=== PATIENT | female | born 1955 | race Caucasian/White ===

== ENCOUNTER → 2016-11-16 | Day surgery (SDC) | payer MEDICAID ==
[~2016-11-16] VITALS: Ht 157.5 cm; Wt 46.7 kg
[~2016-11-16] MED LIST: ACETAMINOPHEN 325 MG TAB PO PRN; ACETYLCHOLINE OPHTH SOLN 1% 2ML As Ordered ONE; ACETYLCHOLINE OPHTH SOLN 1% 2ML XX ONE; AcetaZOLAMIDE 500 MG ER CAP PO ONE; BSS with VANC/TOB/EPI for EYE CASES IR ONE; CEFUROXIME 1MG/0.1ML INTRACAMERAL INJ As Ordered ONE; CEFUROXIME 1MG/0.1ML INTRACAMERAL INJ ICAM ONE; CYCLOPENTOLATE 2% OPHTH SOLN XX ONE; HEALON DUET (HEALON 10MG/ML 0.55ML & HEALON ENDOCOAT 30MG/ML 0.85ML) As Ordered ONE; HEALON DUET (HEALON 10MG/ML 0.55ML & HEALON ENDOCOAT 30MG/ML 0.85ML) XX ONE; KETOROLAC 0.5% OPHTH SOLN OD ONE; LIDOCAINE 1% SDV 5 ML VIAL As Ordered ONE; LIDOCAINE 1% SDV 5 ML VIAL XX ONE; LIDOCAINE 4% INJ 5 ML AMP OU ONE; LISI10TA4 PO; MIDAZOLAM INJ 2 MG/2 ML VIAL (J2250) As Ordered ONE; OFLOXACIN 0.3 % (OCUFLOX) OPTH SOL 5ML XX ONE; PHENYLEPHRINE 2.5% OPHTH SOL 2ML XX ONE; POVIDONE-IODINE 5% OPHTH PREP SOL 30ML As Ordered ONE; PROPARACAINE 0.5% OPHTH SOL 15ML OD PRN; TRIMETHOBENZAMIDE 300 MG CAP PO PRN; TROPICAMIDE 1% OPHTH SOLN 2 ML XX ONE; VITA-115 PO; VITA100072 PO; VITA400C PO; VITATAB21 PO; fentaNYL 100 MCG/2 ML INJECTION (J3010) As Ordered ONE
[2016-11-16 13:20] VITALS: BP 98/59
--- NOTE | 2016-11-16 17:47 | RO ---
DATE OF PROCEDURE: 11/16/2016 PREPROCEDURE DIAGNOSIS: Age-related nuclear cataract right eye. POSTPROCEDURE DIAGNOSIS: Age-related nuclear cataract right eye. PROCEDURE: Femtosecond cataract extraction with posterior chamber intraocular lens implantation. The lens used was PCB00, 21.5 diopter. SURGEON: Cammy Callejas MD SAMPLE TESTER GRINDER: ANESTHESIA: Topical with sedation. DESCRIPTION OF PROCEDURE: The patient was brought to the operating room and put under the femtosecond laser. A lid speculum was placed between the lids, and the laser was lowered on. Docking was achieved with good suction. The laser procedure was performed with no difficulty. The laser was then removed from the eye, and the lid speculum was removed. The laser was moved over to the operating microscope and prepped and draped in the usual fashion. A lid speculum was placed between the lids. The eye was fixated. The side port incision was opened up with a spatula. 1% non-preservative lidocaine was instilled; then, viscoelastic was instilled. The main incision was then opened with the spatula. The capsulorrhexis was removed from the eye with the Utrata forceps. The lens was then hydrodissected, and a phacoemulsification unit was used to make a groove in the nucleus and one meridian. The nucleus was cracked into four quadrants, and then each quadrant was removed with the phacoemulsification unit. Any remaining cortex was removed with the irrigation and aspiration (I and A) unit. The capsular bag was refilled with viscoelastic. A posterior chamber intraocular lens was placed in the capsular bag. The remaining viscoelastic was removed. The wound was hydrated. Miochol and cefuroxime were instilled. The wound was watertight. The patient tolerated the procedure well and went to the recovery room in stable condition.
== END | disposition home or self-care (01) ==
LOC: M SDC 11:48
PROVIDERS: ATTEND Ophthalmology
DX: H25.11 Age-related nuclear cataract, right eye (principal); I10 Essential (primary) hypertension; F17.210 Nicotine dependence, cigarettes, uncomplicated; Z79.899 Other long term (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 therapy
CPT/HCPCS: 66984; J2250; J3010

== ENCOUNTER → 2016-11-23 | Day surgery (SDC) | payer MEDICAID ==
[~2016-11-23] VITALS: Ht 157.5 cm; Wt 46.7 kg
[~2016-11-23] MED LIST changes: +CYCLOPENTOLATE 2% OPHTH SOLN As Ordered ONE; +CYCLOPENTOLATE 2% OPHTH SOLN OS ONE; -CYCLOPENTOLATE 2% OPHTH SOLN XX ONE; -KETOROLAC 0.5% OPHTH SOLN OD ONE; +KETOROLAC 0.5% OPHTH SOLN OS ONE; +OFLOXACIN 0.3 % (OCUFLOX) OPTH SOL 5ML As Ordered ONE; +OFLOXACIN 0.3 % (OCUFLOX) OPTH SOL 5ML OS ONE; -OFLOXACIN 0.3 % (OCUFLOX) OPTH SOL 5ML XX ONE; +PHENYLEPHRINE 2.5% OPHTH SOL 2ML As Ordered ONE; +PHENYLEPHRINE 2.5% OPHTH SOL 2ML OS ONE; -PHENYLEPHRINE 2.5% OPHTH SOL 2ML XX ONE; -PROPARACAINE 0.5% OPHTH SOL 15ML OD PRN; +PROPARACAINE 0.5% OPHTH SOL 15ML OS PRN; +TROPICAMIDE 1% OPHTH SOLN 2 ML As Ordered ONE; +TROPICAMIDE 1% OPHTH SOLN 2 ML OS ONE; -TROPICAMIDE 1% OPHTH SOLN 2 ML XX ONE
[2016-11-23 12:45] VITALS: BP 139/84
--- NOTE | 2016-11-23 19:21 | RO ---
DATE OF PROCEDURE: 11/23/2016 PREPROCEDURE DIAGNOSIS: Age-related nuclear cataract left eye. POSTPROCEDURE DIAGNOSIS: Age-related nuclear cataract left eye. PROCEDURE: Femtosecond cataract with posterior chamber intraocular lens implantation. SURGEON: Cammy Callejas MD ASSOCIATE PROFESSOR OF PSYCHOLOGY: ANESTHESIA: Topical with sedation. LENS USED: LB00 21.5 diopter. DESCRIPTION OF PROCEDURE: The patient was brought to the operating room and put under the Femtosecond laser. A lid speculum was placed between the lids and the laser was lowered on. Docking was achieved with good suction. The laser procedure was performed with no difficulty. The laser was then removed from the eye and the lid speculum was removed. The laser was moved over to the operating microscope and prepped and draped in the usual fashion. A lid speculum was placed between the lids. The eye was fixated. The side-port incision was opened up with a spatula. 1% non-preservative Lidocaine was instilled; then viscoelastic was instilled. The main incision was then opened with the spatula. The capsulorrhexis was removed from the eye with the Utrata forceps. The lens then hydrodissected and a phacoemulsification was used to make a groove in the nucleus and one meridian. The nucleus was cracked into four quadrants and then each quadrant was removed with the phacoemulsification unit. Any remaining cortex was removed with the I and A unit. The capsular bag was refilled with viscoelastic. A posterior chamber intraocular lens was placed in the capsular bag. The remaining viscoelastic was removed. The wound was hydrated. Miochol and cefuroxime were instilled. The wound was water-tight. The patient tolerated the procedure well and went to the recovery room in stable condition.
== END | disposition home or self-care (01) ==
LOC: M SDC 10:31 → EDUNIT# 11:00
PROVIDERS: ATTEND Ophthalmology
DX: H25.12 Age-related nuclear cataract, left eye (principal); I10 Essential (primary) hypertension; F17.210 Nicotine dependence, cigarettes, uncomplicated; Z79.899 Other long term (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 therapy
CPT/HCPCS: 66984; J2250; J3010

== ENCOUNTER 2017-07-23 11:09 | Inpatient (IN) | payer MEDICAID, OTHER ==
[~2017-07-23] VITALS: Ht 157.5 cm; Wt 46.3 kg
[~2017-07-23 11:09] MED LIST changes: -ACETAMINOPHEN 325 MG TAB PO PRN; -ACETYLCHOLINE OPHTH SOLN 1% 2ML As Ordered ONE; -ACETYLCHOLINE OPHTH SOLN 1% 2ML XX ONE; -AcetaZOLAMIDE 500 MG ER CAP PO ONE; -BSS with VANC/TOB/EPI for EYE CASES IR ONE; -CEFUROXIME 1MG/0.1ML INTRACAMERAL INJ As Ordered ONE; -CEFUROXIME 1MG/0.1ML INTRACAMERAL INJ ICAM ONE; -CYCLOPENTOLATE 2% OPHTH SOLN As Ordered ONE; -CYCLOPENTOLATE 2% OPHTH SOLN OS ONE; -HEALON DUET (HEALON 10MG/ML 0.55ML & HEALON ENDOCOAT 30MG/ML 0.85ML) As Ordered ONE; -HEALON DUET (HEALON 10MG/ML 0.55ML & HEALON ENDOCOAT 30MG/ML 0.85ML) XX ONE; -KETOROLAC 0.5% OPHTH SOLN OS ONE; -LIDOCAINE 1% SDV 5 ML VIAL As Ordered ONE; -LIDOCAINE 1% SDV 5 ML VIAL XX ONE; -LIDOCAINE 4% INJ 5 ML AMP OU ONE; -MIDAZOLAM INJ 2 MG/2 ML VIAL (J2250) As Ordered ONE; -OFLOXACIN 0.3 % (OCUFLOX) OPTH SOL 5ML As Ordered ONE; -OFLOXACIN 0.3 % (OCUFLOX) OPTH SOL 5ML OS ONE; -PHENYLEPHRINE 2.5% OPHTH SOL 2ML As Ordered ONE; -PHENYLEPHRINE 2.5% OPHTH SOL 2ML OS ONE; -POVIDONE-IODINE 5% OPHTH PREP SOL 30ML As Ordered ONE; -PROPARACAINE 0.5% OPHTH SOL 15ML OS PRN; -TRIMETHOBENZAMIDE 300 MG CAP PO PRN; -TROPICAMIDE 1% OPHTH SOLN 2 ML As Ordered ONE; -TROPICAMIDE 1% OPHTH SOLN 2 ML OS ONE; -fentaNYL 100 MCG/2 ML INJECTION (J3010) As Ordered ONE
[2017-07-23] MEDS ORDERED: DILUENT IV ONE (11:45)
[2017-07-23] MEDS ORDERED: NS IV ONE (11:45)
[2017-07-23 12:22] LABS: VENOUS O2 SATURATION 62.9 % (60.0-80.0); VENOUS TOTAL CO2 34.1 MEQ/L (24.0-28.0)
[2017-07-23 12:23] LABS: ADD MANUAL DIFFER YES; MEAN CORPUSCULAR HEMOGLOBIN 40.8 pg (27.0-33.0); MEAN CORPUSCULAR HGB CONC 36.1 g/dl (32.0-36.5); MEAN CORPUSCULAR VOLUME 112.9 fl (80.0-96.0); PLATELET COUNT, AUTOMATED 293 k/mm3 (150-450); RED CELL DISTRIBUTION WIDTH 12.6 % (11.5-14.5); WHITE BLOOD COUNT 8.4 K/mm3 (4.0-10.0)
[2017-07-23 12:24] LABS: INR 0.85
[2017-07-23 12:36] LABS: ALBUMIN 1.9 GM/DL (3.2-5.2); ALBUMIN/GLOBULIN RATIO 0.56 (1.00-1.93); ALKALINE PHOSPHATASE 168 U/L (45-117); ALT/SGPT 111 U/L (12-78); AMYLASE 10 U/L (25-115); ANION GAP 11 MEQ/L (8-16); AST/SGOT 54 U/L (15-37); BILIRUBIN,DIRECT 0.8 MG/DL (0.0-0.2); BILIRUBIN,TOTAL 1.1 MG/DL (0.2-1.0); BLOOD UREA NITROGEN 20 MG/DL (7-18); CALCIUM LEVEL 8.3 MG/DL (8.5-10.1); CARBON DIOXIDE LEVEL 28 MEQ/L (21-32); CHLORIDE LEVEL 94 MEQ/L (98-107); GLOMERULAR FILTRATION RATE > 60.0 (>51); GLUCOSE, FASTING 104 MG/DL (70-105); MAGNESIUM LEVEL 1.7 MG/DL (1.8-2.4); POTASSIUM SERUM 3.9 MEQ/L (3.5-5.1); SODIUM LEVEL 133 MEQ/L (136-145); TOTAL PROTEIN 5.3 GM/DL (6.4-8.2)
[2017-07-23 13:06] LABS: BANDS 2 % (< 11)
[2017-07-23] MEDS ORDERED: ISOVUE-370 76% 100ML VIAL (Q9967) As Ordered ONE (13:17)
--- NOTE | 2017-07-23 14:44 | REP ---
CT ABDOMEN AND PELVIS WITH IV CONTRAST: TECHNIQUE: Axial contrast enhanced images from the lung bases to the pubic symphysis using 100 mL Isovue 370 intravenous contrast material with multiplanar reformations. Visualized lung bases appear clear. The liver demonstrates focal fatty infiltration along the fissure for the ligamentum teres. No liver mass is seen. Spleen, adrenals, pancreas are unremarkable. There is a tiny cyst in the upper pole of the left kidney. There is no hydronephrosis. There is moderate atherosclerotic calcification of the abdominal aorta without aneurysm. No adenopathy is seen. There is no free air. There appears to be segmental thickening of the sigmoid colon. There is surrounding loculated fluid. This segmental thickening could be neoplastic or inflammatory. The small bowel is diffusely moderately dilated. There is mild scattered free fluid in the abdomen and pelvis. There appears to be a cyst of the left ovary measuring 2.3 cm in diameter. Urinary bladder is not well distended and not well evaluated. IMPRESSION: Segmental thickening of the sigmoid colon with surrounding loculated fluid. This may be neoplastic or inflammatory in etiology. Moderate diffuse small bowel dilatation. Mild scattered free fluid without free air. No adenopathy. Small cyst left ovary. Signed by Alfredo Bassett MD 07/23/2017 07:18 P
[2017-07-23] MEDS: NS 1,000 ML IV SCH ×3 (15:30→22:39)
[2017-07-23] MEDS ORDERED: D-10TAB PO (15:47)
[2017-07-23] MEDS ORDERED: ACET50TAOT PO (15:47)
[2017-07-23] MEDS ORDERED: ASCO10003 PO (15:47)
[2017-07-23] MEDS: PIPERACILLIN/TAZOBACTAM SOD 3.375 GM in D5W MINI-BAG PLUS 50 ML IV SCH ×2 (16:00→22:39)
[2017-07-23] MEDS ORDERED: OXAZEPAM 10 MG CAP PO PRN (16:15)
[2017-07-23] MEDS ORDERED: NICOTINE POLACRILEX 2 MG GUM PO PRN (16:15)
[2017-07-23] MEDS: THIAMINE 100 MG TAB PO SCH (16:54)
[2017-07-23] MEDS: MULTIVITAMINS/MINERALS THERAP 1 TAB PO SCH (16:55)
[2017-07-23] MEDS: FOLIC ACID 1 MG TAB PO SCH (16:55)
[2017-07-23] MEDS: MAG SULF 1GM/100ML (MAG RUN) 1 GM in APPROPRIATE DILUENT 1 EA IV SCH ×2 (17:20→18:52)
--- NOTE | 2017-07-23 17:41 | HPE ---
DATE OF ADMISSION: 07/23/2017 PRIMARY CARE PHYSICIAN: Marlee Reynolds. Patient would like to change primary care physician at hospital discharge. HOSPITALIST ATTENDING: Dr. Ej Herrera. CHIEF COMPLAINT: Abdominal distention and generalized weakness. HISTORY OF PRESENT ILLNESS: This is a 61-year-old female with history of hypertension on chronic lisinopril, bilateral cataract surgery October 2016, presents to the emergency room with two day history of abdominal distention. Patient has been complaining of three to four months of generalized weakness, decrease in appetite, feeling of bilateral hands and feet feeling cold and numb. [place] like she had "iron bands around my ankles and rib cage, feeling very heavy with extreme pain in my back and hips," worse when she crosses her legs. She has been having tingling sensation in bilateral feet and hands and has been taking vitamin E, B. Before, she had been taking vitamin B, C and D as outpatient. Her ambulation has been affected the past week with inability to walk without having to sit immediately due to generalized weakness. She has chronic shortness of breath from smoking over 40 years with occasional chronic cough with white sputum. This weekend, patient noticed that her abdomen, which is usually flattened, has "popped up over the past two days." She has had significant decrease in appetite without documented weight loss, even with "stuff I like," only eating about four to five bites. She has had some constipation in the past week. She usually goes daily. Otherwise, has had no diarrhea. She has had no history of colonoscopy in the past. She admits to drinking alcohol, two wine glasses daily, but per the , speaking in private with Dr. Romero, emergency room (ER) physician, patient apparently drinks heavily every day, but would not admit to it in my interview with her on admission. Patient had not had any prior esophagogastroduodenoscopy (EGD) or colonoscopy and has also been complaining of dysphagia to solids and liquids. Feels like food and water are getting stuck, unrelated to the temperature of the liquids, but again, has not had any weight loss. No prior history of reflux, heartburn, or hiatal hernia in the past, but has been smoking since the age of 16 and quit one week ago, with two pack per day habit in the past. Hospitalist service was paged for admission for further evaluation of patient's abdominal distention, sigmoid colon thickening, and complaints of generalized weakness with dysphagia. In the emergency room (ER), she was noted to have a systolic pressure of 70, complaints of dizziness, 73/60, given intravenous normal saline bolus, with resultant increase in systolic pressure to 111 at the bedside. She otherwise denied any lightheadedness, dizziness, near syncope. Denies any palpitations, chest pain, pressure, tightness, or any change in her chronic shortness of breath. PAST MEDICAL HISTORY: 1. Hypertension. 2. Bilateral cataracts. PAST SURGICAL HISTORY: Bilateral cataract surgery. HOME MEDICATIONS: - acetaminophen 500 mg as needed - vitamin C 1 gram daily - vitamin D 1000 units daily - vitamin B12 1000 mcg daily - lisinopril 10 mg daily - vitamin E 400 units daily ALLERGIES: No known drug or food allergies. SOCIAL HISTORY: Lives with her . 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 Currently, no cigarettes in the past week. Patient admits to drinking two glasses of wine nightly; however, per the 's conversation outside the room with Dr. Romero, states she drinks heavily at home, but would not admit to this during my interview with her on admission. FAMILY HISTORY: Mother in her 70s. Father in his 70s with hypertension. One brother and sister both have hypertension. REVIEW OF SYSTEMS: Per history of present illness (HPI), 12-point system otherwise negative. PHYSICAL EXAMINATION: On emergency room (ER) presentation, patient's blood pressure was 73/60. Current blood pressure on admission is 111/67, temperature 97.4, pulse 118, 96% on room air, respiratory rate of 20. GENERAL: Patient appears older than her stated age. Cachectic-appearing, disheveled. Poor dentition. Anicteric. No jaundice. No respiratory distress. Able to speak in full sentences. Speech is fluent. Face is symmetric. Tongue is midline. Pupils are equally round and reactive to light and accommodation. Extraocular muscles intact. Normocephalic, atraumatic. NECK: Supple. Full range of motion. No cervical lymphadenopathy or thyromegaly. No jugular venous distention. LUNGS: Diminished, but clear to auscultation. No wheezing, rales or rhonchi. HEART: S1, S2. Sinus tachycardia. No murmurs, rubs or gallops. ABDOMEN: Soft, doughy. Positive bowel sounds in four quadrants. No rebound or guarding. No tenderness. No hepatosplenomegaly. No capet medusae. No colón erythema or spider angiomas. EXTREMITIES: No cyanosis or clubbing. SKIN: Warm, dry and well-perfused. [place] in color. LABORATORY DATA: White count 8.4, hemoglobin 13, hematocrit 36, platelet count 293. 82% neutrophils. Sedimentation rate is pending. Sodium 133, potassium 3.9, chloride 94, bicarbonate 28, BUN 20, creatinine 0.5, glucose 104, calcium 8.3, magnesium 1.7. Total bilirubin 1.1, direct bilirubin 0.8, AST 54, ALT 111, alkaline phosphatase 168. Total CK 13, CK-MB 1. Relative index 7.69. Troponin less than 0.02. C-reactive protein 14.2. Total protein 5.3, albumin 1.9. Albumin/globulin ratio 0.56, amylase 10. Alpha-fetoprotein, C, A, CA-125, vitamin B12, folate and TSH are all pending. IMAGING STUDIES: CT abdomen/pelvis shows focal fatty infiltration of the liver along with fissure for the ligamentum teres. No liver mass. Spleen, adrenals, pancreas are unremarkable. Tiny cyst in the upper pole of the left kidney. No hydronephrosis. Moderate atherosclerotic calcification of abdominal aorta without aneurysm. No adenopathy is seen. No free air. Segmental thickening of the sigmoid colon with surrounding loculated fluid, could be neoplastic or inflammatory. Small bowel is diffusely moderately dilated. There is mild, scattered free fluid in the abdomen and pelvis with a cyst in left ovary measuring 2.3 cm in diameter. Urinary bladder is not distended and not well evaluated. ASSESSMENT AND PLAN: This is a 61-year-old female with history of hypertension, bilateral cataract surgery, more than a 50-pack year history of smoking, quit one week ago, heavy alcohol use per the , patient admits to two glasses of wine daily, presents to the emergency room with three to four month history of weakness, fatigue and a two day history of abdominal distention. CURRENT ISSUES: The patient will be admitted for the following active issues: 1. Sigmoid thickening. Patient has not had a previous colonoscopy, but has had no family history of colon cancer. Will consult gastroenterology (GI) for colonoscopy with biopsy. Patient has been having change in her bowel movements, has been much more constipated lately. She has history of alcohol and cigarette use in the past, would benefit from ruling out colon cancer. Patient has not had any bright red blood per rectum, documented weight loss, but does also complain of some dysphagia. Patient may have a regular diet now and nothing by mouth when colonoscopy is scheduled. Check tumor markers, sarah-fetoprotein, C, CA-99 2. Left ovarian cyst. Most likely benign; however, will check a pelvic ultrasound to rule out solid mass and check CA-125. 3. Generalized weakness and fatigue. Most likely secondary to chronic hypotension. Patient, by taking lisinopril, has not developed any acute kidney injury or renal failure, hyperkalemia or metabolic acidosis. Sigmoid thickening could be infectious or inflammatory; therefore, patient has been given intravenous Zosyn for gram-negative and anaerobic coverage. For now, patient appears to have responded quite well to intravenous fluids with normal saline. Will continue hydration. She appears to be well perfused. Will monitor patient's urine output, check a TSH level as well to rule out hypothyroidism. 4. Dysphagia. Patient also complains of dysphagia to solids and liquids with significant change in decreased appetite; however, she has not had any significant weight loss due to risk factors of being over the age of 50, with history of both heavy alcohol use as well as cigarette smoking. It is reasonable to proceed with esophagogastroduodenoscopy (EGD), but will defer to Dr. Ramirez for this. If he would prefer to do an esophagram prior to this, we can empirically treat the patient as well with a proton pump inhibitor (PPI). At this time, she has no complaints of odynophagia to suggest any infectious etiology or empiric fluconazole use. 5. Active smoking. Patient recently quit one week ago. Had been smoking two packs a day since the age of 16, has cut back to about a pack a day for the past six months. No cigarettes for the past one week. Patient will have as needed nicotine gum for cravings and a nicotine patch if she becomes extremely uncomfortable. 6. Heavy alcohol use. Patient denies more than two glasses of wine daily; however, per the 's conversation with Dr. Romero, patient drinks much more heavily. Therefore, we will monitor for delirium tremens. Serax, Ativan, multivitamins, thiamin and folate for now, and as needed Ativan for comfort. [place] Withdrawal Assessment (CIWA) protocol. 7. Hypertension. Patient currently had low blood pressure; therefore, we will discontinue the lisinopril. 8. Deep venous thrombosis (DVT) prophylaxis. Subcutaneously heparin. Patient will be assigned to Dr. Ej Herrera at 7:00 p.m. on 07/23/2017.
[2017-07-23 21:35] VITALS: BP 104/66
[2017-07-23] MEDS: NICOTINE 7 MG/24 HR TRANSDERMAL TD SCH (21:46)
[2017-07-23] MEDS: HEPARIN SOD (PORCINE) 5000 UNITS/ML VIAL SQ SCH (22:39)
[2017-07-24] VITALS (7 sets, daily range): BP systolic 99–134; BP diastolic 65–82
[2017-07-24] MEDS: PIPERACILLIN/TAZOBACTAM SOD 3.375 GM in D5W MINI-BAG PLUS 50 ML IV SCH ×4 (04:22→21:44)
[2017-07-24] MEDS: HEPARIN SOD (PORCINE) 5000 UNITS/ML VIAL SQ SCH ×3 (05:16→21:43)
[2017-07-24 05:30] LABS: ADD MANUAL DIFFER YES; MEAN CORPUSCULAR HEMOGLOBIN 40.8 pg (27.0-33.0); MEAN CORPUSCULAR HGB CONC 35.9 g/dl (32.0-36.5); MEAN CORPUSCULAR VOLUME 113.5 fl (80.0-96.0); PLATELET COUNT, AUTOMATED 258 k/mm3 (150-450); RED CELL DISTRIBUTION WIDTH 12.8 % (11.5-14.5); WHITE BLOOD COUNT 5.2 K/mm3 (4.0-10.0)
[2017-07-24 05:57] LABS: ALBUMIN 1.6 GM/DL (3.2-5.2); ALBUMIN/GLOBULIN RATIO 0.55 (1.00-1.93); ALKALINE PHOSPHATASE 129 U/L (45-117); ALT/SGPT 71 U/L (12-78); ANION GAP 9 MEQ/L (8-16); AST/SGOT 32 U/L (15-37); BILIRUBIN,DIRECT 0.7 MG/DL (0.0-0.2); BILIRUBIN,TOTAL 0.9 MG/DL (0.2-1.0); BLOOD UREA NITROGEN 14 MG/DL (7-18); CALCIUM LEVEL 7.2 MG/DL (8.5-10.1); CARBON DIOXIDE LEVEL 27 MEQ/L (21-32); CHLORIDE LEVEL 99 MEQ/L (98-107); CHOLESTEROL LEVEL 87 MG/DL (<200); CREATININE FOR GFR 0.28 MG/DL (0.55-1.02); GLOMERULAR FILTRATION RATE > 60.0 (>51); GLUCOSE, FASTING 80 MG/DL (70-105); POTASSIUM SERUM 3.6 MEQ/L (3.5-5.1); SODIUM LEVEL 135 MEQ/L (136-145); TOTAL PROTEIN 4.5 GM/DL (6.4-8.2); TRIGLYCERIDES LEVEL 173 MG/DL (<150)
[2017-07-24 06:33] LABS: BANDS 3 % (< 11)
--- NOTE | 2017-07-24 06:39 | REP ---
PELVIC ULTRASOUND: Real-time sonographic evaluation of the pelvis performed utilizing transabdominal and endovaginal technique. The bladder measures 6.6 x 4.5 cm. The uterus measures 5.2 x 2.6 x 3.1 cm. Endometrial thickness is 2 mm. Right ovary is not visualized. Left ovary measures 3.6 x 3.7 x 1.9 cm and contains a complex cyst 1.6 x 2.9 x 2.0 cm. Blood flow is seen in the left ovary with duplex Doppler evaluation, with no torsion, RI equals 0.33. A couple of tiny endometrial calcifications are seen. IMPRESSION: Complex cyst left ovary 2.9 cm in diameter. Right ovary not visualized. Signed by Alfredo Bassett MD 07/24/2017 05:25 P
--- NOTE | 2017-07-24 06:50 | REP ---
LUMBOSACRAL SPINE: Three views of the lumbosacral spine performed. There is no compression fracture. There is mild diffuse spurring. There is mild disc space narrowing at L3-4. There is moderate to severe narrowing at L4-5 with subchondral sclerosis. There is mild anterior listhesis of L4 on L5 which appears to be due to posterior facet arthropathy. There is diffuse sclerosis at the posterior facet joints. Posterior elements are intact. IMPRESSION: Degenerative changes most significantly at the L4-5 level. No acute fracture. Signed by Alfredo Bassett MD 07/24/2017 05:25 P
--- NOTE | 2017-07-24 08:29 | ECGEPIP ---
Stationary ECG Study [facility] - ED Test Date: 2017-07-23 Pat Name: ADAN PRATER Department: Room: - Gender: F Rabbit Fancier: svetlana : 1955 Requested By: Sultana Burgess Order Number: [id number] Reading MD: Colton Diaz Measurements Intervals [place] Rate: 112 P: 79 FL: 155 QRS: 60 QRSD: 72 T: 81 QT: 311 QTc: 425 Interpretive Statements SINUS TACHYCARDIA NO PRIORS Electronically Signed On 07-24-2017 8:29:09 EDT by Colton Diaz
[2017-07-24] MEDS: MULTIVITAMINS/MINERALS THERAP 1 TAB PO SCH (09:49)
[2017-07-24] MEDS: FOLIC ACID 1 MG TAB PO SCH (09:49)
[2017-07-24] MEDS: THIAMINE 100 MG TAB PO SCH (09:49)
[2017-07-24] MEDS: SIMETHICONE 80 MG CHEW TAB PO SCH ×4 (09:49→21:43)
[2017-07-24] MEDS: NICOTINE 7 MG/24 HR TRANSDERMAL TD SCH (09:50)
[2017-07-24 10:35] LABS: FOLATE 1.6 NG/ML (>5.4); VITAMIN B12 LEVEL > 2000 PG/ML (247-911)
--- NOTE | 2017-07-24 11:04 | IPNPDOC ---
Subjective Date Seen The patient was seen on 07/24/17. Subjective Chief Complaint/HPI Patient seen and examined at the bedside. States that her abdominal pain is improved, and she feels better overall. Denies any episodes of nausea/vomiting or diarrhea overnight. Notes that she is passing flatus, but no bowel movement overnight. Denies any other acute complaints at this time. Objective Physical Examination General Exam: Positive: Alert, Cooperative, No Acute Distress ENT Exam: Positive: Atraumatic, Mucous membr. moist/pink Neck Exam: Negative: JVD Chest Exam: Positive: Clear to auscultation, Normal air movement Heart Exam: Positive: Rate Normal, Normal S1, Normal S2 Abdomen Exam: Positive: Soft (Distended lower abdominal quadrants, mild tenderness to deep palpation. No rebound tenderness, guarding, or rigidity) Extremity Exam: Negative: Tenderness, Swelling Psych Exam: Positive: Oriented x 3 Assessment /Plan Plan/VTE VTE Prophylaxis Ordered?: Yes Plan/Urinary Catheter Reason for insertion/continuin: Critical Pt monitoring Plan Abdominal Pain 2/2 Sigmoid Thickening, Infectious vs. Malignant in etiology CT abd/pel noted Pelvic U/S notable for left sided ovarian cyst WBC wnl, patient has remained afebrile Cultures pending Empirically covered on Zosyn for now Tumor markers pending LFTs downward trending IVF Hydration Will keep patient NPO Surgery on consult for possible Colonoscopy vs U/S Guided Needle aspiration for further delineation Fatigue, Lethargy There is concern for possible underlying malignancy given the patient's clinical presentation and CT Abd imaging. Will cont to work up PT on board for functional optimization Hx of Dysphagia Patient would benefit from an EGD given her history of EtOH and Tobacco abuse, will await surgical recommendations regarding next step in diagnostic modality Alcohol Abuse Cont Serax, Ativan Thiamine, Folate, MVM CIWA Protocol Tobacco Abuse Nicotine patch Counseled on tobacco cessation DVT Prophylaxis Heparin SC VS, I&O, 24H, Fishbone Vital Signs/I&O Vital Signs Date Time Temp Pulse Resp B/P (MAP) Pulse Ox O2 Delivery O2 Flow Rate FiO2 07/24/17 08:00 97.1 102 18 113/69 (84) 90 Room Air I&O- Last 24 Hours up to 6 AM 07/25/17 05:59 Intake Total 550 ml Output Total 0 ml Balance 550 ml Laboratory Data 24H LABS Laboratory Tests 2 07/23/17 11:53: Hepatitis B Surface Antigen NEGATIVE 07/23/17 11:58: Prothrombin Time 11.7L, Prothromb Time International Ratio 0.85, Activated Partial Thromboplast Time 29.7 07/23/17 11:59: Neutrophils 82H, Band Neutrophils 2, Lymphocytes (Manual) 7L, Monocytes (Manual ) 4, Atypical Lymphocytes 5, Platelet Estimate NORMAL, Macrocytosis 2+, Blood Gas Bicarbonate Standard 30.0, Venous Blood pH 7.432H, Venous Blood Partial Pressure CO2 50.0, Venous Blood Partial Pressure O2 35.0, Venous Blood Total Carbon Dioxide 34.1H, Venous Blood HCO3 32.6H, Venous Blood Oxygen Saturation 62.9, Venous Blood Base Excess 7.0H, Anion Gap 11, Glomerular Filtration Rate > 60.0, Lactic Acid Level 1.9, Calcium Level 8.3L, Magnesium Level 1.7L, Aspartate Amino Transf (AST/SGOT) 54H, Alanine Aminotransferase (ALT/SGPT) 111H , Alkaline Phosphatase 168H, Total Bilirubin 1.1H, Direct Bilirubin 0.8H, Total Creatine Kinase 13L, Creatine Kinase MB 1.0, Creatine Kinase MB Relative Index 7.69H, Troponin I < 0.02, C-Reactive Protein, Quantitative 14.20H, Total Protein 5.3L, Albumin 1.9L, Albumin/Globulin Ratio 0.56L, Amylase Level 10L, Vitamin B12 Level > 2000H, Folate 1.6L 07/23/17 15:20: C-Reactive Protein, Quantitative 12.00H, Erythrocyte Sedimentation Rate 49H, Whole Blood Ionized Calcium 4.4L, Thyroid Stimulating Hormone (TSH) 0.951 07/24/17 04:55: Neutrophils 83H, Band Neutrophils 3, Lymphocytes (Manual) 9L, Monocytes (Manual ) 4, Atypical Lymphocytes 1, Platelet Estimate NORMAL, Macrocytosis 3+, Anion Gap 9, Glomerular Filtration Rate > 60.0, Calcium Level 7.2L, Aspartate Amino Transf (AST/SGOT) 32, Alanine Aminotransferase (ALT/SGPT) 71, Alkaline Phosphatase 129H, Total Bilirubin 0.9, Direct Bilirubin 0.7H, Total Protein 4.5L , Albumin 1.6L, Albumin/Globulin Ratio 0.55L, Triglycerides Level 173H, Total Cholesterol 87, LDL Cholesterol 35.4, Non-HDL Cholesterol (LDL + VLDL) 70, Total HDL Cholesterol 17L, Cholesterol/HDL Ratio 5.117H, Thyroid Stimulating Hormone (TSH) 1.780 CBC/BMP Laboratory Tests 07/23/17 11:59 Red Blood Count 3.20 L, Mean Corpuscular Volume 112.9 H, Mean Corpuscular Hemoglobin 40.8 H, Mean Corpuscular Hemoglobin Concent 36.1, Red Cell Distribution Width 12.6 07/24/17 04:55 Red Blood Count 2.82 L, Mean Corpuscular Volume 113.5 H, Mean Corpuscular Hemoglobin 40.8 H, Mean Corpuscular Hemoglobin Concent 35.9, Red Cell Distribution Width 12.8 Microbiology Microbiology 07/23/17 Blood Culture, Received Pending 07/23/17 Blood Culture, Received Pending RUPA BENNETT MD Jul 24, 2017 11:04
--- NOTE | 2017-07-24 11:08 | CR.PDOC ---
[facility] Consultation Consultation DATE OF CONSULTATION: Jul 23, 2017 at 11:09 REFERRING PROVIDER: Dr. Li ATTENDING PHYSICIAN: Dr. Herrera REASON FOR CONSULTATION/CHIEF COMPLAINT: Sigmoid thickening HISTORY OF PRESENT ILLNESS: A 61-year-old female with history of hypertension on chronic lisinopril, bilateral cataract surgery presents to the emergency room with two day history of abdominal distention. With a 3-4 month history of generalized weakness, decreased appetite, feeling bilateral feet and hands going numb. Surgery was consult because of decreased appetite and weight loss, with concern for malignancy. Patient has a history of smoking about 2 packs a day since she was 16. Patient also has a history of heavy alcohol use. CT abdomen revealed Segmental thickening of the sigmoid colon with surrounding loculated fluid. This may be neoplastic or inflammatory in etiology. Moderate diffuse small bowel dilatation. Mild scattered free fluid without free air. No adenopathy. Small cyst left ovary. ALLERGIES: Please see below. HOME MEDICATIONS: Please see below. PAST MEDICAL HISTORY: 1. Hypertension 2. Bilateral cataracts. PAST SURGICAL HISTORY: 1. Bilateral cataract surgery FAMILY HISTORY: Mother in her 70s. Father in his 70s with hypertension. One brother and sister both have hypertension SOCIAL HISTORY: Lives with her . 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 Currently, no cigarettes in the past week. Patient admits to drinking two glasses of wine nightly; however, per the 's conversation outside the room with Dr. Romero, states she drinks heavily at home, but would not admit to this during my interview with her on admission REVIEW OF SYSTEMS: CONSTITUTIONAL: Alert, orientated, minutes weight loss CARDIOVASCULAR: Denies any chest pain denies any palpitation RESPIRATORY: Respiratory difficulties. GENITOURINARY: No issues. MUSCULOSKELETAL: To generalized weakness. GASTROINTESTINAL: Constipation and decreased appetite. HEMATOLOGIC/LYMPHATIC: No bleeding issues PHYSICAL EXAMINATION: VITAL SIGNS: Please see below. GENERAL APPEARANCE: HEENT: Head is atraumatic, RESPIRATORY: Lungs are clear to auscultate. CARDIOVASCULAR: S1 and S2 present, no murmurs rubs or gallops ABDOMEN: No organomegaly. Slight tenderness to palpation throughout the abdomen. EXTREMITIES: Swelling no deformities. LABORATORY DATA: Please see below. IMAGING: CT abomen revealed Segmental thickening of the sigmoid colon with surrounding loculated fluid. This may be neoplastic or inflammatory in etiology. Moderate diffuse small bowel dilatation. Mild scattered free fluid without free air. No adenopathy. Small cyst left ovary. ASSESSMENT/PLAN: 1. A 61-year-old female admitted for abdominal distention and generalized weakness. Abdominal CT revealed segmental thickening of the sigmoid colon with surrounding loculated fluid. Given abdominal distention and weight loss, malignancy is a concern. Etiology is questionable whether upper or lower GI pathology is responsible. CEA is pending. CA 119 has been ordered. She may have a obstruction, as evident by the bowel dilation. I recommend patient be placed nothing by mouth. In terms of nutrition a PICC line has been ordered for TPN. Simethicone has been ordered. I recommended consultation with GI for an endoscope. At this point I am not concerned about the sigmoid lesion. I am more concerned about the possibility of gastric cancer. Ultrasound-guided needle aspiration for the fluid in her abdomen has been ordered. Vital Signs/I&O Vital Signs Date Time Temp Pulse Resp B/P (MAP) Pulse Ox O2 Delivery O2 Flow Rate FiO2 07/24/17 08:00 97.1 102 18 113/69 (84) 90 Room Air I&O- Last 24 Hours up to 6 AM 07/25/17 06:00 Intake Total 50 ml Balance 50 ml Laboratory Data Labs 24H Laboratory Tests 2 07/23/17 11:53: Hepatitis B Surface Antigen NEGATIVE 07/23/17 11:58: Prothrombin Time 11.7L, Prothromb Time International Ratio 0.85, Activated Partial Thromboplast Time 29.7 07/23/17 11:59: Neutrophils 82H, Band Neutrophils 2, Lymphocytes (Manual) 7L, Monocytes (Manual ) 4, Atypical Lymphocytes 5, Platelet Estimate NORMAL, Macrocytosis 2+, Blood Gas Bicarbonate Standard 30.0, Venous Blood pH 7.432H, Venous Blood Partial Pressure CO2 50.0, Venous Blood Partial Pressure O2 35.0, Venous Blood Total Carbon Dioxide 34.1H, Venous Blood HCO3 32.6H, Venous Blood Oxygen Saturation 62.9, Venous Blood Base Excess 7.0H, Anion Gap 11, Glomerular Filtration Rate > 60.0, Lactic Acid Level 1.9, Calcium Level 8.3L, Magnesium Level 1.7L, Aspartate Amino Transf (AST/SGOT) 54H, Alanine Aminotransferase (ALT/SGPT) 111H , Alkaline Phosphatase 168H, Total Bilirubin 1.1H, Direct Bilirubin 0.8H, Total Creatine Kinase 13L, Creatine Kinase MB 1.0, Creatine Kinase MB Relative Index 7.69H, Troponin I < 0.02, C-Reactive Protein, Quantitative 14.20H, Total Protein 5.3L, Albumin 1.9L, Albumin/Globulin Ratio 0.56L, Amylase Level 10L, Vitamin B12 Level > 2000H, Folate 1.6L 07/23/17 15:20: C-Reactive Protein, Quantitative 12.00H, Erythrocyte Sedimentation Rate 49H, Whole Blood Ionized Calcium 4.4L, Thyroid Stimulating Hormone (TSH) 0.951 07/24/17 04:55: Neutrophils 83H, Band Neutrophils 3, Lymphocytes (Manual) 9L, Monocytes (Manual ) 4, Atypical Lymphocytes 1, Platelet Estimate NORMAL, Macrocytosis 3+, Anion Gap 9, Glomerular Filtration Rate > 60.0, Calcium Level 7.2L, Aspartate Amino Transf (AST/SGOT) 32, Alanine Aminotransferase (ALT/SGPT) 71, Alkaline Phosphatase 129H, Total Bilirubin 0.9, Direct Bilirubin 0.7H, Total Protein 4.5L , Albumin 1.6L, Albumin/Globulin Ratio 0.55L, Triglycerides Level 173H, Total Cholesterol 87, LDL Cholesterol 35.4, Non-HDL Cholesterol (LDL + VLDL) 70, Total HDL Cholesterol 17L, Cholesterol/HDL Ratio 5.117H, Thyroid Stimulating Hormone (TSH) 1.780 CBC/BMP Laboratory Tests 07/23/17 11:59 Red Blood Count 3.20 L, Mean Corpuscular Volume 112.9 H, Mean Corpuscular Hemoglobin 40.8 H, Mean Corpuscular Hemoglobin Concent 36.1, Red Cell Distribution Width 12.6 07/24/17 04:55 Red Blood Count 2.82 L, Mean Corpuscular Volume 113.5 H, Mean Corpuscular Hemoglobin 40.8 H, Mean Corpuscular Hemoglobin Concent 35.9, Red Cell Distribution Width 12.8 Microbiology Microbiology 07/23/17 Blood Culture, Received Pending 07/23/17 Blood Culture, Received Pending Allergies Coded Allergies: No Known Allergies (Unverified , 11/14/16) Home Medications Scheduled Ascorbic Acid (Ascorbic Acid) 1,000 Mg Tab, 1,000 MG PO DAILY, (Reported) Cholecalciferol (D-1000) 1,000 Unit Tab, 1,000 UNIT PO DAILY, (Reported) Cyanocobalamin (Vitamin B12) 1,000 Mcg Tab, 1,000 MCG PO DAILY, (Reported) Lisinopril (Lisinopril) 10 Mg Tab, 10 MG PO DAILY, (Reported) Vitamin E (Janel-Plus E) 400 Unit Cap, 400 UNIT PO DAILY, (Reported) Scheduled PRN Acetaminophen (Acetaminophen) 500 Mg Tab, 500 MG PO for PAIN, (Reported) GME ATTESTATION GME ATTESTATION My preceptor for this patient encounter was physically present in the building during the encounter and was fully available. As needed, all aspects of the patient interview, examination, medical decision making process, and medical care plan development were reviewed and approved by the preceptor. Preceptor is aware and concurs with the plan as stated in the body of this note and will attest to such by his/her cosignature. RICH QUIÑONES DO Jul 24, 2017 11:08
--- NOTE | 2017-07-24 13:27 | REP ---
CHEST, SINGLE VIEW: There is no evidence of acute infiltrate. No pleural effusion is seen. The heart is normal in size. The mediastinal silhouette is unremarkable. The visualized osseous structures are intact. IMPRESSION: No acute pulmonary disease. Signed by Alfredo Bassett MD 07/25/2017 05:12 P
[2017-07-24] MEDS: NS 1,000 ML IV SCH (14:00)
--- NOTE | 2017-07-24 17:41 | REP ---
RIGHT PICC LINE PLACEMENT: The procedure was performed by LASHAY Kulkarni under the direct supervision of Dr. Bassett. The procedure along with its risks, benefits, and complications were discussed with the patient prior to the examination. Informed consent was obtained both verbally and written. The patient was identified in the interventional suite and placed in a supine position. The right arm was prepped and draped in the usual sterile fashion. A procedural "time out" was performed to ensure that the correct patient, site, and procedure were being performed. Under ultrasound guidance the right basilic vein was punctured. A thin guidewire was introduced. Local infiltrative anesthesia ws achieved using 2% lidocaine. The needle was removed and a break-away sheath was placed. Under fluoroscopic observation and via the break-away sheath, a 32 cm 5.5-Honduran double-lumen PICC line was placed with its tip at the junction of the distal superior vena cava. The catheter was flushed with heparinized saline and affixed to the patients skin. The patient tolerated the procedure well and had no immediate complications. IMPRESSION: Uncomplicated placement of right upper extremity double-lumen PICC line. Fluoroscopy 0.2 minutes. Reviewed by LASHAY Augustine 07/24/2017 05:54 PEdited and Signed by Alfredo Bassett MD 07/25/2017 05:08 P
[2017-07-24] MEDS: HumaLOG INSULIN (NovoLOG) PER UNIT SC SCH ×2 (17:50→23:53)
[2017-07-24] MEDS ORDERED: MULTIVITAMIN -ADULT INJECTION 10 ML, CR/CU/SE/MN/ZN INJ 1 ML in AMINO AC/ELECTROLYTE/DE... IV SCH (18:00)
[2017-07-24] MEDS ORDERED: FAT EMULSION IV 20% 500 ML IV SCH (18:00)
[2017-07-24] MEDS: SODIUM CHLORIDE 0.9% INJ 10 ML SYR IV SCH (18:11)
[2017-07-25] MEDS ORDERED: SODIUM CHLORIDE 0.9% INJ 10 ML SYR IV PRN (02:15)
[2017-07-25] MEDS: PIPERACILLIN/TAZOBACTAM SOD 3.375 GM in D5W MINI-BAG PLUS 50 ML IV SCH ×4 (04:00→21:17)
[2017-07-25] MEDS: HEPARIN SOD (PORCINE) 5000 UNITS/ML VIAL SQ SCH ×3 (05:14→21:16)
[2017-07-25] MEDS: SODIUM CHLORIDE 0.9% INJ 10 ML SYR IV SCH ×4 (05:14→17:35)
[2017-07-25 05:15] VITALS: BP 116/72
[2017-07-25 05:44] LABS: MEAN CORPUSCULAR HEMOGLOBIN 39.2 pg (27.0-33.0); MEAN CORPUSCULAR HGB CONC 36.1 g/dl (32.0-36.5); MEAN CORPUSCULAR VOLUME 108.7 fl (80.0-96.0); PLATELET COUNT, AUTOMATED 224 10^3/uL (150-450); RED CELL DISTRIBUTION WIDTH 13.1 % (11.5-14.5); WHITE BLOOD COUNT 9.8 10^3/uL (4.0-10.0)
[2017-07-25 05:46] LABS: ADD MANUAL DIFFER YES; DIFF SLIDE NUMBER 31
[2017-07-25 05:51] VITALS: BP 142/86
[2017-07-25 06:04] LABS: ANION GAP 9 MEQ/L (8-16); BLOOD UREA NITROGEN 9 MG/DL (7-18); CALCIUM LEVEL 7.3 MG/DL (8.5-10.1); CARBON DIOXIDE LEVEL 27 MEQ/L (21-32); CHLORIDE LEVEL 100 MEQ/L (98-107); CREATININE FOR GFR 0.36 MG/DL (0.55-1.02); GLOMERULAR FILTRATION RATE > 60.0 (>51); GLUCOSE, FASTING 154 MG/DL (70-105); POTASSIUM SERUM 2.8 MEQ/L (3.5-5.1); SODIUM LEVEL 136 MEQ/L (136-145)
[2017-07-25] MEDS: HumaLOG INSULIN (NovoLOG) PER UNIT SC SCH ×3 (06:24→17:32)
[2017-07-25] MEDS ORDERED: POTASSIUM CHLORIDE 10 MEQ SR TABLET PO ONE ×2 (06:30→07:30)
[2017-07-25 06:47] LABS: BANDS 3 % (< 11)
[2017-07-25 08:05] LABS: MAGNESIUM LEVEL 1.6 MG/DL (1.8-2.4)
[2017-07-25 09:20] LABS: CARCINOEMBRYONIC ANTIGEN 2.2 NG/ML (<2.5)
[2017-07-25] MEDS: THIAMINE 100 MG TAB PO SCH (09:20)
[2017-07-25] MEDS: MULTIVITAMINS/MINERALS THERAP 1 TAB PO SCH (09:20)
[2017-07-25] MEDS: FOLIC ACID 1 MG TAB PO SCH (09:20)
[2017-07-25] MEDS: SIMETHICONE 80 MG CHEW TAB PO SCH ×4 (09:21→21:16)
[2017-07-25] MEDS: NICOTINE 7 MG/24 HR TRANSDERMAL TD SCH (09:22)
[2017-07-25] MEDS ORDERED: MAG SULF 1GM/100ML (MAG RUN) 1 GM in APPROPRIATE DILUENT 1 EA IV ONE (10:00)
[2017-07-25 10:16] VITALS: BP 116/72
--- NOTE | 2017-07-25 10:20 | IPNPDOC ---
Subjective Date Seen The patient was seen on 07/25/17. Subjective Chief Complaint/HPI The patient is a 61-year-old female admitted with a reason for visit of Sigmoid Thickening. General: Denies: Chills, Night Sweats Constitutional: Reports: Malaise, Weakness, Fatigue, Weight Loss, Denies: Chills, Fever, Night Sweats Eyes: Denies: Pain, Vision change ENT: Denies: Head Aches, Ear Pain Skin: Reports: Other (chronic numbness b/l upper and lower extremities and lips ), Denies: Rash, Lesions, Itching, Dry Pulmonary: Denies: Dyspnea, Cough Cardiovascular: Denies: Chest Pain, Palpitations, Orthopnea, Edema, Lt Headedness Gastrointestinal: Denies: Nausea, Vomiting, Abdominal Pain, Diarrhea, Constipation Genitourinary: Denies: Dysuria Musculoskeletal: Reports: Back Pain (chronic), Denies: Neck Pain Neurological: Reports: Weakness, Numbness (hands, feet and lips) Psych: Reports: Mood Normal Objective Physical Examination General Exam: Positive: Alert, Cooperative, No Acute Distress Eye Exam: Positive: Conjunctiva & lids normal, EOMI, Negative: Sclera icteric, Ptosis ENT Exam: Positive: Atraumatic, Mucous membr. moist/pink, Tongue Midline, Nares Patent Neck Exam: Negative: JVD Chest Exam: Positive: Clear to auscultation, Normal air movement, Negative: Rales, Rhonchi, Wheezing, Diminished Heart Exam: Positive: Rate Normal, Normal S1, Normal S2, Negative: Gallops, Murmurs, Rubs Telemetry: Positive: No significant arrhythmia Abdomen Exam: Positive: Normal bowel sounds, Soft (Distended lower abdominal quadrant, mild tenderness to deep palpation. No rebound tenderness, guarding, or rigidity. nabsx4), Tenderness, Negative: BS Hyperactive, BS Hypoactive, Hepatospenomegaly, Mass Extremity Exam: Positive: Normal pulses, Negative: Clubbing, Cyanosis, Edema, Tenderness, Swelling Skin Exam: Negative: Rash, Breakdown Psych Exam: Positive: Oriented x 3 Assessment /Plan Problems (1) Sigmoid thickening Status: Acute Response to Treatment: Stable Problem Text: sx. team consulted-appreciate their help pt is s/p diagnostic peritoneal fluid tap-cultures and cytology pending- malignancy is still a possibility tumor markers pending pt did complain of left hip pain, usually chronic-will continue to monitor, awaiting cell block for peritoneal fluid from diagnostic tap, possible metastatic bony lesion if pt has malignancy blood cx neg after 24 hours pt continues to be afebrile with no white count c/w broad sepc. zosyn coverage for now until cx's result (2) Abdominal pain Status: Acute Response to Treatment: Stable Problem Text: pt still complains of burning in epigastric area will continue with pain control and could begin PPI (3) Alcohol abuse Status: Acute Response to Treatment: Stable Problem Text: pt states she drinks 2 glasses of wine a day serax, thiamine and MV on for pt CIWA followed denies withdrawal symptoms if she cannot consume alcohol (4) Hypokalemia Status: Acute Response to Treatment: Stable Problem Text: 2.8 this morning, will replaced and will re-check BMP this afternoon Mg low, replaced as well (5) Numbness Status: Acute Response to Treatment: Stable Problem Text: will check b12 and folate (6) DVT prophylaxis Status: Acute Response to Treatment: Stable Problem Text: c/w heparin Plan/VTE VTE Prophylaxis Ordered?: Yes Plan/Urinary Catheter Reason for insertion/continuin: Critical Pt monitoring VS, I&O, 24H, Fishbone Vital Signs/I&O Vital Signs Date Time Temp Pulse Resp B/P (MAP) Pulse Ox O2 Delivery O2 Flow Rate FiO2 07/25/17 05:15 97.7 108 18 116/72 (87) 95 Room Air I&O- Last 24 Hours up to 6 AM 07/26/17 06:00 Intake Total 0 ml Output Total 0 ml Balance 0 ml Laboratory Data 24H LABS Laboratory Tests 2 07/24/17 17:45: Bedside Glucose (Misc Panel) 87 07/24/17 19:52: Urine Appearance HAZY, Urine Color CONY, Urine pH 5.0, Urine Specific [place] 1.048, Urine Protein 1+H, Urine Glucose (UA) 1+H, Urine Ketones 1+H, Urine Urobilinogen 2.0H, Urine Bilirubin NEGATIVE, Urine Leukocyte Esterase 1+H, Urine Blood NEGATIVE, Urine Nitrite NEGATIVE, Urine WBC (Auto) 6H, Urine RBC ( Auto) 3, Urine Hyaline Casts (Auto) 0, Urine Bacteria (Auto) 1+H, Urine Squamous Epithelial Cells 5, Urine Mucus (Auto) SMALL, Urine Sperm (Auto) 07/24/17 23:41: Bedside Glucose (Misc Panel) 261H 07/25/17 05:21: Neutrophils 77H, Band Neutrophils 3, Lymphocytes (Manual) 13L, Monocytes (Manual ) 7, Platelet Estimate NORMAL, Macrocytosis 2+, Anion Gap 9, Glomerular Filtration Rate > 60.0, Blood Urea Nitrogen 9, Creatinine 0.36L, Sodium Level 136, Potassium Level 2.8#*L, Chloride Level 100, Carbon Dioxide Level 27, Calcium Level 7.3L, Magnesium Level 1.6L CBC/BMP Laboratory Tests 07/25/17 05:21 Red Blood Count 2.65 L, Mean Corpuscular Volume 108.7 H, Mean Corpuscular Hemoglobin 39.2 H, Mean Corpuscular Hemoglobin Concent 36.1, Red Cell Distribution Width 13.1, Calcium Level 7.3 L Microbiology Microbiology 07/23/17 Blood Culture - Preliminary, Resulted No growth after 24 hours . All specim... 07/23/17 Blood Culture - Preliminary, Resulted No growth after 24 hours . All specim... 07/24/17 Urine Culture, Received Pending GME ATTESTATION GME ATTESTATION My preceptor for this patient encounter was physically present in the building during the encounter and was fully available. As needed, all aspects of the patient interview, examination, medical decision making process, and medical care plan development were reviewed and approved by the preceptor. Preceptor is aware and concurs with the plan as stated in the body of this note and will attest to such by his/her cosignature. BEATRICE العلي DO Jul 25, 2017 10:20
[2017-07-25] MEDS: KCL 10MEQ IN 100ML SWI (KRUN) 10 MEQ in APPROPRIATE DILUENT 1 EA IV SCH ×4 (10:37→13:47)
[2017-07-25] MEDS: IBUPROFEN 400 MG TAB PO PRN ×2 (11:56→21:18)
[2017-07-25 12:21] LABS: VITAMIN B12 LEVEL > 2000 PG/ML (247-911)
[2017-07-25 12:22] LABS: FOLATE > 24.0 NG/ML (>5.4)
[2017-07-25 14:00] VITALS: BP 108/64
[2017-07-25 17:55] LABS: ANION GAP 7 MEQ/L (8-16); BLOOD UREA NITROGEN 10 MG/DL (7-18); CALCIUM LEVEL 7.7 MG/DL (8.5-10.1); CARBON DIOXIDE LEVEL 26 MEQ/L (21-32); CHLORIDE LEVEL 102 MEQ/L (98-107); CREATININE FOR GFR 0.21 MG/DL (0.55-1.02); GLOMERULAR FILTRATION RATE > 60.0 (>51); GLUCOSE, FASTING 99 MG/DL (70-105); MAGNESIUM LEVEL 2.2 MG/DL (1.8-2.4); SODIUM LEVEL 135 MEQ/L (136-145)
[2017-07-25] MEDS ORDERED: FAT EMULSION IV 20% 500 ML IV SCH (18:00)
[2017-07-25] MEDS ORDERED: AMINO AC/ELECTROLYTE/DEX/CALC 2,000 ML IV SCH (18:00)
[2017-07-25 18:03] LABS: POTASSIUM SERUM 4.3 MEQ/L (3.5-5.1)
--- NOTE | 2017-07-25 20:01 | IPNPDOC ---
Date Seen The patient was seen on 07/25/17. Progress Note SUBJECTIVE: A 61-year-old female with history of hypertension on chronic lisinopril, bilateral cataract surgery presents to the emergency room with two day history of abdominal distention. With a 3-4 month history of generalized weakness, decreased appetite, feeling bilateral feet and hands going numb. Surgery was consult because of decreased appetite and weight loss, with concern for malignancy. Patient has a history of smoking about 2 packs a day since she was 16. Patient also has a history of heavy alcohol use. CT abdomen revealed Segmental thickening of the sigmoid colon with surrounding loculated fluid. This may be neoplastic or inflammatory in etiology. Moderate diffuse small bowel dilatation. Mild scattered free fluid without free air. No adenopathy. Small cyst left ovary. Surgery was consulted as a resort. OBJECTIVE PHYSICAL EXAMINATION: VITAL SIGNS: Please see below. GENERAL APPEARANCE: Awake, resting in bed HEENT: Head is atraumatic, RESPIRATORY: Lungs are clear to auscultate. CARDIOVASCULAR: S1 and S2 present, no murmurs rubs or gallops ABDOMEN: No organomegaly. Slight tenderness to palpation throughout the abdomen , pt says that it has improved from yesterday. EXTREMITIES: Swelling no deformities. LABORATORY DATA: Please see below. MICROBIOLOGY: Please see below. ASSESSMENT AND PLAN:A 61-year-old female admitted for abdominal distention and generalized weakness. Abdominal CT revealed segmental thickening of the sigmoid colon with surrounding loculated fluid. Peritoneal fluid tap yield no malignancy. Cell block is still pending. Given that malignancy is still a concern. I recommend an upper GI with small bowel follow through. Patient will remain NPO and will be using TPN for nutrition. At this point I am not concerned about the sigmoid lesion. I am more concerned about the possibility of gastric cancer. VS, I&O, 24H, Fishbone Vital Signs/I&O Vital Signs Date Time Temp Pulse Resp B/P (MAP) Pulse Ox O2 Delivery O2 Flow Rate FiO2 07/25/17 14:00 97.3 97 22 108/64 (79) 98 Room Air I&O- Last 24 Hours up to 6 AM 07/26/17 06:00 Intake Total 1240 ml Output Total 200 ml Balance 1040 ml Laboratory Data 24H LABS Laboratory Tests 2 07/24/17 19:52: Urine Appearance HAZY, Urine Color CONY, Urine pH 5.0, Urine Specific [place] 1.048, Urine Protein 1+H, Urine Glucose (UA) 1+H, Urine Ketones 1+H, Urine Urobilinogen 2.0H, Urine Bilirubin NEGATIVE, Urine Leukocyte Esterase 1+H, Urine Blood NEGATIVE, Urine Nitrite NEGATIVE, Urine WBC (Auto) 6H, Urine RBC ( Auto) 3, Urine Hyaline Casts (Auto) 0, Urine Bacteria (Auto) 1+H, Urine Squamous Epithelial Cells 5, Urine Mucus (Auto) SMALL, Urine Sperm (Auto) 07/24/17 23:41: Bedside Glucose (Misc Panel) 261H 07/25/17 05:21: Neutrophils 77H, Band Neutrophils 3, Lymphocytes (Manual) 13L, Monocytes (Manual ) 7, Platelet Estimate NORMAL, Macrocytosis 2+, Anion Gap 9, Glomerular Filtration Rate > 60.0, Blood Urea Nitrogen 9, Creatinine 0.36L, Sodium Level 136, Potassium Level 2.8#*L, Chloride Level 100, Carbon Dioxide Level 27, Calcium Level 7.3L, Magnesium Level 1.6L 07/25/17 11:04: Vitamin B12 Level > 2000H, Folate > 24.0 07/25/17 11:38: Bedside Glucose (Misc Panel) 166H 07/25/17 16:44: Bedside Glucose (Misc Panel) 130H 07/25/17 16:56: Anion Gap 7L, Glomerular Filtration Rate > 60.0, Blood Urea Nitrogen 10, Creatinine 0.21L, Sodium Level 135L, Potassium Level 4.3#, Chloride Level 102, Carbon Dioxide Level 26, Calcium Level 7.7L, Magnesium Level 2.2 CBC/BMP Laboratory Tests 07/25/17 05:21 Red Blood Count 2.65 L, Mean Corpuscular Volume 108.7 H, Mean Corpuscular Hemoglobin 39.2 H, Mean Corpuscular Hemoglobin Concent 36.1, Red Cell Distribution Width 13.1, Calcium Level 7.3 L Microbiology Microbiology 07/23/17 Blood Culture - Preliminary, Resulted No Growth after 48 hours. All Specime... 07/23/17 Blood Culture - Preliminary, Resulted No Growth after 48 hours. All Specime... 07/24/17 Urine Culture, Received Pending GME ATTESTATION GME ATTESTATION My preceptor for this patient encounter was physically present in the building during the encounter and was fully available. As needed, all aspects of the patient interview, examination, medical decision making process, and medical care plan development were reviewed and approved by the preceptor. Preceptor is aware and concurs with the plan as stated in the body of this note and will attest to such by his/her cosignature. RICH QUIÑONES DO Jul 25, 2017 19:46 Butch Li Jr Aug 10, 2017 10:32
[2017-07-25 21:30] VITALS: BP 108/64
[2017-07-25 22:00] VITALS: BP 149/79
[2017-07-26] MEDS: PIPERACILLIN/TAZOBACTAM SOD 3.375 GM in D5W MINI-BAG PLUS 50 ML IV SCH ×4 (03:40→21:15)
[2017-07-26] MEDS: HEPARIN SOD (PORCINE) 5000 UNITS/ML VIAL SQ SCH ×3 (05:08→21:15)
[2017-07-26] MEDS: SODIUM CHLORIDE 0.9% INJ 10 ML SYR IV SCH ×4 (05:09→18:29)
[2017-07-26 05:23] LABS: MEAN CORPUSCULAR HEMOGLOBIN 39.2 pg (27.0-33.0); MEAN CORPUSCULAR HGB CONC 36.1 g/dl (32.0-36.5); MEAN CORPUSCULAR VOLUME 108.6 fl (80.0-96.0); PLATELET COUNT, AUTOMATED 197 10^3/uL (150-450); RED CELL DISTRIBUTION WIDTH 13.1 % (11.5-14.5); WHITE BLOOD COUNT 12.5 10^3/uL (4.0-10.0)
[2017-07-26 05:26] LABS: ADD MANUAL DIFFER YES; DIFF SLIDE NUMBER 14
[2017-07-26] MEDS: HumaLOG INSULIN (NovoLOG) PER UNIT SC SCH ×4 (05:43→18:26)
[2017-07-26 05:45] LABS: ANION GAP 7 MEQ/L (8-16); BLOOD UREA NITROGEN 10 MG/DL (7-18); CALCIUM LEVEL 7.3 MG/DL (8.5-10.1); CARBON DIOXIDE LEVEL 27 MEQ/L (21-32); CHLORIDE LEVEL 100 MEQ/L (98-107); CREATININE FOR GFR 0.18 MG/DL (0.55-1.02); GLOMERULAR FILTRATION RATE > 60.0 (>51); GLUCOSE, FASTING 138 MG/DL (70-105); SODIUM LEVEL 134 MEQ/L (136-145)
[2017-07-26 06:00] VITALS: BP 146/91
[2017-07-26 07:28] LABS: DIFF SLIDE NUMBER 118
[2017-07-26 08:07] VITALS: BP 130/72
[2017-07-26 08:15] VITALS: BP 130/72
[2017-07-26] MEDS: NICOTINE 7 MG/24 HR TRANSDERMAL TD SCH (09:00)
[2017-07-26] MEDS: FOLIC ACID 1 MG TAB PO SCH (09:50)
[2017-07-26] MEDS: THIAMINE 100 MG TAB PO SCH (09:50)
[2017-07-26] MEDS: SIMETHICONE 80 MG CHEW TAB PO SCH ×4 (09:50→21:14)
[2017-07-26] MEDS: MULTIVITAMINS/MINERALS THERAP 1 TAB PO SCH (09:51)
--- NOTE | 2017-07-26 10:09 | IPNPDOC ---
Subjective Date Seen The patient was seen on 07/26/17. Subjective Chief Complaint/HPI The patient is a 61-year-old female admitted with a reason for visit of Sigmoid Thickening. General: Reports: Fatigue, Malaise, Denies: Chills, Night Sweats, Normal Appetite Constitutional: Reports: Weakness, Fatigue, Weight Loss, Lethargy, Denies: Chills, Fever, Malaise, Night Sweats Eyes: Denies: Pain, Vision change, Conjunctivae inflammation ENT: Denies: Head Aches, Ear Pain, Dysphagia Skin: Denies: Rash, Lesions, Jaundice, Bruising, Itching, Dry, Breakdown Pulmonary: Reports: Pleuritic Chest Pain ("band like distribution" tight feeling under breasts b/l), Denies: Dyspnea, Cough Cardiovascular: Denies: Chest Pain, Palpitations, Orthopnea, Paroxysmal Noc. Dyspnea, Edema, Lt Headedness Gastrointestinal: Reports: Abdominal Pain (diffuse, LLQ), Denies: Nausea, Vomiting, Diarrhea, Constipation, Hematochezia Genitourinary: Denies: Dysuria Neurological: Reports: Weakness, Denies: Numbness, Incoordination, Change in speech, Confusion Psych: Reports: Mood Normal Objective Physical Examination General Exam: Positive: Alert, Cooperative, No Acute Distress Eye Exam: Positive: Conjunctiva & lids normal, EOMI, Negative: Sclera icteric, Ptosis ENT Exam: Positive: Atraumatic, Mucous membr. moist/pink, Tongue Midline, Nares Patent Neck Exam: Negative: JVD Chest Exam: Positive: Clear to auscultation, Normal air movement, Negative: Rales, Rhonchi, Wheezing, Diminished Heart Exam: Positive: Rate Normal, Normal S1, Normal S2, Negative: Gallops, Murmurs, Rubs Telemetry: Positive: No significant arrhythmia Abdomen Exam: Positive: Normal bowel sounds, Soft (Distended lower abdominal quadrant, mild tenderness to deep palpation. No rebound tenderness, guarding, or rigidity. nabsx4), Tenderness, Negative: BS Hyperactive, BS Hypoactive, Hepatospenomegaly, Mass Extremity Exam: Positive: Normal pulses, Negative: Clubbing, Cyanosis, Edema, Tenderness, Swelling Skin Exam: Negative: Rash, Breakdown Psych Exam: Positive: Oriented x 3 Assessment /Plan Problems (1) Sigmoid thickening Status: Acute Response to Treatment: Stable Problem Text: sx. team consulted-appreciate their help, likely colonoscopy tomorrow and upper GI f/through today. pt is s/p diagnostic peritoneal fluid tap-cytology neg for malignancy, cell block pending tumor markers pending pt did complain of left hip pain, usually chronic, began 6 months ago-will continue to monitor, awaiting cell block for peritoneal fluid from diagnostic tap, possible metastatic bony lesion if pt has malignancy blood cx neg after 48 hours pt continues to be afebrile with no white count c/w broad sepc. zosyn coverage for now until cx's result (2) Abdominal pain Status: Acute Response to Treatment: Stable Problem Text: pt still complains of diffuse abdominal pain worse in LLQ with tight band like pressure b/l under her breasts will continue with pain control (3) Alcohol abuse Status: Acute Response to Treatment: Stable Problem Text: pt states she drinks 2 glasses of wine a day serax, thiamine and MV on for pt CIWA followed denies withdrawal symptoms if she cannot consume alcohol (4) Hypokalemia Status: Acute Response to Treatment: Stable Problem Text: 2.8 this morning, will replaced and will re-check BMP this afternoon Mg low, replaced as well (5) Numbness Status: Acute Response to Treatment: Stable Problem Text: will check b12 and folate b12 elevated, not likely cause of numbness will continue to monitor (6) DVT prophylaxis Status: Acute Response to Treatment: Stable Problem Text: c/w heparin Plan/VTE VTE Prophylaxis Ordered?: Yes Plan/Urinary Catheter Reason for insertion/continuin: Critical Pt monitoring VS, I&O, 24H, [facility] Vital Signs/I&O Vital Signs Date Time Temp Pulse Resp B/P (MAP) Pulse Ox O2 Delivery O2 Flow Rate FiO2 07/26/17 08:07 95.9 112 17 130/72 (91) 99 Room Air I&O- Last 24 Hours up to 6 AM 07/27/17 06:00 Intake Total 50 ml Balance 50 ml Laboratory Data 24H LABS Laboratory Tests 2 07/25/17 11:04: Vitamin B12 Level > 2000H, Folate > 24.0 07/25/17 11:38: Bedside Glucose (Misc Panel) 166H 07/25/17 16:44: Bedside Glucose (Misc Panel) 130H 07/25/17 16:56: Anion Gap 7L, Glomerular Filtration Rate > 60.0, Blood Urea Nitrogen 10, Creatinine 0.21L, Sodium Level 135L, Potassium Level 4.3#, Chloride Level 102, Carbon Dioxide Level 26, Calcium Level 7.7L, Magnesium Level 2.2 07/25/17 23:45: Bedside Glucose (Misc Panel) 164H 07/26/17 05:16: Immature Granulocyte # (Auto) , Neutrophils 87H, Lymphocytes (Manual) 8L, Monocytes (Manual) 5, Macrocytosis 2+, Platelet Estimate NORMAL, Anion Gap 7L, Glomerular Filtration Rate > 60.0, Blood Urea Nitrogen 10, Creatinine 0.18L, Sodium Level 134L, Potassium Level 4.0, Chloride Level 100, Carbon Dioxide Level 27, Calcium Level 7.3L, C-Reactive Protein, Quantitative 4.09H CBC/BMP Laboratory Tests 07/25/17 11:04 07/25/17 16:56 Calcium Level 7.7 L 07/26/17 05:16 Calcium Level 7.3 L, Red Blood Count 2.45 L, Mean Corpuscular Volume 108.6 H, Mean Corpuscular Hemoglobin 39.2 H, Mean Corpuscular Hemoglobin Concent 36.1, Red Cell Distribution Width 13.1 Microbiology Microbiology 07/23/17 Blood Culture - Preliminary, Resulted No Growth after 48 hours. All Specime... 07/23/17 Blood Culture - Preliminary, Resulted No Growth after 48 hours. All Specime... 07/24/17 Urine Culture, Received Pending GME ATTESTATION GME ATTESTATION My preceptor for this patient encounter was physically present in the building during the encounter and was fully available. As needed, all aspects of the patient interview, examination, medical decision making process, and medical care plan development were reviewed and approved by the preceptor. Preceptor is aware and concurs with the plan as stated in the body of this note and will attest to such by his/her cosignature. BEATRICE العلي DO Jul 26, 2017 10:09
--- NOTE | 2017-07-26 10:30 | IPNPDOC ---
Date Seen The patient was seen on 07/26/17. Progress Note SUBJECTIVE: A 61-year-old female with history of hypertension on chronic lisinopril, bilateral cataract surgery presents to the emergency room with two day history of abdominal distention. With a 3-4 month history of generalized weakness, decreased appetite, feeling bilateral feet and hands going numb. Surgery was consult because of decreased appetite and weight loss, with concern for malignancy. Patient has a history of smoking about 2 packs a day since she was 16. Patient also has a history of heavy alcohol use. CT abdomen revealed Segmental thickening of the sigmoid colon with surrounding loculated fluid. This may be neoplastic or inflammatory in etiology. Moderate diffuse small bowel dilatation. Mild scattered free fluid without free air. No adenopathy. Small cyst left ovary. Surgery was consulted as a resort. This morning patient reports that she is feeling fine, complains of slight abdominal pain. She has been unable to have bowel movement but she does admit to flatus. OBJECTIVE PHYSICAL EXAMINATION: VITAL SIGNS: Please see below. GENERAL APPEARANCE: Awake, resting in bed HEENT: Head is atraumatic, RESPIRATORY: Lungs are clear to auscultate. CARDIOVASCULAR: S1 and S2 present, no murmurs rubs or gallops ABDOMEN: No organomegaly. Slight tenderness to palpation throughout the abdomen , mild abdominal distention EXTREMITIES: Swelling no deformities. LABORATORY DATA: Please see below. MICROBIOLOGY: Please see below. ASSESSMENT AND PLAN:A 61-year-old female admitted for abdominal distention and generalized weakness. Abdominal CT revealed segmental thickening of the sigmoid colon with surrounding loculated fluid. Peritoneal fluid tap yield no malignancy. Cell block is still pending. Given that malignancy is still a concern. An upper GI with a small bowel follow through have been ordered. If there are no signs of obstruction. An upper endoscope and a colonoscopy will be ordered to look for masses and other lesions. VS, I&O, 24H, Fishbone Vital Signs/I&O Vital Signs Date Time Temp Pulse Resp B/P (MAP) Pulse Ox O2 Delivery O2 Flow Rate FiO2 07/26/17 08:07 95.9 112 17 130/72 (91) 99 Room Air I&O- Last 24 Hours up to 6 AM 07/27/17 06:00 Intake Total 50 ml Output Total 100 ml Balance -50 ml Laboratory Data 24H LABS Laboratory Tests 2 07/25/17 11:04: Vitamin B12 Level > 2000H, Folate > 24.0 07/25/17 11:38: Bedside Glucose (Misc Panel) 166H 07/25/17 16:44: Bedside Glucose (Misc Panel) 130H 07/25/17 16:56: Anion Gap 7L, Glomerular Filtration Rate > 60.0, Blood Urea Nitrogen 10, Creatinine 0.21L, Sodium Level 135L, Potassium Level 4.3#, Chloride Level 102, Carbon Dioxide Level 26, Calcium Level 7.7L, Magnesium Level 2.2 07/25/17 23:45: Bedside Glucose (Misc Panel) 164H 07/26/17 05:16: Immature Granulocyte # (Auto) , Neutrophils 87H, Lymphocytes (Manual) 8L, Monocytes (Manual) 5, Macrocytosis 2+, Platelet Estimate NORMAL, Anion Gap 7L, Glomerular Filtration Rate > 60.0, Blood Urea Nitrogen 10, Creatinine 0.18L, Sodium Level 134L, Potassium Level 4.0, Chloride Level 100, Carbon Dioxide Level 27, Calcium Level 7.3L, C-Reactive Protein, Quantitative 4.09H CBC/BMP Laboratory Tests Calcium Level 7.7 L 07/26/17 05:16 Calcium Level 7.3 L, Red Blood Count 2.45 L, Mean Corpuscular Volume 108.6 H, Mean Corpuscular Hemoglobin 39.2 H, Mean Corpuscular Hemoglobin Concent 36.1, Red Cell Distribution Width 13.1 Microbiology Microbiology 07/23/17 Blood Culture - Preliminary, Resulted No Growth after 48 hours. All Specime... 07/23/17 Blood Culture - Preliminary, Resulted No Growth after 48 hours. All Specime... 07/24/17 Urine Culture, Received Pending GME ATTESTATION GME ATTESTATION My preceptor for this patient encounter was physically present in the building during the encounter and was fully available. As needed, all aspects of the patient interview, examination, medical decision making process, and medical care plan development were reviewed and approved by the preceptor. Preceptor is aware and concurs with the plan as stated in the body of this note and will attest to such by his/her cosignature. RICH QUIÑONES DO Jul 26, 2017 10:30 Butch Li Jr Aug 10, 2017 10:34
[2017-07-26 10:48] VITALS: BP 130/72
[2017-07-26] MEDS ORDERED: E-Z-PAQUE 96% w/w SUSP 176GM BTL As Ordered ONE (13:16)
[2017-07-26] MEDS ORDERED: E-Z-GAS II EFFERVESCENT PACKET (SODIUM BICARB./CITRIC ACID/SIMETHICONE) As Ordered ONE (13:16)
[2017-07-26] MEDS ORDERED: E-Z-HD 98% w/w 340GM SUSP BTL As Ordered ONE (13:17)
[2017-07-26] MEDS: IBUPROFEN 400 MG TAB PO PRN (16:23)
[2017-07-26] MEDS ORDERED: FAT EMULSION IV 20% 500 ML IV SCH (18:00)
[2017-07-26] MEDS ORDERED: AMINO AC/ELECTROLYTE/DEX/CALC 2,000 ML IV SCH (18:00)
[2017-07-26] MEDS ORDERED: IBUPROFEN 400 MG TAB PO ONE (21:15)
[2017-07-26 22:00] VITALS: BP 134/88
[2017-07-26 22:34] VITALS: BP 128/70
[2017-07-27] MEDS: HumaLOG INSULIN (NovoLOG) PER UNIT SC SCH ×5 (00:16→23:52)
[2017-07-27] MEDS: PIPERACILLIN/TAZOBACTAM SOD 3.375 GM in D5W MINI-BAG PLUS 50 ML IV SCH (03:19)
[2017-07-27] MEDS: HEPARIN SOD (PORCINE) 5000 UNITS/ML VIAL SQ SCH ×3 (05:06→21:11)
[2017-07-27] MEDS: SODIUM CHLORIDE 0.9% INJ 10 ML SYR IV SCH ×4 (05:06→18:49)
[2017-07-27 05:55] LABS: MEAN CORPUSCULAR HEMOGLOBIN 38.2 pg (27.0-33.0); MEAN CORPUSCULAR HGB CONC 35.6 g/dl (32.0-36.5); MEAN CORPUSCULAR VOLUME 107.3 fl (80.0-96.0); PLATELET COUNT, AUTOMATED 214 10^3/uL (150-450); RED CELL DISTRIBUTION WIDTH 13.2 % (11.5-14.5)
[2017-07-27 06:00] VITALS: BP 141/92
[2017-07-27 06:01] LABS: ADD MANUAL DIFFER YES; DIFF SLIDE NUMBER 11
[2017-07-27 06:12] LABS: REASON FOR REVIEW COMPREHENSIVE REVIEW
[2017-07-27 06:21] LABS: ANION GAP 6 MEQ/L (8-16); BLOOD UREA NITROGEN 10 MG/DL (7-18); CALCIUM LEVEL 7.7 MG/DL (8.5-10.1); CARBON DIOXIDE LEVEL 28 MEQ/L (21-32); CHLORIDE LEVEL 97 MEQ/L (98-107); CREATININE FOR GFR 0.15 MG/DL (0.55-1.02); FERRITIN 579 NG/ML (8-252); GLOMERULAR FILTRATION RATE > 60.0 (>51); GLUCOSE, FASTING 101 MG/DL (70-105); PERCENT SATURATION 26.4 % (13.2-45.0); POTASSIUM SERUM 3.4 MEQ/L (3.5-5.1); SODIUM LEVEL 131 MEQ/L (136-145); TOTAL IRON BINDING CAPACITY 144 UG/DL (250-450)
[2017-07-27 06:40] LABS: BANDS 2 % (< 11)
--- NOTE | 2017-07-27 07:27 | IPNPDOC ---
Subjective Date Seen The patient was seen on 07/27/17. Subjective Chief Complaint/HPI The patient is a 61-year-old female admitted with a reason for visit of Sigmoid Thickening. General: Denies: Chills, Night Sweats Constitutional: Reports: Weakness, Fatigue, Denies: Chills, Fever, Malaise, Night Sweats Eyes: Denies: Pain, Vision change ENT: Denies: Head Aches, Ear Pain Skin: Denies: Rash, Lesions Pulmonary: Denies: Dyspnea, Pleuritic Chest Pain Cardiovascular: Denies: Chest Pain, Palpitations, Orthopnea, Edema, Lt Headedness Gastrointestinal: Reports: Abdominal Pain, Denies: Nausea, Vomiting, Diarrhea, Constipation Genitourinary: Denies: Dysuria Neurological: Denies: Weakness, Numbness, Change in speech Psych: Reports: Mood Normal Objective Physical Examination General Exam: Positive: Alert, Cooperative, No Acute Distress Eye Exam: Positive: Conjunctiva & lids normal, EOMI, Negative: Sclera icteric, Ptosis ENT Exam: Positive: Atraumatic, Mucous membr. moist/pink, Tongue Midline, Nares Patent Neck Exam: Negative: JVD Chest Exam: Positive: Clear to auscultation, Normal air movement, Negative: Rales, Rhonchi, Wheezing, Diminished Heart Exam: Positive: Rate Normal, Normal S1, Normal S2, Negative: Gallops, Murmurs, Rubs Telemetry: Positive: No significant arrhythmia Abdomen Exam: Positive: Normal bowel sounds, Soft ( mild tenderness to deep palpation. No rebound tenderness, guarding, or rigidity. nabsx4), Tenderness ( diffuse, LLQ mainly), Other (distended), Negative: BS Hyperactive, BS Hypoactive, Hepatospenomegaly, Mass Extremity Exam: Positive: Normal pulses, Negative: Clubbing, Cyanosis, Edema, Tenderness, Swelling Skin Exam: Negative: Rash, Breakdown Psych Exam: Positive: Oriented x 3 Assessment /Plan Problems (1) Sigmoid thickening Status: Acute Response to Treatment: Stable Problem Text: sx. team consulted-appreciate their help s/p upper GI f/through one day ago, pending results then possible upper endoscopy. pt is s/p diagnostic peritoneal fluid tap-cytology neg for malignancy, cell block neg. for malignancy tumor markers pending pt did complain again of left hip pain, usually chronic, began 6 months ago- will continue to monitor, awaiting cell block for peritoneal fluid from diagnostic tap, possible metastatic bony lesion if pt has malignancy blood cx neg after 72 hours pt continues to be afebrile white count now 15 c/w broad sepc. zosyn coverage for now until cx's result (2) Abdominal pain Status: Acute Response to Treatment: Stable Problem Text: pt still complains of diffuse abdominal pain worse in LLQ with tight band like pressure b/l under her breasts admits her abdomen is more distended today due to GI study one day ago, uncomfortable will continue with pain control (3) Alcohol abuse Status: Acute Response to Treatment: Stable Problem Text: pt states she drinks 2 glasses of wine a day serax, thiamine and MV on for pt CIWA followed denies withdrawal symptoms if she cannot consume alcohol (4) Hypokalemia Status: Acute Response to Treatment: Stable Problem Text: 3.4 this morning, will replace will check Mg level (5) Numbness Status: Acute Response to Treatment: Stable Problem Text: will check b12 and folate b12 elevated, not likely cause of numbness will continue to monitor, recheck B12 pending (6) Low BMI Response to Treatment: Stable Problem Text: could be 2/2 malignant etiology or chronic alcoholic abuse stable (7) DVT prophylaxis Status: Acute Response to Treatment: Stable Problem Text: c/w heparin Plan/VTE VTE Prophylaxis Ordered?: Yes Plan/Urinary Catheter Reason for insertion/continuin: Critical Pt monitoring VS, I&O, 24H, Fishbone Vital Signs/I&O Vital Signs Date Time Temp Pulse Resp B/P (MAP) Pulse Ox O2 Delivery O2 Flow Rate FiO2 07/26/17 23:15 Room Air 07/26/17 22:34 101 128/70 07/26/17 22:00 96.9 20 98 I&O- Last 24 Hours up to 6 AM 07/28/17 05:59 Intake Total 570 ml Balance 570 ml Laboratory Data 24H LABS Laboratory Tests 2 07/26/17 11:48: Bedside Glucose (Misc Panel) 150H 07/26/17 17:31: Bedside Glucose (Misc Panel) 181H 07/27/17 00:08: Bedside Glucose (Misc Panel) 152H 07/27/17 05:17: Neutrophils 83H, Band Neutrophils 2, Lymphocytes (Manual) 8L, Monocytes (Manual ) 6, Metamyelocytes 1H, Macrocytosis 2+, Differential Slide Review Report, Differential Pathologist's Review COMPREHENSIVE REVIEW, Platelet Estimate NORMAL , Peripheral Blood Smear Path Consult PERIPHERAL SMEAR, Anion Gap 6L, Glomerular Filtration Rate > 60.0, Blood Urea Nitrogen 10, Creatinine 0.15L, Sodium Level 131L, Potassium Level 3.4L, Chloride Level 97L, Carbon Dioxide Level 28, Calcium Level 7.7L, Iron Level 38L, Total Iron Binding Capacity 144L, Transferrin % Saturation 26.4, Ferritin 579H, C-Reactive Protein, Quantitative 4.32H 07/27/17 06:43: CBC/BMP Laboratory Tests 07/27/17 05:17 Red Blood Count 2.46 L, Mean Corpuscular Volume 107.3 H, Mean Corpuscular Hemoglobin 38.2 H, Mean Corpuscular Hemoglobin Concent 35.6, Red Cell Distribution Width 13.2, Calcium Level 7.7 L Microbiology Microbiology 07/23/17 Blood Culture - Preliminary, Resulted No Growth after 72 hours. All specime... 07/23/17 Blood Culture - Preliminary, Resulted No Growth after 72 hours. All specime... 07/24/17 Urine Culture - Final, Complete Escherichia Coli GME ATTESTATION GME ATTESTATION My preceptor for this patient encounter was physically present in the building during the encounter and was fully available. As needed, all aspects of the patient interview, examination, medical decision making process, and medical care plan development were reviewed and approved by the preceptor. Preceptor is aware and concurs with the plan as stated in the body of this note and will attest to such by his/her cosignature. BEATRICE العلي DO Jul 27, 2017 07:26 WARREN PADILLA DO Aug 15, 2017 23:30
[2017-07-27 08:00] VITALS: BP 145/88
[2017-07-27] MEDS ORDERED: KCL 10MEQ IN 100ML SWI (KRUN) 10 MEQ in APPROPRIATE DILUENT 1 EA IV ONE ×2 (08:00)
[2017-07-27] MEDS ORDERED: SENOKOT S TAB PO SCH (09:00)
[2017-07-27] MEDS ORDERED: SENNA 8.6 MG TAB (SENOKOT) PO SCH (09:00)
[2017-07-27] MEDS: MULTIVITAMINS/MINERALS THERAP 1 TAB PO SCH (09:10)
[2017-07-27] MEDS: THIAMINE 100 MG TAB PO SCH (09:10)
[2017-07-27] MEDS: SIMETHICONE 80 MG CHEW TAB PO SCH ×4 (09:10→21:09)
[2017-07-27] MEDS: FOLIC ACID 1 MG TAB PO SCH (09:10)
[2017-07-27] MEDS: IBUPROFEN 400 MG TAB PO PRN (09:11)
[2017-07-27] MEDS: NICOTINE 7 MG/24 HR TRANSDERMAL TD SCH (09:11)
[2017-07-27 09:15] VITALS: BP 141/92
[2017-07-27 11:27] LABS: MAGNESIUM LEVEL 1.6 MG/DL (1.8-2.4)
--- NOTE | 2017-07-27 11:41 | IPNPDOC ---
Date Seen The patient was seen on 07/27/17. Progress Note SUBJECTIVE: A 61-year-old female with history of hypertension on chronic lisinopril, bilateral cataract surgery presents to the emergency room with two day history of abdominal distention. With a 3-4 month history of generalized weakness, decreased appetite, feeling bilateral feet and hands going numb. Surgery was consult because of decreased appetite and weight loss, with concern for malignancy. Patient has a history of smoking about 2 packs a day since she was 16. Patient also has a history of heavy alcohol use. CT abdomen revealed Segmental thickening of the sigmoid colon with surrounding loculated fluid. This may be neoplastic or inflammatory in etiology. Moderate diffuse small bowel dilatation. Mild scattered free fluid without free air. No adenopathy. Small cyst left ovary. Surgery was consulted as a resort. This morning patient reports that she is feeling fine, complains of slight abdominal pain. She has been unable to have bowel movement but she does admit to flatus. This morning she also complained of hip and back pain. OBJECTIVE PHYSICAL EXAMINATION: VITAL SIGNS: Please see below. GENERAL APPEARANCE: Awake, resting in bed HEENT: Head is atraumatic, RESPIRATORY: Lungs are clear to auscultate. CARDIOVASCULAR: S1 and S2 present, no murmurs rubs or gallops ABDOMEN: No organomegaly. Slight tenderness to palpation throughout the abdomen, mild abdominal distention EXTREMITIES: Swelling no deformities. LABORATORY DATA: Please see below. MICROBIOLOGY: Please see below. ASSESSMENT AND PLAN:A 61-year-old female admitted for abdominal distention and generalized weakness. Abdominal CT revealed segmental thickening of the sigmoid colon with surrounding loculated fluid. Peritoneal fluid tap yield no malignancy. Cell block is still pending. Given that malignancy is still a concern. The upper GI and small bowel follow through showed partial obstruction in the small bowel. Patient is still NPO. So at this point the plan moving moving forward is to re-access the patient tomorrow morning and see if her lab values are improving. If they have not improved, and in fact have worsen. She will be taken to the OR of a ex-lap to find the cause of her small bowel obstruction, with malignancy included in the differential. If her labs have improved, we may consider given her fleet enemas and performing a flexible sigmoid scope to evaluate if her sigmoid thickening could be caused by a malignancy, or wait until monday to do a full colonoscopy if she is stable. VS, I&O, 24H, Fishbone Vital Signs/I&O Vital Signs Date Time Temp Pulse Resp B/P (MAP) Pulse Ox O2 Delivery O2 Flow Rate FiO2 07/27/17 06:00 97.4 104 18 141/92 (108) 97 Room Air Laboratory Data 24H LABS Laboratory Tests 2 07/26/17 11:48: Bedside Glucose (Misc Panel) 150H 07/26/17 17:31: Bedside Glucose (Misc Panel) 181H 07/27/17 00:08: Bedside Glucose (Misc Panel) 152H 07/27/17 05:17: Neutrophils 83H, Band Neutrophils 2, Lymphocytes (Manual) 8L, Monocytes (Manual ) 6, Metamyelocytes 1H, Macrocytosis 2+, Differential Slide Review Report, Differential Pathologist's Review COMPREHENSIVE REVIEW, Platelet Estimate NORMAL , Peripheral Blood Smear Path Consult PERIPHERAL SMEAR, Anion Gap 6L, Glomerular Filtration Rate > 60.0, Blood Urea Nitrogen 10, Creatinine 0.15L, Sodium Level 131L, Potassium Level 3.4L, Chloride Level 97L, Carbon Dioxide Level 28, Calcium Level 7.7L, Magnesium Level 1.6L, Iron Level 38L, Total Iron Binding Capacity 144L, Transferrin % Saturation 26.4, Ferritin 579H, C-Reactive Protein, Quantitative 4.32H 07/27/17 06:07: Bedside Glucose (Misc Panel) 139H 07/27/17 06:43: Vitamin B12 Level 1549H CBC/BMP Laboratory Tests 07/27/17 05:17 Red Blood Count 2.46 L, Mean Corpuscular Volume 107.3 H, Mean Corpuscular Hemoglobin 38.2 H, Mean Corpuscular Hemoglobin Concent 35.6, Red Cell Distribution Width 13.2, Calcium Level 7.7 L Microbiology Microbiology 07/23/17 Blood Culture - Preliminary, Resulted No Growth after 72 hours. All specime... 07/23/17 Blood Culture - Preliminary, Resulted No Growth after 72 hours. All specime... 07/24/17 Urine Culture - Final, Complete Escherichia Coli GME ATTESTATION GME ATTESTATION My preceptor for this patient encounter was physically present in the building during the encounter and was fully available. As needed, all aspects of the patient interview, examination, medical decision making process, and medical care plan development were reviewed and approved by the preceptor. Preceptor is aware and concurs with the plan as stated in the body of this note and will attest to such by his/her cosignature. RICH QUIÑONES DO Jul 27, 2017 11:41
[2017-07-27] MEDS: PIPERACILLIN/TAZOBACTAM SOD 3.375 GM in D5W 50 ML IV SCH ×3 (11:47→21:11)
[2017-07-27 14:00] VITALS: BP 134/96
[2017-07-27] MEDS ORDERED: MAG SULF 1GM/100ML (MAG RUN) 1 GM in APPROPRIATE DILUENT 1 EA IV ONE (14:00)
[2017-07-27] MEDS: DOCUSATE SODIUM 100 MG CAP PO SCH ×2 (14:24→21:20)
[2017-07-27] MEDS: PERCOCET 5MG/325MG TAB PO PRN ×2 (14:26→21:10)
--- NOTE | 2017-07-27 17:40 | REP ---
UPPER GI WITH SMALL BOWEL FOLLOW THROUGH: The procedure was performed by LASHAY Kulkarni under the direct supervision of Dr. Bassett. All imaging was reviewed with Dr. Bassett prior to dictation. The peanut farmer film showed multiple dilated small bowel loops. The patient was able to ingest liquid barium in a quantity sufficient to produce a single contrast examination. The oral and pharyngeal stages of deglutition appeared unremarkable. Esophageal transport was prompt and efficient. There was no evidence of esophagitis, stricture, or mucosal ring. A small hiatal hernia was noted. Gastroesophageal reflux was not observed on this examination. The stomach avila were normally outlined. The rugal folds were slightly thickened. There was no evidence of neoplasm or ulcerative disease. The duodenal avila were also thickened. There was no evidence of peptic ulcer disease or neoplasm. Additional liquid barium was given at the end of the examination in order to perform a small bowel follow through. During fluoroscopy gentle palpation of the small bowel loops showed them to be extremely dilated. No definite stricture was able to be appreciated on this exam. This was a somewhat suboptimal small bowel follow through. This is due in part to the barium being diluted by fluid that was already in the dilated bowel loops. The transit time on this small bowel follow-through was extremely slow. We examined the patient at approximately 1:30pm on 07/26/2017. The exam did not come to fruition until 10:28 am on 07/27/2017, on this final KUB image the barium had only reached the splenic flexure. IMPRESSION: There are thickened folds all throughout the stomach and duodenum. A small hiatal hernia is also noted. Dilated small bowel loops with an extremely slow transit time. No definite small bowel stricture was able to be appreciated during this examination. Fluoroscopy time of 3 minutes and 12 seconds. Reviewed by LASHAY Augustine 07/28/2017 08:53 AEdited and Signed by Alfredo Bassett MD 07/28/2017 05:12 P
[2017-07-27] MEDS ORDERED: FAT EMULSION IV 20% 500 ML IV SCH (18:00)
[2017-07-27] MEDS ORDERED: AMINO AC/ELECTROLYTE/DEX/CALC 2,000 ML IV SCH (18:00)
--- NOTE | 2017-07-27 19:53 | CR ---
DATE OF CONSULTATION: 07/27/2017 Asked to consult by Dr. Porter for evaluation of left lower quadrant pain and worsening leukocytosis in a patient who has sigmoid thickening. HISTORY OF PRESENT ILLNESS: Mrs. Huitron is a 61-year-old pleasant female who presented to the emergency room with a 2 day history of abdominal distension. The patient stated that she also developed decreased appetite and feeling of numbness of both hands and feet. The patient felt that she was having an iron band around her rib cages and was having extreme pain in her back and hip. She did not have any fever. She had no appetite but no nausea or vomiting. She has not had a bowel movement in the past 4 days. The patient has never had a colonoscopy. The patient had not had any medical care in many years until recently when she needed laser eye surgery and was seen by Marlee Reynolds and was diagnosed with hypertension. CT of the abdomen done on admission showed segmental thickening of the sigmoid colon with surrounding loculated fluid, this may be neoplastic or inflammatory in nature with moderate diffuse small bowel dilatation and some free fluid without air. Pelvic ultrasound done on 07/13/2017, showed a complex cyst of her left ovary 2.9 cm, the ovary measures 3.6 x 3.7 x 1.9 cm. PICC line was placed on 07/24/2017, for total parenteral nutrition (TPN) and nutrition, that was placed in the right upper extremity. The patient has been receiving TPN and has been kept nothing by mouth. She had an upper GI and small bowel x-ray done today. The results are still pending. PAST MEDICAL HISTORY: Significant for hypertension, cataract surgery, she had surgery done in [address] Callejas. PHYSICAL EXAMINATION: She is a frail female in no acute distress. Temperature is 97.4, pulse 99, respirations 18, blood pressure 134/96, oxygen saturation 96% on room air. Heart: Normal S1, S2, no murmurs. Lungs: Diminished air entry but clear. Abdomen: Distended, soft, hyperresonant, tender in the right lower quadrant and left lower quadrant but no rebound tenderness. Extremities: No clubbing, cyanosis or edema. No calf tenderness. Skin exam shows no rash. Psychiatric: Alert and oriented times three. Neurologic: Exam normal. Oropharynx is dry. Pupils equal and reactive, anicteric. SOCIAL HISTORY: She is to her current who is her third . She has a history of tobacco abuse, quit 2 weeks ago on her own, history of alcohol abuse. LABORATORY DATA: White count 15, hemoglobin 9.4, hematocrit 26.4, platelets 214, 83% neutrophils, 2% bands, 8% lymphocytes. Sodium 131, potassium 3.4, chloride 97, bicarbonate 28, BUN 10, creatinine 0.15, glucose 101, calcium 7.7, magnesium 1.6, iron 38, TIBC 144, iron saturation 26% ferritin 579, CRP was 14.2 on admission, down to 4.32 today. Urine culture was positive for E-coli on 07/24/2017, 30,000 colonies, only resistant to ampicillin/sulbactam. Blood cultures on 07/23/2017, were negative. Lumbar spine x-ray showed degenerative changes mostly at L4-L5 with mild disc narrowing at L3-L4 as well. There is facet osteoarthropathy. IMPRESSION: This is a 61-year-old female with no previous history of bowel problems who was admitted with abdominal distension. CT reveals thickening of the sigmoid colon with some fluid around it. An aspiration was done but was not sent for culture and pathology was suggestive of acute neutrophils with no malignancy and therefore that could be suggestive of diverticulitis. The patient has been on IV Zosyn with decrease in her CRP from 14 to 4, even though her white count is slightly increasing that is not of major concern. There is also evidence of small bowel obstruction and surgery has been consulted to rule out a possible malignancy causing the obstruction. MEDICATIONS: - TPN - Percocet one tablet every 4 hours as needed - Zosyn 3.375 grams IV every 6 hours - Senokot-S one tablet by mouth twice a day - Senna two tablets by mouth twice a day - ibuprofen as needed - heparin subcutaneous - Mylicon 120 mg by mouth four times a day - oxazepam 10 mg by mouth every 4 hours as needed, the patient only had one dose on 07/23/2017 07/23/2017 folate level was 1.6, 07/25/2017 was more than 24. TSH normal 1.78. Alpha-fetoprotein is 10.6. PLAN: Continue IV Zosyn to cover for intra-abdominal infection, possible diverticulitis. Further workup will depend on surgery. Continue with same antibiotic. I do not see any need for a more broad spectrum. The patient is stable.
[2017-07-27 20:25] VITALS: BP 126/80
[2017-07-27] MEDS: SENOKOT S TAB PO SCH (21:10)
[2017-07-27 23:00] VITALS: BP 136/86
[2017-07-28] MEDS: PIPERACILLIN/TAZOBACTAM SOD 3.375 GM in D5W 50 ML IV SCH ×4 (03:54→21:02)
[2017-07-28] MEDS: SODIUM CHLORIDE 0.9% INJ 10 ML SYR IV SCH ×4 (05:16→19:30)
[2017-07-28] MEDS: HEPARIN SOD (PORCINE) 5000 UNITS/ML VIAL SQ SCH ×3 (05:17→21:02)
[2017-07-28 05:30] VITALS: BP 129/79
[2017-07-28 05:31] LABS: BASO % 0.1 % (0.0-1.0); EOS % 0.1 % (0.0-3.0); IMMATURE GRANULOCYTE % 2.3 % (0-0); LYMPH # 1.1 10^3/uL (1.5-4.5); LYMPH % 6.2 % (24.0-44.0); MEAN CORPUSCULAR HEMOGLOBIN 38.6 pg (27.0-33.0); MEAN CORPUSCULAR HGB CONC 35.9 g/dl (32.0-36.5); MEAN CORPUSCULAR VOLUME 107.6 fl (80.0-96.0); MONO % 5.6 % (0.0-5.0); NEUTROPHILS # 14.9 10^3/uL (1.8-7.7); NEUTROPHILS % 85.7 % (36.0-66.0); PLATELET COUNT, AUTOMATED 237 10^3/uL (150-450); RED CELL DISTRIBUTION WIDTH 13.2 % (11.5-14.5); WHITE BLOOD COUNT 17.4 10^3/uL (4.0-10.0)
[2017-07-28 05:48] LABS: ANION GAP 5 MEQ/L (8-16); BLOOD UREA NITROGEN 10 MG/DL (7-18); CALCIUM LEVEL 8.1 MG/DL (8.5-10.1); CARBON DIOXIDE LEVEL 31 MEQ/L (21-32); CHLORIDE LEVEL 95 MEQ/L (98-107); CREATININE FOR GFR 0.16 MG/DL (0.55-1.02); GLOMERULAR FILTRATION RATE > 60.0 (>51); GLUCOSE, FASTING 107 MG/DL (70-105); POTASSIUM SERUM 3.4 MEQ/L (3.5-5.1); SODIUM LEVEL 131 MEQ/L (136-145)
[2017-07-28] MEDS: HumaLOG INSULIN (NovoLOG) PER UNIT SC SCH ×3 (06:13→18:25)
[2017-07-28 08:00] VITALS: BP 129/79
[2017-07-28] MEDS: FOLIC ACID 1 MG TAB PO SCH (10:01)
[2017-07-28] MEDS: DOCUSATE SODIUM 100 MG CAP PO SCH ×2 (10:01→21:01)
[2017-07-28] MEDS: SENOKOT S TAB PO SCH ×2 (10:01→21:02)
[2017-07-28] MEDS: THIAMINE 100 MG TAB PO SCH (10:01)
[2017-07-28] MEDS: MULTIVITAMINS/MINERALS THERAP 1 TAB PO SCH (10:02)
[2017-07-28] MEDS: NICOTINE 7 MG/24 HR TRANSDERMAL TD SCH (10:02)
[2017-07-28] MEDS: SIMETHICONE 80 MG CHEW TAB PO SCH ×4 (10:02→21:02)
[2017-07-28] MEDS: PERCOCET 5MG/325MG TAB PO PRN ×2 (10:52→18:26)
--- NOTE | 2017-07-28 11:25 | IPNPDOC ---
Date Seen The patient was seen on 07/28/17. Progress Note SUBJECTIVE: Patient is a 61-year-old female with abdominal pain. Patient is evaluated at bedside this morning. She is alert and conversant. She reports continued sharp bilateral lower quadrant pain along with abdominal distention. Denies radiating pain or fever. Still reports an "iron-like" bank across her epigastrum. Denies anxiety. Admits to hip pain and arthritic pain in her bilateral hands. She continues to describe numbness in bilateral hands and feet. She also feels as though her face is more "puffy." Admits to feeling tired with proptosis at the end of the day. Only reports these symptoms after working. She does not experience these symptoms on her days off. Admits to a family history of diabetes and her grandfather of Parkinson's disease. No other autoimmune diseases, such as Lupus, Myasthenia Gravis, or Eaton-Lambert. Drinks 3-4 glasses of wine daily and admits to tobacco dependence. Worsening leukocytosis with mild increase in CRP. Upper GI follow-through revealed thickened folds of stomach and duodenum with a small hiatal hernia an dilated small bowel loops. Decreased transit time, but no stricture. General surgery has also been consulted and their recommendations are for an NG tube to be placed and a blood transfusion to given. OBJECTIVE PHYSICAL EXAMINATION: VITAL SIGNS: Please see below. GENERAL: Frail appearing female, appears stated age, alert and conversant, no acute distress HEENT: Atraumatic, normocephalic, PERRL, EOMI, dentition is in fair condition, cheeks seem somewhat edematous, oral mucosa is somewhat dry, nasal septum is midline, nares are patent CARDIOVASCULAR: Regular rate and rhythm, normal S1 and S2, no murmur, rub, click RESPIRATORY: Course breath sounds appreciated throughout, no wheeze, rhonchi, crackles ABDOMINAL: Somewhat distended, bowel sounds diminished, dull to percussion throughout, tender in the bilateral lower abdominal/pelvic areas, several small pinpoint ecchymoses noted across abdomen secondary to Heparin injections EXTREMITIES: Peripheral pulses appreciated bilaterally, equal, symmetrical, +2, +1 pitting edema noted in bilateral lower extremities NEUROLOGICAL: CN II-XII grossly intact PSYCHOLOGICAL: Alert and conversant, pleasant LABORATORY DATA: Please see below. MICROBIOLOGY: Please see below. IMAGING: Upper GI follow-through IMPRESSION: There are thickened folds all throughout the stomach and duodenum. A small hiatal hernia is also noted. Dilated small bowel loops with an extremely slow transit time. No definite small bowel stricture was able to be appreciated during this examination. DVT prophylaxis ordered?: Heparin 5,000 units SC every 8 hours. ASSESSMENT AND PLAN: This is a 61-year-old female with abdominal pain. PROBLEMS: 1. Abdominal pain: Upper GI follow-through demonstrated thickened folds throughout the stomach and duodenum with small bowel loops and slow transit time. There was not small bowel stricture appreciated. General surgery recommends placement of an NG tube and a blood transfusion. Surgery could be considering an exploratory laparotomy at some point. Will obtain a CRP in 24 hours. Continue with Zosyn for possible intraabdominal abscess /elevated WBC . Aspiration of fluid showed acute infection neutrophils DISPOSITION: Continue with Zosyn for the time-being. Further work-up per general surgery. Patient appears stable. VS, I&O, 24H, Fishbone Vital Signs/I&O Vital Signs Date Time Temp Pulse Resp B/P (MAP) Pulse Ox O2 Delivery O2 Flow Rate FiO2 07/28/17 05:30 97.8 107 18 129/79 (96) 97 Room Air I&O- Last 24 Hours up to 6 AM 07/29/17 06:00 Intake Total 0 ml Output Total 475 ml Balance -475 ml Laboratory Data 24H LABS Laboratory Tests 2 07/27/17 11:40: Bedside Glucose (Misc Panel) 124H 07/27/17 17:56: Bedside Glucose (Misc Panel) 139H 07/27/17 23:47: Bedside Glucose (Misc Panel) 160H 07/28/17 05:23: White Blood Count 17.4H, Red Blood Count 2.51L, Hemoglobin 9.7L, Hematocrit 27.0L, Mean Corpuscular Volume 107.6H, Mean Corpuscular Hemoglobin 38.6H, Mean Corpuscular Hemoglobin Concent 35.9, Red Cell Distribution Width 13.2, Platelet Count 237, Neutrophils (%) (Auto) 85.7H, Lymphocytes (%) (Auto) 6.2L, Monocytes (%) (Auto) 5.6H, Eosinophils (%) (Auto) 0.1, Basophils (%) (Auto) 0.1, Neutrophils # (Auto) 14.9H, Lymphocytes # (Auto) 1.1L, Monocytes # (Auto) 1.0H, Eosinophils # (Auto) 0.0, Basophils # (Auto) 0.0, Immature Granulocyte # (Auto) 0.4H, Nucleated Red Blood Cells % (auto) 0.0, Anion Gap 5L, Glomerular Filtration Rate > 60.0, Blood Urea Nitrogen 10, Creatinine 0.16L, Sodium Level 131L, Potassium Level 3.4L, Chloride Level 95L, Carbon Dioxide Level 31, Calcium Level 8.1L 07/28/17 06:08: Bedside Glucose (Misc Panel) 132H CBC/BMP Laboratory Tests 07/28/17 05:23 Red Blood Count 2.51 L, Mean Corpuscular Volume 107.6 H, Mean Corpuscular Hemoglobin 38.6 H, Mean Corpuscular Hemoglobin Concent 35.9, Red Cell Distribution Width 13.2, Neutrophils (%) (Auto) 85.7 H, Lymphocytes (%) (Auto) 6.2 L, Monocytes (%) (Auto) 5.6 H, Eosinophils (%) (Auto) 0.1, Basophils (%) ( Auto) 0.1, Neutrophils # (Auto) 14.9 H, Lymphocytes # (Auto) 1.1 L, Monocytes # (Auto) 1.0 H, Eosinophils # (Auto) 0.0, Basophils # (Auto) 0.0, Calcium Level 8.1 L Microbiology Microbiology 07/23/17 Blood Culture - Preliminary, Resulted No Growth after 72 hours. All specime... 07/23/17 Blood Culture - Preliminary, Resulted No Growth after 72 hours. All specime... 07/24/17 Urine Culture - Final, Complete Escherichia Coli ARNIE GALLEGO-Wilner Jul 28, 2017 11:25 Teddy Randle MD Aug 01, 2017 16:56
[2017-07-28] MEDS ORDERED: KCL 10MEQ IN 100ML SWI (KRUN) 10 MEQ in APPROPRIATE DILUENT 1 EA IV ONE ×2 (14:00)
--- NOTE | 2017-07-28 14:10 | IPN ---
DATE: 07/28/2017 SUBJECTIVE: The patient is seen and examined in the room today. The patient is still nothing by mouth maintained with total parenteral nutrition (TPN). The patient has not had any bowel movements. No bowel movements this admission. The patient is complaining about increased abdominal distention. Still complaining about bilateral peripheral numbness. OBJECTIVE: VITAL SIGNS: Temperature 97.8, pulse 107, respiratory rate 18, blood pressure 129/79, pulse ox 97% in room air. GENERAL: No sign of acute distress. Alert and oriented times three. HEENT: Normocephalic, atraumatic. Extraocular muscles are grossly intact. CARDIOVASCULAR: Positive S1, S2, regular rate. LUNGS: Decreased air entry. Clear to auscultation bilaterally. ABDOMEN: Distended. Some discomfort on palpation. Bowel sounds present in all quadrants. Abdomen is soft. EXTREMITIES: No edema. No sign of cyanosis. LABORATORY DATA: WBC 17.4, hemoglobin 9.7, hematocrit 27, platelet count 237. Sodium 131, potassium 3.4. Chloride 95, carbon dioxide 31, BUN 10, creatinine 0.16, GFR greater than 60, fasting glucose 107, calcium 8.1, C-reactive protein 5.73. IMAGING STUDIES: Upper GI and small bowel follow through showed thickened folds throughout the stomach and duodenum. Small hiatal hernia. Dilated small bowel loops with an extremely slow transit time. No definitive small bowel stricture. ASSESSMENT/PLAN: 1. Small bowel obstruction: The patient is nothing by mouth on TPN. The patient has not had any bowel movements since admission of 07/23/2017. General surgery has been consulted. Appreciate their input. 2. Leukocytosis: Suspect intra-abdominal infection. The patient is started on Zosyn. Infectious disease specialist, Dr. Randle has been consulted. Will assist her recommendations. We appreciate Dr. Randle's recommendations. In the beginning of her admission, the patient had an ultrasound-guided intra-abdominal fluid collection, cell block and cytology was obtained and showed no malignancy. However, there was no culture available for the fluid and I contacted the lab myself and there is a concern for contamination due to nonsterile procedures. There is uncertainty if we can use the fluid for an accurate cultures. The patient did have sigmoid thickening finding from the initial CT abdomen and pelvis. 3. History of alcohol abuse: No sign of withdrawal. The patient has been admitted for 6 days. The patient is on CIWA protocol. 4. Hypokalemia: Supplemented with IV potassium. 5. Peripheral neuropathy. 6. Hypertension: Blood pressure in the satisfactory range. 7. Tobacco abuse on nicotine patch as needed. 8. Deep venous thrombosis prophylaxis on heparin. MTDD
[2017-07-28 14:18] LABS: MAGNESIUM LEVEL 1.8 MG/DL (1.8-2.4)
[2017-07-28] MEDS: IBUPROFEN 400 MG TAB PO PRN (14:22)
--- NOTE | 2017-07-28 14:55 | REP ---
ABDOMINAL SERIES: Supine and erect views of the abdominal demonstrate no free air. Moderately dilated small bowel loops are seen with air fluid levels on the upright view. There is barium still seen from an upper GI series, which was performed 07/26/2017. There is residual barium in small bowel loops both on the right and on the left. Barium is also seen in a mildly distended right and transverse colon. Distal extent of the barium is into the lower left colon. An accompanying view of the chest demonstrates mild bibasilar infiltrate/atelectasis with small effusions. A right arm PICC line is seen with the tip in the superior vena cava. A nasogastric tube is seen with sideport in the mid esophagus. Signed by Alfredo Bassett MD 07/28/2017 05:21 P
--- NOTE | 2017-07-28 16:10 | IPNPDOC ---
Date Seen The patient was seen on 07/28/17. Progress Note SUBJECTIVE: A 61-year-old female with history of hypertension on chronic lisinopril, bilateral cataract surgery presents to the emergency room with two day history of abdominal distention. With a 3-4 month history of generalized weakness, decreased appetite, feeling bilateral feet and hands going numb. Surgery was consult because of decreased appetite and weight loss, with concern for malignancy. Patient has a history of smoking about 2 packs a day since she was 16. Patient also has a history of heavy alcohol use. CT abdomen revealed Segmental thickening of the sigmoid colon with surrounding loculated fluid. This may be neoplastic or inflammatory in etiology. Moderate diffuse small bowel dilatation. Mild scattered free fluid without free air. No adenopathy. Small cyst left ovary. Surgery was consulted as a resort. This morning patient reports increased pain as well as increased distention. She has yet to have a bowel movement but she is continuing flotus. OBJECTIVE PHYSICAL EXAMINATION: VITAL SIGNS: Please see below. GENERAL APPEARANCE: Awake, appears to be mild discomfort HEENT: Head is atraumatic, RESPIRATORY: Lungs are clear to auscultate anterior and posterior CARDIOVASCULAR: S1 and S2 present, no murmurs rubs or gallops ABDOMEN: Moderately distended, tenderness to palpate in all 4 quadrants. EXTREMITIES: Swelling no deformities. LABORATORY DATA: Please see below. MICROBIOLOGY: Please see below. ASSESSMENT AND PLAN:A 61-year-old female admitted for abdominal distention and generalized weakness. Abdominal CT revealed segmental thickening of the sigmoid colon with surrounding loculated fluid. Peritoneal fluid tap yield no malignancy. Cell block was also negative.The upper GI and small bowel follow through showed partial obstruction in the small bowel, that is improving. She is still having moderate abdominal distention, an NG tube was placed. Placement was confirmed by abdominal x-ray. X-ray also showed gas in the rectum, and thus Dulcolax suppository was ordered and administered. Patient is currently still nothing by mouth, with TPN. Patient showed laboratory signs of anemia as well as significant shortness of breath at baseline. One pack of red blood cells was ordered and administered. Once patient's previous make clinical improvements, a tentative plan for an upper and lower endoscope is planned to look for her partial obstruction. Recheck CBC and discontinue her NG tube, when abdominal pain and distention improves. VS, I&O, 24H, Fishbone Vital Signs/I&O Vital Signs Date Time Temp Pulse Resp B/P (MAP) Pulse Ox O2 Delivery O2 Flow Rate FiO2 07/28/17 11:22 20 Room Air 07/28/17 08:00 107 129/79 07/28/17 05:30 97.8 97 I&O- Last 24 Hours up to 6 AM 07/29/17 05:59 Intake Total 570 ml Output Total 675 ml Balance -105 ml Laboratory Data 24H LABS Laboratory Tests 2 07/27/17 17:56: Bedside Glucose (Misc Panel) 139H 07/27/17 23:47: Bedside Glucose (Misc Panel) 160H 07/28/17 05:23: White Blood Count 17.4H, Red Blood Count 2.51L, Hemoglobin 9.7L, Hematocrit 27.0L, Mean Corpuscular Volume 107.6H, Mean Corpuscular Hemoglobin 38.6H, Mean Corpuscular Hemoglobin Concent 35.9, Red Cell Distribution Width 13.2, Platelet Count 237, Neutrophils (%) (Auto) 85.7H, Lymphocytes (%) (Auto) 6.2L, Monocytes (%) (Auto) 5.6H, Eosinophils (%) (Auto) 0.1, Basophils (%) (Auto) 0.1, Neutrophils # (Auto) 14.9H, Lymphocytes # (Auto) 1.1L, Monocytes # (Auto) 1.0H, Eosinophils # (Auto) 0.0, Basophils # (Auto) 0.0, Immature Granulocyte # (Auto) 0.4H, Nucleated Red Blood Cells % (auto) 0.0, Anion Gap 5L, Glomerular Filtration Rate > 60.0, Blood Urea Nitrogen 10, Creatinine 0.16L, Sodium Level 131L, Potassium Level 3.4L, Chloride Level 95L, Carbon Dioxide Level 31, Calcium Level 8.1L, Magnesium Level 1.8, C-Reactive Protein, Quantitative 5.73H 07/28/17 06:08: Bedside Glucose (Misc Panel) 132H 07/28/17 11:58: Bedside Glucose (Misc Panel) 153H CBC/BMP Laboratory Tests 07/28/17 05:23 Red Blood Count 2.51 L, Mean Corpuscular Volume 107.6 H, Mean Corpuscular Hemoglobin 38.6 H, Mean Corpuscular Hemoglobin Concent 35.9, Red Cell Distribution Width 13.2, Neutrophils (%) (Auto) 85.7 H, Lymphocytes (%) (Auto) 6.2 L, Monocytes (%) (Auto) 5.6 H, Eosinophils (%) (Auto) 0.1, Basophils (%) ( Auto) 0.1, Neutrophils # (Auto) 14.9 H, Lymphocytes # (Auto) 1.1 L, Monocytes # (Auto) 1.0 H, Eosinophils # (Auto) 0.0, Basophils # (Auto) 0.0, Calcium Level 8.1 L Microbiology Microbiology 07/23/17 Blood Culture - Final, Complete NO GROWTH AFTER 5 DAYS 07/23/17 Blood Culture - Final, Complete NO GROWTH AFTER 5 DAYS 07/24/17 Urine Culture - Final, Complete Escherichia Coli GME ATTESTATION GME ATTESTATION My preceptor for this patient encounter was physically present in the building during the encounter and was fully available. As needed, all aspects of the patient interview, examination, medical decision making process, and medical care plan development were reviewed and approved by the preceptor. Preceptor is aware and concurs with the plan as stated in the body of this note and will attest to such by his/her cosignature. RICH QUIÑONES DO Jul 28, 2017 16:09
[2017-07-28] MEDS: BISACODYL 10 MG SUPP PR SCH (16:57)
[2017-07-28] MEDS ORDERED: AMINO AC/ELECTROLYTE/DEX/CALC 2,000 ML IV SCH (18:00)
[2017-07-28] MEDS ORDERED: FAT EMULSION IV 20% 500 ML IV SCH (18:00)
[2017-07-28 20:30] VITALS: BP 139/88
[2017-07-28 22:00] VITALS: BP 129/79
[2017-07-29] MEDS: HumaLOG INSULIN (NovoLOG) PER UNIT SC SCH ×4 (00:12→18:34)
[2017-07-29] MEDS: PIPERACILLIN/TAZOBACTAM SOD 3.375 GM in D5W 50 ML IV SCH ×4 (04:00→21:35)
[2017-07-29] MEDS: SODIUM CHLORIDE 0.9% INJ 10 ML SYR IV SCH ×4 (05:00→18:00)
[2017-07-29] MEDS: HEPARIN SOD (PORCINE) 5000 UNITS/ML VIAL SQ SCH ×3 (05:02→21:35)
[2017-07-29 05:20] VITALS: BP 142/91
[2017-07-29 05:25] LABS: MEAN CORPUSCULAR HEMOGLOBIN 37.1 pg (27.0-33.0); MEAN CORPUSCULAR VOLUME 102.9 fl (80.0-96.0); RED CELL DISTRIBUTION WIDTH 16.8 % (11.5-14.5); WHITE BLOOD COUNT 13.6 10^3/uL (4.0-10.0)
[2017-07-29 05:51] LABS: ANION GAP 6 MEQ/L (8-16); BLOOD UREA NITROGEN 10 MG/DL (7-18); CARBON DIOXIDE LEVEL 35 MEQ/L (21-32); CHLORIDE LEVEL 94 MEQ/L (98-107); CREATININE FOR GFR 0.15 MG/DL (0.55-1.02); GLOMERULAR FILTRATION RATE > 60.0 (>51); GLUCOSE, FASTING 113 MG/DL (70-105); MAGNESIUM LEVEL 1.8 MG/DL (1.8-2.4); POTASSIUM SERUM 3.1 MEQ/L (3.5-5.1); SODIUM LEVEL 135 MEQ/L (136-145)
[2017-07-29] MEDS: NICOTINE 7 MG/24 HR TRANSDERMAL TD SCH ×2 (09:00→09:01)
[2017-07-29] MEDS: BISACODYL 10 MG SUPP PR SCH ×2 (09:00→18:36)
[2017-07-29] MEDS: DOCUSATE SODIUM 100 MG CAP PO SCH ×2 (09:01→21:34)
[2017-07-29] MEDS: SENOKOT S TAB PO SCH ×2 (09:01→21:35)
[2017-07-29] MEDS: THIAMINE 100 MG TAB PO SCH (09:02)
[2017-07-29] MEDS: FOLIC ACID 1 MG TAB PO SCH (09:02)
[2017-07-29] MEDS: MULTIVITAMINS/MINERALS THERAP 1 TAB PO SCH (09:02)
[2017-07-29] MEDS: SIMETHICONE 80 MG CHEW TAB PO SCH ×4 (09:02→21:34)
[2017-07-29] MEDS ORDERED: KCL 10MEQ IN 100ML SWI (KRUN) 10 MEQ in APPROPRIATE DILUENT 1 EA IV ONE ×4 (12:00→14:00)
[2017-07-29 14:00] VITALS: BP 148/98
[2017-07-29] MEDS ORDERED: POTASSIUM CHLORIDE 10 MEQ SR TABLET PO ONE (14:00)
[2017-07-29] MEDS: PERCOCET 5MG/325MG TAB PO PRN ×2 (14:02→18:34)
--- NOTE | 2017-07-29 14:20 | IPN ---
DATE: 07/29/2017 SUBJECTIVE: The patient is seen and examined in the room today. The patient had one big bowel movement yesterday around 5:00 p.m. The patient also had an nasogastric tube insertion yesterday. Patient's abdominal distention has shown some improvement. Still has bilateral abdominal pain just above the pubic bone, however, the patient has been improving since the bowel movement and decreased abdominal distention. The patient's chest wall discomfort has also improved. OBJECTIVE: VITAL SIGNS: Temperature 97.4, pulse 95, respiratory rate 18, blood pressure 142/91, pulse ox 94% in room air. GENERAL: Mild discomfort secondary to NG tube. Alert and oriented times three. HEENT: NG tube in place. Normocephalic, atraumatic. Extraocular muscles are grossly intact. CARDIOVASCULAR: Positive S1, S2, regular rate. LUNGS: Clear to auscultation bilaterally. ABDOMEN: Still some distention, but improved compared to yesterday. There is some discomfort to palpation in the bilateral lower abdomen, but the tenderness has been improved compared to yesterday. Bowel sounds present. Abdomen is soft. EXTREMITIES: No edema. No sign of cyanosis. LABORATORY DATA: WBC 13.6, hemoglobin 8.9, hematocrit 24.7, platelet count 189. Sodium 135, potassium 3.1. Chloride is 94, carbon dioxide 35, BUN 10, creatinine 0.15, GFR greater than 60, fasting glucose 113, calcium 8, magnesium 1.8, C-reactive protein is 7.11. ASSESSMENT/PLAN: 1. Small bowel obstruction. Patient has been nothing by mouth on TPN. NG tube in place. The patient had one large bowel movement yesterday. Abdominal distention still persists but improved in severity. Continue to monitor the patient. 2. Leukocytosis. Suspect intra-abdominal inflammatory versus infectious versus malignancy. Infectious disease has been consulted. Patient is on Zosyn. CT image was performed during this hospitalization. Patient was found to have sigmoid thickening with loculated fluid. Patient also noted to have thickening throughout the stomach and duodenum. Will refer to the surgical team to see if the patient will benefit from a scope. 3. History of alcohol abuse. No signs of withdrawal. Patient is on folic acid, thiamine, and multivitamin. 4. Hypokalemia. Patient received potassium supplement with IV potassium. 5. Peripheral neuropathy. 6. Hypertension. Continue to monitor. 7. Tobacco abuse on nicotine patch as needed. 8. Deep venous thrombosis prophylaxis on heparin.
[2017-07-29] MEDS ORDERED: FAT EMULSION IV 20% 500 ML IV SCH (18:00)
[2017-07-29] MEDS ORDERED: POTASSIUM CHLORIDE INJ 40 MEQ in AMINO AC/ELECTROLYTE/DEX/CALC 2,000 ML IV SCH (18:00)
[2017-07-29 20:10] VITALS: BP 143/87
[2017-07-29] MEDS: IBUPROFEN 400 MG TAB PO PRN (21:36)
[2017-07-30] MEDS: CHLORASEPTIC SPRAY MT PRN ×5 (00:13→18:54)
[2017-07-30] MEDS: PIPERACILLIN/TAZOBACTAM SOD 3.375 GM in D5W 50 ML IV SCH ×4 (04:00→22:54)
[2017-07-30] MEDS: SODIUM CHLORIDE 0.9% INJ 10 ML SYR IV SCH ×4 (04:55→18:28)
[2017-07-30] MEDS: HEPARIN SOD (PORCINE) 5000 UNITS/ML VIAL SQ SCH ×3 (04:56→21:11)
[2017-07-30 05:45] VITALS: BP 132/84
[2017-07-30 05:58] LABS: MEAN CORPUSCULAR HGB CONC 35.5 g/dl (32.0-36.5); MEAN CORPUSCULAR VOLUME 104.3 fl (80.0-96.0); RED CELL DISTRIBUTION WIDTH 16.6 % (11.5-14.5); WHITE BLOOD COUNT 14.1 10^3/uL (4.0-10.0)
[2017-07-30] MEDS: PERCOCET 5MG/325MG TAB PO PRN ×3 (06:01→19:32)
[2017-07-30] MEDS: HumaLOG INSULIN (NovoLOG) PER UNIT SC SCH ×3 (06:28→12:36)
[2017-07-30 06:39] LABS: ANION GAP 6 MEQ/L (8-16); BLOOD UREA NITROGEN 11 MG/DL (7-18); CALCIUM LEVEL 8.2 MG/DL (8.5-10.1); CARBON DIOXIDE LEVEL 41 MEQ/L (21-32); CHLORIDE LEVEL 94 MEQ/L (98-107); CREATININE FOR GFR 0.23 MG/DL (0.55-1.02); GLUCOSE, FASTING 111 MG/DL (70-105); MAGNESIUM LEVEL 1.9 MG/DL (1.8-2.4); POTASSIUM SERUM 2.7 MEQ/L (3.5-5.1); SODIUM LEVEL 141 MEQ/L (136-145)
[2017-07-30 06:55] LABS: GLOMERULAR FILTRATION RATE > 60.0 (>51)
[2017-07-30] MEDS ORDERED: POTASSIUM CHLORIDE 10 MEQ SR TABLET PO ONE (08:00)
[2017-07-30] MEDS: KCL 10MEQ IN 100ML SWI (KRUN) 10 MEQ in APPROPRIATE DILUENT 1 EA IV SCH ×6 (08:29→12:36)
[2017-07-30] MEDS: DOCUSATE SODIUM 100 MG CAP PO SCH ×2 (08:29→21:11)
[2017-07-30] MEDS: SIMETHICONE 80 MG CHEW TAB PO SCH ×4 (08:31→21:11)
[2017-07-30] MEDS: IBUPROFEN 400 MG TAB PO PRN ×2 (08:31→21:11)
[2017-07-30] MEDS: SENOKOT S TAB PO SCH ×2 (08:31→21:11)
[2017-07-30] MEDS: THIAMINE 100 MG TAB PO SCH (08:33)
[2017-07-30] MEDS: FOLIC ACID 1 MG TAB PO SCH (08:33)
[2017-07-30] MEDS: MULTIVITAMINS/MINERALS THERAP 1 TAB PO SCH (08:33)
[2017-07-30] MEDS: BISACODYL 10 MG SUPP PR SCH (09:00)
[2017-07-30] MEDS: NICOTINE 7 MG/24 HR TRANSDERMAL TD SCH (09:00)
[2017-07-30 14:00] VITALS: BP 108/82
--- NOTE | 2017-07-30 14:17 | IPN ---
DATE OF VISIT: 07/30/2017 SUBJECTIVE: Patient is seen and examined in the room today. The patient stated her bilateral abdominal lower pain still persists, however the pain has improved. The patient has a significant fluid drain out from the NG tube. The chest tightness has been improved since improvement of abdominal distention. The patient had another bowel movement yesterday at approximately 5:00-6:00. OBJECTIVE: VITAL SIGNS: Temperature 97.9, pulse 107, respiratory rate 18, blood pressure 132/84, pulse ox 91% in room air. GENERAL: Mild distress secondary to the NG tube. Alert and oriented times three. HEENT: NG tube in place and connected to suction. Normocephalic, atraumatic. Extraocular muscles are grossly intact. CARDIOVASCULAR: Positive S1, S2, regular rate. LUNGS: Clear to auscultation bilaterally. ABDOMEN: Still some distention. There is still some mild discomfort to palpation in the bilateral lower abdomen. Bowel sounds present. No rebound. EXTREMITIES: No edema. No signs of cyanosis. LABORATORY DATA: WBC 14.1, hemoglobin 10.4, hematocrit 29.3, platelet count 319. Sodium 141, potassium 2.7, chloride is 94, carbon dioxide 41, BUN 11, creatinine 0.23, GFR greater than 60, fasting glucose 111, calcium 8.2, magnesium 1.9. ASSESSMENT/PLAN: 1. Small bowel obstruction. Patient has NG tube. Patient is on TPN. Patient had two bowel movements in the last 48 hours. Abdominal distention has been improving. General surgery has been on the case. 2. Severe hypokalemia. Patient had a significant output through the NG tube. Per documentation, the patient had approximately 2.4 liters output from the NG tube. Patient received IV potassium supplement and there is some potassium in the TPN; however, it is still not enough to match the potassium loss through the NG tube. Today, the patient will receive multiple runs of IV potassium supplement and will try to implement oral potassium. Will follow with potassium level in 6 hours. 3. Leukocytosis. Suspect intra-abdominal inflammatory versus infectious versus malignancy. Infectious disease specialist has been consulted. Patient has been on Zosyn. There is some improvement in the WBC since decompression of the abdominal distention. 4. History of alcohol abuse. No signs of withdrawal. Patient is on folic acid, thiamine, and multivitamin. 5. Peripheral neuropathy. 6. Hypertension. The patient's blood pressure is in the satisfactory range. 7. Deep venous thrombosis prophylaxis on heparin.
[2017-07-30 15:15] LABS: ANION GAP 3 MEQ/L (8-16); BLOOD UREA NITROGEN 13 MG/DL (7-18); CALCIUM LEVEL 8.9 MG/DL (8.5-10.1); CARBON DIOXIDE LEVEL 42 MEQ/L (21-32); CHLORIDE LEVEL 96 MEQ/L (98-107); CREATININE FOR GFR 0.22 MG/DL (0.55-1.02); GLOMERULAR FILTRATION RATE > 60.0 (>51); POTASSIUM SERUM 3.2 MEQ/L (3.5-5.1); SODIUM LEVEL 141 MEQ/L (136-145)
[2017-07-30 15:21] LABS: GLUCOSE, FASTING 34 MG/DL (70-105)
[2017-07-30] MEDS ORDERED: GLUCAGON FOR INJ 1 MG VIAL (J1610) SC PRN (15:30)
[2017-07-30] MEDS ORDERED: GLUCOSE 4 GM CHEW TABLET PO PRN (15:30)
[2017-07-30] MEDS ORDERED: DEXTROSE 50% 50 ML SYRINGE IV PRN (15:30)
[2017-07-30] MEDS ORDERED: FAT EMULSION IV 20% 500 ML IV SCH (18:00)
[2017-07-30] MEDS ORDERED: POTASSIUM CHLORIDE INJ 40 MEQ in AMINO AC/ELECTROLYTE/DEX/CALC 2,000 ML IV SCH (18:00)
[2017-07-30 22:00] VITALS: BP 159/87
[2017-07-31] MEDS: CHLORASEPTIC SPRAY MT PRN (02:59)
[2017-07-31] MEDS: PIPERACILLIN/TAZOBACTAM SOD 3.375 GM in D5W 50 ML IV SCH ×4 (04:23→21:07)
[2017-07-31] MEDS: HEPARIN SOD (PORCINE) 5000 UNITS/ML VIAL SQ SCH ×3 (05:14→21:08)
[2017-07-31] MEDS: SODIUM CHLORIDE 0.9% INJ 10 ML SYR IV SCH ×4 (05:14→18:00)
[2017-07-31 05:30] LABS: MEAN CORPUSCULAR HEMOGLOBIN 37.5 pg (27.0-33.0); MEAN CORPUSCULAR HGB CONC 34.8 g/dl (32.0-36.5); RED CELL DISTRIBUTION WIDTH 16.8 % (11.5-14.5)
[2017-07-31 06:00] VITALS: BP 139/88
[2017-07-31 06:01] LABS: ANION GAP 4 MEQ/L (8-16); BLOOD UREA NITROGEN 13 MG/DL (7-18); CALCIUM LEVEL 8.7 MG/DL (8.5-10.1); CARBON DIOXIDE LEVEL 41 MEQ/L (21-32); CHLORIDE LEVEL 97 MEQ/L (98-107); CREATININE FOR GFR 0.29 MG/DL (0.55-1.02); GLOMERULAR FILTRATION RATE > 60.0 (>51); GLUCOSE, FASTING 92 MG/DL (70-105); MAGNESIUM LEVEL 2.1 MG/DL (1.8-2.4); POTASSIUM SERUM 3.3 MEQ/L (3.5-5.1); SODIUM LEVEL 142 MEQ/L (136-145)
[2017-07-31 06:18] LABS: MEAN CORPUSCULAR VOLUME 107.6 fl (80.0-96.0)
[2017-07-31] MEDS: NICOTINE 7 MG/24 HR TRANSDERMAL TD SCH (08:53)
[2017-07-31] MEDS: BISACODYL 10 MG SUPP PR SCH (08:53)
[2017-07-31] MEDS: MULTIVITAMINS/MINERALS THERAP 1 TAB PO SCH (08:54)
[2017-07-31] MEDS: THIAMINE 100 MG TAB PO SCH (08:54)
[2017-07-31] MEDS: DOCUSATE SODIUM 100 MG CAP PO SCH ×2 (08:54→20:37)
[2017-07-31] MEDS: SENOKOT S TAB PO SCH ×2 (08:54→20:38)
[2017-07-31] MEDS: FOLIC ACID 1 MG TAB PO SCH (08:54)
[2017-07-31] MEDS: SIMETHICONE 80 MG CHEW TAB PO SCH ×4 (08:54→20:37)
--- NOTE | 2017-07-31 10:14 | REP ---
Supine abdomen single AP view: Comparison 07/28/2017. There is no small bowel distension. There is intraluminal barium in the terminal ileum and throughout the colon from the cecum to the rectum. There is no colonic distension. There is degenerative disc disease in the lumbar spine. There is calcified vascular atheroma in the pelvis. Impression: No small bowel distension. No colonic distension. There is barium throughout the colon and a small volume of barium to the terminal ileum. Signed by Alfredo Eden MD 07/31/2017 10:05 A
[2017-07-31] MEDS ORDERED: POTASSIUM CHLORIDE 10 MEQ SR TABLET PO ONE (13:15)
[2017-07-31 14:00] VITALS: BP 146/87
--- NOTE | 2017-07-31 14:03 | IPNPDOC ---
Date Seen The patient was seen on 07/31/17. Progress Note SUBJECTIVE: A 61-year-old female with history of hypertension on chronic lisinopril, bilateral cataract surgery presents to the emergency room with two day history of abdominal distention. With a 3-4 month history of generalized weakness, decreased appetite, feeling bilateral feet and hands going numb. Surgery was consult because of decreased appetite and weight loss, with concern for malignancy. Patient has a history of smoking about 2 packs a day since she was 16. Patient also has a history of heavy alcohol use. CT abdomen revealed Segmental thickening of the sigmoid colon with surrounding loculated fluid. This may be neoplastic or inflammatory in etiology. Moderate diffuse small bowel dilatation. Mild scattered free fluid without free air. No adenopathy. Small cyst left ovary. Surgery was consulted as a resort. This morning patient reports that her NG tube is irritating her. She was very tearful and wanted the tube taking out so she could be comfortable. We agreed to remove the tube for her comfort and also because it was not draining any additional fluids. OBJECTIVE PHYSICAL EXAMINATION: VITAL SIGNS: Please see below. GENERAL APPEARANCE: Awake, appears to be mild discomfort RESPIRATORY: Lungs are clear to auscultate anterior and posterior CARDIOVASCULAR: S1 and S2 present, no murmurs rubs or gallops ABDOMEN: Mild distended abdomen, decrease tenderness to palpate in all 4 quadrants. EXTREMITIES: Swelling no deformities. LABORATORY DATA: Please see below. MICROBIOLOGY: Please see below. ASSESSMENT AND PLAN:A 61-year-old female admitted for abdominal distention and generalized weakness. Pt had an NG tube placed over the weekend. This morning the tube was taken out and clear liquid was started. Pt is tolerating the clear liquids and admits to watery bowel movements. We are still worried about the possibility of a GI malignancy. We had advised medicine to consult GI for a malignancy work up. I will continue to monitor patient and re-access her tomorrow. VS, I&O, 24H, Fishbone Vital Signs/I&O Vital Signs Date Time Temp Pulse Resp B/P (MAP) Pulse Ox O2 Delivery O2 Flow Rate FiO2 07/31/17 06:00 97.5 113 18 139/88 (105) 95 Room Air I&O- Last 24 Hours up to 6 AM 08/01/17 06:00 Intake Total 0 ml Output Total 600 ml Balance -600 ml Laboratory Data 24H LABS Laboratory Tests 2 07/30/17 14:45: Anion Gap 3L, Glomerular Filtration Rate > 60.0, Blood Urea Nitrogen 13, Creatinine 0.22L, Sodium Level 141, Potassium Level 3.2L, Chloride Level 96L, Carbon Dioxide Level 42H, Calcium Level 8.9, C-Reactive Protein, Quantitative 8.53H 07/30/17 16:16: Bedside Glucose (Misc Panel) 183H 07/31/17 00:22: Bedside Glucose (Misc Panel) 128H 07/31/17 05:13: Anion Gap 4L, Glomerular Filtration Rate > 60.0, Blood Urea Nitrogen 13, Creatinine 0.29L, Sodium Level 142, Potassium Level 3.3L, Chloride Level 97L, Carbon Dioxide Level 41H, Calcium Level 8.7, Magnesium Level 2.1 07/31/17 07:09: Bedside Glucose (Misc Panel) 129H 07/31/17 11:31: Bedside Glucose (Misc Panel) 98 CBC/BMP Laboratory Tests 07/30/17 14:45 Calcium Level 8.9 07/31/17 05:13 Calcium Level 8.7, Red Blood Count 2.91 L, Mean Corpuscular Volume 107.6 H, Mean Corpuscular Hemoglobin 37.5 H, Mean Corpuscular Hemoglobin Concent 34.8, Red Cell Distribution Width 16.8 H Microbiology Microbiology 07/23/17 Blood Culture - Final, Complete NO GROWTH AFTER 5 DAYS 07/23/17 Blood Culture - Final, Complete NO GROWTH AFTER 5 DAYS 07/24/17 Urine Culture - Final, Complete Escherichia Coli GME ATTESTATION GME ATTESTATION My preceptor for this patient encounter was physically present in the building during the encounter and was fully available. As needed, all aspects of the patient interview, examination, medical decision making process, and medical care plan development were reviewed and approved by the preceptor. Preceptor is aware and concurs with the plan as stated in the body of this note and will attest to such by his/her cosignature. RICH QUIÑONES DO Jul 31, 2017 14:03
[2017-07-31] MEDS: KCL 10MEQ IN 100ML SWI (KRUN) 10 MEQ in APPROPRIATE DILUENT 1 EA IV SCH ×4 (14:04→15:26)
--- NOTE | 2017-07-31 15:05 | IPN ---
DATE: 07/31/2017 SUBJECTIVE: Patient is seen and examined in the room today. The patient just had G tube removal this morning. The patient had a bowel movement today. The patient tolerated her bowel movement so far. The patient noted that her abdominal distention has been improving. Bilateral lower abdominal pain also shows significant improvement. OBJECTIVE: VITAL SIGNS: Temperature 97.5, pulse 113, respiratory rate 18, blood pressure 139/88, pulse oximetry 95% in room air. GENERAL: No sign of acute distress. Alert and oriented times three. HEENT: Normocephalic, atraumatic. Extraocular muscles are grossly intact. CARDIOVASCULAR: Tachycardic. Positive S1, S2. LUNGS: Clear to auscultation bilaterally. ABDOMEN: There is some mild distention, but shows significant improvement compared to the last two days. Still has very mild abdominal distention upon palpation, but the severity also has shown significant improvement. Bowel sounds present. No rebound. EXTREMITIES: No edema. No signs of cyanosis. LABORATORY DATA: WBC 14, hemoglobin 10.9, hematocrit 31.3, platelet count 430. Sodium 142, potassium 3.3, chloride is 97, carbon dioxide 41, BUN 13, creatinine 0.29, GFR greater than 60, fasting glucose 93, calcium is 8.7, magnesium 1.2. Abdominal x-ray showed small amount of distention. No colonic distention. ASSESSMENT/PLAN: 1. Small bowel obstruction. Patient has been on TPN. Patient had the nasogastric tube just removed today. Since admission, the patient has not had any bowel movement until 07/28/2017. Since then, the patient's bowel distention and abdominal pain continues to show improvement. The case was discussed with the surgical team. They had the suspicion for GI related malignancy and highly recommend GI consult. The case has been discussed with food production associate natural science manager, Dr. Reinoso. 2. Sigmoid thickening with loculated fluid in the thickened fold of the stomach and duodenum, initially due to concern for intraabdominal infection. The patient was started on empiric antibiotics. Infectious disease specialist has been consulted. At this moment, blood culture remains negative. The patient continues to have fluctuation of the white count and elevation of C-reactive protein, which could be due to the patient's small obstruction versus infection or inflammatory changes. 3. Severe hypokalemia. Previously, the patient has nasogastric tube in place. The patient has approximately 2.4 liter of output from the nasogastric tube. The patient has been receiving IV and oral potassium supplements. We will continue to follow electrolytes and supplement according to the results. 4. History of alcohol abuse. No signs of withdrawal. It has been more than one since the alcohol use. Continue to follow. 5. Peripheral neuropathy. 6. Hypertension. The patient's blood pressure is in the satisfactory range. 7. Deep venous thrombosis prophylaxis. The patient is on heparin.
[2017-07-31] MEDS: PERCOCET 5MG/325MG TAB PO PRN (20:38)
[2017-07-31 22:00] VITALS: BP 138/97
--- NOTE | 2017-08-01 00:06 | CR.PDOC ---
[facility] Consultation Consultation DATE OF CONSULTATION: July 31, 2017 at 17:00 Referring MD/ Hospitalist: Dr. Porter. Reason for consult: Abnormal CT scan. HPI: 61 year old woman with no medical comorbidities ( Never seen a physician until this hospitalization),. Initially came to ER for complaints of progressively worsening abdominal distention associated with decreased bowel movements and unable to even pass gas. She alos reported progressive loss of appetite and unintenal weight loss during that period. Patient underwent CT abdomen whish showed sigmoid thickening. Patient was seen by surgery no intervention planned at this time and As per discussion with Dr Mike hospitalist called GI consult today. Patient reports since her hospitalization, she was NPO and had NG tube till one day before when she started with watery stools. Patient currently denies any GI symptoms. Patient reports her abdominal distention was improving and she started with passing consult Pertinent negative symptoms: Patient denies fever, chills, abdominal pain, hematemesis, melena or hematochezia. Review of Systems: GI: as stated above CVS: No chest pain, No palpitations, No leg swelling. RS: No Shortness of breath, No Wheezing, no cough CORE RESCUER: No dizziness, No motor weakness, No sensory problems Hematology: No bruising, No gum bleeding, Musculoskeletal: Back pain- chronic, ambulating well. Skin: No rash : No hematuria, No burning sensation of the urine ENT: No ear discharge/ pain, No dysphagia. Eyes: No photophobia. Home medications: reviewed. Antithrombotic agents - None Medical h/o: As above. Surgical h/o: none. Social h/o: H/o alcohol and smoking but reports quitting hospitalization. Denies IVDA/ drugs . Family h/o of GI cancers - None Prior Endoscopies: None --- EGD and Colonoscopy in past None Prior GI evaluation: none Exam: Vitals: reviewed General: Alert and oriented x 3, not in distress HEENT: Normal oropharynx, NO cervical lymph nodes. Chest: symmetric with bilateral clear air entry, CVS: S1, S2 heard, normal, no murmurs . Abdomen: moderately distended, no surgical scars, soft, non-tender, no palpable masses, normal bowel sounds heard. Erythematous patches in skin thomas Rectal exam: refused. . Extremities: no pedal edema, pulses palpable. CORE RESCUER: no focal motor or sensory deficits. Moves all extremities Skin: no rash. Labs: reviewed. Mild elevated WBC . Cultures negative. Ascitic fluid analysis non- revealing. Impression: - New onset abdominal distention with CT scan showing small intra abdominal fluid and sigmoid colon wall thickening. CT imaged reviewed with radiologist in person. Unclear etiology but in view of the clinical picture- Likely near total colonic obstruction - Intraabdominal and pericolonic fluid collection cannot rule out localized perforation or collection but initial CT scan not suggestive of overt perforation or free air. Recommendations: - Patient educated about the Prior test results and possible differential diagnoses. - In view of clinical symptoms and persistent abdominal distention unsure if patient can tolerated bowel prep for further evaluation by endoscopic exam. - Continue IV hydration and and EMpiric antibiotics for now. - clear liquid diet as tolerated. - Give 4 litre of golytely from tomorrow and see if she can tolerate and have loose watery stools. - If abdominal distention worsens then stop Golytely. - Will review with surgery about the further plan from surgical side and plan further endoscopic work up. - GI will follow . Allergies Coded Allergies: No Known Allergies (Unverified , 11/14/16) Home Medications Scheduled Ascorbic Acid (Ascorbic Acid) 1,000 Mg Tab, 1,000 MG PO DAILY, (Reported) Cholecalciferol (D-1000) 1,000 Unit Tab, 1,000 UNIT PO DAILY, (Reported) Cyanocobalamin (Vitamin B12) 1,000 Mcg Tab, 1,000 MCG PO DAILY, (Reported) Lisinopril (Lisinopril) 10 Mg Tab, 10 MG PO DAILY, (Reported) Vitamin E (Janel-Plus E) 400 Unit Cap, 400 UNIT PO DAILY, (Reported) Scheduled PRN Acetaminophen (Acetaminophen) 500 Mg Tab, 500 MG PO for PAIN, (Reported) SHUKRI RAJPUT MD Aug 01, 2017 00:06
[2017-08-01] MEDS: PIPERACILLIN/TAZOBACTAM SOD 3.375 GM in D5W 50 ML IV SCH ×4 (03:53→21:12)
[2017-08-01] MEDS: HEPARIN SOD (PORCINE) 5000 UNITS/ML VIAL SQ SCH ×3 (05:13→21:12)
[2017-08-01] MEDS: SODIUM CHLORIDE 0.9% INJ 10 ML SYR IV SCH ×4 (05:13→17:20)
[2017-08-01 05:21] LABS: MEAN CORPUSCULAR HEMOGLOBIN 36.5 pg (27.0-33.0); RED CELL DISTRIBUTION WIDTH 16.5 % (11.5-14.5); WHITE BLOOD COUNT 14.4 10^3/uL (4.0-10.0)
[2017-08-01 05:22] LABS: MEAN CORPUSCULAR VOLUME 107.3 fl (80.0-96.0)
[2017-08-01 05:50] LABS: ANION GAP 4 MEQ/L (8-16); BLOOD UREA NITROGEN 12 MG/DL (7-18); CALCIUM LEVEL 8.7 MG/DL (8.5-10.1); CARBON DIOXIDE LEVEL 33 MEQ/L (21-32); CHLORIDE LEVEL 102 MEQ/L (98-107); CREATININE FOR GFR 0.32 MG/DL (0.55-1.02); GLOMERULAR FILTRATION RATE > 60.0 (>51); GLUCOSE, FASTING 79 MG/DL (70-105); MAGNESIUM LEVEL 1.8 MG/DL (1.8-2.4); POTASSIUM SERUM 3.5 MEQ/L (3.5-5.1); SODIUM LEVEL 139 MEQ/L (136-145)
[2017-08-01 06:00] VITALS: BP 121/67
[2017-08-01] MEDS: PERCOCET 5MG/325MG TAB PO PRN ×3 (08:12→20:28)
[2017-08-01] MEDS: SENOKOT S TAB PO SCH ×2 (08:13→21:11)
[2017-08-01] MEDS: THIAMINE 100 MG TAB PO SCH (08:13)
[2017-08-01] MEDS: DOCUSATE SODIUM 100 MG CAP PO SCH ×2 (08:13→21:11)
[2017-08-01] MEDS: SIMETHICONE 80 MG CHEW TAB PO SCH ×4 (08:13→21:11)
[2017-08-01] MEDS: FOLIC ACID 1 MG TAB PO SCH (08:14)
[2017-08-01] MEDS: MULTIVITAMINS/MINERALS THERAP 1 TAB PO SCH (08:14)
[2017-08-01] MEDS: BISACODYL 10 MG SUPP PR SCH (08:14)
[2017-08-01] MEDS: NICOTINE 7 MG/24 HR TRANSDERMAL TD SCH (08:15)
--- NOTE | 2017-08-01 10:12 | IPNPDOC ---
Date Seen The patient was seen on 08/01/17. Progress Note SUBJECTIVE: A 61-year-old female with history of hypertension on chronic lisinopril, bilateral cataract surgery presents to the emergency room with two day history of abdominal distention. With a 3-4 month history of generalized weakness, decreased appetite, feeling bilateral feet and hands going numb. Surgery was consult because of decreased appetite and weight loss, with concern for malignancy. Patient has a history of smoking about 2 packs a day since she was 16. Patient also has a history of heavy alcohol use. CT abdomen revealed Segmental thickening of the sigmoid colon with surrounding loculated fluid. This may be neoplastic or inflammatory in etiology. Moderate diffuse small bowel dilatation. Mild scattered free fluid without free air. No adenopathy. Small cyst left ovary. Surgery was consulted as a resort. This morning pt states that she is doing well. She admits to flatus and one solid bowel movement. She also states that the nurses told her that she has been passing flatus all night long in her sleep. She abdominal pain still persist, but it is more like her baseline. She is tolerating her clear liquid diet well and not having any increase pain with eating. OBJECTIVE PHYSICAL EXAMINATION: VITAL SIGNS: Please see below. GENERAL APPEARANCE: Awake, alert and sitting in a chair RESPIRATORY: Lungs are clear to auscultate anterior and posterior CARDIOVASCULAR: S1 and S2 present, no murmurs rubs or gallops ABDOMEN: Mild distended abdomen, minimal tenderness to palpate in all 4 quadrants. EXTREMITIES: Swelling no deformities. LABORATORY DATA: Please see below. MICROBIOLOGY: Please see below. ASSESSMENT AND PLAN:A 61-year-old female admitted for abdominal distention and generalized weakness.Pt is tolerating the clear liquids and admits to watery bowel movements and one solid bowel movement last night. Kassy was consulted and they recommended an endoscopic work up. There are no surgical intervention recommended for this patient at this moment. I would advise following the recommendations and management plan outline by Kassy. VS, I&O, 24H, [place] Vital Signs/I&O Vital Signs Date Time Temp Pulse Resp B/P (MAP) Pulse Ox O2 Delivery O2 Flow Rate FiO2 08/01/17 08:42 18 08/01/17 06:00 97.2 113 121/67 (85) 92 Room Air I&O- Last 24 Hours up to 6 AM 08/02/17 06:00 Intake Total 120 ml Output Total 150 ml Balance -30 ml Laboratory Data 24H LABS Laboratory Tests 2 07/31/17 11:31: Bedside Glucose (Misc Panel) 98 07/31/17 17:05: Bedside Glucose (Misc Panel) 113H 08/01/17 00:01: Bedside Glucose (Misc Panel) 111H 08/01/17 05:11: Anion Gap 4L, Glomerular Filtration Rate > 60.0, Blood Urea Nitrogen 12, Creatinine 0.32L, Sodium Level 139, Potassium Level 3.5, Chloride Level 102, Carbon Dioxide Level 33H, Calcium Level 8.7, Magnesium Level 1.8, C-Reactive Protein, Quantitative 6.56H CBC/BMP Laboratory Tests 08/01/17 05:11 Red Blood Count 2.74 L, Mean Corpuscular Volume 107.3 H, Mean Corpuscular Hemoglobin 36.5 H, Mean Corpuscular Hemoglobin Concent 34.0, Red Cell Distribution Width 16.5 H, Calcium Level 8.7 Microbiology Microbiology 07/23/17 Blood Culture - Final, Complete NO GROWTH AFTER 5 DAYS 07/23/17 Blood Culture - Final, Complete NO GROWTH AFTER 5 DAYS 07/24/17 Urine Culture - Final, Complete Escherichia Coli GME ATTESTATION GME ATTESTATION My preceptor for this patient encounter was physically present in the building during the encounter and was fully available. As needed, all aspects of the patient interview, examination, medical decision making process, and medical care plan development were reviewed and approved by the preceptor. Preceptor is aware and concurs with the plan as stated in the body of this note and will attest to such by his/her cosignature. RICH QUIÑONES DO Aug 01, 2017 10:12
--- NOTE | 2017-08-01 12:37 | IPN ---
DATE OF SERVICE: 08/01/2017 The patient seen and examined at the bedside. Chart has been reviewed. The patient is sitting comfortably, drinking her tea this morning. She denies any nausea or vomiting. Tolerating her liquid diet at the bedside. She still complains of slight discomfort bilateral lower quadrants but has been passing flatus. Afebrile. No chest pain, pressure, or tightness, shortness of breath, palpitations, lightheadedness, or dizziness. Temperature 97.2, pulse 113, respiratory rate 17, blood pressure 121/67, 92% on room air. Generally, the patient is awake, alert, oriented times three, answering questions appropriately. Anicteric sclerae. No jaundice. Pupils round and reactive. Extraocular muscles are intact. Normocephalic, atraumatic. Neck is supple. Full range of motion. No cervical lymphadenopathy, thyromegaly , or jugular venous distention. Lungs are clear to auscultation bilaterally. Air entry is equal. Heart: S1, S2, sinus tachycardia. Abdomen is soft, mild distention. Positive bowel sounds. No rebound or guarding. Extremities: No pitting edema. No cyanosis. LABORATORY DATA, IMAGING STUDIES, MICROBIOLOGY: Have been reviewed. ASSESSMENT AND PLAN: This is a 61-year-old female, history of hypertension, cataract surgery, complained of 3-4 months of generalized weakness, abdominal distention. Was found to have a sigmoid thickening, currently being treated for a small bowel obstruction. CURRENT ISSUES: Are as follows: 1. Small bowel obstruction, status post total parenteral nutrition (TPN) trial of liquids yesterday. Tolerating well. Passing flatus. No nausea or vomiting. Managed by Dr. Li. GI has been consulted, Dr. Reinoso, for colonoscopy. 2. Sigmoid thickening, status post intravenous (IV) antibiotics. GI has been consulted. Defer to Dr. Reinoso regarding colonoscopy. 3. History of alcohol abuse. No signs of withdrawal. 4. Peripheral neuropathy. 5. Chronic hypertension. Satisfactory. 6. Protein Calorie Malnutrition BMI<19 cachexia from history of ETOH abuse and possible malignancy. will await result of endoscopy and nutrition consult if continues to tolerate oral diet. MTDD
--- NOTE | 2017-08-01 13:51 | REP ---
ULTRASOUND-GUIDED ABDOMINAL PARACENTESIS: Patient was referred for diagnostic abdominal paracentesis using ultrasound guidance. Informed consent was obtained. Under sterile conditions and after satisfactory administration of a local anesthesia, using ultrasound guidance, #8-Kazakh paracentesis catheter is inserted into a small pocket of fluid in the right perihepatic region. Approximately 75 mL of cloudy yellow fluid is aspirated. Fluid is sent for appropriate lab testing. The catheter was removed, and hemostasis obtained with no immediate complication. Signed by Alfredo Bassett MD 08/01/2017 01:57 P
[2017-08-01 14:00] VITALS: BP 124/89
--- NOTE | 2017-08-01 20:12 | IPNPDOC ---
Date Seen The patient was seen on 08/01/17. at 5:30 PM. Interval history: Patient tolerating clear liquid diet but abdominal distention is still present and today noted to have belching but no vomiting. Patient denies any abdominal pain, fever, SOB. Reviewed the patient presentation and clinical status with surgeon Dr. Li. Unsure if patient will tolerate Golytely prep and patient was not given any golytely till now. Exam: vitals: noted. NO fever. Intermittent tachycardia noted. BP stable. Abdomen: soft, mildly distended with decreased bowel sounds. No tenderness, Labs: reviewed. Persistent leucocytosis. Stable Hb.HCT. Impression: - Abdominal distention with abnormal CT scan -- DDx - SIgmoid colon mass vs infiltrating cancer vs extrinsic compression. Distended small bowel loops mahnaz no evidence of complete obstruction. - Weight loss and mild intraabdominal ascites -- but cytology - no malignant cells. Need further evaluation to rule out intraabdominal malignancy. Recommendations: -- Patient educated about the possible differential diagnosis and plan of care. All questions answered. -- Will plan for Colonoscopy and possible EGD for further evaluation tomorrow. -- Clear liquid diet till 9:00 AM -- NPO after 9 AM tomorrow. -- Give fleet enema at 9 AM and again at 1 PM tomorrow. -- The procedures, indications, risks (bleeding, perforation, infection, hypotension, respiratory depression, allergy, need for endotracheal intubation, surgery, colostomy, cardiac arrest, even ), benefits, limitations (e.g., missing a lesion), and all other alternatives (including no intervention) were explained to the patient who understood and agreed for the procedures. INformed consent obtained. Plan of care discussed with patient and primary team and surgery. Patient verbalized understanding and agreed for plan of care. Progress Note SUBJECTIVE: Patient is a -year-old [RACE] [GENDER] with OBJECTIVE PHYSICAL EXAMINATION: VITAL SIGNS: Please see below. GENERAL: HEENT: CARDIOVASCULAR: . RESPIRATORY: . ABDOMINAL: EXTREMITIES: NEUROLOGICAL: PSYCHOLOGICAL: LABORATORY DATA: Please see below. MICROBIOLOGY: Please see below. IMAGING: Echocardiogram: . DVT prophylaxis ordered?: ASSESSMENT AND PLAN: This is a -year-old [RACE] [GENDER] with . PROBLEMS: 1. : . 2. : . 3. : . DISPOSITION: . VS, I&O, 24H, Fishbone Vital Signs/I&O Vital Signs Date Time Temp Pulse Resp B/P (MAP) Pulse Ox O2 Delivery O2 Flow Rate FiO2 08/01/17 14:47 18 08/01/17 14:00 98.1 95 124/89 (101) 95 Room Air I&O- Last 24 Hours up to 6 AM 08/02/17 05:59 Intake Total 820 ml Output Total 150 ml Balance 670 ml Laboratory Data 24H LABS Laboratory Tests 2 08/01/17 00:01: Bedside Glucose (Misc Panel) 111H 08/01/17 05:11: Anion Gap 4L, Glomerular Filtration Rate > 60.0, Blood Urea Nitrogen 12, Creatinine 0.32L, Sodium Level 139, Potassium Level 3.5, Chloride Level 102, Carbon Dioxide Level 33H, Calcium Level 8.7, Magnesium Level 1.8, C-Reactive Protein, Quantitative 6.56H 08/01/17 12:02: Bedside Glucose (Misc Panel) 88 08/01/17 16:52: Bedside Glucose (Misc Panel) 98 CBC/BMP Laboratory Tests 08/01/17 05:11 Red Blood Count 2.74 L, Mean Corpuscular Volume 107.3 H, Mean Corpuscular Hemoglobin 36.5 H, Mean Corpuscular Hemoglobin Concent 34.0, Red Cell Distribution Width 16.5 H, Calcium Level 8.7 Microbiology Microbiology 07/23/17 Blood Culture - Final, Complete NO GROWTH AFTER 5 DAYS 07/23/17 Blood Culture - Final, Complete NO GROWTH AFTER 5 DAYS 07/24/17 Urine Culture - Final, Complete Escherichia Coli SHUKRI RAJPUT MD Aug 01, 2017 20:12
--- NOTE | 2017-08-01 21:22 | IPN ---
DATE: 07/31/2017 Daya seems to be doing better today. She finally has been able to move her bowels. She is not as bloated. She remains afebrile. Temperature is 97.9, pulse 107, respirations 18, blood pressure 146/87, oxygen saturation 97% in room air. Heart: Normal S1, S2 with no murmurs. Lungs: Decreased breath sounds but clear. No wheezes, rales or rhonchi. Abdomen: Mildly tender in the epigastric area, diffuse bloating, bowel sounds are normal. Mild tenderness in the left lower quadrant. Extremities: No edema. +1 ankle edema. LABORATORY DATA: White count is 14, hemoglobin 10.9, hematocrit 31.3, platelets 430. Sodium 142, potassium 3.3, chloride 97, bicarbonate 41, BUN 13, creatinine 0.29, glucose 92, calcium 8.7, magnesium 2.1 and CRP 8.5 which has fluctuated between 5 and 14. Blood cultures from 07/23/2017, have been negative. Urine culture had Escherichia (E) coli. Abdominal x-ray on 07/31/2017, shows no small bowel distension. No colonic distension but there is barium throughout the colon. Upper GI and small bowel x-ray shows thickened folds also of the stomach and duodenum, a small hiatal hernia noted, and dilated small bowel loops with a very slow transient time. The patient has already had a total of four bowel movement today. IMPRESSION: Bowel obstruction possibly related to malignancy versus stricture versus episode of diverticulitis with secondary sigmoid thickening AND INTRAABDOMINAL ABSCESS PLAN Case has been discussed with Dr. Li who has referred the patient to be seen by gastroenterology. He would like GI to pursue a colonoscopy and endoscopy. Continue Zosyn for a total of 10 days, currently day #5. Consult GI for endoscopy and colonoscopy. SELINA
[2017-08-01 22:00] VITALS: BP 122/82
[2017-08-02] MEDS: PIPERACILLIN/TAZOBACTAM SOD 3.375 GM in D5W 50 ML IV SCH ×4 (03:25→22:23)
[2017-08-02] MEDS: HEPARIN SOD (PORCINE) 5000 UNITS/ML VIAL SQ SCH ×3 (05:02→22:23)
[2017-08-02] MEDS: SODIUM CHLORIDE 0.9% INJ 10 ML SYR IV SCH ×4 (05:02→17:02)
[2017-08-02 05:21] LABS: MEAN CORPUSCULAR HEMOGLOBIN 36.8 pg (27.0-33.0); MEAN CORPUSCULAR HGB CONC 34.3 g/dl (32.0-36.5); RED CELL DISTRIBUTION WIDTH 15.9 % (11.5-14.5); WHITE BLOOD COUNT 14.9 10^3/uL (4.0-10.0)
[2017-08-02 05:22] LABS: MEAN CORPUSCULAR VOLUME 107.3 fl (80.0-96.0)
[2017-08-02 05:40] LABS: ANION GAP 7 MEQ/L (8-16); BLOOD UREA NITROGEN 8 MG/DL (7-18); CALCIUM LEVEL 8.5 MG/DL (8.5-10.1); CARBON DIOXIDE LEVEL 29 MEQ/L (21-32); CHLORIDE LEVEL 103 MEQ/L (98-107); CREATININE FOR GFR 0.26 MG/DL (0.55-1.02); GLOMERULAR FILTRATION RATE > 60.0 (>51); GLUCOSE, FASTING 72 MG/DL (70-105); POTASSIUM SERUM 2.8 MEQ/L (3.5-5.1); SODIUM LEVEL 139 MEQ/L (136-145)
[2017-08-02 06:00] VITALS: BP 144/88
[2017-08-02] MEDS ORDERED: POTASSIUM CHLORIDE 10 MEQ SR TABLET PO ONE ×3 (06:30→07:30)
[2017-08-02 08:15] VITALS: BP 132/78
[2017-08-02] MEDS: DOCUSATE SODIUM 100 MG CAP PO SCH ×2 (08:34→22:23)
[2017-08-02] MEDS: SIMETHICONE 80 MG CHEW TAB PO SCH ×4 (08:34→22:23)
[2017-08-02] MEDS: MULTIVITAMINS/MINERALS THERAP 1 TAB PO SCH (08:35)
[2017-08-02] MEDS: SENOKOT S TAB PO SCH ×2 (08:35→22:22)
[2017-08-02] MEDS: THIAMINE 100 MG TAB PO SCH (08:35)
[2017-08-02] MEDS: FOLIC ACID 1 MG TAB PO SCH (08:35)
[2017-08-02] MEDS: NICOTINE 7 MG/24 HR TRANSDERMAL TD SCH (08:39)
[2017-08-02] MEDS ORDERED: FLEET ENEMA PR ONE ×2 (09:00→13:00)
[2017-08-02] MEDS: BISACODYL 10 MG SUPP PR SCH (09:45)
[2017-08-02] MEDS ORDERED: MAG SULF 1GM/100ML (MAG RUN) 1 GM in APPROPRIATE DILUENT 1 EA IV ONE (11:00)
--- NOTE | 2017-08-02 11:55 | IPN ---
DATE OF SERVICE: 08/02/2017 Patient is seen and examined at the bedside. Chart has been reviewed. This morning, patient has no complaints. No nausea, vomiting, constipation. She is passing gas, had a bowel movement butterscotch consistency. She complains of bilateral lower quadrant abdominal pain more as discomfort. Temperature 98.3, pulse 104, respiratory rate 18, blood pressure 132/78, 98% on room air. Patient is generally awake, alert, oriented times three, answering questions appropriately. Lungs are clear to auscultation. No wheezing, rales or rhonchi. Heart: S1, S2, sinus tachycardia. Abdomen: Soft, mild distention, positive bowel sounds. No rebound, guarding. Mild abdominal tenderness bilateral lower quadrants. Extremities: No cyanosis, clubbing or pitting edema. LABORATORY DATA: CBC and metabolic panel have all been reviewed significant for potassium of 2.8, magnesium of 1.7. ASSESSMENT AND PLAN: This is a 61-year-old female with history of alcohol abuse, hypertension, cataract surgery complaining of 3-4 months generalized weakness, abdominal distention, found to have sigmoid thickening initially treated for diverticular disease with intravenous antibiotics, developed increasing abdominal distention and bowel obstruction, seen by Dr. Li, general surgery, recommended endoscopy, upper and lower GI by gastrointestinal (GI) Dr. Reinoso. CURRENT ISSUES: 1. Small bowel obstruction, improved status post total parenteral nutrition (TPN), tolerating liquid diet, passing flatus and having bowel movements. No significant nausea or vomiting. Managed by Dr. Li. GI has been consulted for colonscopy. 2. Sigmoid thickening, currently on IV Zosyn to continue until after the EGD and colonscopy. At time time, appreciate Dr. Teddy Randle's input and management. Sigmoid thickening, rule out malignancy with colposcopy. 3. History of alcohol abuse with severe protein calorie malnutrition. Body mass index (BMI) is 19. Nutrition consult after EGD and colonoscopy.
[2017-08-02] MEDS: PERCOCET 5MG/325MG TAB PO PRN ×2 (12:29→22:46)
[2017-08-02] MEDS: SODIUM CHLORIDE 0.9% INJ 10 ML SYR IV PRN (12:30)
[2017-08-02 13:28] LABS: MAGNESIUM LEVEL 2.5 MG/DL (1.8-2.4); POTASSIUM SERUM 3.7 MEQ/L (3.5-5.1)
[2017-08-02 13:55] VITALS: BP 136/75
[2017-08-02] MEDS ORDERED: DEXTROSE 50% 50 ML SYRINGE IV ONE (18:45)
[2017-08-02] MEDS: NS 0.45% 1,000 ML IV SCH (18:47)
[2017-08-02] MEDS ORDERED: PHENYLephrine HCL 500 MCG/5 ML (100MCG/ML) SYRINGE (J2370) As Ordered ONE ×2 (20:34→20:50)
[2017-08-02] MEDS ORDERED: fentaNYL 100 MCG/2 ML INJECTION (J3010) As Ordered ONE (20:34)
[2017-08-02] MEDS ORDERED: ROCURONIUM BROMIDE 50 MG/5 ML VIAL/SYRINGE As Ordered ONE (20:34)
[2017-08-02] MEDS ORDERED: PROPOFOL 200 MG/20 ML VIAL As Ordered ONE (20:34)
[2017-08-02] MEDS ORDERED: SUCCINYLCHOLINE 100 MG/5 ML SYRINGE (J0330) As Ordered ONE (20:34)
[2017-08-02] MEDS ORDERED: LIDOCAINE 2% INJ 100 MG/5 ML SDV (FOR ANES.) As Ordered ONE (20:34)
[2017-08-02] MEDS ORDERED: MIDAZOLAM INJ 2 MG/2 ML VIAL (J2250) As Ordered ONE (20:34)
[2017-08-02] MEDS ORDERED: ONDANSETRON 4MG/2ML VIAL (J2405) As Ordered ONE (20:40)
[2017-08-02] MEDS ORDERED: dexameTHASONE 4 MG/ML 1ML VIAL (J1100) As Ordered ONE (20:49)
--- NOTE | 2017-08-02 21:24 | ROOR ---
Patient Name: Daya Huitron Procedure Date: 08/02/2017 8:15 PM Date of : 1955 Age: 61 Room: Main OR Gender: Female Note Status: Finalized Procedure: Colonoscopy Indications: Abnormal CT of the GI tract Providers: Jamie Reinoso MD Referring MD: Brie Casiano MD Requesting Provider: Medicines: Monitored Anesthesia Care Complications: No immediate complications. Procedure: Pre-Anesthesia Assessment: - Prior to the procedure, a History and Physical was performed, and patient medications and allergies were reviewed. The patient is competent. The risks and benefits of the procedure and the sedation options and risks were discussed with the patient. All questions were answered and informed consent was obtained. Patient identification and proposed procedure were verified by the physician, the nurse and the anesthesiologist in the procedure room. Mental Status Examination: normal. Airway Examination: normal oropharyngeal airway and neck mobility. Respiratory Examination: clear to auscultation. CV Examination: normal. Prophylactic Antibiotics: The patient does not require prophylactic antibiotics. Prior Anticoagulants: The patient has taken no previous anticoagulant or antiplatelet agents. ASA Grade Assessment: II - A patient with mild systemic disease. After reviewing the risks and benefits, the patient was deemed in satisfactory condition to undergo the procedure. The anesthesia plan was to use monitored anesthesia care (MAC). Immediately prior to administration of medications, the patient was re-assessed for adequacy to receive sedatives. The heart rate, respiratory rate, oxygen saturations, blood pressure, adequacy of pulmonary ventilation, and response to care were monitored throughout the procedure. The physical status of the patient was re-assessed after the procedure. The Colonoscope was introduced through the anus and advanced to the sigmoid colon to examine a stenosis. This was the intended extent. The colonoscopy was performed without difficulty. The patient tolerated the procedure well. Findings: Hemorrhoids were found on perianal exam. The sigmoid colon and proximal sigmoid colon were significantly tortuous and revealed significantly excessive looping. Advancing the scope required withdrawing the scope and replacing with the pediatric endoscope but the scope could not be traversed beyond the mid sigmoid colon. Mucosa was normal in the entire visualized colon. . Impression: - Hemorrhoids found on perianal exam. - The sigmoid colon and proximal sigmoid colon were significantly tortuous and revealed significantly excessive looping. Advancing the scope required withdrawing the scope and replacing with the pediatric endoscope but the scope could not be traversed beyond the mid sigmoid colon. Mucosa was normal in the entire visualized colon. - No specimens collected. Recommendation: - [facility]. - Patient has a contact number available for emergencies. The signs and symptoms of potential delayed complications were discussed with the patient. Return to normal activities tomorrow. Written discharge instructions were provided to the patient. - Clear liquid diet. - Continue present medications. - Refer to a surgeon tomorrow. - Need further evalaution by repeat CT scan abdomen / barium enema - after reviewing with Dr. Moreira in Radiology. - Based on repeat imaging - consider Laparoscopy. Jamie Reinoso MD Jamie Reinoso MD 08/02/2017 9:24:13 PM This report has been signed electronically. Number of Addenda: 0 Note Initiated On: 08/02/2017 8:15 PM Estimated Blood Loss: Estimated blood loss: none.
--- NOTE | 2017-08-02 21:28 | ROOR ---
Patient Name: Daya Huitron Procedure Date: 08/02/2017 8:12 PM Date of : 1955 Age: 61 Gender: Female Note Status: Finalized Procedure: Upper GI endoscopy Indications: Abnormal CT of the GI tract Providers: Jamie Reinoso MD Referring MD: Brie Casiano MD Requesting Provider: Medicines: Monitored Anesthesia Care Complications: No immediate complications. Procedure: Pre-Anesthesia Assessment: - Prior to the procedure, a History and Physical was performed, and patient medications and allergies were reviewed. The patient is competent. The risks and benefits of the procedure and the sedation options and risks were discussed with the patient. All questions were answered and informed consent was obtained. Patient identification and proposed procedure were verified by the physician, the nurse and the anesthesiologist in the procedure room. Mental Status Examination: alert and oriented. Airway Examination: normal oropharyngeal airway and neck mobility. Respiratory Examination: clear to auscultation. CV Examination: normal. Prophylactic Antibiotics: The patient does not require prophylactic antibiotics. Prior Anticoagulants: The patient has taken no previous anticoagulant or antiplatelet agents. ASA Grade Assessment: II - A patient with mild systemic disease. After reviewing the risks and benefits, the patient was deemed in satisfactory condition to undergo the procedure. The anesthesia plan was to use moderate sedation / analgesia (conscious sedation). Immediately prior to administration of medications, the patient was re-assessed for adequacy to receive sedatives. The heart rate, respiratory rate, oxygen saturations, blood pressure, adequacy of pulmonary ventilation, and response to care were monitored throughout the procedure. The physical status of the patient was re-assessed after the procedure. The Endoscope was introduced through the mouth, and advanced to the second part of duodenum. The upper GI endoscopy was accomplished without difficulty. The patient tolerated the procedure well. Findings: No gross lesions were noted in the entire esophagus. Diffuse severe inflammation characterized by congestion (edema), erosions, erythema and granularity was found in the entire examined stomach. Four biopsies were obtained with cold forceps for histology in the gastric antrum, as well as four biopsies in the gastric body. Verification of patient identification for the specimen was done by the physician and nurse using the patient's name, date and medical record number. Estimated blood loss was minimal. Diffuse severe inflammation characterized by congestion (edema), erosions and granularity was found in the duodenal bulb. Biopsies were taken with a cold forceps for histology. The second portion of the duodenum and third portion of the duodenum were normal. Impression: - No gross lesions in esophagus. - Gastritis. - Duodenitis. Biopsied. - Normal second portion of the duodenum and third portion of the duodenum. - Biopsies performed in the gastric antrum and in the gastric body. Recommendation: - [facility] care. - Patient has a contact number available for emergencies. The signs and symptoms of potential delayed complications were discussed with the patient. Return to normal activities tomorrow. Written discharge instructions were provided to the patient. - Clear liquid diet. - Use Prilosec (omeprazole) 40 mg PO daily for 12 weeks. - Continue present medications. - Refer to a surgeon tomorrow. Jamie Reinoso MD Jamie Reinoso MD 08/02/2017 9:27:38 PM This report has been signed electronically. Number of Addenda: 0 Note Initiated On: 08/02/2017 8:12 PM Estimated Blood Loss: Estimated blood loss was minimal.
[2017-08-02 22:00] VITALS: BP 122/72
[2017-08-02] MEDS ORDERED: ONDANSETRON 4MG/2ML VIAL (J2405) IV PRN (22:00)
[2017-08-02] MEDS ORDERED: KETOROLAC 30 MG/ML VIAL (J1885) IV PRN (22:00)
[2017-08-02] MEDS ORDERED: METOCLOPRAMIDE INJ 10MG/2ML VIAL (J2765) IV PRN (22:00)
[2017-08-02] MEDS ORDERED: NALBUPHINE HCL 10 MG/ML AMP (J2300) IV PRN (22:00)
[2017-08-02] MEDS ORDERED: PROMETHAZINE INJ 25 MG/ML VIAL (J2550) IV PRN (22:00)
[2017-08-02] MEDS ORDERED: MORPHINE 2 MG/ML 1ML SYRINGE IV PRN (22:00)
[2017-08-02] MEDS ORDERED: NORCO, ANEXSIA 5/325MG TABLET (HYDROcodone/ACETAMINOPHEN) PO PRN (22:00)
[2017-08-02] MEDS ORDERED: MEPERIDINE INJ 25 MG/ML VIAL (J2175) IV PRN (22:00)
[2017-08-02] MEDS ORDERED: fentaNYL 100 MCG/2 ML INJECTION (J3010) IV PRN (22:00)
[2017-08-02] MEDS ORDERED: diphenhydrAMINE INJ 50MG/ML VIAL (J1200) IV PRN (22:00)
[2017-08-02] MEDS ORDERED: PERCOCET 5MG/325MG TAB PO PRN (22:00)
[2017-08-02] MEDS ORDERED: HYDROmorphone HCL 1 MG/ML SYRINGE (J1170) IV PRN (22:00)
[2017-08-02] MEDS ORDERED: LR 1,000 ML IV SCH (22:00)
[2017-08-02 22:30] VITALS: BP 127/76
[2017-08-02] MEDS ORDERED: IBUPROFEN 400 MG TAB PO PRN (22:45)
[2017-08-02 23:30] VITALS: BP 131/81
[2017-08-03] VITALS (8 sets, daily range): BP systolic 117–139; BP diastolic 72–97
[2017-08-03] MEDS: NS 0.45% 1,000 ML IV SCH ×2 (03:02→20:02)
[2017-08-03] MEDS: PIPERACILLIN/TAZOBACTAM SOD 3.375 GM in D5W 50 ML IV SCH ×4 (03:56→22:00)
[2017-08-03] MEDS: SODIUM CHLORIDE 0.9% INJ 10 ML SYR IV SCH ×4 (05:11→17:16)
[2017-08-03] MEDS: HEPARIN SOD (PORCINE) 5000 UNITS/ML VIAL SQ SCH ×2 (05:12→13:59)
[2017-08-03 05:36] LABS: MEAN CORPUSCULAR HEMOGLOBIN 36.5 pg (27.0-33.0); MEAN CORPUSCULAR HGB CONC 33.9 g/dl (32.0-36.5); WHITE BLOOD COUNT 11.8 10^3/uL (4.0-10.0)
[2017-08-03 05:38] LABS: MEAN CORPUSCULAR VOLUME 107.7 fl (80.0-96.0)
[2017-08-03 06:13] LABS: ANION GAP 10 MEQ/L (8-16); BLOOD UREA NITROGEN 7 MG/DL (7-18); CALCIUM LEVEL 7.6 MG/DL (8.5-10.1); CARBON DIOXIDE LEVEL 26 MEQ/L (21-32); CHLORIDE LEVEL 104 MEQ/L (98-107); CREATININE FOR GFR 0.28 MG/DL (0.55-1.02); GLOMERULAR FILTRATION RATE > 60.0 (>51); GLUCOSE, FASTING 87 MG/DL (70-105); POTASSIUM SERUM 3.4 MEQ/L (3.5-5.1); SODIUM LEVEL 140 MEQ/L (136-145)
[2017-08-03] MEDS ORDERED: GASTROGRAFIN SOLUTION 30ML PO ONE (08:45)
[2017-08-03] MEDS: NICOTINE 7 MG/24 HR TRANSDERMAL TD SCH (09:00)
[2017-08-03] MEDS ORDERED: POTASSIUM CHLORIDE 10 MEQ SR TABLET PO ONE (09:00)
[2017-08-03] MEDS ORDERED: GASTROGRAFIN SOLUTION 30ML (Q9963) PO ONE (09:15)
[2017-08-03] MEDS: SIMETHICONE 80 MG CHEW TAB PO SCH ×5 (09:27→20:02)
[2017-08-03] MEDS: DOCUSATE SODIUM 100 MG CAP PO SCH ×2 (09:27→20:01)
[2017-08-03] MEDS: MULTIVITAMINS/MINERALS THERAP 1 TAB PO SCH (09:28)
[2017-08-03] MEDS: THIAMINE 100 MG TAB PO SCH (09:29)
[2017-08-03] MEDS: FOLIC ACID 1 MG TAB PO SCH (09:29)
[2017-08-03] MEDS: SENOKOT S TAB PO SCH ×2 (09:29→20:01)
[2017-08-03] MEDS ORDERED: ISOVUE-370 76% 100ML VIAL (Q9967) As Ordered ONE (09:53)
--- NOTE | 2017-08-03 10:17 | IPNPDOC ---
Date Seen The patient was seen on 08/03/17. Progress Note SUBJECTIVE: A 61-year-old female with history of hypertension on chronic lisinopril, bilateral cataract surgery presents to the emergency room with two day history of abdominal distention. With a 3-4 month history of generalized weakness, decreased appetite, feeling bilateral feet and hands going numb. Surgery was consult because of decreased appetite and weight loss, with concern for malignancy. Patient has a history of smoking about 2 packs a day since she was 16. Patient also has a history of heavy alcohol use. CT abdomen revealed Segmental thickening of the sigmoid colon with surrounding loculated fluid. This may be neoplastic or inflammatory in etiology. Moderate diffuse small bowel dilatation. Mild scattered free fluid without free air. No adenopathy. Small cyst left ovary. Surgery was consulted as a result. This morning pt states that she is doing well. She reports that she is doing a lot better today than she has been since her hospitalization. Patient is tolerating her clear liquid diet. She is continuing to have bowel movement, flotus. OBJECTIVE PHYSICAL EXAMINATION: VITAL SIGNS: Please see below. GENERAL APPEARANCE: Awake, alert resting in bed, very cheerful RESPIRATORY: Lungs are clear to auscultate anterior and posterior CARDIOVASCULAR: S1 and S2 present, no murmurs rubs or gallops ABDOMEN: Slightly distended abdomen, no pain to palpation in all 4 quadrants., Bowel sounds present in all 4 quadrants EXTREMITIES: Swelling no deformities. LABORATORY DATA: Please see below. MICROBIOLOGY: Please see below. ASSESSMENT AND PLAN:A 61-year-old female admitted for abdominal distention and generalized weakness. From a surgical standpoint, at this moment there is no surgical intervention available to patient. Patient was evaluated via colonoscopy and an upper EGD yesterday by GI. GI had difficulty getting past the sigmoid colon via colonoscopy even after switching the scope to a pediatric scope. GI recommended a follow-up CT to evaluate sigmoidal thickening. CT revealed an abdominal abscess. I have ordered an ultrasound guided abdominal abscess drainage for tomorrow. Infectious disease is on board to manage patient' s increased white count. Please deferred to GI recommendation and management for patient, as well as infectious diseases recommendations. Patient's white count this morning is 11.8. VS, I&O, 24H, Fishbone Vital Signs/I&O Vital Signs Date Time Temp Pulse Resp B/P (MAP) Pulse Ox O2 Delivery O2 Flow Rate FiO2 10/5/17 08:13 96.8 88 16 118/72 (87) 98 Room Air I&O- Last 24 Hours up to 6 AM 08/04/17 06:00 Intake Total 180 ml Output Total 100 ml Balance 80 ml Laboratory Data 24H LABS Laboratory Tests 2 08/02/17 12:32: Magnesium Level 2.5H 08/02/17 17:44: Bedside Glucose (Misc Panel) 62L 08/02/17 19:06: Bedside Glucose (Misc Panel) 191H 08/03/17 05:19: Anion Gap 10, Glomerular Filtration Rate > 60.0, Blood Urea Nitrogen 7, Creatinine 0.28L, Sodium Level 140, Potassium Level 3.4L, Chloride Level 104, Carbon Dioxide Level 26, Calcium Level 7.6L CBC/BMP Laboratory Tests 08/02/17 12:32 08/03/17 05:19 Red Blood Count 2.60 L, Mean Corpuscular Volume 107.7 H, Mean Corpuscular Hemoglobin 36.5 H, Mean Corpuscular Hemoglobin Concent 33.9, Red Cell Distribution Width 16.0 H, Calcium Level 7.6 L Microbiology Microbiology 07/24/17 Urine Culture - Final, Complete Escherichia Coli GME ATTESTATION GME ATTESTATION My preceptor for this patient encounter was physically present in the building during the encounter and was fully available. As needed, all aspects of the patient interview, examination, medical decision making process, and medical care plan development were reviewed and approved by the preceptor. Preceptor is aware and concurs with the plan as stated in the body of this note and will attest to such by his/her cosignature. RICH QUIÑONES DO Aug 03, 2017 10:17
--- NOTE | 2017-08-03 10:50 | IPN ---
DATE: 08/03/2017 Patient denies nausea and vomiting. Still with abdominal discomfort in bilateral lower quadrants. No rebound or guarding. Passing flatus. Had a bowel movement yesterday. Temperature 96.8, pulse 88, respiratory rate 16, blood pressure 118/72, 98% on room air. Generally, awake, alert, oriented times three, answering questions appropriately. Lungs are clear to auscultation. No wheezing, rales or rhonchi. Heart: S1, S2, sinus tachycardia. Abdomen: Soft, positive bowel sounds. No rebound, guarding. Mild tenderness in bilateral lower quadrants. Extremities: No cyanosis, clubbing or pitting edema. Laboratory data and imaging studies have been reviewed. EGD and colonoscopy reviewed. ASSESSMENT AND PLAN: This is a 61-year-old female with history of alcohol abuse, hypertension, cataract surgery complaining of 3-4 months generalized weakness, abdominal distention, found to have sigmoid thickening and treated for diverticulitis with intravenous antibiotics, developed small bowel obstruction, managed by Dr. Li, general surgery, recommended EGD and colonoscopy by gastrointestinal (GI), Dr. Reinoso. Patient had been tolerating her diet well with butterscotch consistency bowel movement. She underwent EGD yesterday, which showed duodenitis and colonoscopy with obstruction where the scope could not be passed. Recommendations are to repeat CT of the abdomen and pelvis or do a barium enema. Per Dr. Li, barium enema most likely will not be tolerated well. Therefore, we will repeat CT of the abdomen and pelvis. Per GI, defer to surgery for the sigmoid obstruction. CURRENT ISSUES: 1. Sigmoid obstruction, unable to pass colonoscopy scope. Per Dr. Reinoso, defer to surgery. Still on antibiotics with decreasing white count. clinically tolerating oral fluid intake. defer to surgery to advance. 2. Small bowel obstruction,resolved Status post TPN. Currently tolerating liquid diet, passing flatus and having bowel movements. We will discuss with Dr. Li after repeat CT of the abdomen and pelvis is performed. 3. History of alcohol abuse with severe protein calorie malnutrition. Body mass index (BMI) is 19. Nutrition consult. DISPOSITION: Per Dr. Li, stable for discharge home. Per Dr. Reinoso, the patient's sigmoid thickening needs to be addressed, as he is unable to pass the scope. [facility]
--- NOTE | 2017-08-03 11:56 | REP ---
CT of the abdomen and pelvis without IV or bowel contrast: Comparison is the CT of the pelvis dated 07/23/2017. There are small bilateral pleural effusions in the visualized lower lung ferrer as an interval change. The small bowel is markedly distended. This has worsened from the prior study. In some of the distal small bowel loops. The transverse diameter measures up to 7.0 cm. Within these loops. There is a small bowel "feces sign" compatible with stasis. There is no colonic distension. There is diluted barium throughout the small bowel loops likely from the upper gastrointestinal series on 07/26/2017. There is also a dense intraluminal barium throughout the colon from cecum to rectum. There is a curvilinear metallic density intraperitoneal in the right lower quadrant, not present previously adjacent to the cecum. The appendix is identified and unremarkable appearance. The stomach and duodenum are also dilated and demonstrate mucosal thickening. A small hiatal hernia is again identified. There is no pneumoperitoneum. There is no ascites. The hepatic parenchyma, gallbladder, pancreas, spleen, adrenals, kidneys and abdominal aorta are unchanged. The uterus, adnexa and bladder are unchanged. There are no lytic, blastic or destructive skeletal changes. There is advanced degenerative disc disease in the lumbar spine at L 04/05 with grade 1 anterolisthesis of L4. Impression: Markedly dilated small bowel, increased from the prior study, with small bowel feces sign compatible with stasis. There is a small bowel loop in the abdominal right lower quadrant measuring up to 7.0 cm in diameter. There is dilute barium throughout the small bowel, likely diluted by the intraluminal small bowel fluid. There is now a barium throughout the entire colon as an interval change. There is no colonic distension. The findings are compatible with partial obstruction of the distal small bowel. The appendix is unremarkable. There are small bilateral pleural effusions as an interval change. There is no pneumoperitoneum or ascites. Signed by Alfredo Eden MD 08/03/2017 11:48 A
--- NOTE | 2017-08-03 13:05 | IPN ---
DATE OF SERVICE: 08/03/2017 The patient seen and examined at the bedside. Chart has been reviewed. This morning, the patient is sipping her liquid diet at the bedside with no nausea or vomiting. She still complains of bilateral lower quadrant abdominal discomfort. Passing flatus and having bowel movements. The patient underwent esophagogastroduodenoscopy (EGD) and colonoscopy yesterday. EGD showed duodenitis. Unable to perform full colonoscopy due to obstruction despite attempting pediatric scope. Vital signs this morning, temperature 97, pulse 97, respiratory rate 16, blood pressure 139/97, 98% on room air. Generally, awake, alert, oriented times three, answering questions appropriately. Lungs are clear to auscultation. No wheezing, rales, or rhonchi. Heart: S1, S2, sinus rhythm. Abdomen: Is soft, slightly tender bilateral lower quadrants. No rebound or guarding. Positive bowel sounds. Extremities: No cyanosis, clubbing, or pitting edema. LABORATORY DATA AND IMAGING STUDIES: EGD and colonoscopy have been reviewed. ASSESSMENT AND PLAN: A 61-year-old female with history of alcohol abuse, hypertension, cataract surgery, complaining of 3-4 month history of generalized weakness, abdominal distention, found to have sigmoid thickening on CT abdomen and pelvis, treated for acute diverticulitis with intravenous (IV) antibiotics. The patient now underwent EGD and colonoscopy by elevator examiner, Dr. Reinoso. Findings showed duodenitis. Unable to pass a pediatric scope through the sigmoid thickening. Defer to surgery for further management. CURRENT ISSUES: 1. Small bowel obstruction, currently improved. Status post total parenteral nutrition (TPN). Tolerating a liquid diet, passing flatus, and having bowel movements. No nausea or vomiting. Managed by Dr. Butch Li, general surgeon. Defer to Dr. Li regarding advancement of diet and discharge plan. 2. Sigmoid thickening. Currently, on IV Zosyn. Unable to pass a pediatric scope. Appreciate Dr. Randle's input and management. 3. History of alcohol abuse with severe protein-calorie malnutrition. Body mass index (BMI) is 19. Nutrition consult.
[2017-08-03] MEDS: PERCOCET 5MG/325MG TAB PO PRN ×2 (14:02→19:58)
[2017-08-04] MEDS: PIPERACILLIN/TAZOBACTAM SOD 3.375 GM in D5W 50 ML IV SCH ×4 (03:30→21:30)
[2017-08-04 05:09] VITALS: BP 124/79
[2017-08-04] MEDS: SODIUM CHLORIDE 0.9% INJ 10 ML SYR IV SCH ×4 (05:15→18:01)
[2017-08-04 05:32] LABS: MEAN CORPUSCULAR HEMOGLOBIN 36.4 pg (27.0-33.0); RED CELL DISTRIBUTION WIDTH 15.2 % (11.5-14.5); WHITE BLOOD COUNT 12.4 10^3/uL (4.0-10.0)
[2017-08-04 05:33] LABS: MEAN CORPUSCULAR VOLUME 107.1 fl (80.0-96.0)
[2017-08-04 05:52] LABS: ANION GAP 8 MEQ/L (8-16); BLOOD UREA NITROGEN 2 MG/DL (7-18); CALCIUM LEVEL 7.4 MG/DL (8.5-10.1); CARBON DIOXIDE LEVEL 27 MEQ/L (21-32); CHLORIDE LEVEL 102 MEQ/L (98-107); CREATININE FOR GFR 0.26 MG/DL (0.55-1.02); GLOMERULAR FILTRATION RATE > 60.0 (>51); GLUCOSE, FASTING 76 MG/DL (70-105); POTASSIUM SERUM 2.8 MEQ/L (3.5-5.1); SODIUM LEVEL 137 MEQ/L (136-145)
[2017-08-04] MEDS ORDERED: KCL 20MEQ IN 100ML SWI (KRUN) 20 MEQ in APPROPRIATE DILUENT 1 EA IV ONE ×2 (06:15)
[2017-08-04] MEDS ORDERED: KCL 10MEQ IN 100ML SWI (KRUN) 10 MEQ in APPROPRIATE DILUENT 1 EA IV ONE ×2 (06:30)
[2017-08-04] MEDS: POTASSIUM CHLORIDE 10 MEQ SR TABLET PO SCH ×2 (07:05→08:20)
--- NOTE | 2017-08-04 09:11 | IPN ---
DATE: 08/04/2017 Patient seen and examined at the bedside. Chart has been reviewed. This morning, she still continues to complain of bilateral lower quadrant pain. No nausea or vomiting. She has been n.p.o. after midnight for drainage placement. Repeat CT abdomen and pelvis yesterday shows persistent markedly dilated small bowel with small bowel "feces sign" compatible with stasis. Small bowel loop in the abdominal right lower quadrant measuring up to 7 cm. Dilute barium throughout the small bowel, diluted from intraluminal small bowel fluid. No colonic distention, compatible with partial obstruction of distal small bowel. No persistent small bilateral effusions, pneumoperitoneum or ascites noted. Vital signs temperature 97.1, pulse 108, respiratory rate 16, blood pressure 124/79, 94% on room air. Generally, awake, alert, oriented times three. Anicteric sclerae. No jaundice. Speaks in full sentences. No respiratory accessory muscle use. Lungs clear to auscultation upper lobes. Heart S1, S2, sinus tachycardia. Abdomen is soft, slightly tender bilateral lower quadrants. No rebound or guarding. Positive bowel sounds. Extremities no cyanosis, clubbing, or pitting edema. Laboratory data and imaging studies have been reviewed. ASSESSMENT AND PLAN: This is a 61-year-old female with history of alcohol abuse , hypertension, cataract surgery, who presented to the emergency room with 3-4 month history of generalized weakness, abdominal distention. CT abdomen and pelvis on admission showed sigmoid thickening, treated for possible acute diverticulitis with IV antibiotics. The patient has undergone EGD and colonoscopy by monitor and storage bin tender, Dr. Reinoso. EGD showed duodenitis, however, colonoscopy could not be completed as obstruction would not permit adult scope to pass through as well as a pediatric scope. Repeat CT abdomen and pelvis shows persistent partial small bowel obstruction with fluid accumulation. Patient is scheduled for drainage placement today. CURRENT ISSUES: 1. Partial small bowel obstruction improved but persistent. Patient is to go for drainage placement today due to increased fluid collection in the abdomen and increasing white count despite no fevers. She is still continued on intravenous Zosyn and IV fluids while n.p.o. Defer to general surgery, Dr. Li, for further management. 2. Duodenitis. On proton pump inhibitor (PPI) IV while patient is n.p.o. May transition to oral once the patient is resumed on a fluid diet. 3. History of alcohol abuse. No signs of withdrawal. 4. Tobacco acute, on nicotine patch. MTDD
[2017-08-04] MEDS: NICOTINE 7 MG/24 HR TRANSDERMAL TD SCH (09:49)
[2017-08-04] MEDS: PANTOPRAZOLE 40MG INJ (PROTONIX) (C9113) IV SCH (09:49)
[2017-08-04] MEDS: NS 0.45% 1,000 ML IV SCH (10:25)
--- NOTE | 2017-08-04 10:57 | IPNPDOC ---
Date Seen The patient was seen on 08/04/17. Progress Note SUBJECTIVE: A 61-year-old female with history of hypertension on chronic lisinopril, bilateral cataract surgery presents to the emergency room with two day history of abdominal distention. With a 3-4 month history of generalized weakness, decreased appetite, feeling bilateral feet and hands going numb. Surgery was consult because of decreased appetite and weight loss, with concern for malignancy. Patient has a history of smoking about 2 packs a day since she was 16. Patient also has a history of heavy alcohol use. CT abdomen revealed Segmental thickening of the sigmoid colon with surrounding loculated fluid. This may be neoplastic or inflammatory in etiology. Moderate diffuse small bowel dilatation. Mild scattered free fluid without free air. No adenopathy. Small cyst left ovary. Surgery was consulted as a result. Patient had a repeat CT yesterday as recommended by Kassy. The CT showed abdominal abscess formation in the small bowel. She is scheduled for a US guided abcess drainage this morning, with plans to culture the fluids. This morning, pt reports that she is feeling "okay". She was NPO aftermidnight. She admits to watery bowel movements. OBJECTIVE PHYSICAL EXAMINATION: VITAL SIGNS: Please see below. GENERAL APPEARANCE: Awake, alert resting in bed, RESPIRATORY: Lungs are clear to auscultate anterior and posterior CARDIOVASCULAR: S1 and S2 present, no murmurs rubs or gallops ABDOMEN: Slightly distended abdomen, slight pain to palpation in all 4 quadrants EXTREMITIES: Swelling no deformities. LABORATORY DATA: Please see below. MICROBIOLOGY: Please see below. ASSESSMENT AND PLAN:A 61-year-old female admitted for abdominal distention and generalized weakness. From a surgical standpoint, at this moment there is no surgical intervention available to patient. A repeat CT abdomen on 08/03/17 revealed an abdominal abscess, which i confirmed with radiology after reviewing the films. PT is schedule for an ultrasound drainage of the abscess today. Her WBC this morning is 12.4, an increase from 11.8 yesterday. I will continue to monitor patient for clinical improvement and improving labs. Please deferred to GI recommendation and management for patient, as well as infectious diseases recommendations. Patient's white count this morning is 11.8. VS, I&O, 24H, Fishbone Vital Signs/I&O Vital Signs Date Time Temp Pulse Resp B/P (MAP) Pulse Ox O2 Delivery O2 Flow Rate FiO2 10/6/17 05:09 97.1 108 16 124/79 (94) 94 Room Air Laboratory Data 24H LABS Laboratory Tests 2 08/03/17 18:25: Bedside Glucose (Misc Panel) 100 08/04/17 05:20: Anion Gap 8, Glomerular Filtration Rate > 60.0, Blood Urea Nitrogen 2#L, Creatinine 0.26L, Sodium Level 137, Potassium Level 2.8*L, Chloride Level 102, Carbon Dioxide Level 27, Calcium Level 7.4L CBC/BMP Laboratory Tests 08/04/17 05:20 Red Blood Count 2.69 L, Mean Corpuscular Volume 107.1 H, Mean Corpuscular Hemoglobin 36.4 H, Mean Corpuscular Hemoglobin Concent 34.0, Red Cell Distribution Width 15.2 H, Calcium Level 7.4 L GME ATTESTATION GME ATTESTATION My preceptor for this patient encounter was physically present in the building during the encounter and was fully available. As needed, all aspects of the patient interview, examination, medical decision making process, and medical care plan development were reviewed and approved by the preceptor. Preceptor is aware and concurs with the plan as stated in the body of this note and will attest to such by his/her cosignature. RICH QUIÑONES DO Aug 04, 2017 08:23
[2017-08-04] MEDS ORDERED: LIDOCAINE 1% MDV 20ML VIAL As Ordered ONE (12:21)
[2017-08-04 14:00] VITALS: BP 130/82
[2017-08-04 14:54] LABS: MAGNESIUM LEVEL 1.4 MG/DL (1.8-2.4)
[2017-08-04] MEDS: SENOKOT S TAB PO SCH ×2 (14:55→20:50)
[2017-08-04] MEDS: FOLIC ACID 1 MG TAB PO SCH (14:55)
[2017-08-04] MEDS: THIAMINE 100 MG TAB PO SCH (14:55)
[2017-08-04] MEDS: DOCUSATE SODIUM 100 MG CAP PO SCH (14:55)
[2017-08-04] MEDS: SIMETHICONE 80 MG CHEW TAB PO SCH ×4 (14:55→20:50)
[2017-08-04] MEDS: MULTIVITAMINS/MINERALS THERAP 1 TAB PO SCH (14:55)
[2017-08-04] MEDS: HEPARIN SOD (PORCINE) 5000 UNITS/ML VIAL SQ SCH ×2 (15:43→21:29)
--- NOTE | 2017-08-04 16:12 | IPN ---
DATE: 08/04/2017 Daya is doing better. She still complains of abdominal pain but no nausea or vomiting. She now has diarrhea. She is on Zosyn, currently day #9. CT of the abdomen and pelvis was done on August 03, which showed markedly dilated small bowel and report reviewed with Dr. Li. There is a very large abscess in the pelvic area. The patient is going to ultrasound-guided aspiration today. This was done at 1 o'clock this afternoon. Results of Gram stain and culture are still pending. LABORATORY DATA: White count is 12.4, hemoglobin 9.8, hematocrit 20.8, platelets 518. Sodium 137, potassium 2.8, chloride 102, bicarbonate 27, BUN 2, creatinine 0.26, glucose 76, calcium 7.4, magnesium 1.4. Blood cultures were negative. Urine culture had Escherichia (E) coli. Anaerobic and aerobic cultures are pending for today. IMPRESSION: 1. Pelvic abscess, probably from bowel perforation. The patient has been on intravenous (IV) Zosyn for 9 days. Cultures have been sent aerobic and anaerobically, and antibiotics will be adjusted accordingly. Monitor complete blood count (CBC) and C-reactive protein (CRP) every 2-3 days. 2. The patient has severe diarrhea. At this point she has been on Colace, Senokot-S, and has now hypokalemia. I would suggest cutting back on her laxatives. PLAN will descalate antibiotics once cultures available MTDD
[2017-08-04 18:54] LABS: MAGNESIUM LEVEL 1.3 MG/DL (1.8-2.4); POTASSIUM SERUM 3.8 MEQ/L (3.5-5.1)
[2017-08-04] MEDS: MAG SULF 1GM/100ML (MAG RUN) 1 GM in APPROPRIATE DILUENT 1 EA IV SCH ×2 (19:32→20:51)
[2017-08-04] MEDS: PERCOCET 5MG/325MG TAB PO PRN (19:47)
[2017-08-04] MEDS ORDERED: MAG SULF 1GM/100ML (MAG RUN) 1 GM in APPROPRIATE DILUENT 1 EA IV SCH (21:00)
[2017-08-04 22:00] VITALS: BP 117/70
--- NOTE | 2017-08-05 01:00 | IPNPDOC ---
Date Seen The patient was seen on 08/04/17. at 5:00 PM Progress Note Interval History: Patient underwent EGD and colonoscopy/sigmoidoscopy on 08/02/2017 -- tolerated procedure well. ( detailed reports below). Based on the procedure findings, patient was recommended for repeat abdominal imaging -- CT abdomen - which revealed large pelvic abscess (report did not mention abscess but reviewed the images personally with radiologist and impression - large abscess - will tracking of the collection from either sigmoid colon area of in terminal ileal area. and also noted curvilinear metallic object in right side of abdomen ( not clear if intra or extraluminal)) . Patient underwent USG guided abdominal drain placement with drainage of the absce - fluid sent for culture. Patient currently still having mild to moderate distention and complaining of mild abdminal pain and having watery/ mucoid bowel movements. ON specific questioning patient denied swallowing any metal/sharp objects. Exam: vitals: reviewed. General: AAO x 3, moderate distress from abdominal pain. Abdomen: moderately distended with right lower quadrant drain with pus drainage. Sluggish bowel sounds. EGD: - No gross lesions in esophagus.- Gastritis. ( biopsied) and Duodenitis. Biopsied. Pathology --- acute gastritis and duodenitis. No H. pylori and no dysplasia or malignancy. Colonoscopy: Aborted procedure in sigmoid colon as complete stenosis noted in sigmoid. - The sigmoid colon and proximal sigmoid colon were significantly tortuous and revealed excessive looping. Advancing the scope required withdrawing the scope and replacing with the pediatric endoscope but the scope could not be traversed beyond the mid sigmoid colon. Mucosa was normal in the entire visualized colon. Hemorrhoids found on perianal exam. Labs: WBC 12 K Stable - Hb.HCT. Impression: - New radiodense curvilinear object in the right side of abdomen - not see on prior CT scan -- ?? unclear origin. - Pelvic abscess -- with the comparision from prior CT scan imaging -- likely from previously noted diverticular perforation vs r/o small intestinal perforation vs pevic organ abscess. - Repeat CT scan showing more dilated small bowel loops. No free air / overt perforation. Recommendations: - Patient educated about the test results and possible differential diagnoses. - Continue IV hydration. - NPO / clear liquid diet. - Empiric antibiotics ( adjust as per ID recommendations). - In view of the unclear source of the pelvic abscess - consider Pelvic ultrasound to r/o tubo-ovarian abscess. - Needs repeat abdominal Xray ( AP and Lateral view) in 1 -2 days to localize the curvilinear metallic piece. - Will review with surgery about the further plan from surgical side. ( might benefit from laparoscopic evaluation). - GI will follow. Plan of care discussed with patient and floor team. Patient verbalized understanding and agreed with plan of care.. SHUKRI RAJPUT MD Aug 05, 2017 01:00
[2017-08-05] MEDS: PIPERACILLIN/TAZOBACTAM SOD 3.375 GM in D5W 50 ML IV SCH ×4 (03:35→21:18)
[2017-08-05] MEDS: SODIUM CHLORIDE 0.9% INJ 10 ML SYR IV SCH ×4 (05:01→17:49)
[2017-08-05] MEDS: HEPARIN SOD (PORCINE) 5000 UNITS/ML VIAL SQ SCH ×3 (05:02→21:18)
[2017-08-05] MEDS: NS 0.45% 1,000 ML IV SCH ×3 (05:03→21:19)
[2017-08-05 06:00] VITALS: BP 135/83
[2017-08-05] MEDS ORDERED: POTASSIUM CHLORIDE 10 MEQ SR TABLET PO ONE (06:30)
[2017-08-05] MEDS ORDERED: MAG SULF 1GM/100ML (MAG RUN) 1 GM in APPROPRIATE DILUENT 1 EA IV ONE (06:30)
[2017-08-05] MEDS: MULTIVITAMINS/MINERALS THERAP 1 TAB PO SCH (08:14)
[2017-08-05] MEDS: SIMETHICONE 80 MG CHEW TAB PO SCH ×4 (08:14→21:18)
[2017-08-05] MEDS: THIAMINE 100 MG TAB PO SCH (08:14)
[2017-08-05] MEDS: FOLIC ACID 1 MG TAB PO SCH (08:14)
[2017-08-05] MEDS: PANTOPRAZOLE 40MG INJ (PROTONIX) (C9113) IV SCH (08:15)
[2017-08-05] MEDS: NICOTINE 7 MG/24 HR TRANSDERMAL TD SCH (08:15)
--- NOTE | 2017-08-05 12:28 | IPN ---
DATE: 08/05/2017 Patient seen and examined at the bedside. Chart has been reviewed. The patient had a drain placed yesterday. Afebrile overnight. No nausea or vomiting. Tolerating her liquid diet. No other issues per nursing. PHYSICAL EXAMINATION: VITAL SIGNS: Temperature 98.6, pulse 109, respiratory rate 18, blood pressure 135/83, 94% on room air. GENERAL: Awake, alert, oriented times three. Answering questions appropriately. LUNGS: Clear to auscultation. No wheezing, rales or rhonchi. HEART: S1, S2, sinus rhythm. ABDOMEN: Soft, slightly tender in bilateral lower quadrants. Drain in place. EXTREMITIES: No cyanosis, clubbing. Laboratory data, microbiology, and imaging studies have been reviewed. ASSESSMENT AND PLAN: This is a 61-year-old female with history of alcohol abuse , hypertension, cataract surgery, who presented to the emergency room with 3-4 month history of generalized weakness, abdominal distention. CT abdomen and pelvis on admission showed sigmoid thickening, treated for possible acute diverticulitis with IV antibiotics. The patient has undergone EGD and colonoscopy by vector control specialist, Dr. Reinoso. EGD showed duodenitis and gastritis. The patient has been kept on Protonix. Colonoscopy could not be completed as obstruction would not permit adult scope or pediatric scope to pass through. Repeat CT abdomen and pelvis shows persistent partial small bowel obstruction with fluid accumulation. Patient underwent drainage placement yesterday and has had increasing white count but no fevers. Still continued on IV Zosyn. CURRENT ACUTE ISSUES: 1. Pelvic abscess, most likely from bowel perforation. The patient has been on intravenous Zosyn for 10 days. Cultures have been sent. Appreciate Dr. Teddy Randle's input and management. We will continue to monitor CBC and CRP every 2 to 3 days. 2. Partial small bowel obstruction with abdominal abscess. Defer to general surgery. Currently with a drain and IV antibiotics. 3. Diarrhea. Discontinue the patient's bowel regimen. 4. History of alcohol abuse. No signs of withdrawal. Multivitamin, thiamine and folate. 5. Duodenitis and gastritis. On proton pump inhibitor. Avoid nonsteroidal antiinflammatory drugs. 6. Tobacco acute, on nicotine patch. 7. Deep vein thrombosis (DVT) prophylaxis. Heparin subcutaneously. MTDD
[2017-08-05 12:55] LABS: ANION GAP 10 MEQ/L (8-16); BLOOD UREA NITROGEN 2 MG/DL (7-18); CALCIUM LEVEL 7.3 MG/DL (8.5-10.1); CARBON DIOXIDE LEVEL 23 MEQ/L (21-32); CHLORIDE LEVEL 102 MEQ/L (98-107); CREATININE FOR GFR 0.21 MG/DL (0.55-1.02); GLOMERULAR FILTRATION RATE > 60.0 (>51); GLUCOSE, FASTING 76 MG/DL (70-105); POTASSIUM SERUM 3.7 MEQ/L (3.5-5.1); SODIUM LEVEL 135 MEQ/L (136-145)
[2017-08-05 12:56] LABS: BASO % 0.3 % (0.0-1.0); EOS % 0.1 % (0.0-3.0); IMMATURE GRANULOCYTE % 0.8 % (0-0); LYMPH # 1.4 10^3/uL (1.5-4.5); LYMPH % 14.7 % (24.0-44.0); MEAN CORPUSCULAR HEMOGLOBIN 36.4 pg (27.0-33.0); MEAN CORPUSCULAR HGB CONC 34.1 g/dl (32.0-36.5); MONO # 0.9 10^3/uL (0.0-0.8); MONO % 9.3 % (0.0-5.0); NEUTROPHILS # 7.3 10^3/uL (1.8-7.7); NEUTROPHILS % 74.8 % (36.0-66.0); PLATELET COUNT, AUTOMATED 515 10^3/uL (150-450); RED CELL DISTRIBUTION WIDTH 15.3 % (11.5-14.5); WHITE BLOOD COUNT 9.8 10^3/uL (4.0-10.0)
[2017-08-05 12:59] LABS: ADD MORPHOLOGY? YES; MEAN CORPUSCULAR VOLUME 106.7 fl (80.0-96.0)
[2017-08-05 13:36] LABS: ANISOCYTOSIS 1+
[2017-08-05 14:00] VITALS: BP 138/78
[2017-08-05] MEDS: PERCOCET 5MG/325MG TAB PO PRN (21:19)
[2017-08-05 22:00] VITALS: BP 137/88
[2017-08-06] MEDS: PIPERACILLIN/TAZOBACTAM SOD 3.375 GM in D5W 50 ML IV SCH ×4 (04:47→21:18)
[2017-08-06] MEDS: SODIUM CHLORIDE 0.9% INJ 10 ML SYR IV SCH ×4 (05:36→16:59)
[2017-08-06 05:55] LABS: BASO % 0.2 % (0.0-1.0); EOS % 0.1 % (0.0-3.0); IMMATURE GRANULOCYTE % 0.9 % (0-0); LYMPH # 1.5 10^3/uL (1.5-4.5); LYMPH % 16.8 % (24.0-44.0); MEAN CORPUSCULAR HEMOGLOBIN 36.4 pg (27.0-33.0); MONO % 10.8 % (0.0-5.0); NEUTROPHILS # 6.4 10^3/uL (1.8-7.7); NEUTROPHILS % 71.2 % (36.0-66.0); PLATELET COUNT, AUTOMATED 538 10^3/uL (150-450); RED CELL DISTRIBUTION WIDTH 15.1 % (11.5-14.5)
[2017-08-06] MEDS: HEPARIN SOD (PORCINE) 5000 UNITS/ML VIAL SQ SCH ×3 (05:55→20:47)
[2017-08-06 06:00] VITALS: BP 152/98
[2017-08-06 06:00] LABS: ADD MORPHOLOGY? YES; MEAN CORPUSCULAR VOLUME 107.1 fl (80.0-96.0)
[2017-08-06 06:10] LABS: ANION GAP 7 MEQ/L (8-16); BLOOD UREA NITROGEN 1 MG/DL (7-18); CALCIUM LEVEL 7.9 MG/DL (8.5-10.1); CARBON DIOXIDE LEVEL 25 MEQ/L (21-32); CHLORIDE LEVEL 104 MEQ/L (98-107); CREATININE FOR GFR 0.28 MG/DL (0.55-1.02); GLOMERULAR FILTRATION RATE > 60.0 (>51); GLUCOSE, FASTING 81 MG/DL (70-105); POTASSIUM SERUM 3.4 MEQ/L (3.5-5.1); SODIUM LEVEL 136 MEQ/L (136-145)
[2017-08-06 07:04] LABS: ANISOCYTOSIS 2+
[2017-08-06 07:21] LABS: MAGNESIUM LEVEL 1.7 MG/DL (1.8-2.4)
[2017-08-06] MEDS ORDERED: POTASSIUM CHLORIDE 10 MEQ SR TABLET PO ONE ×2 (07:30→22:15)
[2017-08-06] MEDS: MULTIVITAMINS/MINERALS THERAP 1 TAB PO SCH (08:07)
[2017-08-06] MEDS: THIAMINE 100 MG TAB PO SCH (08:07)
[2017-08-06] MEDS: PANTOPRAZOLE 40MG INJ (PROTONIX) (C9113) IV SCH (08:08)
[2017-08-06] MEDS: SIMETHICONE 80 MG CHEW TAB PO SCH ×4 (08:08→20:47)
[2017-08-06] MEDS: FOLIC ACID 1 MG TAB PO SCH (08:09)
[2017-08-06] MEDS: NICOTINE 7 MG/24 HR TRANSDERMAL TD SCH (08:09)
[2017-08-06] MEDS ORDERED: FUROSEMIDE 40 MG/4 ML VIAL (J1940) IV ONE ×2 (08:15→14:00)
[2017-08-06] MEDS: PERCOCET 5MG/325MG TAB PO PRN ×2 (09:23→20:38)
[2017-08-06] MEDS: MAG SULF 1GM/100ML (MAG RUN) 1 GM in APPROPRIATE DILUENT 1 EA IV SCH ×2 (09:24→10:23)
--- NOTE | 2017-08-06 11:42 | IPN ---
DATE: 08/06/2017 Patient seen and examined at the bedside. Chart has been reviewed. This morning, she complains of increasing lower extremity edema. No shortness of breath, nausea, vomiting. Tolerating her diet. She continues to have purulent discharge via the drainage catheter. Output overnight has been 150. She is afebrile. No other new complaints. PHYSICAL EXAMINATION: VITAL SIGNS: Temperature 97.6, pulse 107, respiratory rate 18, blood pressure 152/98, 94% on room air. GENERAL: Awake, alert, oriented times three. Answering questions appropriately. LUNGS: Clear to auscultation. No wheezing, rales or rhonchi. HEART: S1, S2, sinus rhythm. ABDOMEN: Soft. Drainage catheter is noted. Diminished bowel sounds. No rebound or guarding. EXTREMITIES: 2+ pitting edema. ASSESSMENT AND PLAN: This is a 61-year-old female with a history of alcohol abuse, hypertension, cataract surgery, who presented to the emergency room with 3-4 month history of generalized weakness, abdominal distention. CT abdomen and pelvis showed sigmoid thickening, treated for acute diverticulitis with IV antibiotics. GI had been consulted, Dr. Reinoso. The patient underwent EGD, which showed duodenitis and gastritis. The patient has been on Protonix. Colonoscopy could not be completed as obstruction would not permit adult scope or pediatric scope to pass through. Repeat CT abdomen and pelvis shows persistent partial small bowel obstruction with fluid collection, concerning for abscess formation. CURRENT ACUTE ISSUES: 1. Pelvic abscess, most likely secondary from bowel perforation. IV Zosyn. Cultures have been sent. Appreciate Dr. Teddy Randle's input and current management. Monitor CBC and CRP every 2 to 3 days. No fevers. White count is decreasing, currently normal for the past 2 days. 2. Electrolyte abnormalities with low potassium and low magnesium. Supplement potassium and magnesium. 3. Increasing lower extremity edema from fluid overload. Discontinue IV fluids and Lasix. 4. Gastritis, duodenitis. Continue on Protonix. Change to oral. 5. Active tobacco use. Nicotine patch. 6. Alcohol use. Multivitamin, thiamine, and folate.
--- NOTE | 2017-08-06 11:53 | IPNPDOC ---
Subjective General Date/Time Seen The patient was seen on 08/06/17 at 11:49. Subject Chief Complaint/History Patient continues to do better after draining of her intra-abdominal/pelvic abscess. She reports improved appetite and she is tolerating full liquids. No febrile episodes. She is having bowel movements. Current Medications Current Medications Current Medications Acetaminophen/ Hydrocodone Bitart ([place], Anexsia 5/325) 1 tab ASDIRECTED PRN PO MILD/MODERATE PAIN (PS 1-7); Start 08/02/17 at 22:00; Stop 08/02/17 at 23:00 ; Status Cancel Amino Ac/Electrol/ Dextrose/Calcium 2,000 ml @ 75 mls/hr ONCE@1800 IV Last administered on 07/25/17 17:34; Start 07/25/17 at 18:00; Stop 07/26/17 at 17:59 ; Status DC Amino Ac/Electrol/ Dextrose/Calcium 2,000 ml @ 75 mls/hr ONCE@1800 IV Last administered on 07/26/17 18:44; Start 07/26/17 at 18:00; Stop 07/27/17 at 17:59 ; Status DC Amino Ac/Electrol/ Dextrose/Calcium 2,000 ml @ 75 mls/hr ONCE@1800 IV Last administered on 07/27/17 18:48; Start 07/27/17 at 18:00; Stop 07/28/17 at 17:59 ; Status DC Amino Ac/Electrol/ Dextrose/Calcium 2,000 ml @ 75 mls/hr ONCE@1800 IV Last administered on 07/28/17 18:25; Start 07/28/17 at 18:00; Stop 07/29/17 at 17:59 ; Status DC Bisacodyl (Dulcolax Suppository) 10 mg DAILY [place] Last administered on 08/02/17 09:45; Start 07/28/17 at 09:00; Stop 08/02/17 at 21:45; Status DC Dextrose (Dextrose 50%) 25 ml ASDIRECTED PRN IV SEE LABEL COMMENTS Last administered on 07/30/17 15:46; Start 07/30/17 at 15:30; Stop 09/01/17 at 15:29 Diphenhydramine HCl (Benadryl) 12.5 mg Q4HP PRN IV PRURITIS ASSOC WITH NARCOTICS; Start 08/02/17 at 22:00; Stop 08/02/17 at 23:00; Status Cancel Docusate Sodium (Colace) 200 mg BID PO Last administered on 08/04/17 14:55; Start 07/27/17 at 09:00; Stop 08/04/17 at 15:49; Status DC Fat Emulsion Intravenous 500 ml @ 20 mls/hr ONCE@1800 IV Last administered on 07/24/17 18:10; Start 07/24/17 at 18:00; Stop 07/25/17 at 17:59; Status DC Fat Emulsion Intravenous 500 ml @ 20 mls/hr ONCE@1800 IV Last administered on 07/25/17 17:34; Start 07/25/17 at 18:00; Stop 07/26/17 at 17:59; Status DC Fat Emulsion Intravenous 500 ml @ 20 mls/hr ONCE@1800 IV Last administered on 07/26/17 18:45; Start 07/26/17 at 18:00; Stop 07/27/17 at 17:59; Status DC Fat Emulsion Intravenous 500 ml @ 20 mls/hr ONCE@1800 IV Last administered on 07/27/17 18:48; Start 07/27/17 at 18:00; Stop 07/28/17 at 17:59; Status DC Fat Emulsion Intravenous 500 ml @ 20 mls/hr ONCE@1800 IV Last administered on 07/28/17 18:22; Start 07/28/17 at 18:00; Stop 07/29/17 at 17:59; Status DC Fat Emulsion Intravenous 500 ml @ 20 mls/hr ONCE@1800 IV Last administered on 07/29/17 18:37; Start 07/29/17 at 18:00; Stop 07/30/17 at 17:59; Status DC Fat Emulsion Intravenous 500 ml @ 20 mls/hr ONCE@1800 IV Last administered on 07/30/17 18:26; Start 07/30/17 at 18:00; Stop 07/31/17 at 17:59; Status DC Fentanyl Citrate (Sublimaze) 25 mcg Q5MP PRN IV MODERATE PAIN (PS 4-7); Start 08/02/17 at 22:00; Stop 08/02/17 at 23:00; Status DC Folic Acid (Folic Acid) 1 mg DAILY PO Last administered on 08/06/17 08:09; Start 07/23/17 at 09:00; Stop 09/01/17 at 08:59 Glucagon (Glucagon) 1 mg ASDIRECTED PRN SC SEE LABEL COMMENTS; Start 07/30/17 at 15:30; Stop 09/01/17 at 15:29 Glucose (Glucose) 16 GM ASDIRECTED PRN PO SEE LABEL COMMENTS; Start 07/30/17 at 15:30; Stop 09/01/17 at 15:29 Heparin Sodium (Heparin (Flush)) 200 units ASDIRECTED PRN IV SEE LABEL COMMENTS Last administered on 08/02/17 12:29; Start 07/24/17 at 18:00; Stop at 17:59 Heparin Sodium (Heparin (Flush)) 200 units ASDIRECTED PRN IV SEE LABEL COMMENTS ; Start 07/25/17 at 02:15; Stop 08/24/17 at 02:14 Heparin Sodium (Heparin (Flush)) 200 units PICC IV Last administered on 05:36; Start 07/24/17 at 18:00; Stop 08/23/17 at 17:59 Heparin Sodium (Heparin (Flush)) 200 units PICC IV Last administered on 05:02; Start 07/25/17 at 06:00; Stop 08/24/17 at 05:59 Heparin Sodium (Porcine) (Heparin) 5,000 units Q8H SQ Last administered on 08/06 05:55; Start 07/23/17 at 22:00; Stop 08/09/17 at 21:59; Status Future hold Home Med (Med Rec Complete!) ASDIRECTED XX ; Start 07/23/17 at 16:00; Stop at 16:00; Status DC Hydromorphone HCl (Dilaudid) 0.2 mg Q5MP PRN IV MODERATE/SEVERE PAIN (PS 7-10) ; Start 08/02/17 at 22:00; Stop 08/02/17 at 23:00; Status Cancel Ibuprofen (Advil) 400 mg Q8HP PRN PO PAIN Last administered on 07/30/17 21:11 ; Start 07/25/17 at 02:00; Stop 08/02/17 at 21:45; Status DC Ibuprofen (Advil) 400 mg Q8HP PRN PO PAIN; Start 08/02/17 at 22:45; Stop at 06:24; Status DC Insulin Human Lispro (HumaLOG INSULIN) See Protocol Table Q6H SC Last administered on 07/25/17 12:42; Start 07/24/17 at 18:00; Stop 07/25/17 at 12:01 ; Status DC Insulin Human Lispro (HumaLOG INSULIN) See Protocol Table Q6H SC Last administered on 07/26/17 12:09; Start 07/25/17 at 18:00; Stop 07/26/17 at 12:01 ; Status DC Insulin Human Lispro (HumaLOG INSULIN) See Protocol Table Q6H SC Last administered on 07/27/17 11:48; Start 07/26/17 at 18:00; Stop 07/27/17 at 12:01 ; Status DC Insulin Human Lispro (HumaLOG INSULIN) See Protocol Table Q6H SC Last administered on 07/28/17 12:45; Start 07/27/17 at 18:00; Stop 07/28/17 at 12:01 ; Status DC Insulin Human Lispro (HumaLOG INSULIN) See Protocol Table Q6H SC Last administered on 07/29/17 13:07; Start 07/28/17 at 18:00; Stop 07/29/17 at 12:01 ; Status DC Insulin Human Lispro (HumaLOG INSULIN) See Protocol Table Q6H SC Last administered on 07/30/17 12:36; Start 07/29/17 at 18:00; Stop 07/30/17 at 12:01 ; Status DC Ketorolac Tromethamine (ToRADol) 30 mg ONCE PRN IV PAIN; Start 08/02/17 at 22: 00; Stop 08/02/17 at 23:00; Status Cancel Lactated Ringer's 1,000 ml @ 100 mls/hr Q10H IV ; Start 08/02/17 at 22:00; Stop 08/02/17 at 23:00; Status DC Magnesium Sulfate/ Dextrose 1 gm/IV Miscellaneous Supplies 100 ml @ 100 mls/hr ASDIRECTED IV ; Start 08/04/17 at 21:00; Stop 09/03/17 at 20:59; Status UNV Magnesium Sulfate/ Dextrose 1 gm/IV Miscellaneous Supplies 100 ml @ 100 mls/hr Q1H IV Last administered on 07/23/17 18:52; Start 07/23/17 at 16:00; Stop at 17:59; Status DC Magnesium Sulfate/ Dextrose 1 gm/IV Miscellaneous Supplies 100 ml @ 100 mls/hr Q1H IV Last administered on 08/04/17 20:51; Start 08/04/17 at 20:00; Stop 08/04/17 at 21:59; Status DC Magnesium Sulfate/ Dextrose 1 gm/IV Miscellaneous Supplies 100 ml @ 100 mls/hr Q1H IV Last administered on 08/06/17 10:23; Start 08/06/17 at 09:00; Stop 08/06/17 at 10:59; Status DC Meperidine HCl (Demerol) 12.5 mg Q5MP PRN IV SHIVERING; Start 08/02/17 at 22:00 ; Stop 08/02/17 at 23:00; Status Cancel Metoclopramide HCl (REGLAN INJection) 10 mg Q6HP PRN IV NAUSEA OR VOMITING; Start 08/02/17 at 22:00; Stop 08/02/17 at 23:00; Status Cancel Morphine Sulfate (Morphine Sulfate Inj) 2 mg Q5MP PRN IV MODERATE/SEVERE PAIN ( PS 7-10); Start 08/02/17 at 22:00; Stop 08/02/17 at 23:00; Status Cancel Multivitamins (Theragram-M) 1 tab DAILY PO Last administered on 08/06/17 08:07 ; Start 07/23/17 at 09:00; Stop 09/01/17 at 08:59 Multivitamins 10 ml/Chromium/ Copper/Manganese/ Seleni/Zn 1 ml/ Amino Ac/ Electrol/ Dextrose/Calcium 2,011 ml @ 75 mls/hr ONCE@1800 IV Last administered on 07/24/17 18:10; Start 07/24/17 at 18:00; Stop 07/25/17 at 17:59 ; Status DC Nalbuphine HCl (Nubain) 2.5 mg ASDIRECTED PRN IV PRURITIS; Start 08/02/17 at 22 :00; Stop 08/02/17 at 23:00; Status Cancel Nicotine (Nicoderm Cq 7 Mg) 1 patch DAILY TD Last administered on 07/28/17 10: 02; Start 07/23/17 at 09:00; Stop 09/01/17 at 08:59 Nicotine (Nicorette) 2 mg Q1HP PRN PO nicotine withdrawal; Start 07/23/17 at 16 :15; Stop 09/01/17 at 16:14 Ondansetron HCl (ZOFRAN INJection) 4 mg Q4HP PRN IV NAUSEA OR VOMITING; Start 08/02/17 at 22:00; Stop 08/02/17 at 23:00; Status DC Oxazepam (Serax) 10 mg Q4HP PRN PO ALCOHOL WITHDRAWAL Last administered on 07/23 16:55; Start 07/23/17 at 16:15; Stop 08/09/17 at 16:14 Oxycodone/ Acetaminophen (Percocet 5mg/ 325mg Tablet) 1 tab ASDIRECTED PRN PO MILD/MODERATE PAIN (PS 1-7); Start 08/02/17 at 22:00; Stop 08/02/17 at 23:00; Status Cancel Oxycodone/ Acetaminophen (Percocet 5mg/ 325mg Tablet) 1 tab Q6HP PRN PO MILD/ MODERATE PAIN (PS 1-7) Last administered on 08/02/17 12:29; Start 07/27/17 at 14:15; Stop 08/02/17 at 21:45; Status DC Oxycodone/ Acetaminophen (Percocet 5mg/ 325mg Tablet) 1 tab Q6HP PRN PO MILD/ MODERATE PAIN (PS 1-7) Last administered on 08/06/17 09:23; Start 08/02/17 at 22:45; Stop 08/09/17 at 22:44 Pantoprazole Sodium (Protonix) 40 mg DAILY IV Last administered on 08/06/17 08 :08; Start 08/04/17 at 09:00; Stop 09/03/17 at 08:59 Phenol (Chloraseptic (Cepacol)) 1 spray Q2HP PRN MT SORE THROAT Last administered on 07/31/17 02:59; Start 07/30/17 at 00:00; Stop 09/01/17 at 00:00 Piperacillin Sod/ Tazobactam Sod 3.375 gm/Dextrose 50 ml @ 50 mls/hr Q6H IV Last administered on 07/27/17 03:19; Start 07/23/17 at 16:00; Stop 07/27/17 at 11:39; Status DC Piperacillin Sod/ Tazobactam Sod 3.375 gm/Dextrose 50 ml @ 50 mls/hr Q6H IV Last administered on 08/06/17 11:32; Start 07/27/17 at 10:00; Stop 08/09/17 at 09:59 Potassium Chloride 10 meq/ IV Miscellaneous Supplies 100 ml @ 100 mls/hr Q1H IV Last administered on 07/25/17 13:47; Start 07/25/17 at 10:00; Stop at 11:59; Status DC Potassium Chloride 10 meq/ IV Miscellaneous Supplies 100 ml @ 100 mls/hr Q1H IV Last administered on 07/30/17 12:36; Start 07/30/17 at 08:00; Stop at 10:59; Status DC Potassium Chloride 10 meq/ IV Miscellaneous Supplies 100 ml @ 100 mls/hr Q1H IV Last administered on 07/31/17 15:26; Start 07/31/17 at 14:00; Stop at 15:59; Status DC Potassium Chloride 40 meq/ Amino Ac/Electrol/ Dextrose/Calcium 2,020 ml @ 75 mls/hr ONCE@1800 IV Last administered on 07/29/17 18:37; Start 07/29/17 at 18: 00; Stop 07/30/17 at 17:59; Status DC Potassium Chloride 40 meq/ Amino Ac/Electrol/ Dextrose/Calcium 2,020 ml @ 75 mls/hr ONCE@1800 IV Last administered on 07/30/17 18:27; Start 07/30/17 at 18: 00; Stop 07/31/17 at 17:59; Status DC Potassium Chloride (Micro-K Extencaps) 40 meq Q1H PO Last administered on 08:20; Start 08/04/17 at 07:00; Stop 08/04/17 at 08:01; Status DC Promethazine HCl (PHENERGAN INJection) 12.5 mg Q5MP PRN IV NAUSEA OR VOMITING; Start 08/02/17 at 22:00; Stop 08/02/17 at 23:00; Status Cancel Senna (Senokot) 2 tab BID PO Last administered on 07/27/17 14:24; Start at 09:00; Stop 07/27/17 at 17:08; Status DC Senna/Docusate Sodium (Senokot S) 1 tab BID PO Last administered on 07/27/17 14:25; Start 07/27/17 at 09:00; Stop 07/27/17 at 17:08; Status DC Senna/Docusate Sodium (Senokot S) 2 tab BID PO Last administered on 08/04/17 14:55; Start 07/27/17 at 21:00; Stop 08/05/17 at 00:22; Status DC Simethicone (Mylicon) 120 mg QID PO Last administered on 08/06/17 08:08; Start 07/24/17 at 09:00; Stop 09/01/17 at 08:59 Sodium Chloride 1,000 ml @ 75 mls/hr [id number] IV Last administered on 21:19; Start 08/02/17 at 18:45; Stop 08/06/17 at 08:08; Status DC Sodium Chloride 1,000 ml @ 100 mls/hr Q10H IV Last administered on 07/24/17 14:00; Start 07/23/17 at 15:30; Stop 07/24/17 at 11:29; Status DC Sodium Chloride 1,000 ml @ 1,000 mls/hr BOLUS IV Last administered on 21:14; Start 07/23/17 at 15:30; Stop 07/24/17 at 16:29; Status DC Sodium Chloride (Saline Lock Flush) 10 ML PICC IV Last administered on 05:36; Start 07/24/17 at 18:00; Stop 08/23/17 at 17:59 Sodium Chloride (Saline Lock Flush) 10 ml ASDIRECTED PRN IV SEE LABEL COMMENTS ; Start 07/25/17 at 02:15; Stop 08/24/17 at 02:14 Sodium Chloride (Saline Lock Flush) 10 ml PICC IV Last administered on 05:02; Start 07/25/17 at 06:00; Stop 08/24/17 at 05:59 Sodium Chloride (Saline Lock Flush) 10ML ASDIRECTED PRN IV SEE LABEL COMMENTS Last administered on 08/02/17 12:30; Start 07/24/17 at 18:00; Stop 08/23/17 at 17:59 Thiamine HCl (Thiamine HCl) 100 mg DAILY PO Last administered on 08/06/17 08: 07; Start 07/23/17 at 09:00; Stop 09/01/17 at 08:59 Allergies Coded Allergies: No Known Allergies (Unverified , 11/14/16) Objective Physical Examination Examination GENERAL APPEARANCE: Comfortable in no acute distress. SKIN: Warm and moist. HEENT: Normocephalic, atraumatic. Thruston palpebral conjunctiva, anicteric sclerae. Lips and mucosa appear moist. NECK: Supple, no thyromegaly. No obvious jugular venous distention. LUNGS: Clear to auscultation bilaterally. No wheezing appreciated. HEART: No chest wall abnormalities. Regular rate and rhythm with no murmurs appreciated. ABDOMEN: Abdomen is round, soft, and minimally distended. Right lower quadrant percutaneous drain shows thick greenish purulent fluid. Minimally tender on palpation over the area area nontender and other parts of the abdomen. EXTREMITIES: 2+ leg edema. Vital Signs Vital Signs Date Time Temp Pulse Resp B/P (MAP) Pulse Ox O2 Delivery O2 Flow Rate FiO2 08/06/17 09:53 16 08/06/17 06:00 97.6 107 152/98 (116) 94 Room Air I&Os I&O- Last 24 Hours up to 6 AM 08/07/17 05:59 Intake Total 120 ml Output Total 1900 ml Balance -1780 ml Laboratory Data Labs 24H Laboratory Tests 2 08/05/17 12:08: Immature Granulocyte % (Auto) 0.8H, White Blood Count 9.8, Red Blood Count 2.53L , Hemoglobin 9.2L, Hematocrit 27.0L, Mean Corpuscular Volume 106.7H, Mean Corpuscular Hemoglobin 36.4H, Mean Corpuscular Hemoglobin Concent 34.1, Red Cell Distribution Width 15.3H, Platelet Count 515H, Neutrophils (%) (Auto) 74.8H , Lymphocytes (%) (Auto) 14.7L, Monocytes (%) (Auto) 9.3H, Eosinophils (%) (Auto ) 0.1, Basophils (%) (Auto) 0.3, Neutrophils # (Auto) 7.3, Lymphocytes # (Auto) 1.4L, Monocytes # (Auto) 0.9H, Eosinophils # (Auto) 0.0, Basophils # (Auto) 0.0 , Immature Granulocyte # (Auto) 0.1H, Nucleated Red Blood Cells % (auto) 0.0, Platelet Estimate INCREASED, Anisocytosis 1+, Macrocytosis 1+, Anion Gap 10, Glomerular Filtration Rate > 60.0, Blood Urea Nitrogen 2L, Creatinine 0.21L, Sodium Level 135L, Potassium Level 3.7, Chloride Level 102, Carbon Dioxide Level 23, Calcium Level 7.3L 08/05/17 17:52: Magnesium Level 1.7L 08/06/17 05:42: Immature Granulocyte % (Auto) 0.9H, White Blood Count 9.0, Red Blood Count 2.80L , Hemoglobin 10.2L, Hematocrit 30.0L, Mean Corpuscular Volume 107.1H, Mean Corpuscular Hemoglobin 36.4H, Mean Corpuscular Hemoglobin Concent 34.0, Red Cell Distribution Width 15.1H, Platelet Count 538H, Neutrophils (%) (Auto) 71.2H , Lymphocytes (%) (Auto) 16.8L, Monocytes (%) (Auto) 10.8H, Eosinophils (%) ( Auto) 0.1, Basophils (%) (Auto) 0.2, Neutrophils # (Auto) 6.4, Lymphocytes # ( Auto) 1.5, Monocytes # (Auto) 1.0H, Eosinophils # (Auto) 0.0, Basophils # (Auto ) 0.0, Immature Granulocyte # (Auto) 0.1H, Nucleated Red Blood Cells % (auto) 0.0, Platelet Estimate INCREASED, Anisocytosis 2+, Macrocytosis 2+, Anion Gap 7L , Glomerular Filtration Rate > 60.0, Blood Urea Nitrogen 1L, Creatinine 0.28L, Sodium Level 136, Potassium Level 3.4L, Chloride Level 104, Carbon Dioxide Level 25, Calcium Level 7.9L, Magnesium Level 1.7L CBC/BMP Laboratory Tests 08/05/17 12:08 Red Blood Count 2.53 L, Mean Corpuscular Volume 106.7 H, Mean Corpuscular Hemoglobin 36.4 H, Mean Corpuscular Hemoglobin Concent 34.1, Red Cell Distribution Width 15.3 H, Neutrophils (%) (Auto) 74.8 H, Lymphocytes (%) (Auto ) 14.7 L, Monocytes (%) (Auto) 9.3 H, Eosinophils (%) (Auto) 0.1, Basophils (%) (Auto) 0.3, Neutrophils # (Auto) 7.3, Lymphocytes # (Auto) 1.4 L, Monocytes # ( Auto) 0.9 H, Eosinophils # (Auto) 0.0, Basophils # (Auto) 0.0, Calcium Level 7.3 L 08/06/17 05:42 Red Blood Count 2.80 L, Mean Corpuscular Volume 107.1 H, Mean Corpuscular Hemoglobin 36.4 H, Mean Corpuscular Hemoglobin Concent 34.0, Red Cell Distribution Width 15.1 H, Neutrophils (%) (Auto) 71.2 H, Lymphocytes (%) (Auto ) 16.8 L, Monocytes (%) (Auto) 10.8 H, Eosinophils (%) (Auto) 0.1, Basophils (% ) (Auto) 0.2, Neutrophils # (Auto) 6.4, Lymphocytes # (Auto) 1.5, Monocytes # ( Auto) 1.0 H, Eosinophils # (Auto) 0.0, Basophils # (Auto) 0.0, Calcium Level 7.9 L Microbiology Microbiology 08/04/17 Anaerobic Culture, Received Pending 08/04/17 Gram Stain - Final, Complete 08/04/17 Abscess Culture - Final, Complete Escherichia Coli Impression Pelvic abscess status post percutaneous drainage I will advance her to soft diet to allow for more nutritious oral intake. She is getting diuresed. Continue with antibiotics. Review microbiology shows growth of Escherichia coli sensitive to Zosyn. Plan / VTE VTE Prophylaxis Ordered?: Yes Plan / Urinary Catheter Reason for insertion/continuin: Critical Pt monitoring NICK GONZALEZ MD Aug 06, 2017 11:53
[2017-08-06 14:00] VITALS: BP 144/93
[2017-08-06] MEDS: SODIUM CHLORIDE 0.9% INJ 10 ML SYR IV PRN (20:34)
[2017-08-07] MEDS ORDERED: POTASSIUM CHLORIDE 10 MEQ SR TABLET PO ONE (02:15)
[2017-08-07] MEDS: PIPERACILLIN/TAZOBACTAM SOD 3.375 GM in D5W 50 ML IV SCH ×4 (03:03→21:19)
[2017-08-07] MEDS: PERCOCET 5MG/325MG TAB PO PRN ×3 (03:03→19:32)
[2017-08-07] MEDS: HEPARIN SOD (PORCINE) 5000 UNITS/ML VIAL SQ SCH ×3 (05:08→20:19)
[2017-08-07] MEDS: SODIUM CHLORIDE 0.9% INJ 10 ML SYR IV SCH ×4 (05:36→17:19)
[2017-08-07 05:50] LABS: BASO % 0.4 % (0.0-1.0); EOS % 0.1 % (0.0-3.0); LYMPH # 1.5 10^3/uL (1.5-4.5); LYMPH % 18.6 % (24.0-44.0); MEAN CORPUSCULAR HEMOGLOBIN 36.3 pg (27.0-33.0); MEAN CORPUSCULAR HGB CONC 34.7 g/dl (32.0-36.5); MEAN CORPUSCULAR VOLUME 104.7 fl (80.0-96.0); MONO # 0.9 10^3/uL (0.0-0.8); MONO % 10.8 % (0.0-5.0); NEUTROPHILS # 5.7 10^3/uL (1.8-7.7); NEUTROPHILS % 69.1 % (36.0-66.0); PLATELET COUNT, AUTOMATED 486 10^3/uL (150-450); RED CELL DISTRIBUTION WIDTH 14.7 % (11.5-14.5); WHITE BLOOD COUNT 8.2 10^3/uL (4.0-10.0)
[2017-08-07 06:00] VITALS: BP 158/90
[2017-08-07 06:14] LABS: ANION GAP 8 MEQ/L (8-16); BLOOD UREA NITROGEN 2 MG/DL (7-18); CALCIUM LEVEL 7.9 MG/DL (8.5-10.1); CARBON DIOXIDE LEVEL 27 MEQ/L (21-32); CHLORIDE LEVEL 103 MEQ/L (98-107); CREATININE FOR GFR 0.24 MG/DL (0.55-1.02); GLOMERULAR FILTRATION RATE > 60.0 (>51); GLUCOSE, FASTING 78 MG/DL (70-105); POTASSIUM SERUM 4.2 MEQ/L (3.5-5.1); SODIUM LEVEL 138 MEQ/L (136-145)
[2017-08-07 07:39] LABS: ERYTHROCYTE SEDIMENTATION RATE 54 mm/hr (0-30)
--- NOTE | 2017-08-07 08:35 | REP ---
ABSCESS DRAINAGE: The procedure was performed by LASHAY Bello under the direct supervision of Dr. Sanches. The procedure along with its risks, benefits, and complications were discussed with the patient prior to the examination. Informed consent was obtained both verbally and written. The patient was identified in the ultrasound suite and placed in the supine position. The right lower quadrant was interrogated with ultrasound. An appropriate location was chosen for needle entry and this area was marked, prepped, and draped in the usual sterile fashion. A procedural time-out was performed to ensure that the correct patient, site and procedure were being performed. Local infiltrative anesthesia was achieved with 1% lidocaine. A 10 [place] Skater Catheter was advanced into the suspected abscess under ultrasound guidance. The catheter was advanced and the needle was removed. Approximately 20 mL of green-brown fluid were removed. These were sent to the lab for further evaluation. Results pending. The pigtail portion of the catheter was deployed. The catheter was affixed to the patient's skin. A soft dressing was applied. A drainage bag was affixed to the catheter. The patient tolerated the procedure well and has no immediate complications. Reviewed by LASHAY Augustine 08/07/2017 08:38 AEdited and Signed by Chance Sanches MD 08/07/2017 12:15 P
[2017-08-07] MEDS: NICOTINE 7 MG/24 HR TRANSDERMAL TD SCH (09:00)
[2017-08-07] MEDS ORDERED: PANTOPRAZOLE 40MG TAB (PROTONIX) PO ONE (09:00)
--- NOTE | 2017-08-07 09:36 | IPNPDOC ---
Date Seen The patient was seen on 08/07/17. Progress Note SUBJECTIVE: A 61-year-old female with history of hypertension on chronic lisinopril, bilateral cataract surgery presents to the emergency room with two day history of abdominal distention. With a 3-4 month history of generalized weakness, decreased appetite, feeling bilateral feet and hands going numb. Surgery was consult because of decreased appetite and weight loss, with concern for malignancy. Patient has a history of smoking about 2 packs a day since she was 16. Patient also has a history of heavy alcohol use. CT abdomen revealed Segmental thickening of the sigmoid colon with surrounding loculated fluid. This may be neoplastic or inflammatory in etiology. Moderate diffuse small bowel dilatation. Mild scattered free fluid without free air. No adenopathy. Small cyst left ovary. Surgery was consulted as a result. Patient an abdominal abscess drainage on monday. She tolerated the procedure just fine. This morning she reposts that she is feeling " a lot better". She was started on a soft diet over the weekend and she is tolerating that very well. She that she has been eating more than she has in a while. She admits to watery bowel movement and flatus. OBJECTIVE PHYSICAL EXAMINATION: VITAL SIGNS: Please see below. GENERAL APPEARANCE: Awake, alert resting in bed, RESPIRATORY: Lungs are clear to auscultate anterior and posterior CARDIOVASCULAR: S1 and S2 present, no murmurs rubs or gallops ABDOMEN: Yellow drainage for her abdominal tube. No distended abdomen EXTREMITIES: Swelling no deformities. LABORATORY DATA: Please see below. MICROBIOLOGY: Please see below. ASSESSMENT AND PLAN:A 61-year-old female admitted for abdominal distention and generalized weakness. From a surgical standpoint, at this moment there is no surgical intervention available to patient. She had an ultrasound drainage of an abdominal abscess on monday. Culture was positive for E.coli sensitive to Zosyn. Her WBC this morning is 8.2, a decrease from 9.2 yesterday. She is currently on a soft diet and is tolerating that without any issues, she continues to have watery bowel movements. VS, I&O, 24H, Fishbone Vital Signs/I&O Vital Signs Date Time Temp Pulse Resp B/P (MAP) Pulse Ox O2 Delivery O2 Flow Rate FiO2 08/07/17 06:00 98.6 109 18 158/90 (112) 96 08/06/17 20:38 Room Air I&O- Last 24 Hours up to 6 AM 08/08/17 05:59 Intake Total 300 ml Output Total 250 ml Balance 50 ml Laboratory Data 24H LABS Laboratory Tests 2 08/07/17 05:36: Immature Granulocyte % (Auto) 1.0H, White Blood Count 8.2, Red Blood Count 2.78L , Hemoglobin 10.1L, Hematocrit 29.1L, Mean Corpuscular Volume 104.7H, Mean Corpuscular Hemoglobin 36.3H, Mean Corpuscular Hemoglobin Concent 34.7, Red Cell Distribution Width 14.7H, Platelet Count 486H, Neutrophils (%) (Auto) 69.1H , Lymphocytes (%) (Auto) 18.6L, Monocytes (%) (Auto) 10.8H, Eosinophils (%) ( Auto) 0.1, Basophils (%) (Auto) 0.4, Neutrophils # (Auto) 5.7, Lymphocytes # ( Auto) 1.5, Monocytes # (Auto) 0.9H, Eosinophils # (Auto) 0.0, Basophils # (Auto ) 0.0, Immature Granulocyte # (Auto) 0.1H, Nucleated Red Blood Cells % (auto) 0.0, Erythrocyte Sedimentation Rate 54H, Anion Gap 8, Glomerular Filtration Rate > 60.0, Blood Urea Nitrogen 2#L, Creatinine 0.24L, Sodium Level 138, Potassium Level 4.2#, Chloride Level 103, Carbon Dioxide Level 27, Calcium Level 7.9L, C-Reactive Protein, Quantitative 5.75H CBC/BMP Laboratory Tests 08/06/17 20:32 08/07/17 05:36 Red Blood Count 2.78 L, Mean Corpuscular Volume 104.7 H, Mean Corpuscular Hemoglobin 36.3 H, Mean Corpuscular Hemoglobin Concent 34.7, Red Cell Distribution Width 14.7 H, Neutrophils (%) (Auto) 69.1 H, Lymphocytes (%) (Auto ) 18.6 L, Monocytes (%) (Auto) 10.8 H, Eosinophils (%) (Auto) 0.1, Basophils (% ) (Auto) 0.4, Neutrophils # (Auto) 5.7, Lymphocytes # (Auto) 1.5, Monocytes # ( Auto) 0.9 H, Eosinophils # (Auto) 0.0, Basophils # (Auto) 0.0, Calcium Level 7.9 L Microbiology Microbiology 10/6/17 Anaerobic Culture, Received Pending 08/04/17 Gram Stain - Final, Complete 08/04/17 Abscess Culture - Final, Complete Escherichia Coli GME ATTESTATION GME ATTESTATION My preceptor for this patient encounter was physically present in the building during the encounter and was fully available. As needed, all aspects of the patient interview, examination, medical decision making process, and medical care plan development were reviewed and approved by the preceptor. Preceptor is aware and concurs with the plan as stated in the body of this note and will attest to such by his/her cosignature. RICH QUIÑONES DO Aug 07, 2017 09:36
[2017-08-07] MEDS: SIMETHICONE 80 MG CHEW TAB PO SCH ×4 (09:38→20:18)
[2017-08-07] MEDS: MULTIVITAMINS/MINERALS THERAP 1 TAB PO SCH (09:39)
[2017-08-07] MEDS: THIAMINE 100 MG TAB PO SCH (09:39)
[2017-08-07] MEDS: FOLIC ACID 1 MG TAB PO SCH (09:39)
[2017-08-07] MEDS: FUROSEMIDE 40 MG/4 ML VIAL (J1940) IV SCH ×2 (09:40→20:18)
--- NOTE | 2017-08-07 13:52 | IPN ---
DATE: 08/07/2017 Patient seen and examined at the bedside. Chart has been reviewed. She has been afebrile with purulent drainage via the catheter with 100 mL out yesterday and 50 mL out today. She has diuresed well with 3.8 liters yesterday with one dose of Lasix for her lower extremity edema from fluid overload. No complaints of chest pain, pressure or tightness, or shortness of breath. Discomfort in bilateral lower quadrants improved. Temperature 98.6, pulse 109, sinus tachycardia, respiratory rate 18, blood pressure 158/90, 96% on room air. GENERAL: Awake, alert, oriented times three. Answering questions appropriately. LUNGS: Clear to auscultation. No wheezing, rales or rhonchi. HEART: S1, S2, sinus rhythm. ABDOMEN: Soft. Drainage catheter is noted on the right side with purulent drainaged. Diminished bowel sounds. No rebound or guarding. EXTREMITIES: Improving edema. LABORATORY DATA: Has been reviewed. MICROBIOLOGY: Reviewed. E. Coli in abscess sensitive to Levaquin, resistant to Augmentin. ASSESSMENT AND PLAN: This is a 61-year-old female with a history of alcohol abuse, hypertension and cataract surgery, who presented to the emergency room with 3-4 month history of generalized weakness, abdominal distention and pain. CT of abdomen and pelvis showed sigmoid thickening, treated for acute diverticulitis and developed partial small bowel obstruction, underwent EGD and colonoscopy showing duodenitis and gastritis, unable to pass an adult and pediatric colonoscope due to obstruction. Repeat CT of abdomen and pelvis showed fluid collection. Patient underwent drainage placement and has been tolerating her diet well. Advanced to soft diet yesterday. Due to IV fluids given for hydration due to bowel obstructoin, the patient developed fluid overload. IMPRESSION: 1. Pelvic abscess, currently on IV Zosyn. E. Coli on culture sensitive to Levaquin. Defer to Dr. Randle to transition to oral medications. Monitoring CRP, sed rate and white count every two to three days. White count has been normal. She is draining well, 100 last night and 50 through the drainage catheter today. Per surgery, patient has been advanced to a soft diet. Defer to general surgery regarding timing of discharge. 2. Fluid overload due to intravenous fluids given for partial small bowel obstruction. Currently fluid overloaded. Received Lasix yesterday with adequate diuresis and symptomatic relief of lower extremity edema. 3. Electrolyte abnormalities due to diuresis. Potassium and magnesium have been replaced. 4. History of alcohol abuse. On multivitamin, thiamine and folate. 5. Gastritis and duodenitis. Avoid NSAIDS. Continue Protonix which can be changed to orally as she is tolerating her diet well. MTDD
[2017-08-07 14:00] VITALS: BP 105/67
[2017-08-07 20:38] LABS: MAGNESIUM LEVEL 1.6 MG/DL (1.8-2.4); POTASSIUM SERUM 3.6 MEQ/L (3.5-5.1)
[2017-08-07 22:00] VITALS: BP 99/75
[2017-08-08] MEDS: PIPERACILLIN/TAZOBACTAM SOD 3.375 GM in D5W 50 ML IV SCH ×3 (04:00→17:08)
[2017-08-08] MEDS: SODIUM CHLORIDE 0.9% INJ 10 ML SYR IV SCH ×4 (05:23→18:36)
[2017-08-08] MEDS: HEPARIN SOD (PORCINE) 5000 UNITS/ML VIAL SQ SCH ×3 (05:24→20:02)
[2017-08-08 05:47] LABS: BASO % 0.5 % (0.0-1.0); EOS % 0.2 % (0.0-3.0); IMMATURE GRANULOCYTE % 1.5 % (0-0); LYMPH % 23.1 % (24.0-44.0); MEAN CORPUSCULAR HEMOGLOBIN 35.6 pg (27.0-33.0); MEAN CORPUSCULAR HGB CONC 33.9 g/dl (32.0-36.5); MONO % 11.5 % (0.0-5.0); NEUTROPHILS # 5.4 10^3/uL (1.8-7.7); NEUTROPHILS % 63.2 % (36.0-66.0); PLATELET COUNT, AUTOMATED 482 10^3/uL (150-450); RED CELL DISTRIBUTION WIDTH 15.1 % (11.5-14.5); WHITE BLOOD COUNT 8.5 10^3/uL (4.0-10.0)
[2017-08-08 05:53] LABS: ADD MORPHOLOGY? YES; MEAN CORPUSCULAR VOLUME 105.1 fl (80.0-96.0)
[2017-08-08 06:00] VITALS: BP 145/89
[2017-08-08 06:12] LABS: ANION GAP 9 MEQ/L (8-16); BLOOD UREA NITROGEN 2 MG/DL (7-18); CALCIUM LEVEL 8.3 MG/DL (8.5-10.1); CARBON DIOXIDE LEVEL 29 MEQ/L (21-32); CHLORIDE LEVEL 101 MEQ/L (98-107); CREATININE FOR GFR 0.29 MG/DL (0.55-1.02); GLOMERULAR FILTRATION RATE > 60.0 (>51); GLUCOSE, FASTING 86 MG/DL (70-105); MAGNESIUM LEVEL 1.5 MG/DL (1.8-2.4); POTASSIUM SERUM 3.2 MEQ/L (3.5-5.1); SODIUM LEVEL 139 MEQ/L (136-145)
[2017-08-08 06:29] LABS: ANISOCYTOSIS 1+
[2017-08-08] MEDS: NICOTINE 7 MG/24 HR TRANSDERMAL TD SCH (09:00)
[2017-08-08] MEDS: SIMETHICONE 80 MG CHEW TAB PO SCH ×4 (09:27→20:02)
[2017-08-08] MEDS: FOLIC ACID 1 MG TAB PO SCH (09:28)
[2017-08-08] MEDS: MULTIVITAMINS/MINERALS THERAP 1 TAB PO SCH (09:28)
[2017-08-08] MEDS: THIAMINE 100 MG TAB PO SCH (09:28)
[2017-08-08] MEDS: PERCOCET 5MG/325MG TAB PO PRN ×2 (09:29→20:02)
[2017-08-08] MEDS ORDERED: POTASSIUM CHLORIDE 10 MEQ SR TABLET PO ONE (09:30)
[2017-08-08] MEDS: KCL 10MEQ IN 100ML SWI (KRUN) 10 MEQ in APPROPRIATE DILUENT 1 EA IV SCH ×4 (10:43→12:00)
--- NOTE | 2017-08-08 10:50 | IPNPDOC ---
Date Seen The patient was seen on 08/08/17. Progress Note SUBJECTIVE: A 61-year-old female with history of hypertension on chronic lisinopril, bilateral cataract surgery presents to the emergency room with two day history of abdominal distention. With a 3-4 month history of generalized weakness, decreased appetite, feeling bilateral feet and hands going numb. Surgery was consult because of decreased appetite and weight loss, with concern for malignancy. Patient has a history of smoking about 2 packs a day since she was 16. Patient also has a history of heavy alcohol use. CT abdomen revealed Segmental thickening of the sigmoid colon with surrounding loculated fluid. This may be neoplastic or inflammatory in etiology. Moderate diffuse small bowel dilatation. Mild scattered free fluid without free air. No adenopathy. Small cyst left ovary. Surgery was consulted as a result. Patient an abdominal abscess drainage on Monday. This morning patient admits to continue watery stools. Patient is continued to be on soft diet, with no issues with food. Overnight patient states she went to the bathroom a lot because she was given her Lasix later night. OBJECTIVE PHYSICAL EXAMINATION: VITAL SIGNS: Please see below. GENERAL APPEARANCE: Awake, alert resting in bed, RESPIRATORY: Lungs are clear to auscultate anterior and posterior CARDIOVASCULAR: S1 and S2 present, no murmurs rubs or gallops ABDOMEN: Minimal Yellow drainage for her abdominal tube. No distended abdomen EXTREMITIES: Swelling no deformities. LABORATORY DATA: Please see below. MICROBIOLOGY: Please see below. ASSESSMENT AND PLAN:A 61-year-old female admitted for abdominal distention and generalized weakness. From a surgical standpoint, at this moment there is no surgical intervention available to patient. She had an ultrasound drainage of an abdominal abscess on Monday. Culture was positive for E.coli sensitive to Zosyn. Her WBC this morning is 8.5 change from 8.2 yesterday.Patient can be discharged as per medicine team, with instructions to follow-up with Dr. Li in a week for drainage removal. VS, I&O, 24H, Fishbone Vital Signs/I&O Vital Signs Date Time Temp Pulse Resp B/P (MAP) Pulse Ox O2 Delivery O2 Flow Rate FiO2 08/08/17 09:29 16 08/08/17 06:00 96.7 103 145/89 (107) 98 Room Air I&O- Last 24 Hours up to 6 AM 08/09/17 06:00 Intake Total 50 ml Output Total 0 ml Balance 50 ml Laboratory Data 24H LABS Laboratory Tests 2 08/07/17 19:53: Magnesium Level 1.6L 08/08/17 05:34: Magnesium Level 1.5L, Immature Granulocyte % (Auto) 1.5H, White Blood Count 8.5 , Red Blood Count 2.75L, Hemoglobin 9.8L, Hematocrit 28.9L, Mean Corpuscular Volume 105.1H, Mean Corpuscular Hemoglobin 35.6H, Mean Corpuscular Hemoglobin Concent 33.9, Red Cell Distribution Width 15.1H, Platelet Count 482H, Neutrophils (%) (Auto) 63.2, Lymphocytes (%) (Auto) 23.1L, Monocytes (%) (Auto) 11.5H, Eosinophils (%) (Auto) 0.2, Basophils (%) (Auto) 0.5, Neutrophils # (Auto ) 5.4, Lymphocytes # (Auto) 2.0, Monocytes # (Auto) 1.0H, Eosinophils # (Auto) 0.0, Basophils # (Auto) 0.0, Immature Granulocyte # (Auto) 0.1H, Nucleated Red Blood Cells % (auto) 0.0, Platelet Estimate NORMAL, Anisocytosis 1+, Anion Gap 9 , Glomerular Filtration Rate > 60.0, Blood Urea Nitrogen 2L, Creatinine 0.29L, Sodium Level 139, Potassium Level 3.2L, Chloride Level 101, Carbon Dioxide Level 29, Calcium Level 8.3L CBC/BMP Laboratory Tests 08/07/17 19:53 08/08/17 05:34 Red Blood Count 2.75 L, Mean Corpuscular Volume 105.1 H, Mean Corpuscular Hemoglobin 35.6 H, Mean Corpuscular Hemoglobin Concent 33.9, Red Cell Distribution Width 15.1 H, Neutrophils (%) (Auto) 63.2, Lymphocytes (%) (Auto) 23.1 L, Monocytes (%) (Auto) 11.5 H, Eosinophils (%) (Auto) 0.2, Basophils (%) ( Auto) 0.5, Neutrophils # (Auto) 5.4, Lymphocytes # (Auto) 2.0, Monocytes # (Auto ) 1.0 H, Eosinophils # (Auto) 0.0, Basophils # (Auto) 0.0, Calcium Level 8.3 L Microbiology Microbiology 08/04/17 Anaerobic Culture, Received Pending 08/04/17 Gram Stain - Final, Complete 08/04/17 Abscess Culture - Final, Complete Escherichia Coli GME ATTESTATION GME ATTESTATION My preceptor for this patient encounter was physically present in the building during the encounter and was fully available. As needed, all aspects of the patient interview, examination, medical decision making process, and medical care plan development were reviewed and approved by the preceptor. Preceptor is aware and concurs with the plan as stated in the body of this note and will attest to such by his/her cosignature. RICH QUIÑONES DO Aug 08, 2017 10:50
--- NOTE | 2017-08-08 13:55 | IPN ---
DATE: 08/08/2017 SUBJECTIVE: The patient is seen and examined in the room today. The patient stated that her abdominal pain has been improving. Denies any fever or chills. Tolerated a soft diet well. OBJECTIVE: VITAL SIGNS: Temperature 96.7, pulse 103, respirations 17, blood pressure 145/89, pulse oximetry is 98% on room air. GENERAL: No sign of acute distress. Alert, oriented times three. HEENT: Normocephalic, atraumatic. Extraocular muscles intact. CARDIOVASCULAR: Positive S1, S2. Regular rate. LUNGS: Clear to auscultation bilaterally. ABDOMEN: Drainage catheter noted on the right side. There is still some purulent discharge noted in the drainage bag. EXTREMITIES: Mild extremity edema. LABORATORY DATA: WBC 8.5, hemoglobin 9.8, hematocrit 28.9, platelet count is 482. Sodium is 139, potassium 3.2, chloride 101, carbon dioxide 29, BUN 2, creatinine 0.29, GFR greater than 60, fasting glucose 86, calcium is 8.3, magnesium 1.5. ASSESSMENT AND PLAN: 1. Pelvic abscess status post ultrasound guided drainage. Currently, the patient is on Zosyn. Cultures came back positive for E coli. Infectious disease specialist has been consulted. Appreciate Dr. Randle's recommendations. 2. Fluid overload due to IV fluid given for partial small bowel obstruction. Currently, the patient is breathing comfortably in room air. There is still some residual lower extremity swelling but it is improving. Continue to monitor input and output. In the last 2 to 3 days, the patient has at least negative 4.7 liters net balance. 3. History of alcohol abuse. No sign of withdrawal. 4. Peripheral neuropathy. 5. Hypertension. Blood pressure is in the satisfactory range. 6. Hypokalemia. We will supplement potassium accordingly. 7. Hypomagnesemia. The patient will receive oral magnesium supplement. 8. Deep vein thrombosis (DVT) prophylaxis. The patient is on heparin.
[2017-08-08 14:00] VITALS: BP 113/76
[2017-08-08] MEDS: MAG SULF 1GM/100ML (MAG RUN) 1 GM in APPROPRIATE DILUENT 1 EA IV SCH ×2 (14:55→17:09)
[2017-08-08] MEDS: MAGNESIUM OXIDE 400 MG TAB (MAG-OX) PO SCH ×2 (17:08→20:01)
[2017-08-08] MEDS ORDERED: cefTRIAXone SOD 2 GM in D5W 50 ML IV SCH (18:00)
[2017-08-08] MEDS: LevoFLOXacin 500 MG TABLET PO SCH (18:29)
--- NOTE | 2017-08-08 21:46 | IPNPDOC ---
Date Seen The patient was seen on 08/08/17. Progress Note Interval History: Patient underwent EGD and colonoscopy/sigmoidoscopy on 08/02/2017 -- tolerated procedure well. ( detailed reports below). Based on the procedure findings, patient was recommended for repeat abdominal imaging -- CT abdomen - which revealed large pelvic abscess (report did not mention abscess but reviewed the images personally with radiologist and impression - large abscess - will tracking of the collection from either sigmoid colon area or terminal ileal area. and also noted curvilinear metallic density vs barium condensation in right side of abdomen ( not clear if intra or extraluminal)). Patient underwent USG guided abdominal drain placement with drainage of the abscess - fluid sent for culture - reported positive for E. coli. Patient currently still having mild to moderate drainage of purulent material for the drain. Abdominal distention significantly improved and patient not complaining of abdominal pain but has watery stools -- could be result of liquid diet and laxatives. ON specific questioning patient denied swallowing any metal/sharp objects. Exam: vitals: reviewed. General: AAO x 3, minimal distress from abdominal drain and also minimal pain. Abdomen: mildly distended with right lower quadrant drain with pus drainage. Sluggish bowel sounds. non tender and no palpable mass. EGD: - No gross lesions in esophagus.- Gastritis. ( biopsied) and Duodenitis. Biopsied. Pathology --- acute gastritis and duodenitis. No H. pylori and no dysplasia or malignancy. Colonoscopy: Aborted procedure in sigmoid colon as complete stenosis noted in sigmoid. - The sigmoid colon and proximal sigmoid colon were significantly tortuous and revealed excessive looping. Advancing the scope required withdrawing the scope and replacing with the pediatric endoscope but the scope could not be traversed beyond the mid sigmoid colon. Mucosa was normal in the entire visualized colon. Hemorrhoids found on perianal exam. Labs: reviewed. Macrocytic anemia. Impression: - New radiodense curvilinear object in the right side of abdomen - not see on prior CT scan -- ?? unclear origin. ( DDx Condensed barium vs Foreign body.) - Pelvic abscess --s/p drainage -- with the comparison from prior CT scan imaging -- likely from previously noted diverticular perforation vs r/o small intestinal perforation vs pelvic organ abscess. No free air / overt perforation. - Macrocytic anemia - ( multifactorial - nutritional vs alcohol use related) Recommendations: - Patient educated about the test results and possible differential diagnoses. - Diet as tolerated.. - Adjust antibiotics as per ID recommendations. - In view of the unclear source of the pelvic abscess - consider Pelvic ultrasound to r/o tubo-ovarian abscess. - Please repeat abdominal Xray ( AP and Lateral view) to localize the curvilinear radiodense object seen on the CT scan. - Please follow up with surgery recommendations about the further plan from surgical side. ( might benefit from laparoscopic evaluation depending on clinical status). - Please recall GI if any change in status or any concerns. NO active GI intervention at this time. GI signing off. Plan of care discussed with patient and floor team. Patient verbalized understanding and agreed with plan of care.. SHUKRI RAJPUT MD Aug 08, 2017 21:46
[2017-08-08 22:00] VITALS: BP 139/83
[2017-08-08] MEDS: metroNIDAZOLE (FLAGYL) 500 MG TAB PO SCH (23:14)
[2017-08-09] MEDS: metroNIDAZOLE (FLAGYL) 500 MG TAB PO SCH ×3 (05:30→21:15)
[2017-08-09] MEDS: HEPARIN SOD (PORCINE) 5000 UNITS/ML VIAL SQ SCH ×3 (05:30→21:16)
[2017-08-09] MEDS: LevoFLOXacin 500 MG TABLET PO SCH (05:30)
[2017-08-09] MEDS: SODIUM CHLORIDE 0.9% INJ 10 ML SYR IV SCH ×4 (05:31→17:34)
[2017-08-09 05:50] LABS: BASO % 0.3 % (0.0-1.0); EOS % 0.3 % (0.0-3.0); IMMATURE GRANULOCYTE % 1.1 % (0-0); LYMPH # 2.4 10^3/uL (1.5-4.5); LYMPH % 25.3 % (24.0-44.0); MEAN CORPUSCULAR HEMOGLOBIN 36.2 pg (27.0-33.0); MEAN CORPUSCULAR HGB CONC 34.2 g/dl (32.0-36.5); MONO % 10.5 % (0.0-5.0); NEUTROPHILS # 5.8 10^3/uL (1.8-7.7); NEUTROPHILS % 62.5 % (36.0-66.0); PLATELET COUNT, AUTOMATED 457 10^3/uL (150-450); RED CELL DISTRIBUTION WIDTH 15.3 % (11.5-14.5); WHITE BLOOD COUNT 9.3 10^3/uL (4.0-10.0)
[2017-08-09 05:58] LABS: ADD MORPHOLOGY? YES
[2017-08-09 06:00] VITALS: BP 148/96
[2017-08-09 06:09] LABS: ANION GAP 6 MEQ/L (8-16); BLOOD UREA NITROGEN 3 MG/DL (7-18); CALCIUM LEVEL 8.4 MG/DL (8.5-10.1); CARBON DIOXIDE LEVEL 29 MEQ/L (21-32); CHLORIDE LEVEL 105 MEQ/L (98-107); CREATININE FOR GFR 0.31 MG/DL (0.55-1.02); GLOMERULAR FILTRATION RATE > 60.0 (>51); GLUCOSE, FASTING 82 MG/DL (70-105); POTASSIUM SERUM 3.5 MEQ/L (3.5-5.1); SODIUM LEVEL 140 MEQ/L (136-145)
--- NOTE | 2017-08-09 06:22 | IPN ---
DATE: 08/08/2017 Daya seems to be doing much better. She denies any nausea, vomiting or diarrhea. Her abdominal pain is improving. She still has a drain from the right flank with purulent discharge. Drainage was 440 mL yesterday and 100 mL the day before. Culture from the drain was positive for E-coli. Urine culture was positive for E-coli. Anaerobic cultures are still pending. Temperature is 98.5. Heart: Normal S1-S2. No murmurs, rubs or gallops. Lungs are clear. Diminished abdomen is soft, mildly tender in the right upper quadrant where the drain is. Back: No CVA tenderness. Extremities: +1 pitting edema. IMPRESSION: Intra-abdominal abscess status post drainage procedure. The patient still has significant amount of purulent drainage in the bag. She is currently on IV Zosyn for the past 10 days. The patient is doing much better. She will be switched to Levaquin for abdominal abscess We will also add Flagyl to cover for anaerobes. The patient will need another 10 days of oral antibiotics on discharge. LABORATORY DATA: White count is 8.52, hemoglobin 9.6, hematocrit 28.9, platelets 482, 62% neutrophils, 23% lymphocytes, 11% monocytes. ESR 50. Sodium 139, potassium 3.2 , chloride 101, bicarb 29, BUN 2, creatinine 0.3, glucose 86, calcium 8.3, magnesium 1.5, CRP 5.75 down from 14.2. PLAN: Switch to by mouth Levaquin and Flagyl. Discontinue IV Zosyn. The patient had concern about going home tomorrow as her has been sick with a gastrointestinal bug and diarrhea and will not be able to help her with her care and would like to stay for another day in the hospital. SELINA
[2017-08-09 06:33] LABS: ANISOCYTOSIS 1+
[2017-08-09] MEDS: NICOTINE 7 MG/24 HR TRANSDERMAL TD SCH (09:00)
[2017-08-09 09:30] VITALS: BP 147/79
--- NOTE | 2017-08-09 09:46 | IPNPDOC ---
Date Seen The patient was seen on 08/09/17. Progress Note SUBJECTIVE: A 61-year-old female with history of hypertension on chronic lisinopril, bilateral cataract surgery presents to the emergency room with two day history of abdominal distention. With a 3-4 month history of generalized weakness, decreased appetite, feeling bilateral feet and hands going numb. Surgery was consult because of decreased appetite and weight loss, with concern for malignancy. Patient has a history of smoking about 2 packs a day since she was 16. Patient also has a history of heavy alcohol use. CT abdomen revealed Segmental thickening of the sigmoid colon with surrounding loculated fluid. This may be neoplastic or inflammatory in etiology. Moderate diffuse small bowel dilatation. Mild scattered free fluid without free air. No adenopathy. Small cyst left ovary. Surgery was consulted as a result. Patient an abdominal abscess drainage on Monday08/04/17. Patient's tissue is continuing to have dark yellowish substance drainage most likely from small bowel. Patient denies abdominal pain. Patient was continuing to have bowel movements OBJECTIVE PHYSICAL EXAMINATION: VITAL SIGNS: Please see below. GENERAL APPEARANCE: Awake, alert resting in bed, RESPIRATORY: Lungs are clear to auscultate anterior and posterior CARDIOVASCULAR: S1 and S2 present, no murmurs rubs or gallops ABDOMEN: Dark yellowish drainage most likely from small bowel. Tender to palpate over the incision site EXTREMITIES: Swelling no deformities. LABORATORY DATA: Please see below. MICROBIOLOGY: Please see below. ASSESSMENT AND PLAN:A 61-year-old female admitted for abdominal distention and generalized weakness. From a surgical standpoint, at this moment there is no surgical intervention available to patient. She had an ultrasound drainage of an abdominal abscess on Monday. Culture was positive for E.coli sensitive to Zosyn. Patient has been switched from IV Zosyn to Levaquin and Flagyl by mouth. Patient's white count is morning is 9.3, still within the normal range. At this point from a surgical standpoint patient can be discharged. However patient is having some social issues and will perhaps becoming home tomorrow VS, I&O, 24H, Fishbone Vital Signs/I&O Vital Signs Date Time Temp Pulse Resp B/P (MAP) Pulse Ox O2 Delivery O2 Flow Rate FiO2 08/09/17 09:30 98.0 104 18 147/79 (101) 100 Room Air I&O- Last 24 Hours up to 6 AM 08/10/17 06:00 Intake Total 360 ml Output Total 440 ml Balance -80 ml Laboratory Data 24H LABS Laboratory Tests 2 08/08/17 20:14: Magnesium Level 2.3 08/09/17 05:38: Immature Granulocyte % (Auto) 1.1H, White Blood Count 9.3, Red Blood Count 2.68L , Hemoglobin 9.7L, Hematocrit 28.4L, Mean Corpuscular Volume 106.0H, Mean Corpuscular Hemoglobin 36.2H, Mean Corpuscular Hemoglobin Concent 34.2, Red Cell Distribution Width 15.3H, Platelet Count 457H, Neutrophils (%) (Auto) 62.5 , Lymphocytes (%) (Auto) 25.3, Monocytes (%) (Auto) 10.5H, Eosinophils (%) (Auto ) 0.3, Basophils (%) (Auto) 0.3, Neutrophils # (Auto) 5.8, Lymphocytes # (Auto) 2.4, Monocytes # (Auto) 1.0H, Eosinophils # (Auto) 0.0, Basophils # (Auto) 0.0, Immature Granulocyte # (Auto) 0.1H, Nucleated Red Blood Cells % (auto) 0.0, Platelet Estimate INCREASED, Anisocytosis 1+, Macrocytosis 2+, Anion Gap 6L, Glomerular Filtration Rate > 60.0, Blood Urea Nitrogen 3L, Creatinine 0.31L, Sodium Level 140, Potassium Level 3.5, Chloride Level 105, Carbon Dioxide Level 29, Calcium Level 8.4L CBC/BMP Laboratory Tests 08/09/17 05:38 Red Blood Count 2.68 L, Mean Corpuscular Volume 106.0 H, Mean Corpuscular Hemoglobin 36.2 H, Mean Corpuscular Hemoglobin Concent 34.2, Red Cell Distribution Width 15.3 H, Neutrophils (%) (Auto) 62.5, Lymphocytes (%) (Auto) 25.3, Monocytes (%) (Auto) 10.5 H, Eosinophils (%) (Auto) 0.3, Basophils (%) ( Auto) 0.3, Neutrophils # (Auto) 5.8, Lymphocytes # (Auto) 2.4, Monocytes # (Auto ) 1.0 H, Eosinophils # (Auto) 0.0, Basophils # (Auto) 0.0, Calcium Level 8.4 L Microbiology Microbiology 08/04/17 Anaerobic Culture, Received Pending 08/04/17 Gram Stain - Final, Complete 08/04/17 Abscess Culture - Final, Complete Escherichia Coli GME ATTESTATION GME ATTESTATION My preceptor for this patient encounter was physically present in the building during the encounter and was fully available. As needed, all aspects of the patient interview, examination, medical decision making process, and medical care plan development were reviewed and approved by the preceptor. Preceptor is aware and concurs with the plan as stated in the body of this note and will attest to such by his/her cosignature. RICH QUIÑONES DO Aug 09, 2017 09:46
[2017-08-09] MEDS: MULTIVITAMINS/MINERALS THERAP 1 TAB PO SCH (10:05)
[2017-08-09] MEDS: THIAMINE 100 MG TAB PO SCH (10:05)
[2017-08-09] MEDS: FOLIC ACID 1 MG TAB PO SCH (10:06)
[2017-08-09] MEDS: SIMETHICONE 80 MG CHEW TAB PO SCH ×4 (10:06→21:15)
[2017-08-09] MEDS: MAGNESIUM OXIDE 400 MG TAB (MAG-OX) PO SCH ×3 (10:06→21:15)
[2017-08-09] MEDS: PERCOCET 5MG/325MG TAB PO PRN ×3 (10:06→22:23)
[2017-08-09] MEDS: SODIUM CHLORIDE 0.9% INJ 10 ML SYR IV PRN (12:14)
[2017-08-09 14:15] VITALS: BP 107/70
--- NOTE | 2017-08-09 14:26 | IPN ---
DATE OF VISIT: 08/09/2017 SUBJECTIVE: The patient seen and examined in the room today. The patient stated her lower abdominal pain still persists, but the severity has decreased significantly. The patient had training for how to take care of the abscess drainage bag and the patient stated she feels comfortable after the training. Denies any fever or chills. Denied any shortness of breath or chest pain. OBJECTIVE: VITAL SIGNS: Temperature 97.3. Pulse 98. Respirations 18. Blood pressure 148/96. Pulse oximetry 95% in room air. GENERAL: No signs of acute distress. Alert and oriented times three. HEENT: Normocephalic, atraumatic. Extraocular motion intact. CARDIOVASCULAR: Positive S1, S2. Regular rate. LUNGS: Clear to auscultation bilaterally. ABDOMEN: Drainage tube noted on the right side. Insertion site covered with a dressing. Dressing is clean and dry. There is some purulent discharge and fecal matter noted on the drainage bag. EXTREMITIES: Mild lower extremity edema. LABORATORY DATA: WBC 9.3, hemoglobin 9.7, hematocrit 28.4, platelet count 457. Sodium 140, potassium 3.5, chloride 105, carbon dioxide 29, BUN 3, creatinine 0.31, GFR greater than 60, fasting glucose 82, calcium 8.4. ASSESSMENT AND PLAN: 1. Pelvic abscess status post ultrasound guided drainage. The patient continued to have purulent discharge and fecal matter collecting in the drainage bag. Culture came back positive for E. Coli. Dr. Randle has been assisting on the case and recommended by mouth Rosetta and by mouth Demetrio. The patient had training for the drainage bag care and replacement. On the CT of abdomen and pelvis, there was finding for metallic density seen near the right lower quadrant. Per GI recommendation, will follow with abdominal x-ray two view. We appreciate general surgery's assistance on the case. 2. History of fluid overload. IV fluid was given at the time when the patient had a partial small bowel obstruction. Currently there is still some residual of lower extremity swelling; however, overall patient does not have a significant sign of fluid overload. Continue monitoring input and output and daily weight. The patient had almost five liter net negative balance in the last 48 hours. 3. History of alcohol abuse. No sign of withdrawal. 4. Hypertension. Stable. 5. Hypokalemia. Resolved after supplementation. 6. Anemia. Hemoglobin stable at this moment. The patient is asymptomatic. Continue to monitor. 7. Deep vein thrombosis (DVT) prophylaxis. The patient is on heparin.
--- NOTE | 2017-08-09 15:53 | REP ---
KUB: Two views. History: X-ray to locate abdominal metallic density seen on CT. Comparison CT study August 03, 2017. Findings: No metallic density abnormality is seen. A pigtail drainage catheter is seen in the right lower quadrant on frontal and lateral views. There is mild gaseous distension of the colon. This bowel gas pattern is improved. There are a few loops of mildly dilated small bowel as well. Vascular calcification is noted. Impression: No metallic density seen. Ileus pattern in the bowel gas. Right lower quadrant abscess drainage catheter seen. Signed by Chance Sanches MD 08/09/2017 05:02 P
[2017-08-09 22:00] VITALS: BP 116/72
[2017-08-10] MEDS: LevoFLOXacin 500 MG TABLET PO SCH (05:11)
[2017-08-10] MEDS: metroNIDAZOLE (FLAGYL) 500 MG TAB PO SCH ×3 (05:11→21:02)
[2017-08-10] MEDS: HEPARIN SOD (PORCINE) 5000 UNITS/ML VIAL SQ SCH ×3 (05:11→21:03)
[2017-08-10] MEDS: SODIUM CHLORIDE 0.9% INJ 10 ML SYR IV SCH ×4 (05:12→18:48)
[2017-08-10 05:25] LABS: BASO # 0.1 10^3/uL (0.0-0.2); BASO % 0.5 % (0.0-1.0); EOS % 0.3 % (0.0-3.0); IMMATURE GRANULOCYTE % 0.9 % (0-0); LYMPH # 2.3 10^3/uL (1.5-4.5); LYMPH % 24.5 % (24.0-44.0); MEAN CORPUSCULAR HEMOGLOBIN 36.4 pg (27.0-33.0); MEAN CORPUSCULAR HGB CONC 34.4 g/dl (32.0-36.5); MONO % 10.5 % (0.0-5.0); NEUTROPHILS # 5.9 10^3/uL (1.8-7.7); NEUTROPHILS % 63.3 % (36.0-66.0); PLATELET COUNT, AUTOMATED 404 10^3/uL (150-450); RED CELL DISTRIBUTION WIDTH 15.2 % (11.5-14.5); WHITE BLOOD COUNT 9.3 10^3/uL (4.0-10.0)
[2017-08-10 05:32] LABS: ADD MORPHOLOGY? YES; MEAN CORPUSCULAR VOLUME 105.7 fl (80.0-96.0)
[2017-08-10] MEDS: PERCOCET 5MG/325MG TAB PO PRN ×3 (05:34→19:49)
[2017-08-10 05:54] LABS: ANION GAP 8 MEQ/L (8-16); BLOOD UREA NITROGEN 2 MG/DL (7-18); CALCIUM LEVEL 8.3 MG/DL (8.5-10.1); CARBON DIOXIDE LEVEL 28 MEQ/L (21-32); CHLORIDE LEVEL 106 MEQ/L (98-107); CREATININE FOR GFR 0.28 MG/DL (0.55-1.02); GLOMERULAR FILTRATION RATE > 60.0 (>51); GLUCOSE, FASTING 85 MG/DL (70-105); POTASSIUM SERUM 3.2 MEQ/L (3.5-5.1); SODIUM LEVEL 142 MEQ/L (136-145)
[2017-08-10 06:00] VITALS: BP 134/86
[2017-08-10] MEDS ORDERED: KCL 10MEQ IN 100ML SWI (KRUN) 10 MEQ in APPROPRIATE DILUENT 1 EA IV ONE ×2 (07:30)
[2017-08-10] MEDS ORDERED: POTASSIUM CHLORIDE 10 MEQ SR TABLET PO ONE (07:30)
[2017-08-10] MEDS: NICOTINE 7 MG/24 HR TRANSDERMAL TD SCH (08:36)
[2017-08-10] MEDS: MAGNESIUM OXIDE 400 MG TAB (MAG-OX) PO SCH ×3 (08:36→21:02)
[2017-08-10] MEDS: THIAMINE 100 MG TAB PO SCH (08:37)
[2017-08-10] MEDS: FOLIC ACID 1 MG TAB PO SCH (08:37)
[2017-08-10] MEDS: MULTIVITAMINS/MINERALS THERAP 1 TAB PO SCH (08:39)
[2017-08-10] MEDS: SIMETHICONE 80 MG CHEW TAB PO SCH ×4 (08:39→21:02)
--- NOTE | 2017-08-10 10:10 | IPNPDOC ---
Date Seen The patient was seen on 08/10/17. Progress Note SUBJECTIVE: A 61-year-old female with history of hypertension on chronic lisinopril, bilateral cataract surgery presents to the emergency room with two day history of abdominal distention. With a 3-4 month history of generalized weakness, decreased appetite, feeling bilateral feet and hands going numb. Surgery was consult because of decreased appetite and weight loss, with concern for malignancy. Patient has a history of smoking about 2 packs a day since she was 16. Patient also has a history of heavy alcohol use. CT abdomen revealed Segmental thickening of the sigmoid colon with surrounding loculated fluid. This may be neoplastic or inflammatory in etiology. Moderate diffuse small bowel dilatation. Mild scattered free fluid without free air. No adenopathy. Small cyst left ovary. Surgery was consulted as a result. Patient an abdominal abscess drainage on Monday08/04/17. Abdominal tube is still continuing to drain yellowish colored drainage. Patient only admits to pain around the site of her incision. Patient was continued have bowel movement , stated that the "closer to solid form". Patient is ambulatory, patient is tolerating diet without any limitations OBJECTIVE PHYSICAL EXAMINATION: VITAL SIGNS: Please see below. GENERAL APPEARANCE: Awake, alert resting in bed, RESPIRATORY: Lungs are clear to auscultate anterior and posterior CARDIOVASCULAR: S1 and S2 present, no murmurs rubs or gallops ABDOMEN: Dark yellowish drainage most likely from small bowel. Tender to palpate over the incision site. Abdomen is nondistended EXTREMITIES: Swelling no deformities. LABORATORY DATA: Please see below. MICROBIOLOGY: Please see below. ASSESSMENT AND PLAN:A 61-year-old female admitted for abdominal distention and generalized weakness. From a surgical standpoint, at this moment there is no surgical intervention available to patient. She had an ultrasound drainage of an abdominal abscess on [id number]/17.. Culture was positive for E.coli sensitive to Zosyn. Patient has been switched from IV Zosyn to Levaquin and Flagyl by mouth. She was tolerating that with no issues. Patient's white count is morning is 9.3, unchanged from yesterday. At this point from a surgical standpoint patient can be discharged. However patient is having some social issues. Her is sick with the flu and his vomiting And diarrhea, at this point he is in no condition to take care of her when she gets home. Patient can be discharged at the discretion of her medicine team once her social issues has been improved VS, I&O, 24H, [place] Vital Signs/I&O Vital Signs Date Time Temp Pulse Resp B/P (MAP) Pulse Ox O2 Delivery O2 Flow Rate FiO2 08/10/17 06:04 20 Room Air 08/10/17 06:00 98.1 110 134/86 (102) 98 Laboratory Data 24H LABS Laboratory Tests 2 08/10/17 05:16: Immature Granulocyte % (Auto) 0.9H, White Blood Count 9.3, Red Blood Count 2.64L , Hemoglobin 9.6L, Hematocrit 27.9L, Mean Corpuscular Volume 105.7H, Mean Corpuscular Hemoglobin 36.4H, Mean Corpuscular Hemoglobin Concent 34.4, Red Cell Distribution Width 15.2H, Platelet Count 404, Neutrophils (%) (Auto) 63.3, Lymphocytes (%) (Auto) 24.5, Monocytes (%) (Auto) 10.5H, Eosinophils (%) (Auto) 0.3, Basophils (%) (Auto) 0.5, Neutrophils # (Auto) 5.9, Lymphocytes # (Auto) 2.3, Monocytes # (Auto) 1.0H, Eosinophils # (Auto) 0.0, Basophils # (Auto) 0.1, Immature Granulocyte # (Auto) 0.1H, Nucleated Red Blood Cells % (auto) 0.0, Platelet Estimate NORMAL, Macrocytosis 2+, Anion Gap 8, Glomerular Filtration Rate > 60.0, Blood Urea Nitrogen 2L, Creatinine 0.28L, Sodium Level 142, Potassium Level 3.2L, Chloride Level 106, Carbon Dioxide Level 28, Calcium Level 8.3L CBC/BMP Laboratory Tests 08/10/17 05:16 Red Blood Count 2.64 L, Mean Corpuscular Volume 105.7 H, Mean Corpuscular Hemoglobin 36.4 H, Mean Corpuscular Hemoglobin Concent 34.4, Red Cell Distribution Width 15.2 H, Neutrophils (%) (Auto) 63.3, Lymphocytes (%) (Auto) 24.5, Monocytes (%) (Auto) 10.5 H, Eosinophils (%) (Auto) 0.3, Basophils (%) ( Auto) 0.5, Neutrophils # (Auto) 5.9, Lymphocytes # (Auto) 2.3, Monocytes # (Auto ) 1.0 H, Eosinophils # (Auto) 0.0, Basophils # (Auto) 0.1, Calcium Level 8.3 L Microbiology Microbiology 08/04/17 Anaerobic Culture - Final, Complete Prevotella Intermedia Anaerobic George 08/04/17 Gram Stain - Final, Complete 08/04/17 Abscess Culture - Final, Complete Escherichia Coli GME ATTESTATION GME ATTESTATION My preceptor for this patient encounter was physically present in the building during the encounter and was fully available. As needed, all aspects of the patient interview, examination, medical decision making process, and medical care plan development were reviewed and approved by the preceptor. Preceptor is aware and concurs with the plan as stated in the body of this note and will attest to such by his/her cosignature. RICH QUIÑONES DO Aug 10, 2017 10:10
[2017-08-10] MEDS: KCL 10MEQ IN 100ML SWI (KRUN) 10 MEQ in APPROPRIATE DILUENT 1 EA IV SCH ×4 (10:47→12:06)
[2017-08-10 14:00] VITALS: BP 105/65
--- NOTE | 2017-08-10 15:44 | IPN ---
DATE: 08/10/2017 SUBJECTIVE: Patient is seen and examined in the room today. Patient continues to have significant purulent fecal matter seen on the drainage tube. Per patient, denies any fevers or chills, denies any worsening of the abdominal pain. OBJECTIVE: VITAL SIGNS: Temperature 98.1, pulse 110, respirations 18, blood pressure 134/86, pulse oximetry 98% in room air. GENERAL: No sign of acute distress, alert and oriented times three. HEENT: Normocephalic, atraumatic. Extraocular motors grossly intact. CARDIOVASCULAR: Positive S1, S2, tachycardic. LUNGS: Clear to auscultation bilaterally. ABDOMEN: Drainage tube located on the right side covered with dressing. Dressing is clean and dry. There is some purulent discharge and fecal matter noted on the drainage bag. EXTREMITIES: Mild lower extremity edema. LABORATORY DATA: WBC 9.3, hemoglobin 9.6, hematocrit 27.9, platelet count 404. Sodium 142, potassium 3.2, chloride 106, carbon dioxide 28, BUN 2, creatinine 0.28, GFR greater than 60, fasting glucose 85, calcium 8.3. ASSESSMENT AND PLAN: 1. Pelvic abscess status post ultrasound guided drainage. Patient continues to have notable output collected in the drainage bag. The abscess culture came back positive for Escherichia (E) coli. Dr. Randle has been assisting on the case, recommends oral Levaquin and oral Flagyl. Patient had training for the drainage bag care and the replacement. Previously, CT of the abdomen and pelvis showed there was a finding for metallic density seen near the right lower abdomen. We repeated abdominal x-ray, two views, which did not detect the metallic density. Per surgery, patient can be discharged home with the drainage bag and patient will followup with Dr. Li in the outpatient setting at a scheduled time. Currently, patient lives with her who is currently recovering from an acute viral infection and patient could not get sufficient support at home and that would be an unsafe discharge at this time. 2. History of alcohol abuse. No sign of withdrawal. 3. Hypertension. Stable. 4. Hypokalemia. Patient has been receiving potassium supplement intermittently. 5. Anemia. Asymptomatic. Continue to monitor. 6. Deep venous thrombosis (DVT) prophylaxis. Patient is on heparin.
[2017-08-10 22:00] VITALS: BP 138/87
[2017-08-11] MEDS: PERCOCET 5MG/325MG TAB PO PRN ×2 (03:30→09:42)
[2017-08-11] MEDS: metroNIDAZOLE (FLAGYL) 500 MG TAB PO SCH ×2 (05:18→13:36)
[2017-08-11] MEDS: LevoFLOXacin 500 MG TABLET PO SCH (05:18)
[2017-08-11] MEDS: SODIUM CHLORIDE 0.9% INJ 10 ML SYR IV SCH ×2 (05:19→05:20)
[2017-08-11] MEDS: HEPARIN SOD (PORCINE) 5000 UNITS/ML VIAL SQ SCH ×2 (05:19→14:00)
[2017-08-11 05:46] LABS: BASO % 0.3 % (0.0-1.0); EOS % 0.5 % (0.0-3.0); IMMATURE GRANULOCYTE % 0.8 % (0-0); LYMPH # 2.2 10^3/uL (1.5-4.5); LYMPH % 25.7 % (24.0-44.0); MEAN CORPUSCULAR HEMOGLOBIN 35.9 pg (27.0-33.0); MEAN CORPUSCULAR HGB CONC 33.6 g/dl (32.0-36.5); MONO # 0.9 10^3/uL (0.0-0.8); MONO % 10.2 % (0.0-5.0); NEUTROPHILS # 5.4 10^3/uL (1.8-7.7); NEUTROPHILS % 62.5 % (36.0-66.0); PLATELET COUNT, AUTOMATED 448 10^3/uL (150-450); RED CELL DISTRIBUTION WIDTH 15.4 % (11.5-14.5); WHITE BLOOD COUNT 8.7 10^3/uL (4.0-10.0)
[2017-08-11 05:50] LABS: ADD MORPHOLOGY? YES; MEAN CORPUSCULAR VOLUME 106.9 fl (80.0-96.0)
[2017-08-11 06:00] VITALS: BP 148/92
[2017-08-11 06:05] LABS: ANION GAP 7 MEQ/L (8-16); BLOOD UREA NITROGEN 2 MG/DL (7-18); CARBON DIOXIDE LEVEL 26 MEQ/L (21-32); CHLORIDE LEVEL 109 MEQ/L (98-107); CREATININE FOR GFR 0.32 MG/DL (0.55-1.02); GLOMERULAR FILTRATION RATE > 60.0 (>51); GLUCOSE, FASTING 84 MG/DL (70-105); MAGNESIUM LEVEL 1.9 MG/DL (1.8-2.4); POTASSIUM SERUM 3.6 MEQ/L (3.5-5.1); SODIUM LEVEL 142 MEQ/L (136-145)
[2017-08-11] MEDS: FOLIC ACID 1 MG TAB PO SCH (08:18)
[2017-08-11] MEDS: MULTIVITAMINS/MINERALS THERAP 1 TAB PO SCH (08:18)
[2017-08-11] MEDS: SIMETHICONE 80 MG CHEW TAB PO SCH ×2 (08:19→13:27)
[2017-08-11] MEDS: MAGNESIUM OXIDE 400 MG TAB (MAG-OX) PO SCH (08:19)
[2017-08-11] MEDS: NICOTINE 7 MG/24 HR TRANSDERMAL TD SCH (08:24)
[2017-08-11] MEDS: THIAMINE 100 MG TAB PO SCH (08:29)
--- NOTE | 2017-08-11 09:52 | IPNPDOC ---
Date Seen The patient was seen on 08/11/17. Progress Note SUBJECTIVE: A 61-year-old female with history of hypertension on chronic lisinopril, bilateral cataract surgery presents to the emergency room with two day history of abdominal distention. With a 3-4 month history of generalized weakness, decreased appetite, feeling bilateral feet and hands going numb. Surgery was consult because of decreased appetite and weight loss, with concern for malignancy. Patient has a history of smoking about 2 packs a day since she was 16. Patient also has a history of heavy alcohol use. CT abdomen revealed Segmental thickening of the sigmoid colon with surrounding loculated fluid. This may be neoplastic or inflammatory in etiology. Moderate diffuse small bowel dilatation. Mild scattered free fluid without free air. No adenopathy. Small cyst left ovary. Surgery was consulted as a result. Patient an abdominal abscess drainage on Monday08/04/17. This morning patient feels fine. She does continue to have bowel movement, she is also voiding without any complications. Patient is tolerating her diet. She is having decreased drainage from her drainage tube. OBJECTIVE PHYSICAL EXAMINATION: VITAL SIGNS: Please see below. GENERAL APPEARANCE: Awake, alert resting in bed, RESPIRATORY: Lungs are clear to auscultate anterior and posterior CARDIOVASCULAR: S1 and S2 present, ABDOMEN: Dark yellowish drainage from her drainage tube, noted to be decreasing in quantity. Tender to palpate over the incision site. Abdomen is nondistended LABORATORY DATA: Please see below. MICROBIOLOGY: Please see below. ASSESSMENT AND PLAN:A 61-year-old female admitted for abdominal distention and generalized weakness. Patient can be discharged today with instruction to follow -up with Dr. Li for a follow-up CT next week. Patient was shown how to flush her drainage tube. Patient will be sent home with 10 10 cc syringes for drainage tube flushing. VS, I&O, 24H, Fishbone Vital Signs/I&O Vital Signs Date Time Temp Pulse Resp B/P (MAP) Pulse Ox O2 Delivery O2 Flow Rate FiO2 08/11/17 09:42 18 Room Air 08/11/17 06:00 97.8 107 148/92 (110) 97 Laboratory Data 24H LABS Laboratory Tests 2 08/11/17 05:27: Immature Granulocyte % (Auto) 0.8H, White Blood Count 8.7, Red Blood Count 2.62L , Hemoglobin 9.4L, Hematocrit 28.0L, Mean Corpuscular Volume 106.9H, Mean Corpuscular Hemoglobin 35.9H, Mean Corpuscular Hemoglobin Concent 33.6, Red Cell Distribution Width 15.4H, Platelet Count 448, Neutrophils (%) (Auto) 62.5, Lymphocytes (%) (Auto) 25.7, Monocytes (%) (Auto) 10.2H, Eosinophils (%) (Auto) 0.5, Basophils (%) (Auto) 0.3, Neutrophils # (Auto) 5.4, Lymphocytes # (Auto) 2.2, Monocytes # (Auto) 0.9H, Eosinophils # (Auto) 0.0, Basophils # (Auto) 0.0, Immature Granulocyte # (Auto) 0.1H, Nucleated Red Blood Cells % (auto) 0.0, Platelet Estimate INCREASED, Macrocytosis 2+, Anion Gap 7L, Glomerular Filtration Rate > 60.0, Blood Urea Nitrogen 2L, Creatinine 0.32L, Sodium Level 142, Potassium Level 3.6, Chloride Level 109H, Carbon Dioxide Level 26, Calcium Level 8.0L, Magnesium Level 1.9, C-Reactive Protein, Quantitative 1.14H CBC/BMP Laboratory Tests 08/11/17 05:27 Red Blood Count 2.62 L, Mean Corpuscular Volume 106.9 H, Mean Corpuscular Hemoglobin 35.9 H, Mean Corpuscular Hemoglobin Concent 33.6, Red Cell Distribution Width 15.4 H, Neutrophils (%) (Auto) 62.5, Lymphocytes (%) (Auto) 25.7, Monocytes (%) (Auto) 10.2 H, Eosinophils (%) (Auto) 0.5, Basophils (%) ( Auto) 0.3, Neutrophils # (Auto) 5.4, Lymphocytes # (Auto) 2.2, Monocytes # (Auto ) 0.9 H, Eosinophils # (Auto) 0.0, Basophils # (Auto) 0.0, Calcium Level 8.0 L Microbiology Microbiology 08/04/17 Anaerobic Culture - Final, Complete Prevotella Intermedia Anaerobic George 08/04/17 Gram Stain - Final, Complete 08/04/17 Abscess Culture - Final, Complete Escherichia Coli GME ATTESTATION GME ATTESTATION My preceptor for this patient encounter was physically present in the building during the encounter and was fully available. As needed, all aspects of the patient interview, examination, medical decision making process, and medical care plan development were reviewed and approved by the preceptor. Preceptor is aware and concurs with the plan as stated in the body of this note and will attest to such by his/her cosignature. RICH QUIÑONES DO Aug 11, 2017 09:52
[2017-08-11] MEDS ORDERED: LEVA1TAB2 PO (11:30)
[2017-08-11] MEDS ORDERED: FLAG500T PO (11:30)
[2017-08-11] MEDS ORDERED: FOLI1TAB4 PO (11:37)
[2017-08-11] MEDS ORDERED: MAG400TA PO (11:37)
[2017-08-11] MEDS ORDERED: SIME80TA PO (11:37)
[2017-08-11] MEDS ORDERED: THIA100TA PO (11:37)
[2017-08-11] MEDS ORDERED: VITMTA PO (11:38)
--- NOTE | 2017-08-11 15:23 | IPN ---
DATE: 08/11/2017 Daya seems to be doing very well. She is anxious to home. She has been afebrile. No nausea, vomiting, or diarrhea. Tolerating by mouth antibiotics. Temperature is 97.8, pulse 107, respirations 20, blood pressure 148/92, O2 sat 97% on room air. Heart: Normal S1, S2. No murmurs. Lungs are clear. Abdomen: Soft. There is a drain in the right lower quadrant with minimal purulent drainage in the bag. Yesterday, there was about 180 mL of purulent drainage documented. LABS: White count is 8.7, hemoglobin 9.4, hematocrit 28, platelets 448, +2 macrocytosis. Sodium 142, potassium 3.6, chloride 109, bicarbonate 26, BUN 2, creatinine 0.32, glucose 84, calcium 8, CRP 1.14, down from 14.2. Culture from abscess collection Escherichia (E) coli, Prevotella and anaerobic rods. IMPRESSION: Intra-abdominal pelvic abscess, probably from bowel perforation. Patient has been drained, doing much better with normal white count and decreased C-reactive protein (CRP). Patient tolerating by mouth Levaquin and metronidazole. PLAN Anticipated discharge home today on Levaquin and Flagyl for 10 more days. She is to followup with Dr. Li. She will have a followup CT abdomen done as an outpatient and, depending on the results, the drain will be removed. Patient will also need to followup with gastroenterology to have a colonoscopy that could not be performed due to the stricture. She does not need infectious disease followup. SELINA
--- NOTE | 2017-08-15 20:12 | DSES ---
DATE OF ADMISSION: 07/23/2017 DATE OF DISCHARGE: 08/11/2017 PRIMARY CARE PROVIDER: AUSTIN Peterson CONSULTANTS: General surgery. Infectious disease specialist. Gastrointestinal (GI) specialist, Dr. Reinoso. PROCEDURES: Ultrasound guided pelvic abscess. COMPLICATIONS: None. DISCHARGE DIAGNOSES: 1. Pelvic abscess status post ultrasound guided drainage. 2. History of alcohol abuse. 3. Hypertension. 4. Hypokalemia. 5. Anemia. HOSPITALIZATION COURSE: Patient is a 61-year-old female who presented to [facility] on 07/23/2017 for worsening abdominal distention and generalized weakness. Imaging studies were performed. Labs and cultures were obtained. CT scan was ordered and it was found the patient had sigmoid thickening. The workup for colonic cancer was initiated. During imaging study, patient was found to have peritoneal fluid. Imaging guided peritoneal fluid drainage was ordered. Later, cytology came back negative for malignancy. Patient was started on empiric antibiotics to cover possible infectious processes. Later, patient developed signs of small bowel obstruction. Patient was placed nothing by mouth and placed on TPN by general surgery. Later, due to suspicion for a gastrointestinal (GI) related malignancy the GI specialist was consulted. An upper endoscopy and colonoscopy were performed on 08/02/2017. There was some difficulty advancing the scope during the colonoscopy. Later, patient was found to have a pelvic abscess positive for micro bowel perforation. The patient's antibiotic was also adjusted with assistance of infectious disease specialist. Patient continued to have significant abscess of purulent material and fecal matter collected by the drainage tube. The patient's diet was advanced as tolerated. Later, patient continued to show clinical improvements, and antibiotics are being adjusted actively per the patient's clinical presentations. Later in the hospitalization, patient received training for the abscess drainage bag care. On 08/11/2017, the patient was discharged from the hospital with recommendation to followup with general surgery for discontinuation of pelvis abscess drainage bag removal and patient was recommended to continue 10 more days course of Levaquin and Flagyl. VITAL SIGNS ON DISCHARGE: Temperature 97.8, pulse 107, respirations 20, blood pressure 148/92, pulse oximetry 97% in room air. LABORATORY DATA ON DISCHARGE: WBC 8.7, hemoglobin 9.4, hematocrit 28, platelet count is 448. Sodium is 142, potassium 3.6, chloride 109, carbon dioxide 26, BUN 2, creatinine 0.32, GFR greater than 60, fasting glucose 84, calcium 8, magnesium 1.9, C-reactive protein 1.14. Microbiology: Blood cultures on 07/23/2017 is negative after 5 days times two sets. Urine cultures on 07/24/2017 showed E. Coli. Abscess culture collected on 08/04/2017 showed anaerobic rods and Prevotella Intermedia. Abdominal abscess culture from 08/04/2017 showed possible E. Coli. IMAGING STUDIES: Chest x-ray on 07/23/2017 showed no acute pulmonary disease. CT abdomen and pelvis with IV contrast on 07/23/2017 showed segmental thickening of the sigmoid colon with surrounding loculated fluid. It may be neoplastic or inflammatory in etiology. Moderate diffuse small bowel dilatation. Mild scattered free fluid without free air. No adenopathy. Small cyst of the left ovary. Pelvic ultrasound on 07/23/2017 showed complex cyst of the left ovary, 2.9 cm in diameter. Lumbosacral x-ray showed degenerative changes, most significant at the L4-5 level. No acute fracture. Upper GI series on 07/26/2017 showed thickened folds all throughout the stomach and duodenum. Small hiatal hernia. Dilated small bowel loop with extremely slow transit time. No definitive small bowel stricture was able to be appreciated during this examination. Abdomen and chest x-ray on 07/28/2017 showed bilateral bibasilar infiltrate/atelectasis with small effusion. NG tube in place. CT of the abdomen and pelvis with IV and oral contrast on 08/03/2017 showed markedly dilated small bowel increased from the previous study with small bowel fecal site compatible with stasis. There is a small bowel loop in the abdominal right lower quadrant measuring up to 7 cm in diameter. There is dilute barium throughout the small bowel, likely dilated by the intraluminal small bowel fluid. No colonic distention. Findings are compatible with partial obstruction of the distal small bowel. No pneumoperitoneum or ascites. Abdominal x-ray on 08/09/2017 showed no metallic densities seen. Ileus pattern in the bowel gas. Right lower quadrant abscess drainage catheter seen. DISCHARGE MEDICATIONS: - folic acid 1 mg by mouth daily - Levaquin 500 mg by mouth daily for 10 days - magnesium oxide 800 mg by mouth three times a day - Flagyl 500 mg by mouth every 8 hours for 10 days - multivitamin one tablet by mouth daily - simethicone 120 mg by mouth four times a day - thiamine 100 mg by mouth daily - Tylenol 500 mg by mouth daily as needed - vitamin C 1000 mg by mouth daily - vitamin D 1000 units by mouth daily - vitamin B12 1000 mcg by mouth daily - lisinopril 10 mg by mouth daily - vitamin E 400 units by mouth daily DISCHARGE INSTRUCTIONS: Discontinue lines. Discharge home. Activity as tolerated. Diet as tolerated. Patient is recommended to followup with her primary care provider in 1-2 weeks. Patient is recommended to followup with general surgery at the scheduled time for abscess drainage tube and bag removal and reevaluation. Patient recommended to finish her levofloxacin and Flagyl for 10 more days. DISCHARGE CONDITION: Stable. DISCHARGE TIME: Greater than 30 minutes.
== END 2017-08-11 14:34 | disposition home or self-care (01) | DRG 247 ==
LOC: M ED 11:09 → M ED INP 15:13 → M PCU 21:25 → M MSPAV 07-24 11:11
PROVIDERS: ADMIT General Practice; ATTEND Internal Medicine
PROC: 02HV33Z Insertion of Infusion Device into Superior Vena Cava, Percutaneous Approach (ICD-10-PCS; 2017-07-24)
PROC: 0W9G3ZZ Drainage of Peritoneal Cavity, Percutaneous Approach (ICD-10-PCS; 2017-07-24)
PROC: 0DB98ZX Excision of Duodenum, Via Natural or Artificial Opening Endoscopic, Diagnostic (ICD-10-PCS; 2017-08-02)
PROC: 0DJD8ZZ Inspection of Lower Intestinal Tract, Via Natural or Artificial Opening Endoscopic (ICD-10-PCS; principal; 2017-08-02 16:00)
PROC: 0W9G3ZZ Drainage of Peritoneal Cavity, Percutaneous Approach (ICD-10-PCS; 2017-08-04)
DX: K56.609 Unspecified intestinal obstruction, unspecified as to partial versus complete obstruction (principal); K63.1 Perforation of intestine (nontraumatic); K65.1 Peritoneal abscess; E43 Unspecified severe protein-calorie malnutrition; R18.8 Other ascites; R13.10 Dysphagia, unspecified; E83.42 Hypomagnesemia; R14.0 Abdominal distension (gaseous); E87.6 Hypokalemia; I10 Essential (primary) hypertension; F10.10 Alcohol abuse, uncomplicated; F17.200 Nicotine dependence, unspecified, uncomplicated; Z79.899 Other long term (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 therapy; N83.292 Other ovarian cyst, left side; K59.00 Constipation, unspecified; G60.9 Hereditary and idiopathic neuropathy, unspecified; D72.829 Elevated white blood cell count, unspecified; Z68.1 Body mass index [BMI] 19.9 or less, adult; K29.80 Duodenitis without bleeding; K29.70 Gastritis, unspecified, without bleeding; R19.7 Diarrhea, unspecified; K64.8 Other hemorrhoids

== ENCOUNTER → 2017-08-17 | Outpatient (CLI) | payer OTHER ==
[~2017-08-17] MED LIST changes: +ACET50TAOT PO; +ASCO10003 PO; +D-10TAB PO; +FLAG500T PO; +FOLI1TAB4 PO; +GASTROGRAFIN SOLUTION 30ML (Q9963) As Ordered ONE; +ISOVUE-370 76% 100ML VIAL (Q9967) As Ordered ONE; +LEVA1TAB2 PO; +MAG400TA PO; +SIME80TA PO; +THIA100TA PO; +VITMTA PO
--- NOTE | 2017-08-18 04:15 | REP ---
Clinical: Follow up abscess. Comparison: 08/03/2017, 07/23/2017. Technique: Axial contrast enhanced images from the lung bases to the pubic symphysis using oral and 100 ml Isovue 370 intravenous contrast material with coronal and sagittal re-formations. Findings: Pigtail catheter extends into the right lower quadrant and the previously noted small amount of free fluid in the pelvis on 07/23/2017 as well as the partial small bowel obstruction of 08/03/2017 with focally dilated fluid filled loop of small bowel in the right lower quadrant have resolved. The current examination demonstrates findings to suggest continued enterocolitis with fluid-filled and mildly prominent loops of small and large bowel as well as mild nonspecific pelvic inflammatory stranding. Somewhat irregular mural thickening to the previously dilated small bowel loop in the right lower quadrant (images 97 - 108) as well as continued mural thickening and subtle irregularity at the site of prior sigmoid resection (images 101 - 112) are also identified. No significant ascites or obvious abscess. No free air. Scattered subcentimeter intra peritoneal and retroperitoneal lymph nodes are nonspecific. Normal terminal ileum and appendix are identified in the right lower quadrant. Liver, spleen, pancreas, gallbladder, bilateral adrenal glands and kidneys are normal. Pelvis demonstrates partially collapsed normal bladder and age-appropriate uterus/adnexa. Lung bases demonstrate trace right basilar atelectasis. Abdominal aorta and vasculature demonstrates atherosclerotic changes without aneurysm or dissection. Musculoskeletal structures demonstrate degenerative changes without focal osseous abnormality. Impression: 1. Pigtail catheter in the right lower quadrant without ascites, drainable collection or abscess identified. No evidence for continued obstruction. 2. Current examination suggests enterocolitis and demonstrates focal irregular loop of small bowel in the right lower quadrant which is improved in appearance compared to prior examination. Stable appearance to the postoperative changes related to prior partial sigmoid resection again noted. 3. Mild nonspecific likely inflammatory stranding in the pelvis is slightly improved compared to prior examinations. Signed by Nam Peters MD 08/18/2017 04:06 A
== END ==
LOC: M RAD 14:05
PROVIDERS: ATTEND Surgery
DX: K65.1 Peritoneal abscess (principal)
CPT/HCPCS: 74177; Q9963; Q9967

== ENCOUNTER → 2017-09-11 | Outpatient (CLI) | payer OTHER ==
[~2017-09-11] MED LIST changes: -GASTROGRAFIN SOLUTION 30ML (Q9963) As Ordered ONE; +ISOVUE-300 61% 50ML VIAL (Q9967) As Ordered ONE; -ISOVUE-370 76% 100ML VIAL (Q9967) As Ordered ONE
--- NOTE | 2017-09-11 17:08 | REP ---
FISTULOUS SINUS TRACT STUDY: The procedure was performed under the direct supervision of Dr. Bassett. The images were reviewed with Dr. Bassett. The patient had a #10-Greek skater drainage catheter placed in the right lower quadrant on 08/04/2017. The patient is referred today for drainage catheter check. 10 mL of a 50/50 solution of sterile saline and Isovue-300 was injected. Images demonstrated filling of the small bowel. The catheter is likely placed within the small bowel. These findings were related to Dr. Li at the time of the study. 0.2 minutes of fluoroscopy time was utilized for this procedure. Reviewed by LASHAY Jones 09/11/2017 06:10 PSigned by Alfredo Bassett MD 09/12/2017 01:19 P
== END ==
LOC: M RADPRO 08:39
PROVIDERS: ATTEND Surgery
DX: L02.211 Cutaneous abscess of abdominal wall (principal); Z87.891 Personal history of nicotine dependence; F10.21 Alcohol dependence, in remission; Z79.899 Other long term (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 therapy
CPT/HCPCS: 49465; 76080; Q9967

== ENCOUNTER → 2017-10-26 | Outpatient (CLI) | payer OTHER ==
[~2017-10-26] MED LIST changes: -ACET50TAOT PO; -ASCO10003 PO; -D-10TAB PO; -FLAG500T PO; -FOLI1TAB4 PO; +GLUCAGON FOR INJ 1 MG VIAL (J1610) As Ordered; -ISOVUE-300 61% 50ML VIAL (Q9967) As Ordered ONE; +ISOVUE-370 76% 100ML VIAL (Q9967) As Ordered; -LEVA1TAB2 PO; -LISI10TA4 PO; -MAG400TA PO; -SIME80TA PO; -THIA100TA PO; -VITA-115 PO; -VITA100072 PO; -VITA400C PO; -VITATAB21 PO; -VITMTA PO; +VoLumen 0.1% SUSPENSION 450ML BOTTLE As Ordered
== END ==
LOC: M RAD 12:56
DX: I70.8 Atherosclerosis of other arteries (principal)
CPT/HCPCS: Q9967

== ENCOUNTER 2017-12-05 07:57 | Day surgery (SDC) | payer OTHER ==
[2017-12-05] MEDS: NS 1,000 ML IV (08:30)
[2017-12-05] MEDS ORDERED: PROPOFOL 200 MG/20 ML VIAL As Ordered ×4 (09:14→10:16)
[2017-12-05] MEDS ORDERED: LIDOCAINE 2% INJ 100 MG/5 ML SDV (FOR ANES.) As Ordered (09:14)
== END 2017-12-05 11:15 | disposition home or self-care (01) ==
LOC: M OPP 07:57
DX: R93.3 Abnormal findings on diagnostic imaging of other parts of digestive tract (principal); D12.7 Benign neoplasm of rectosigmoid junction; K62.1 Rectal polyp; K56.690 Other partial intestinal obstruction; K64.8 Other hemorrhoids; I10 Essential (primary) hypertension; M19.90 Unspecified osteoarthritis, unspecified site; Z78.0 Asymptomatic menopausal state; Z87.891 Personal history of nicotine dependence; Z79.899 Other long term (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 therapy
CPT/HCPCS: 45385

== ENCOUNTER → 2018-01-08 | Outpatient (CLI) | payer OTHER | LOC: M RAD 12:48 | DX: R10.2 Pelvic and perineal pain (principal) | CPT/HCPCS: 76856 ==

== ENCOUNTER 2018-02-09 06:20 | Inpatient (IN) | payer OTHER ==
[2018-02-09] MEDS ORDERED: NS 1,000 ML IV ×2 (06:30→10:47)
[2018-02-09] MEDS ORDERED: PROPOFOL 200 MG/20 ML VIAL As Ordered (07:14)
[2018-02-09] MEDS ORDERED: ROCURONIUM BROMIDE 50 MG/5 ML VIAL As Ordered ×2 (07:14→09:52)
[2018-02-09] MEDS ORDERED: fentaNYL 100 MCG/2 ML INJECTION (J3010) As Ordered ×4 (07:15→11:19)
[2018-02-09] MEDS ORDERED: MIDAZOLAM INJ 2 MG/2 ML VIAL (J2250) As Ordered (07:15)
[2018-02-09] MEDS: GLUCAGON FOR INJ 1 MG VIAL (J1610) As Ordered (07:16)
[2018-02-09] MEDS: ERTAPENEM SODIUM 1 GM in NS 50 ML IV (07:30)
[2018-02-09] MEDS ORDERED: LR 1,000 ML IV (08:00)
[2018-02-09] MEDS: BUPIVACAINE HCL 0.25% 10 ML VIAL As Ordered (08:36)
[2018-02-09] MEDS: BUPIVACAINE/EPIN 0.5% 30 ML VIAL As Ordered (08:37)
[2018-02-09] MEDS: BUPIVACAINE LIPOSOME/PF 1.3% 20 ML VIAL (13.3MG/ML)(EXPAREL) As Ordered (08:37)
[2018-02-09] MEDS ORDERED: LABETALOL HCL 100 MG/20 ML VIAL As Ordered ×2 (08:49)
[2018-02-09] MEDS ORDERED: dexameTHASONE 4 MG/ML 1ML VIAL (J1100) As Ordered (10:23)
[2018-02-09] MEDS ORDERED: ONDANSETRON 4MG/2ML VIAL (J2405) As Ordered (10:23)
[2018-02-09] MEDS ORDERED: GLYCOPYRROLATE INJ 0.2 MG/ML 2 ML VIAL As Ordered (10:30)
[2018-02-09] MEDS: NS 1,000 ML IV ×2 (10:47→14:09)
[2018-02-09] MEDS ORDERED: IPRATROPIUM 0.5MG/ALBUTEROL 2.5MG INH SOL UD 3ML (DUONEB)(J7620) NEB (11:00)
[2018-02-09] MEDS ORDERED: ONDANSETRON 4MG/2ML VIAL (J2405) IV ×3 (11:00→12:37)
[2018-02-09] MEDS ORDERED: PROMETHAZINE INJ 25 MG/ML VIAL (J2550) IV (11:00)
[2018-02-09] MEDS ORDERED: METOCLOPRAMIDE INJ 10MG/2ML VIAL (J2765) IV ×2 (11:00→12:37)
[2018-02-09] MEDS: fentaNYL 100 MCG/2 ML INJECTION (J3010) IV ×4 (11:21→11:36)
[2018-02-09] MEDS: MORPHINE 1MG/ML IN 0.9% NACL 100ML IV BAG IV (11:35)
[2018-02-09] MEDS: MORPHINE 10 MG/ML 1ML VIAL (J2270) IV (12:23)
[2018-02-09] MEDS ORDERED: NALOXONE INJ 0.4 MG/1 ML VIAL (J2310) IV (12:37)
[2018-02-09] MEDS ORDERED: EPIDURAL/PCA KEYS XX (12:37)
[2018-02-09] MEDS ORDERED: FENTANYL 2MCG/ML BUPIVACAINE 0.0625% NACL 250ML IV BAG As Ordered (12:37)
[2018-02-09] MEDS ORDERED: WALLBOXKEY XX (12:37)
[2018-02-09] MEDS: SIMETHICONE 80 MG CHEW TAB PO ×3 (14:09→21:00)
[2018-02-09] MEDS: LIDOCAINE 1% SDV 5 ML VIAL SQ (14:42)
[2018-02-09] MEDS: LR 1,000 ML IV (14:42)
[2018-02-09] MEDS: ALVIMOPAN 12 MG CAPSULE (ENTEREG) PO ×2 (14:42→23:54)
[2018-02-09] MEDS: IPRATROPIUM 0.5MG/ALBUTEROL 2.5MG INH SOL UD 3ML (DUONEB)(J7620) NEB ×2 (15:01→20:00)
[2018-02-09] MEDS: PANTOPRAZOLE 40MG INJ (PROTONIX) (C9113) IV (15:04)
[2018-02-09] MEDS: LISINOPRIL 10 MG TAB PO (15:05)
[2018-02-09] MEDS: FENTANYL/BUPIVACAINE/NACL BAG 250 ML EPIDURAL (16:57)
[2018-02-09] MEDS: diphenhydrAMINE INJ 50MG/ML VIAL (J1200) IV (18:02)
[2018-02-09] MEDS: NALBUPHINE HCL 10 MG/ML AMP (J2300) IV (21:11)
[2018-02-09] MEDS: KETOROLAC 30 MG/ML VIAL (J1885) IV (22:53)
[2018-02-09] MEDS: BUPIVACAINE/NACL BAG 250 ML EPIDURAL (23:02)
[2018-02-09] MEDS: AMITRIPTYLINE 25 MG TAB PO (23:54)
[2018-02-10] MEDS: IPRATROPIUM 0.5MG/ALBUTEROL 2.5MG INH SOL UD 3ML (DUONEB)(J7620) NEB ×3 (02:00→20:00)
[2018-02-10] MEDS: NS 1,000 ML IV ×2 (04:19→15:50)
[2018-02-10 06:29] LABS: HEMATOCRIT 32.4 % (36.0-47.0); HEMOGLOBIN 10.4 g/dl (12.0-15.5); MEAN CORPUSCULAR HEMOGLOBIN 31.5 pg (27.0-33.0); MEAN CORPUSCULAR HGB CONC 32.1 g/dl (32.0-36.5); MEAN CORPUSCULAR VOLUME 98.2 fl (80.0-96.0); PLATELET COUNT, AUTOMATED 286 10^3/uL (150-450); RED CELL DISTRIBUTION WIDTH 13.2 % (11.5-14.5)
[2018-02-10 06:51] LABS: ANION GAP 5 MEQ/L (8-16); BLOOD UREA NITROGEN 5 MG/DL (7-18); CALCIUM LEVEL 7.7 MG/DL (8.8-10.2); CARBON DIOXIDE LEVEL 27 MEQ/L (21-32); CHLORIDE LEVEL 114 MEQ/L (98-107); CREATININE FOR GFR 0.53 MG/DL (0.55-1.30); GLOMERULAR FILTRATION RATE > 60.0 (>45); GLUCOSE, FASTING 94 MG/DL (70-100); POTASSIUM SERUM 3.9 MEQ/L (3.5-5.1); SODIUM LEVEL 146 MEQ/L (136-145)
[2018-02-10] MEDS: PANTOPRAZOLE 40MG INJ (PROTONIX) (C9113) IV (08:29)
[2018-02-10] MEDS: ERTAPENEM SODIUM 1 GM in NS MINI-BAG PLUS 50 ML IV (08:29)
[2018-02-10] MEDS: ALVIMOPAN 12 MG CAPSULE (ENTEREG) PO ×2 (08:29→21:40)
[2018-02-10] MEDS: LISINOPRIL 10 MG TAB PO (08:30)
[2018-02-10] MEDS: SIMETHICONE 80 MG CHEW TAB PO ×4 (08:30→21:00)
[2018-02-10] MEDS: KCL 20MEQ IN D5/0.45NS 1000ML 1,000 ML IV (12:58)
[2018-02-10] MEDS: HEPARIN SOD (PORCINE) 5000 UNITS/ML VIAL SQ ×2 (14:42→21:39)
[2018-02-10] MEDS: KETOROLAC 30 MG/ML VIAL (J1885) IV ×2 (15:20→21:38)
[2018-02-10] MEDS: amLODIPine 10 MG TAB PO (18:27)
[2018-02-10] MEDS: AMITRIPTYLINE 25 MG TAB PO (21:39)
[2018-02-10] MEDS: BUPIVACAINE/NACL BAG 250 ML EPIDURAL (22:45)
[2018-02-11] MEDS: KCL 20MEQ IN D5/0.45NS 1000ML 1,000 ML IV (00:42)
[2018-02-11] MEDS: IPRATROPIUM 0.5MG/ALBUTEROL 2.5MG INH SOL UD 3ML (DUONEB)(J7620) NEB ×2 (02:00→20:00)
[2018-02-11] MEDS: HEPARIN SOD (PORCINE) 5000 UNITS/ML VIAL SQ ×3 (05:10→21:52)
[2018-02-11 06:16] LABS: MEAN CORPUSCULAR HGB CONC 32.4 g/dl (32.0-36.5); MEAN CORPUSCULAR VOLUME 95.8 fl (80.0-96.0); PLATELET COUNT, AUTOMATED 295 10^3/uL (150-450); RED BLOOD COUNT 3.55 10^6/uL (4.00-5.40); RED CELL DISTRIBUTION WIDTH 12.6 % (11.5-14.5)
[2018-02-11] MEDS: KETOROLAC 30 MG/ML VIAL (J1885) IV ×2 (06:18→14:48)
[2018-02-11 06:33] LABS: ANION GAP 6 MEQ/L (8-16); BLOOD UREA NITROGEN 1 MG/DL (7-18); CARBON DIOXIDE LEVEL 28 MEQ/L (21-32); CHLORIDE LEVEL 108 MEQ/L (98-107); CREATININE FOR GFR 0.36 MG/DL (0.55-1.30); GLOMERULAR FILTRATION RATE > 60.0 (>45); GLUCOSE, FASTING 93 MG/DL (70-100); POTASSIUM SERUM 3.4 MEQ/L (3.5-5.1); SODIUM LEVEL 142 MEQ/L (136-145)
[2018-02-11] MEDS: ALVIMOPAN 12 MG CAPSULE (ENTEREG) PO ×2 (10:02→21:52)
[2018-02-11] MEDS: LISINOPRIL 10 MG TAB PO (10:03)
[2018-02-11] MEDS: SIMETHICONE 80 MG CHEW TAB PO ×4 (10:04→21:51)
[2018-02-11] MEDS: PANTOPRAZOLE 40MG INJ (PROTONIX) (C9113) IV (10:54)
[2018-02-11] MEDS ORDERED: MORPHINE 4 MG/ML 1ML VIAL/SYRINGE (J2270) IV (11:00)
[2018-02-11] MEDS ORDERED: NORCO, ANEXSIA 5/325MG TABLET (HYDROcodone/ACETAMINOPHEN) PO (11:00)
[2018-02-11] MEDS: NORCO, ANEXSIA 5/325MG TABLET (HYDROcodone/ACETAMINOPHEN) PO ×3 (11:22→21:53)
[2018-02-11] MEDS: POTASSIUM CHLORIDE 10 MEQ SR TABLET PO (13:03)
[2018-02-11] MEDS: AMITRIPTYLINE 25 MG TAB PO (21:52)
[2018-02-12] MEDS: IPRATROPIUM 0.5MG/ALBUTEROL 2.5MG INH SOL UD 3ML (DUONEB)(J7620) NEB ×3 (02:00→13:19)
[2018-02-12] MEDS: NORCO, ANEXSIA 5/325MG TABLET (HYDROcodone/ACETAMINOPHEN) PO ×2 (03:25→11:44)
[2018-02-12] MEDS: HEPARIN SOD (PORCINE) 5000 UNITS/ML VIAL SQ (05:18)
[2018-02-12 06:13] LABS: HEMATOCRIT 38.6 % (36.0-47.0); HEMOGLOBIN 12.9 g/dl (12.0-15.5); MEAN CORPUSCULAR HEMOGLOBIN 32.2 pg (27.0-33.0); MEAN CORPUSCULAR HGB CONC 33.4 g/dl (32.0-36.5); MEAN CORPUSCULAR VOLUME 96.3 fl (80.0-96.0); PLATELET COUNT, AUTOMATED 331 10^3/uL (150-450); RED BLOOD COUNT 4.01 10^6/uL (4.00-5.40); RED CELL DISTRIBUTION WIDTH 12.5 % (11.5-14.5); WHITE BLOOD COUNT 5.1 10^3/uL (4.0-10.0)
[2018-02-12 06:34] LABS: ANION GAP 6 MEQ/L (8-16); BLOOD UREA NITROGEN 3 MG/DL (7-18); CALCIUM LEVEL 8.7 MG/DL (8.8-10.2); CARBON DIOXIDE LEVEL 29 MEQ/L (21-32); CHLORIDE LEVEL 107 MEQ/L (98-107); CREATININE FOR GFR 0.49 MG/DL (0.55-1.30); GLOMERULAR FILTRATION RATE > 60.0 (>45); GLUCOSE, FASTING 85 MG/DL (70-100); POTASSIUM SERUM 3.9 MEQ/L (3.5-5.1); SODIUM LEVEL 142 MEQ/L (136-145)
[2018-02-12] MEDS: PANTOPRAZOLE 40MG INJ (PROTONIX) (C9113) IV (09:00)
[2018-02-12] MEDS: ALVIMOPAN 12 MG CAPSULE (ENTEREG) PO (10:19)
[2018-02-12] MEDS: SIMETHICONE 80 MG CHEW TAB PO (10:20)
[2018-02-12] MEDS: LISINOPRIL 10 MG TAB PO (10:20)
== END 2018-02-12 13:15 | disposition home or self-care (01) | DRG 221 ==
LOC: M OR 06:20 → M MS5PR 13:53
PROC: 0D1M0ZN Bypass Descending Colon to Sigmoid Colon, Open Approach (ICD-10-PCS; principal; 2018-02-09 07:30)
PROC: 0DBN4ZZ Excision of Sigmoid Colon, Percutaneous Endoscopic Approach (ICD-10-PCS; 2018-02-09 07:30)
PROC: 0DN84ZZ Release Small Intestine, Percutaneous Endoscopic Approach (ICD-10-PCS; 2018-02-09 07:30)
DX: K56.600 Partial intestinal obstruction, unspecified as to cause (principal); I10 Essential (primary) hypertension; Z87.891 Personal history of nicotine dependence; Z79.899 Other long term (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 therapy; K57.32 Diverticulitis of large intestine without perforation or abscess without bleeding

== ENCOUNTER → 2018-06-27 | Outpatient (REF) | LOC: M SMT 09:39 | DX: Z02.71 Encounter for disability determination (principal) ==

== ENCOUNTER → 2019-11-04 | Outpatient (CLI) | payer OTHER ==
[~2019-11-04] MED LIST changes: +ACET500T15 PO; +AMIT25TA PO; +ASCO10003 PO; +B-1100TA2; +D-10TAB PO; +FLAG500T PO; +FOLI1TAB11 PO; -GLUCAGON FOR INJ 1 MG VIAL (J1610) As Ordered; +HYDR-3715 PO; -ISOVUE-370 76% 100ML VIAL (Q9967) As Ordered; +LEVA1TAB2 PO; +LISI10TA4 PO; +MAG400TA PO; +MM S100C PO; +MULT1TAB10 PO; +NEUR100C PO; +POTA1TAB21 PO; +PROBCAP4 PO; +SIME80TA PO; +THIA100TA PO; +VITA-115 PO; +VITA100018 PO; +VITA400C PO; +VITATAB21 PO; +VITMTA PO; -VoLumen 0.1% SUSPENSION 450ML BOTTLE As Ordered
--- NOTE | 2019-11-04 22:03 | REP ---
Clinical: Abnormal lung field findings. Technique: Axial noncontrast images from the thoracic inlet to the upper abdomen with coronal and sagittal re-formations. Comparison: None. Findings: Few small areas of non solid opacity are identified primarily in the right upper lobe and right hemithorax along with a diffuse subtle reticulonodular and somewhat "tree in bud" pattern throughout the bilateral lung ferrer and most notably involving the left lower lung zone. These findings may reflect a mild/early acute bronchitis or pneumonitis and should be correlated with physical examination and auscultation. No significant focal consolidation, nodule or mass. No pleural effusion. No pneumothorax. Mediastinal lymph nodes up to 13 mm are nonspecific and possibly reactive. Tracheobronchial tree is patent. Atherosclerotic changes to the thoracic aorta and coronary arteries noted without aortic aneurysm or cardiomegaly. No pericardial effusion. Surrounding musculoskeletal structures demonstrate presumed age-related degenerative changes. Impression: Subtle changes to the bilateral lung ferrer as described above are nonspecific. Differential diagnosis would include a mild/early bronchitis or pneumonitis. Correlation with physical examination/auscultation and short-term follow-up examination may be warranted. Electronically Signed by Nam Peters MD 11/04/2019 09:54 P
== END ==
LOC: M RAD 08:59
PROVIDERS: ATTEND Internal Medicine Pulmonary Disease
DX: R91.8 Other nonspecific abnormal finding of lung field (principal)

== ENCOUNTER 2019-11-18 07:53 | Day surgery (SDC) | payer OTHER ==
[~2019-11-18] VITALS: Ht 157.5 cm; Wt 44.0 kg
[~2019-11-18 07:53] MED LIST changes: +GABA-843 PO; +LR 1,000 ML IV ONE; +NO ITAB PO; +PROBCAP14 PO; +STIO1AER IN
[2019-11-18] MEDS ORDERED: CETACAINE SPRAY 5GM As Ordered ONE (09:15)
[2019-11-18] MEDS ORDERED: THROMBIN SOLN 5,000 UNITS VIAL As Ordered ONE (09:15)
[2019-11-18] MEDS ORDERED: LIDOCAINE 1% SDV INJ 30 ML VIAL As Ordered ONE (09:15)
[2019-11-18] MEDS ORDERED: EPINEPHrine 1MG/10ML SYRINGE 1.5IN As Ordered ONE (09:15)
[2019-11-18] MEDS ORDERED: LIDOCAINE VISCOUS 2% SOLN 15ML UDC As Ordered ONE (09:16)
[2019-11-18] MEDS ORDERED: MIDAZOLAM INJ 2 MG/2 ML VIAL (J2250) As Ordered ONE (10:04)
[2019-11-18] MEDS ORDERED: fentaNYL 100 MCG/2 ML INJECTION (J3010) As Ordered ONE (10:04)
[2019-11-18] MEDS ORDERED: ROCURONIUM BROMIDE 50 MG/5 ML VIAL As Ordered ONE (10:04)
[2019-11-18] MEDS ORDERED: diphenhydrAMINE INJ 50MG/ML VIAL (J1200) As Ordered ONE (10:04)
[2019-11-18] MEDS ORDERED: LIDOCAINE 2% INJ 100 MG/5 ML SDV (FOR ANES.) As Ordered ONE (10:04)
[2019-11-18] MEDS ORDERED: ONDANSETRON 4MG/2ML VIAL (J2405) As Ordered ONE (10:04)
[2019-11-18] MEDS ORDERED: SUGAMMADEX SODIUM 500 MG/5 ML VIAL (BRIDION) As Ordered ONE (10:04)
[2019-11-18] MEDS ORDERED: propofoL 200 MG/20 ML VIAL As Ordered ONE (10:04)
[2019-11-18] MEDS ORDERED: dexameTHASONE 4 MG/ML 1ML VIAL (J1100) As Ordered ONE (10:04)
[2019-11-18] MEDS ORDERED: fentaNYL 100 MCG/2 ML INJECTION (J3010) IV PRN (11:00)
[2019-11-18] MEDS ORDERED: METOCLOPRAMIDE INJ 10MG/2ML VIAL (J2765) IV PRN (11:00)
[2019-11-18] MEDS ORDERED: PERCOCET 5MG/325MG TAB PO PRN (11:00)
[2019-11-18] MEDS ORDERED: ONDANSETRON 4MG/2ML VIAL (J2405) IV PRN (11:00)
[2019-11-18] MEDS ORDERED: ALBUTEROL SULFATE 2.5 MG/0.5 ML INH NEB SOLN INH ONE (11:00)
[2019-11-18] MEDS ORDERED: diphenhydrAMINE INJ 50MG/ML VIAL (J1200) IV PRN (11:00)
[2019-11-18] MEDS ORDERED: LR 1,000 ML IV SCH (11:00)
--- NOTE | 2019-11-18 11:12 | ROOR ---
Patient Name: Daya Huitron Procedure Date: 11/18/2019 9:15 AM Date of : 1955 Admit Type: Outpatient Age: 64 Room: Main OR Note Status: Finalized Attending MD: Rut Garibay MD Procedure: Bronchoscopy Indications: Abnormal CT scan of chest Providers: Rut Garibay MD (Doctor) Referring MD: 1. No Referring Physician 1. No Referring Physician, Admin. (Referring MD) Requesting Physician: Medicines: General Anesthesia, Cetacaine topical Complications: No immediate complications. Estimated blood loss: Minimal Procedure: Pre-Anesthesia Assessment: - Prior to the procedure, a History and Physical was performed, and patient medications and allergies were reviewed. The patient's tolerance of previous anesthesia was also reviewed. The risks and benefits of the procedure and the sedation options and risks were discussed with the patient. All questions were answered, and informed consent was obtained. Prior Anticoagulants: The patient has taken no previous anticoagulant or antiplatelet agents. ASA Grade Assessment: II - A patient with mild systemic disease. After reviewing the risks and benefits, the patient was deemed in satisfactory condition to undergo the procedure. The Bronchoscope was introduced through the mouth, via the endotracheal tube (the patient was intubated for the procedure) and advanced to the tracheobronchial tree of both lungs. The procedure was accomplished without difficulty. The patient tolerated the procedure well. Findings: The endotracheal tube is in good position. The visualized portion of the trachea is of normal caliber. The angella is sharp. The tracheobronchial tree was examined to at least the first subsegmental level. There are no endobronchial lesions. There were some thick mucoid secretions noted in bilateral bronchial tree and bronchial mucosa with areas of pitting ntoed. Electromagnetic navigation bronchoscopy utilizing the Loku system with iLogic upgrade was performed. The CT scan was used for planning purposes. A virtual bronchoscopic image was generated using the planning software and the angella, left main bronchus angella, left lower lobe basilar segment, right upper lobe, right middle lobe and right lower lobe basilar segment registration points were marked on the virtual image. The target in the apical segment of the right upper lobe was marked. A lesion was found in the right upper lobe and a pathway was created. After a complete airway exam, the locatable guide/extended working channel was inserted and an automatic registration was performed by advancing the scope through the angella, left main bronchus angella, left lower lobe basilar segment, right upper lobe, right middle lobe and right lower lobe basilar segment. The navigation phase was then begun to locate the target lesion. Positioning off-center (in relation to the lesion) was confirmed using the Olympus radial probe US catheter. The locatable guide was removed from the extended working channel. Fluoroscopy guided transbronchial brushings of a nodule were obtained in the apical segment of the right upper lobe with a needle brush and sent for routine cytology. Transbronchial brushing technique was selected because the sampling site was not visible endoscopically. Transbronchial needle aspirations of a nodule were performed in the apical segment of the right upper lobe using a GenCut needle and sent for routine cytology. The procedure was guided by fluoroscopy. Transbronchial needle aspiration technique was selected because the sampling site was not visible endoscopically. Transbronchial biopsies of a nodule were performed in the apical segment of the right upper lobe using forceps and sent for histopathology examination. The procedure was guided by fluoroscopy. Transbronchial biopsy technique was selected because the sampling site was not visible endoscopically. Bronchoalveolar lavage was performed in the RUL apical segment (B1) of the lung and sent for cell count, bacterial culture, and fungal & AFB analysis and cytology. The return was blood-tinged. Mucous plugs were present in the return fluid. Bronchoalveolar lavage was performed in the RML medial segment (B5) of the lung and sent for cell count, bacterial culture, and fungal & AFB analysis and cytology. The return was clear. Bronchoalveolar lavage was performed in the SARA superior lingular segment (B4) of the lung and sent for cell count, bacterial culture, and fungal & AFB analysis and cytology. The return was clear. Mucous plugs were present in the return fluid. Bronchoalveolar lavage was performed in the LLL anterior medial segments (B7 & B8) of the lung and sent for cell count, bacterial culture, and fungal & AFB analysis and cytology. The return was cloudy. Mucous plugs were present in the return fluid. Impression: - Abnormal CT scan of chest - The airway examination was normal. Some mucoid secretions noted and mucosal pitting. - Electromagnetic navigation bronchoscopy was performed. - Transbronchial brushings were obtained in RUL - A transbronchial needle aspiration was performed in RUL - Transbronchial lung biopsies were performed in RUL - Bronchoalveolar lavage was performed in RUL - Bronchoalveolar lavage was performed in RML - Bronchoalveolar lavage was performed in Lingula - Bronchoalveolar lavage was performed in LLL Recommendation: - Follow up with bronchoscopist as previously scheduled. Attending Participation: I personally performed the entire procedure. Rut Garibay MD 11/18/2019 11:11:57 AM Number of Addenda: 0 Note Initiated On: 11/18/2019 9:15 AM
--- NOTE | 2019-11-18 11:21 | REP ---
STAT portable chest, post bronchoscopy, 10:58 a.m., single AP view with the patient semi upright: Comparison is the chest CT without IV contrast day 11/04/2019. There is no pneumothorax or pleural fluid collection. There are no focal or diffuse infiltrates. The lung ferrer otherwise clear. Cardiac size is normal. The jonathan, mediastinum, skeletal structures are. Impression: Negative portable chest. Electronically Signed by Alfredo Eden MD 11/18/2019 11:12 A
[2019-11-18 11:23] VITALS: BP 132/74
[2019-11-18 11:31] LABS: APPEARANCE CLEAR (CLEAR); COLOR COLORLESS (COLORLESS); SOURCE RIGHT MIDDLE LOBE
[2019-11-18 11:50] LABS: SOURCE LEFT LOWER LOBE
[2019-11-18 12:35] LABS: APPEARANCE CLEAR (CLEAR); COLOR COLORLESS (COLORLESS)
[2019-11-18 14:33] LABS: MONOCYTES/MACROPHAGES, BAL 28 %
--- NOTE | 2019-11-19 06:48 | ECGEPIP ---
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
== END 2019-11-18 11:47 | disposition home or self-care (01) ==
LOC: M SDC 07:53
PROVIDERS: ATTEND Internal Medicine Pulmonary Disease
DX: R91.8 Other nonspecific abnormal finding of lung field (principal); R91.1 Solitary pulmonary nodule; I10 Essential (primary) hypertension; J44.9 Chronic obstructive pulmonary disease, unspecified; F17.218 Nicotine dependence, cigarettes, with other nicotine-induced disorders; Z88.8 Allergy status to other drugs, medicaments and biological substances; Z79.899 Other long term (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 therapy
CPT/HCPCS: 31623; 31624; 31627; 31628; 31629; 71045; 76000; 87070; 87077; 87102; 87116; 87185; 87186; 87205; 87206; 88104; 88108; 88173; 88305; 88312; 88313; 89050; 89051; 93005; J1100; J1200; J2250; J2405; J3010

== ENCOUNTER → 2020-05-04 | Outpatient (CLI) | payer OTHER ==
[~2020-05-04] MED LIST changes: -LR 1,000 ML IV ONE
--- NOTE | 2020-05-04 11:13 | REP ---
REASON FOR EXAM: Followup. COMPARISON: Multiple, the latest prior 11/04/2019. The lack of intravenous contrast decreases the sensitivity of the exam. There is no significant change in the appearance of the mediastinum or pulmonary jonathan. There is no significant change in the appearance of the upper abdomen or imaged osseous structures. Evaluation of the lung ferrer shows stable scattered asymmetric ground-glass opacities and cylindrical bronchiectasis with small parenchymal bulla with upper lobe predominance all stable. No new abnormal nodules, masses, or opacities have developed. IMPRESSION: Stable chronic lung field changes as described above. Followup is recommended. The exact etiology uncertain. Electronically Signed by J Luis Gupta DO 05/04/2020 01:23 P
== END ==
LOC: M RAD 09:12
PROVIDERS: ATTEND Internal Medicine Pulmonary Disease
DX: R91.8 Other nonspecific abnormal finding of lung field (principal); J47.9 Bronchiectasis, uncomplicated

== ENCOUNTER → 2020-05-11 | Outpatient (CLI) | payer OTHER ==
[~2020-05-11] MED LIST changes: +ACE65ERTAB PO; +BUPR1TAB53 PO; +CALC200T15 PO; +CEFD300CAP PO; +FERR325T18 PO; +GABA600T4 PO; +IBUP200C25 PO; +KLOR10TA76 PO; +MIRA3350 PO; +NICO14DI24 TD; +SENN-52 PO; +VENTAER INH
--- NOTE | 2020-05-12 06:54 | PFTRPT ---
Visit Date: 05/11/2020 Referring Doctor: Rut Garibay MD Height: 62.50 Inches Weight: 90.00 Lbs BSA: 1.37 Diagnosis: J44.9 Spirometry: Pre and post bronchodilator study of excellent technical quality. Forced vital capacity normal. FEV1 out of proportion. Obstructive index is, therefore, reduced. Flow Volume Loop: Expiratory limb of the flow volume loop consistent with flow rate limitation. No significant bronchodilator response is identified. Lung Volumes: Total lung capacity elevated. Residual volume suggest air trapping. Diffusing Capacity: Diffusing capacity significantly reduced but does correct for alveolar volume. Hemoglobin: Hemoglobin reduced at 9.7. Airway Mechanics: Airway resistance and conductance are normal. IMPRESSION: Mild obstructive ventilatory impairment with underlying air trapping. Diffusing capacity impairment and significant anemia. Please correlate clinically. MTDD
== END ==
LOC: M CARPUL 09:37
PROVIDERS: ATTEND Internal Medicine Pulmonary Disease
DX: J44.9 Chronic obstructive pulmonary disease, unspecified (principal)

== ENCOUNTER → 2020-06-02 | Outpatient (CLI) | payer OTHER ==
--- NOTE | 2020-07-23 09:43 | REP ---
WHOLE BODY PET/CT SCAN: 06/02/2020 Delay in reporting results from hospital computer system malfunction from malware/ ransomware. COMPARISON: There are no comparison PET scans. Comparison studies are CT of the chest dated 11/04/[address] of the chest dated 05/04/2020. TECHNIQUE: Whole body scanning is performed from the skull base to the upper thighs. FINDINGS: NECK AND SUPRACLAVICULAR AREAS: There are no hypermetabolic foci. CHEST: There is a single hypermetabolic focus in the right upper lobe with a maximal standard uptake value of 5.1. This corresponds to a nodular-like density identified on the CT scan accompanying the PET scan. There was also a nodule- like density in this location on the comparison CT scans. This nodule today measures approximately 10 mm in diameter on the CT, accompanying the PET scan. There are no other hypermetabolic foci in the chest. ABDOMEN/PELVIS AND UPPER THIGHS: There are no hypermetabolic foci. Specifically, there are no hypermetabolic foci in the adrenals. IMPRESSION: There is a single hypermetabolic focus corresponding to a nodule in the upper lobe of the right lung as described. There are no other hypermetabolic foci. The study is performed with 8.29 mCi of F18 FDG. MTDD
== END ==
LOC: M PLARAD 09:00
PROVIDERS: ATTEND Internal Medicine Pulmonary Disease
DX: R91.1 Solitary pulmonary nodule (principal); J44.9 Chronic obstructive pulmonary disease, unspecified
CPT/HCPCS: 78815; A9552

== ENCOUNTER 2020-06-04 17:29 | Inpatient (IN) | payer OTHER ==
[~2020-06-04 17:29] MED LIST changes: -ACE65ERTAB PO; -BUPR1TAB53 PO; -CALC200T15 PO; -CEFD300CAP PO; -FERR325T18 PO; -GABA600T4 PO; -IBUP200C25 PO; -KLOR10TA76 PO; -MIRA3350 PO; -NICO14DI24 TD; -SENN-52 PO; -VENTAER INH
[2020-06-04] MEDS ORDERED: D5W 500ML As Ordered ONE (19:31)
[2020-06-05] MEDS ORDERED: THIAMINE 100 MG TAB As Ordered ONE (08:05)
[2020-06-05] MEDS ORDERED: FOLIC ACID 1 MG TAB As Ordered ONE (08:06)
[2020-06-05] MEDS ORDERED: GABAPENTIN 300 MG CAP As Ordered ONE ×3 (08:06→21:26)
[2020-06-05] MEDS ORDERED: buPROPion **XL** TABLET 150MG (WELLBUTRIN XL) As Ordered ONE (08:07)
[2020-06-05] MEDS ORDERED: buPROPion **SR TABLET** (ZYBAN) 150MG ONE ×2 (09:00→13:00)
[2020-06-05] MEDS ORDERED: NICOTINE 7 MG/24 HR TRANSDERMAL ONE ×2 (09:00→13:00)
[2020-06-05] MEDS ORDERED: MULTIVITAMINS/MINERALS THERAP 1 TAB As Ordered ONE (11:06)
[2020-06-05] MEDS ORDERED: POTASSIUM CHLORIDE 10 MEQ SR TABLET As Ordered ONE (11:06)
[2020-06-05] MEDS ORDERED: POTASSIUM CHLORIDE 10 MEQ SR TABLET ONE (11:06)
[2020-06-05] MEDS ORDERED: DICLOFENAC EPOLAMINE 1.3 % PATCH ONE (13:00)
[2020-06-05] MEDS ORDERED: FERROUS SULFATE 325MG TAB As Ordered ONE (15:18)
[2020-06-05] MEDS ORDERED: ACETAMINOPHEN TAB 650MG DOSE (2X325MG) As Ordered ONE (15:19)
[2020-06-05] MEDS ORDERED: HEPARIN SOD (PORCINE) 5000UNITS/ML 1ML VIAL/SYRINGE As Ordered ONE ×2 (15:19→21:25)
[2020-06-05] MEDS ORDERED: ACETAMINOPHEN 650MG ER TAB (TYLENOL ARTHRITIS) As Ordered ONE (23:27)
[2020-06-06] MEDS ORDERED: HEPARIN SOD (PORCINE) 5000UNITS/ML 1ML VIAL/SYRINGE As Ordered ONE (06:17)
[2020-06-06] MEDS ORDERED: FOLIC ACID 1 MG TAB As Ordered ONE (09:07)
[2020-06-06] MEDS ORDERED: FERROUS SULFATE 325MG TAB As Ordered ONE (09:07)
[2020-06-06] MEDS ORDERED: GABAPENTIN 300 MG CAP As Ordered ONE ×3 (09:07→20:18)
[2020-06-06] MEDS ORDERED: THIAMINE 100 MG TAB As Ordered ONE (09:07)
[2020-06-06] MEDS ORDERED: ACETAMINOPHEN 650MG ER TAB (TYLENOL ARTHRITIS) As Ordered ONE (15:49)
[2020-06-06] MEDS ORDERED: POTASSIUM CHLORIDE 10% LIQ 20 MEQ/15 ML UDC As Ordered ONE (17:03)
[2020-06-06] MEDS ORDERED: FUROSEMIDE 20MG/2ML VIAL (J1940) As Ordered ONE (17:03)
[2020-06-06] MEDS ORDERED: VANCOMYCIN 1000MG/20ML VIAL As Ordered ONE (18:42)
[2020-06-06] MEDS ORDERED: CEFEPIME 2GM VIAL (MAXIPIME) (J0692 PER 500MG) As Ordered ONE (20:18)
[2020-06-06] MEDS ORDERED: guaiFENesin ER 600 MG TAB As Ordered ONE (20:18)
[2020-06-07] MEDS ORDERED: CEFEPIME 2GM VIAL (MAXIPIME) (J0692 PER 500MG) As Ordered ONE ×3 (04:15→19:57)
[2020-06-07] MEDS ORDERED: VANCOMYCIN 750MG/25ML VIAL As Ordered ONE ×2 (06:03→18:17)
[2020-06-07] MEDS ORDERED: guaiFENesin ER 600 MG TAB As Ordered ONE ×2 (08:24→20:34)
[2020-06-07] MEDS ORDERED: THIAMINE 100 MG TAB As Ordered ONE (08:24)
[2020-06-07] MEDS ORDERED: GABAPENTIN 300 MG CAP As Ordered ONE ×3 (08:24→20:35)
[2020-06-07] MEDS ORDERED: MULTIVITAMINS/MINERALS THERAP 1 TAB As Ordered ONE (08:24)
[2020-06-07] MEDS ORDERED: FERROUS SULFATE 325MG TAB As Ordered ONE (08:24)
[2020-06-07] MEDS ORDERED: FOLIC ACID 1 MG TAB As Ordered ONE (08:24)
[2020-06-07] MEDS ORDERED: buPROPion **SR TABLET** (ZYBAN) 150MG ONE (11:00)
[2020-06-07] MEDS ORDERED: NICOTINE 7 MG/24 HR TRANSDERMAL ONE (11:00)
[2020-06-07] MEDS ORDERED: POTASSIUM CHLORIDE 10 MEQ SR TABLET As Ordered ONE (12:28)
[2020-06-07] MEDS ORDERED: CALCIUM CARBONATE 500 MG CHEW U/D As Ordered ONE (18:17)
[2020-06-08] MEDS ORDERED: CEFEPIME 2GM VIAL (MAXIPIME) (J0692 PER 500MG) ONE ×2 (03:58→13:21)
[2020-06-08] MEDS ORDERED: FOLIC ACID 1 MG TAB ONE (08:16)
[2020-06-08] MEDS ORDERED: THIAMINE 100 MG TAB ONE (08:16)
[2020-06-08] MEDS ORDERED: GABAPENTIN 300 MG CAP ONE (08:16)
[2020-06-08] MEDS ORDERED: guaiFENesin ER 600 MG TAB ONE (08:16)
[2020-06-08] MEDS ORDERED: MULTIVITAMINS/MINERALS THERAP 1 TAB ONE (08:16)
[2020-06-08] MEDS ORDERED: FERROUS SULFATE 325MG TAB ONE (08:16)
[2020-06-08] MEDS ORDERED: VANCOMYCIN 750MG/25ML VIAL ONE (09:50)
[2020-06-08] MEDS ORDERED: VANCOMYCIN 750MG/25ML VIAL As Ordered ONE (18:11)
[2020-06-08] MEDS ORDERED: CALCIUM CARBONATE 500 MG CHEW U/D As Ordered ONE (18:12)
[2020-06-08] MEDS ORDERED: GABAPENTIN 300 MG CAP As Ordered ONE (20:34)
[2020-06-08] MEDS ORDERED: CEFEPIME 2GM VIAL (MAXIPIME) (J0692 PER 500MG) As Ordered ONE (20:35)
[2020-06-08] MEDS ORDERED: guaiFENesin ER 600 MG TAB As Ordered ONE (20:35)
[2020-06-09] MEDS ORDERED: CEFEPIME 2GM VIAL (MAXIPIME) (J0692 PER 500MG) As Ordered ONE ×3 (03:49→20:16)
[2020-06-09] MEDS ORDERED: VANCOMYCIN 750MG/25ML VIAL As Ordered ONE ×2 (06:01→17:12)
[2020-06-09] MEDS ORDERED: MULTIVITAMINS/MINERALS THERAP 1 TAB As Ordered ONE (08:07)
[2020-06-09] MEDS ORDERED: FERROUS SULFATE 325MG TAB As Ordered ONE (08:07)
[2020-06-09] MEDS ORDERED: THIAMINE 100 MG TAB As Ordered ONE (08:08)
[2020-06-09] MEDS ORDERED: FOLIC ACID 1 MG TAB As Ordered ONE (08:08)
[2020-06-09] MEDS ORDERED: GABAPENTIN 300 MG CAP As Ordered ONE ×4 (08:08→20:16)
[2020-06-09] MEDS ORDERED: guaiFENesin ER 600 MG TAB As Ordered ONE ×2 (08:08→20:16)
[2020-06-09] MEDS ORDERED: CALCIUM CARBONATE 500 MG CHEW U/D As Ordered ONE (16:24)
[2020-06-09] MEDS ORDERED: POTASSIUM CHLORIDE 10 MEQ SR TABLET As Ordered ONE (18:38)
[2020-06-10] MEDS ORDERED: CEFEPIME 2GM VIAL (MAXIPIME) (J0692 PER 500MG) As Ordered ONE ×2 (04:42→11:29)
[2020-06-10] MEDS ORDERED: MULTIVITAMINS/MINERALS THERAP 1 TAB As Ordered ONE (08:24)
[2020-06-10] MEDS ORDERED: THIAMINE 100 MG TAB As Ordered ONE (08:25)
[2020-06-10] MEDS ORDERED: FERROUS SULFATE 325MG TAB As Ordered ONE (08:25)
[2020-06-10] MEDS ORDERED: FOLIC ACID 1 MG TAB As Ordered ONE (08:25)
[2020-06-10] MEDS ORDERED: GABAPENTIN 300 MG CAP As Ordered ONE ×3 (08:25→20:07)
[2020-06-10] MEDS ORDERED: guaiFENesin ER 600 MG TAB As Ordered ONE ×2 (08:25→20:06)
[2020-06-10] MEDS ORDERED: NICOTINE 7 MG/24 HR TRANSDERMAL ONE (13:00)
[2020-06-10] MEDS ORDERED: CHLORASEPTIC SPRAY ONE (13:00)
[2020-06-10] MEDS ORDERED: buPROPion **SR TABLET** (ZYBAN) 150MG ONE (13:00)
[2020-06-10] MEDS ORDERED: POTASSIUM CHLORIDE 10 MEQ SR TABLET As Ordered ONE (13:27)
[2020-06-10] MEDS ORDERED: CALCIUM CARBONATE 500 MG CHEW U/D As Ordered ONE (16:05)
[2020-06-10] MEDS ORDERED: CEFDINIR 300 MG CAP (OMNICEF) As Ordered ONE (20:06)
[2020-06-11] MEDS ORDERED: FERROUS SULFATE 325MG TAB As Ordered ONE (09:30)
[2020-06-11] MEDS ORDERED: THIAMINE 100 MG TAB As Ordered ONE (09:30)
[2020-06-11] MEDS ORDERED: guaiFENesin ER 600 MG TAB As Ordered ONE ×2 (09:30→21:23)
[2020-06-11] MEDS ORDERED: CEFDINIR 300 MG CAP (OMNICEF) As Ordered ONE ×2 (09:30→21:23)
[2020-06-11] MEDS ORDERED: POTASSIUM CHLORIDE 10 MEQ SR TABLET As Ordered ONE (09:30)
[2020-06-11] MEDS ORDERED: MULTIVITAMINS/MINERALS THERAP 1 TAB As Ordered ONE (09:30)
[2020-06-11] MEDS ORDERED: GABAPENTIN 300 MG CAP As Ordered ONE ×3 (09:31→21:23)
[2020-06-11] MEDS ORDERED: FOLIC ACID 1 MG TAB As Ordered ONE (09:31)
[2020-06-11] MEDS ORDERED: CALCIUM CARBONATE 500 MG CHEW U/D As Ordered ONE (16:41)
[2020-06-12] MEDS ORDERED: MULTIVITAMINS/MINERALS THERAP 1 TAB As Ordered ONE (08:34)
[2020-06-12] MEDS ORDERED: THIAMINE 100 MG TAB As Ordered ONE (08:35)
[2020-06-12] MEDS ORDERED: CEFDINIR 300 MG CAP (OMNICEF) As Ordered ONE ×2 (08:35→22:49)
[2020-06-12] MEDS ORDERED: FERROUS SULFATE 325MG TAB As Ordered ONE (08:35)
[2020-06-12] MEDS ORDERED: POTASSIUM CHLORIDE 10 MEQ SR TABLET As Ordered ONE (08:35)
[2020-06-12] MEDS ORDERED: guaiFENesin ER 600 MG TAB As Ordered ONE ×2 (08:35→22:49)
[2020-06-12] MEDS ORDERED: FOLIC ACID 1 MG TAB As Ordered ONE (08:35)
[2020-06-12] MEDS ORDERED: GABAPENTIN 300 MG CAP As Ordered ONE ×2 (08:36→22:50)
[2020-06-13] MEDS ORDERED: MULTIVITAMINS/MINERALS THERAP 1 TAB As Ordered ONE (09:21)
[2020-06-13] MEDS ORDERED: FERROUS SULFATE 325MG TAB As Ordered ONE (09:22)
[2020-06-13] MEDS ORDERED: THIAMINE 100 MG TAB As Ordered ONE (09:22)
[2020-06-13] MEDS ORDERED: CEFDINIR 300 MG CAP (OMNICEF) As Ordered ONE ×2 (09:22→21:04)
[2020-06-13] MEDS ORDERED: FOLIC ACID 1 MG TAB As Ordered ONE (09:22)
[2020-06-13] MEDS ORDERED: guaiFENesin ER 600 MG TAB As Ordered ONE ×2 (09:22→21:05)
[2020-06-13] MEDS ORDERED: POTASSIUM CHLORIDE 10 MEQ SR TABLET As Ordered ONE (09:22)
[2020-06-13] MEDS ORDERED: GABAPENTIN 300 MG CAP As Ordered ONE ×3 (09:23→21:05)
[2020-06-13] MEDS ORDERED: CALCIUM CARBONATE 500 MG CHEW U/D As Ordered ONE (16:59)
[2020-06-14] MEDS ORDERED: MULTIVITAMINS/MINERALS THERAP 1 TAB As Ordered ONE (09:12)
[2020-06-14] MEDS ORDERED: CEFDINIR 300 MG CAP (OMNICEF) As Ordered ONE ×2 (09:12→20:41)
[2020-06-14] MEDS ORDERED: FERROUS SULFATE 325MG TAB As Ordered ONE (09:12)
[2020-06-14] MEDS ORDERED: POTASSIUM CHLORIDE 10 MEQ SR TABLET As Ordered ONE (09:13)
[2020-06-14] MEDS ORDERED: THIAMINE 100 MG TAB As Ordered ONE (09:13)
[2020-06-14] MEDS ORDERED: GABAPENTIN 300 MG CAP As Ordered ONE ×3 (09:13→20:41)
[2020-06-14] MEDS ORDERED: FOLIC ACID 1 MG TAB As Ordered ONE (09:13)
[2020-06-14] MEDS ORDERED: guaiFENesin ER 600 MG TAB As Ordered ONE ×2 (09:13→20:41)
[2020-06-14] MEDS ORDERED: CALCIUM CARBONATE 500 MG CHEW U/D As Ordered ONE (16:31)
[2020-06-15] MEDS ORDERED: MULTIVITAMINS/MINERALS THERAP 1 TAB As Ordered ONE (08:20)
[2020-06-15] MEDS ORDERED: CEFDINIR 300 MG CAP (OMNICEF) As Ordered ONE ×2 (08:21→20:07)
[2020-06-15] MEDS ORDERED: FERROUS SULFATE 325MG TAB As Ordered ONE (08:22)
[2020-06-15] MEDS ORDERED: POTASSIUM CHLORIDE 10 MEQ SR TABLET As Ordered ONE (08:22)
[2020-06-15] MEDS ORDERED: guaiFENesin ER 600 MG TAB As Ordered ONE ×2 (08:22→20:07)
[2020-06-15] MEDS ORDERED: THIAMINE 100 MG TAB As Ordered ONE (08:23)
[2020-06-15] MEDS ORDERED: FOLIC ACID 1 MG TAB As Ordered ONE (08:23)
[2020-06-15] MEDS ORDERED: GABAPENTIN 300 MG CAP As Ordered ONE ×3 (08:24→20:08)
[2020-06-15] MEDS ORDERED: buPROPion **SR TABLET** (ZYBAN) 150MG ONE (13:00)
[2020-06-15] MEDS ORDERED: NICOTINE 7 MG/24 HR TRANSDERMAL ONE (13:00)
[2020-06-15] MEDS ORDERED: CALCIUM CARBONATE 500 MG CHEW U/D As Ordered ONE (16:21)
[2020-06-16] MEDS ORDERED: CEFDINIR 300 MG CAP (OMNICEF) As Ordered ONE (09:00)
[2020-06-16] MEDS ORDERED: MULTIVITAMINS/MINERALS THERAP 1 TAB As Ordered ONE (09:00)
[2020-06-16] MEDS ORDERED: FERROUS SULFATE 325MG TAB As Ordered ONE (09:01)
[2020-06-16] MEDS ORDERED: guaiFENesin ER 600 MG TAB As Ordered ONE (09:01)
[2020-06-16] MEDS ORDERED: POTASSIUM CHLORIDE 10 MEQ SR TABLET As Ordered ONE (09:01)
[2020-06-16] MEDS ORDERED: THIAMINE 100 MG TAB As Ordered ONE (09:01)
[2020-06-16] MEDS ORDERED: GABAPENTIN 300 MG CAP As Ordered ONE ×2 (09:02→15:29)
[2020-06-16] MEDS ORDERED: FOLIC ACID 1 MG TAB As Ordered ONE (09:02)
[2020-06-16] MEDS ORDERED: ALBUTEROL 90 MCG/ACT 8GM HFA INHALER INH PRN (10:00)
[2020-06-16] MEDS ORDERED: ACETAMINOPHEN 650MG ER TAB (TYLENOL ARTHRITIS) PO PRN (10:00)
[2020-06-16] MEDS ORDERED: NICO14DI24 TD (10:01)
[2020-06-16] MEDS ORDERED: IBUP200C25 PO (10:01)
[2020-06-16] MEDS ORDERED: BUPR1TAB53 PO (10:01)
[2020-06-16] MEDS ORDERED: GABA600T4 PO (10:01)
[2020-06-16] MEDS ORDERED: POTA1TAB21 PO (10:01)
[2020-06-16] MEDS ORDERED: SENOKOT S TAB PO PRN (15:15)
[2020-06-16] MEDS ORDERED: MIRALAX *UNIT DOSE* 17GM PACKET As Ordered ONE (15:29)
[2020-06-16] MEDS ORDERED: CALCIUM CARBONATE 500 MG CHEW U/D As Ordered ONE (17:24)
[2020-06-16] MEDS: IPRATROPIUM 0.5MG/ALBUTEROL 2.5MG INH SOL UD 3ML (DUONEB) INH SCH (19:49)
[2020-06-16] MEDS ORDERED: GABAPENTIN 300 MG CAP ONE (21:00)
[2020-06-16] MEDS ORDERED: CEFDINIR 300 MG CAP (OMNICEF) ONE (21:00)
[2020-06-16] MEDS ORDERED: buPROPion **SR TABLET** (ZYBAN) 150MG ONE (21:00)
[2020-06-16] MEDS ORDERED: guaiFENesin ER 600 MG TAB ONE (21:00)
[2020-06-16] MEDS: buPROPion **SR TABLET** (ZYBAN) 150MG PO SCH (21:04)
[2020-06-16] MEDS: CEFDINIR 300 MG CAP (OMNICEF) PO SCH (21:04)
[2020-06-16] MEDS: GABAPENTIN 300 MG CAP PO SCH (21:05)
[2020-06-16] MEDS: guaiFENesin ER 600 MG TAB PO SCH (21:05)
[2020-06-16] MEDS: CHLORASEPTIC SPRAY MT PRN (22:25)
[2020-06-17] MEDS: IPRATROPIUM 0.5MG/ALBUTEROL 2.5MG INH SOL UD 3ML (DUONEB) INH SCH ×3 (02:00→13:59)
[2020-06-17 06:00] VITALS: BP 124/80
[2020-06-17] MEDS ORDERED: NICOTINE 7 MG/24 HR TRANSDERMAL TD SCH (09:00)
[2020-06-17] MEDS ORDERED: MULTIVITAMINS/MINERALS THERAP 1 TAB PO SCH (09:00)
[2020-06-17] MEDS ORDERED: FERROUS SULFATE 325MG TAB PO SCH (09:00)
[2020-06-17] MEDS ORDERED: FOLIC ACID 1 MG TAB PO SCH (09:00)
[2020-06-17] MEDS ORDERED: POTASSIUM CHLORIDE 10 MEQ SR TABLET PO SCH (09:00)
[2020-06-17] MEDS ORDERED: THIAMINE 100 MG TAB PO SCH (09:00)
[2020-06-17] MEDS: CEFDINIR 300 MG CAP (OMNICEF) PO SCH (09:02)
[2020-06-17] MEDS: GABAPENTIN 300 MG CAP PO SCH ×2 (09:02→15:27)
[2020-06-17] MEDS: buPROPion **SR TABLET** (ZYBAN) 150MG PO SCH (09:09)
[2020-06-17] MEDS: guaiFENesin ER 600 MG TAB PO SCH (09:09)
[2020-06-17] MEDS: CHLORASEPTIC SPRAY MT PRN (09:24)
[2020-06-17] MEDS ORDERED: ACE65ERTAB PO (14:47)
[2020-06-17] MEDS ORDERED: FERR325T18 PO (14:47)
[2020-06-17] MEDS ORDERED: CALC200T15 PO (14:47)
[2020-06-17] MEDS ORDERED: FOLI1TAB11 PO (14:47)
[2020-06-17] MEDS ORDERED: THIA100TA PO (14:47)
[2020-06-17] MEDS ORDERED: CEFD300CAP PO ×2 (14:47→15:19)
[2020-06-17] MEDS ORDERED: SENN-52 PO (14:47)
[2020-06-17] MEDS ORDERED: VENTAER INH (14:47)
[2020-06-17] MEDS ORDERED: MIRA3350 PO (14:52)
[2020-06-17] MEDS ORDERED: KLOR10TA76 PO (14:53)
[2020-06-17] MEDS ORDERED: MOM 30ML SUSPENSION UDC PO ONE (15:00)
[2020-06-17] MEDS ORDERED: CALCIUM CARBONATE 500 MG CHEW U/D PO SCH (17:00)
--- NOTE | 2020-06-17 20:59 | DS.PDOC ---
Discharge Summary General Date of Admission Jun 04, 2020 at 23:55 Date of Discharge 06/17/2020 Attending Physician: JACKSON MAGUIRE MD Discharge Summary ADMITTING DIAGNOSES: 1. mechanical falls 2. chronic anemia 3. hypoglycemia DISCHARGE DIAGNOSES: 1. HCAP 2. mechanical falls 3. Chronic anemia 4. hypoglycemia COMPLICATIONS/CHIEF COMPLAINT: Body Pain, Hypoglycemia. HISTORY OF PRESENT ILLNESS: Patient was admitted with mechanical fall, weakness, hypoglycemia and chronic anemia. HOSPITAL COURSE: Admitted with frequent falls, chronic anemia. Developed HCAP. Treated with cefdinir for 7 days. DC home with additional 4 days. Evaluated by PT/OT decision to return to home with services. DISCHARGE MEDICATIONS: Please see below. ALLERGIES: Please see below. PHYSICAL EXAMINATION ON DISCHARGE: VITAL SIGNS: Please see below. GENERAL: NAD, sitting upright edge of bed HEENT: PERRLA< CARDIOVASCULAR: RRR, normal S1, S2. RESPIRATORY: lungs CTAB. ABDOMINAL: soft, non tender EXTREMITIES: no focal deformity. ROM limited by low back pain NEUROLOGICAL: no focal deficts PSYCHOLOGICAL: cooperative LABORATORY DATA: Please see below. ACTIVITY: Home PT/OT recommendations; rolling walker use. DIET: as tolerated DISCHARGE PLAN: home with , home services, including PT/OT. DISPOSITION: Home, Self-Care. With services DISCHARGE INSTRUCTIONS: 1. Please follow up with primary care doctor in 7 days. 2. Need to complete 4 additional days of cefdinir 300 mg BID for HCAP ITEMS TO FOLLOWUP ON ON OUTPATIENT: 1. Home services being provided. DISCHARGE CONDITION: [Stable]. TIME SPENT ON DISCHARGE: Greater than [30] minutes. Vital Signs/I&Os Vital Signs Date Time Temp Pulse Resp B/P (MAP) Pulse Ox O2 Delivery O2 Flow Rate FiO2 06/17/20 06:00 97.9 101 16 124/80 (95) 97 Room Air I&O- Last 24 Hours up to 6 AM 06/17/20 06:00 Intake Total 990 ml Output Total 900 ml Balance 90 ml Discharge Medications Scheduled Bupropion HCl (Bupropion HCl Sr) 150 Mg Tab.sr.12h, 150 MG PO BID, (Reported) Calcium Carbonate (Calcium Carbonate) 200 Mg Tab.chew, 500 MG PO DAILY@1700 Cefdinir (Cefdinir) 300 Mg Capsule, 300 MG PO BID Ferrous Sulfate (Ferrous Sulfate) 325 Mg Tablet, 325 MG PO DAILY Folic Acid (Folic Acid) 1 Mg Tablet, 1 MG PO DAILY Gabapentin (Gabapentin) 600 Mg Tablet, 600 MG PO TID, (Reported) Ibuprofen (Ibuprofen) 200 Mg Capsule, 200 MG PO PRN, (Reported) Multivitamin with Minerals (Multiple Vitamin) 1 Each Tablet, 1 TAB PO DAILY, (Reported) Nicotine (Nicotine Patch) 14 Mg Patch.td24, 14 MG TD DAILY, (Reported) Potassium Chloride (Klor-Con M10) 10 Meq Tab.er.prt, 20 MEQ PO DAILY Thiamine Hcl (Vitamin B-1) 100 Mg Tablet, 100 MG PO DAILY Scheduled PRN Acetaminophen (Acetaminophen ER) 650 Mg Tablet.er, 1,300 MG PO Q8H PRN for PAIN Albuterol Sulfate (Ventolin Hfa) 18 Gm Hfa.aer.ad, 1 PUFF INH Q6HP PRN for DYSPNEA Polyethylene Glycol 3350 (Miralax) 119 Gm Powder, 17 GM PO DAILY PRN for CONSTIPATION dilute in 8 ounces of water or juice Sennosides/Docusate Sodium (Senna Plus Tablet) 1 Each Tablet, 1 TAB PO BID PRN for CONSTIPATION Allergies Coded Allergies: fentanyl (Verified Allergy, Intermediate, INTENSE ITCHING, 11/18/19) JACKSON MAGUIRE MD Jun 17, 2020 20:59
--- NOTE | 2020-06-17 20:59 | IPNPDOC ---
Date Seen The patient was seen on 06/17/20. Progress Note SUBJECTIVE: doing well, no acute events overnight. Small BM this morning. Completed 7 days of cefdinir for HCAP. No fevers, no chills, no n/v/d. Anxious to go home. at bedside. Rolling walker rx provided. OBJECTIVE PHYSICAL EXAMINATION: VITAL SIGNS: Please see below. GENERAL: NAD, sitting upright edge of bed HEENT: PERRLA< CARDIOVASCULAR: RRR, normal S1, S2. RESPIRATORY: lungs CTAB. ABDOMINAL: soft, non tender EXTREMITIES: no focal deformity. ROM limited by low back pain NEUROLOGICAL: no focal deficts PSYCHOLOGICAL: cooperative LABORATORY DATA, IMAGING STUDIES, MICROBIOLOGY: Please see below. DVT prophylaxis ordered?: Y ASSESSMENT AND PLAN: PROBLEMS: 1. HCAP: treated with cefdinir 300 mg BID. Completed 7 days of therapy. DC home with additonal 4 days. 2. Neuropathy: gabapentin 600 mg TID 3. Hx of etoh use: folate, thiamine, MVT, folic acid 4. Constipation: senna-S BID prn. Milk of Mg once. 5. Hypokalemia: KCL 20 meq daily on DC. 6. Iron deficiency anemia: PO ferrous sulfate on DC. DISPOSITION: home with services, will provide 24 hours Total DC time > 30 minutes. VS, I&O, 24H, Fishbone Vital Signs/I&O Vital Signs Date Time Temp Pulse Resp B/P (MAP) Pulse Ox O2 Delivery O2 Flow Rate FiO2 06/17/20 06:00 97.9 101 16 124/80 (95) 97 Room Air I&O- Last 24 Hours up to 6 AM 06/17/20 06:00 Intake Total 990 ml Output Total 900 ml Balance 90 ml JACKSON MAGUIRE MD Jun 17, 2020 20:59
[2020-06-21 21:00] LABS: HEMATOCRIT 25.1 % (36.0-47.0); HEMOGLOBIN 8.5 g/dl (12.0-15.5); WHITE BLOOD COUNT 8.5 10^3/uL (4.0-10.0)
[2020-06-21 21:01] LABS: BASO % 0.1 % (0.0-1.0); EOS % 0.1 % (0.0-3.0); LYMPH # 1.1 10^3/uL (1.5-5.0); LYMPH % 12.5 % (24.0-44.0); MEAN CORPUSCULAR HGB CONC 33.9 g/dl (32.0-36.5); MEAN CORPUSCULAR VOLUME 109.1 fl (80.0-96.0); MONO # 0.9 10^3/uL (0.0-0.8); MONO % 10.9 % (0.0-5.0); NEUTROPHILS # 6.5 10^3/uL (1.5-8.5); NEUTROPHILS % 75.9 % (36.0-66.0); PLATELET COUNT, AUTOMATED 244 10^3/uL (150-450)
--- NOTE | 2020-07-23 09:45 | REP ---
CHEST X-RAY: 2-VIEWS HISTORY: Hypoxia and cough. COMPARISON: Prior study of 11/18/19. FINDINGS: Two views of the chest are performed. There are scattered underlying interstitial fibrotic changes. There is no definite acute infiltrate. The heart is normal in size. There is calcification of the thoracic aorta. The mediastinal silhouette is unremarkable. There are mild degenerative changes of the spine. IMPRESSION: Chronic changes with no definite superimposed acute infiltrate. MTDD
--- NOTE | 2020-07-23 10:52 | ECGEPIP ---
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
[2020-07-23 16:22] LABS: BASO % 0.1 % (0.0-1.0); EOS % 0.1 % (0.0-3.0); HEMATOCRIT 31.5 % (36.0-47.0); HEMOGLOBIN 10.6 g/dl (12.0-15.5); LYMPH % 11.8 % (24.0-44.0); MEAN CORPUSCULAR HEMOGLOBIN 36.9 pg (27.0-33.0); MEAN CORPUSCULAR HGB CONC 33.7 g/dl (32.0-36.5); MEAN CORPUSCULAR VOLUME 109.8 fl (80.0-96.0); MONO # 0.9 10^3/uL (0.0-0.8); MONO % 11.2 % (0.0-5.0); NEUTROPHILS # 6.4 10^3/uL (1.5-8.5); NEUTROPHILS % 76.6 % (36.0-66.0); PLATELET COUNT, AUTOMATED 269 10^3/uL (150-450); RED BLOOD COUNT 2.87 10^6/uL (4.00-5.40); WHITE BLOOD COUNT 8.4 10^3/uL (4.0-10.0)
[2020-07-23 16:25] LABS: ALBUMIN 2.1 GM/DL (3.2-5.2); ALT/SGPT 25 U/L (12-78); BILIRUBIN,TOTAL 1.2 MG/DL (0.2-1.0); BLOOD UREA NITROGEN 6 MG/DL (7-18); C REACTIVE PROTEIN QUANTITATIV 4.52 MG/DL (0.00-0.30); CALCIUM LEVEL 9.6 MG/DL (8.8-10.2); CARBON DIOXIDE LEVEL 31 MEQ/L (21-32); CHLORIDE LEVEL 101 MEQ/L (98-107); CREATININE FOR GFR 0.53 MG/DL (0.55-1.30); GLOMERULAR FILTRATION RATE > 60.0 (>45); GLUCOSE, FASTING 69 MG/DL (70-100); POTASSIUM SERUM 3.9 MEQ/L (3.5-5.1); SODIUM LEVEL 135 MEQ/L (136-145); TOTAL PROTEIN 5.9 GM/DL (6.4-8.2)
[2020-07-23 16:26] LABS: ERYTHROCYTE SEDIMENTATION RATE 26 mm/hr (0-30)
[2020-07-24 15:06] LABS: HEMATOCRIT 27.4 % (36.0-47.0); MEAN CORPUSCULAR HEMOGLOBIN 36.7 pg (27.0-33.0); MEAN CORPUSCULAR HGB CONC 32.8 g/dl (32.0-36.5); MEAN CORPUSCULAR VOLUME 111.8 fl (80.0-96.0); PLATELET COUNT, AUTOMATED 282 10^3/uL (150-450); RED BLOOD COUNT 2.45 10^6/uL (4.00-5.40); WHITE BLOOD COUNT 7.9 10^3/uL (4.0-10.0)
[2020-07-24 18:29] LABS: HEMOGLOBIN 8.4 g/dl (12.0-15.5); MEAN CORPUSCULAR HEMOGLOBIN 37.2 pg (27.0-33.0); MEAN CORPUSCULAR HGB CONC 33.6 g/dl (32.0-36.5); MEAN CORPUSCULAR VOLUME 110.6 fl (80.0-96.0); PLATELET COUNT, AUTOMATED 283 10^3/uL (150-450); RED BLOOD COUNT 2.26 10^6/uL (4.00-5.40); WHITE BLOOD COUNT 8.5 10^3/uL (4.0-10.0)
[2020-07-29 11:18] LABS: HEMATOCRIT 25.3 % (36.0-47.0); HEMOGLOBIN 8.7 g/dl (12.0-15.5); MEAN CORPUSCULAR HGB CONC 34.4 g/dl (32.0-36.5); MEAN CORPUSCULAR VOLUME 107.7 fl (80.0-96.0); PLATELET COUNT, AUTOMATED 315 10^3/uL (150-450); RED BLOOD COUNT 2.35 10^6/uL (4.00-5.40); WHITE BLOOD COUNT 10.1 10^3/uL (4.0-10.0)
[2020-07-30 09:54] LABS: HEMATOCRIT 25.2 % (36.0-47.0); HEMOGLOBIN 8.7 g/dl (12.0-15.5); MEAN CORPUSCULAR HEMOGLOBIN 36.6 pg (27.0-33.0); MEAN CORPUSCULAR HGB CONC 34.5 g/dl (32.0-36.5); MEAN CORPUSCULAR VOLUME 105.9 fl (80.0-96.0); PLATELET COUNT, AUTOMATED 369 10^3/uL (150-450); RED BLOOD COUNT 2.38 10^6/uL (4.00-5.40); WHITE BLOOD COUNT 8.1 10^3/uL (4.0-10.0)
[2020-08-02 01:01] LABS: HEMATOCRIT 24.2 % (36.0-47.0); HEMOGLOBIN 8.5 g/dl (12.0-15.5); MEAN CORPUSCULAR HEMOGLOBIN 36.8 pg (27.0-33.0); MEAN CORPUSCULAR HGB CONC 35.1 g/dl (32.0-36.5); MEAN CORPUSCULAR VOLUME 104.8 fl (80.0-96.0); PLATELET COUNT, AUTOMATED 368 10^3/uL (150-450); RED BLOOD COUNT 2.31 10^6/uL (4.00-5.40); WHITE BLOOD COUNT 8.3 10^3/uL (4.0-10.0)
[2020-08-24 10:18] LABS: BLOOD UREA NITROGEN 5 MG/DL (7-18); CARBON DIOXIDE LEVEL 28 MEQ/L (21-32); CHLORIDE LEVEL 105 MEQ/L (98-107); CREATININE FOR GFR 0.41 MG/DL (0.55-1.30); FERRITIN 722 NG/ML (8-252); GLOMERULAR FILTRATION RATE > 60.0 (>45); GLUCOSE, FASTING 86 MG/DL (70-100); HEPATITIS B SURFACE ANTIBODY NEGATIVE (POSITIVE); HEPATITIS B SURFACE ANTIGEN NEGATIVE (NEGATIVE); HEPATITIS C VIRUS ABY INDEX 0.2 INDEX (<0.8); IRON (FE) 29 UG/DL (50-170); PERCENT SATURATION 46.8 % (13.2-45.0); POTASSIUM SERUM 3.3 MEQ/L (3.5-5.1); SODIUM LEVEL 138 MEQ/L (136-145); TOTAL IRON BINDING CAPACITY 62 UG/DL (250-450); VITAMIN B12 LEVEL 1042 PG/ML (247-911)
[2020-08-24 14:21] LABS: LEGIONELLA ANTIGEN URINE SEE SEPARATE REPORT; URINE STREP PNEUMONIAE ANTIGEN SEE SEPARATE REPORT
[2020-08-24 17:36] LABS: CPK CREATINE PHOSPHOKINASE 103 U/L (26-192)
[2020-08-31 22:27] LABS: BLOOD UREA NITROGEN 5 MG/DL (7-18); CALCIUM LEVEL 7.1 MG/DL (8.8-10.2); CARBON DIOXIDE LEVEL 24 MEQ/L (21-32); CHLORIDE LEVEL 109 MEQ/L (98-107); CREATININE FOR GFR 0.35 MG/DL (0.55-1.30); GLOMERULAR FILTRATION RATE > 60.0 (>45); GLUCOSE, FASTING 70 MG/DL (70-100); MAGNESIUM LEVEL 1.1 MG/DL (1.8-2.4); NT-PRO BNP 4415 PG/ML (<125); POTASSIUM SERUM 3.3 MEQ/L (3.5-5.1); SODIUM LEVEL 140 MEQ/L (136-145)
[2020-08-31 22:40] LABS: IONIZED CALCIUM 3.9 MG/DL (4.5-5.3)
[2020-08-31 23:12] LABS: BLOOD UREA NITROGEN 5 MG/DL (7-18); CALCIUM LEVEL 6.7 MG/DL (8.8-10.2); CARBON DIOXIDE LEVEL 25 MEQ/L (21-32); CHLORIDE LEVEL 107 MEQ/L (98-107); CREATININE FOR GFR 0.36 MG/DL (0.55-1.30); GLOMERULAR FILTRATION RATE > 60.0 (>45); GLUCOSE, FASTING 80 MG/DL (70-100); POTASSIUM SERUM 3.5 MEQ/L (3.5-5.1); SODIUM LEVEL 137 MEQ/L (136-145)
[2020-08-31 23:12] LABS: ALBUMIN 1.8 GM/DL (3.2-5.2); BILIRUBIN,DIRECT 0.7 MG/DL (0.0-0.2); BILIRUBIN,TOTAL 0.9 MG/DL (0.2-1.0); TOTAL PROTEIN 5.4 GM/DL (6.4-8.2)
[2020-09-01 04:12] LABS: BLOOD UREA NITROGEN 6 MG/DL (7-18); CALCIUM LEVEL 7.2 MG/DL (8.8-10.2); CARBON DIOXIDE LEVEL 26 MEQ/L (21-32); CHLORIDE LEVEL 103 MEQ/L (98-107); CREATININE FOR GFR 0.34 MG/DL (0.55-1.30); GLOMERULAR FILTRATION RATE > 60.0 (>45); GLUCOSE, FASTING 75 MG/DL (70-100); POTASSIUM SERUM 3.7 MEQ/L (3.5-5.1); SODIUM LEVEL 133 MEQ/L (136-145); VANCOMYCIN LEVEL TROUGH 16.1 UG/ML (10.0-20.0)
[2020-09-02 03:58] LABS: IONIZED CALCIUM 4.1 MG/DL (4.5-5.3)
[2020-09-02 04:02] LABS: BLOOD UREA NITROGEN 6 MG/DL (7-18); CALCIUM LEVEL 7.5 MG/DL (8.8-10.2); CARBON DIOXIDE LEVEL 25 MEQ/L (21-32); CHLORIDE LEVEL 103 MEQ/L (98-107); CREATININE FOR GFR 0.39 MG/DL (0.55-1.30); GLOMERULAR FILTRATION RATE > 60.0 (>45); GLUCOSE, FASTING 83 MG/DL (70-100); POTASSIUM SERUM 3.3 MEQ/L (3.5-5.1); SODIUM LEVEL 136 MEQ/L (136-145)
[2020-09-02 15:25] LABS: BLOOD UREA NITROGEN 8 MG/DL (7-18); CREATININE FOR GFR 0.36 MG/DL (0.55-1.30); GLOMERULAR FILTRATION RATE > 60.0 (>45); GLUCOSE, FASTING 86 MG/DL (70-100); POTASSIUM SERUM 3.3 MEQ/L (3.5-5.1); SODIUM LEVEL 134 MEQ/L (136-145)
[2020-09-02 15:26] LABS: CALCIUM LEVEL 7.7 MG/DL (8.8-10.2); CARBON DIOXIDE LEVEL 24 mmol/L (20-29); CHLORIDE LEVEL 102 MEQ/L (98-107)
== END 2020-06-17 16:10 | disposition home or self-care (01) | DRG 139 ==
LOC: M ED 17:29 → M MSPAV 23:55
PROVIDERS: ADMIT Internal Medicine; ATTEND Family Medicine
DX: J18.9 Pneumonia, unspecified organism (principal); G62.9 Polyneuropathy, unspecified; J44.9 Chronic obstructive pulmonary disease, unspecified; F10.10 Alcohol abuse, uncomplicated; E87.6 Hypokalemia; D50.9 Iron deficiency anemia, unspecified; K59.00 Constipation, unspecified

== ENCOUNTER → 2020-10-06 | Outpatient (CLI) | payer OTHER ==
[~2020-10-06] MED LIST changes: +ACE65ERTAB PO; +AUGM875T28 PO; +BUPR1TAB53 PO; +CALC200T15 PO; +CEFD300CAP PO; +FERR325T18 PO; +GABA600T4 PO; +IBUP200C25 PO; +ISOVUE-370 76% 100ML VIAL As Ordered ONE; +KLOR10TA76 PO; +MIRA3350 PO; +NICO14DI24 TD; +SENN-52 PO; +STIO1AER; +VENTAER INH
--- NOTE | 2020-10-06 10:56 | REP ---
INDICATION: SOLITARY PULMONARY NODULE. COMPARISON: Chest CT dated 11/[address] dated 05/04/2020.. TECHNIQUE: Chest CT without IV contrast. FINDINGS: On the current study there is a 2.2 cm right upper lobe nodule peripherally in the right upper lobe apex. The nodule today has spiculated margins and has increased in size. It measured 9 mm on 11/04/2019 and 12 mm on 05/04/2020. Numerous bulla are again noted throughout the lung ferrer bilaterally. There are occasional small subtle ground-glass densities throughout the lung ferrer bilaterally as previously, nonspecific, but possibly chronic pneumonitis. Bronchiectasis is again identified. There are no acute infiltrates or pleural effusions. There is no mediastinal, hilar or axilla lymph node enlargement. The thoracic aorta is unremarkable except for calcified atheroma. The cardiac size is normal. There is no pericardial effusion. The visualized upper abdominal contents are unremarkable. The there is no adrenal nodule. IMPRESSION: There is an enlarging nodule in the right upper lobe that now has spiculated margins, as described in the body of the report. There are other chronic findings as described. No adenopathy is identified. <Electronically signed by Alfredo Eden > 10/06/20 [id number]
== END ==
LOC: M RAD 08:26
PROVIDERS: ATTEND Thoracic Surgery (Cardiothoracic Vascular Surgery)
DX: R91.1 Solitary pulmonary nodule (principal); J47.9 Bronchiectasis, uncomplicated
CPT/HCPCS: 71260; Q9967

== ENCOUNTER → 2020-10-08 | Outpatient (CLI) | payer OTHER ==
[~2020-10-08] MED LIST changes: -ISOVUE-370 76% 100ML VIAL As Ordered ONE
== END ==
LOC: M LABSMTC 11:03
PROVIDERS: ATTEND Anesthesiology
DX: Z01.812 Encounter for preprocedural laboratory examination (principal); Z20.828 Contact with and (suspected) exposure to other viral communicable diseases

== ENCOUNTER 2020-10-12 13:48 | Emergency (ER) | payer OTHER ==
[~2020-10-12] VITALS: Ht 157.5 cm; Wt 45.8 kg
[~2020-10-12 13:48] MED LIST changes: -AUGM875T28 PO; -STIO1AER
[2020-10-12] MEDS ORDERED: STIO1AER (15:13)
[2020-10-12] MEDS ORDERED: AUGM875T28 PO (15:43)
[2020-10-12 15:52] VITALS: BP 190/104
== END 2020-10-12 15:54 | disposition home or self-care (01) ==
LOC: M ED 13:48
DX: S61.551A Open bite of right wrist, initial encounter (principal); Y92.9 Unspecified place or not applicable; Y93.9 Activity, unspecified; Y99.9 Unspecified external cause status; L03.113 Cellulitis of right upper limb; I10 Essential (primary) hypertension; Z88.6 Allergy status to analgesic agent; J44.9 Chronic obstructive pulmonary disease, unspecified; Z79.51 Long term (current) use of inhaled steroids; Z79.899 Other long term (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 therapy; Z87.891 Personal history of nicotine dependence; Z79.1 Long term (current) use of non-steroidal anti-inflammatories (NSAID)

== ENCOUNTER → 2020-10-31 | Outpatient (CLI) | payer OTHER ==
[~2020-10-31] MED LIST changes: +AUGM875T28 PO; +STIO1AER
== END ==
LOC: M LABSMTC 11:21
PROVIDERS: ATTEND Anesthesiology
DX: Z01.812 Encounter for preprocedural laboratory examination (principal); Z20.828 Contact with and (suspected) exposure to other viral communicable diseases

== ENCOUNTER → 2020-11-03 | Outpatient (CLI) | payer OTHER ==
[2020-11-03 12:15] LABS: APPEARANCE, URINE HAZY (CLEAR); BACTERIA, URINE AUTO NEGATIVE (NEGATIVE); BILIRUBIN, URINE AUTO NEGATIVE (NEGATIVE); BLOOD, URINE BLOOD NEGATIVE (NEGATIVE); COLOR, URINE YELLOW (YELLOW); GLUCOSE, URINE (UA) AUTO NEGATIVE (NEGATIVE); KETONE, URINE AUTO NEGATIVE (NEGATIVE); LEUKOCYTE ESTERASE, URINE AUTO NEGATIVE (NEGATIVE); MUCUS, URINE SMALL (NEGATIVE); NITRITE, URINE AUTO NEGATIVE (NEGATIVE); PROTEIN, URINE AUTO NEGATIVE (NEGATIVE); RBC, URINE AUTO 1 /HPF (0-3); SPECIFIC GRAVITY URINE AUTO 1.012 (1.002-1.035); SQUAMOUS EPITHELIAL CELL UR AU 0 /HPF (0-6); UROBILINOGEN, URINE AUTO 0.2 mg/dL (0.0-2.0); WBC, URINE AUTO 1 /HPF (0-3)
--- NOTE | 2020-11-04 23:38 | ECGEPIP ---
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
== END ==
LOC: M ADMPAT 11:30
PROVIDERS: ATTEND Thoracic Surgery (Cardiothoracic Vascular Surgery)
DX: Z01.818 Encounter for other preprocedural examination (principal)

== ENCOUNTER → 2020-12-06 | Outpatient (CLI) | payer OTHER ==
[~2020-12-06] MED LIST changes: -AMIT25TA PO; +AMIT25TA17 PO; +GABA-282 PO; -GABA-843 PO; +LISI10TA22 PO; -LISI10TA4 PO; -MAG400TA PO; +MAGN400T35 PO; +SIME80CH5 PO; -SIME80TA PO
== END ==
LOC: M LABSMTC 09:56
PROVIDERS: ATTEND Anesthesiology
DX: Z01.812 Encounter for preprocedural laboratory examination (principal); Z20.822 Contact with and (suspected) exposure to COVID-19

== ENCOUNTER → 2020-12-10 | Outpatient (CLI) | payer OTHER ==
[2020-12-10 13:25] LABS: ABG BASE EXCESS 1.1 (-2.0-2.0); ABG HCO3 24.9 MEQ/L (22.0-26.0); ABG O2 SATURATION 94.7 % (95.0-99.0); ABG PARTIAL PRESSURE O2 71.2 mmHg (75.0-100.0); ABG STANDARD HCO3 25.4 MEQ/L (22.0-26.0); ABG pH (ARTERIAL) 7.446 UNITS (7.350-7.450)
[2020-12-10 13:27] LABS: HEMATOCRIT 38.1 % (36.0-47.0); HEMOGLOBIN 12.7 g/dl (12.0-15.5); MEAN CORPUSCULAR HEMOGLOBIN 32.8 pg (27.0-33.0); MEAN CORPUSCULAR HGB CONC 33.3 g/dl (32.0-36.5); MEAN CORPUSCULAR VOLUME 98.4 fl (80.0-96.0); PLATELET COUNT, AUTOMATED 270 10^3/uL (150-450); RED BLOOD COUNT 3.87 10^6/uL (4.00-5.40); WHITE BLOOD COUNT 5.9 10^3/uL (4.0-10.0)
[2020-12-10 13:35] LABS: APPEARANCE, URINE HAZY (CLEAR); BACTERIA, URINE AUTO NEGATIVE (NEGATIVE); BILIRUBIN, URINE AUTO NEGATIVE (NEGATIVE); BLOOD, URINE BLOOD NEGATIVE (NEGATIVE); COLOR, URINE AMBER (YELLOW); GLUCOSE, URINE (UA) AUTO NEGATIVE (NEGATIVE); KETONE, URINE AUTO 1+ mg/dL (NEGATIVE); LEUKOCYTE ESTERASE, URINE AUTO NEGATIVE (NEGATIVE); MUCUS, URINE SMALL (NEGATIVE); NITRITE, URINE AUTO NEGATIVE (NEGATIVE); PROTEIN, URINE AUTO NEGATIVE (NEGATIVE); RBC, URINE AUTO 1 /HPF (0-3); SQUAMOUS EPITHELIAL CELL UR AU 0 /HPF (0-6); UROBILINOGEN, URINE AUTO 0.2 mg/dL (0.0-2.0); WBC, URINE AUTO 0 /HPF (0-3)
[2020-12-10 13:39] LABS: INR 0.91; PROTHROMBIN TIME 12.4 SECONDS (12.5-14.3)
[2020-12-10 13:40] LABS: PARTIAL THROMBOPLASTIN TIME 28.1 SECONDS (24.2-38.5)
[2020-12-10 13:51] LABS: BLOOD UREA NITROGEN 14 MG/DL (7-18); CALCIUM LEVEL 10.2 MG/DL (8.8-10.2); CARBON DIOXIDE LEVEL 29 MEQ/L (21-32); CHLORIDE LEVEL 98 MEQ/L (98-107); CREATININE FOR GFR 0.76 MG/DL (0.55-1.30); GLOMERULAR FILTRATION RATE > 60.0 (>45); GLUCOSE, FASTING 99 MG/DL (70-100); POTASSIUM SERUM 3.3 MEQ/L (3.5-5.1); SODIUM LEVEL 137 MEQ/L (136-145)
--- NOTE | 2020-12-10 14:56 | REP ---
INDICATION: PREOP. COMPARISON: Comparison study 06 June 2020. TECHNIQUE: Two views.. FINDINGS: The lungs are well inflated and free of infiltrate. The pleural angles are sharp. The heart size is normal. Pulmonary vasculature is not increased. No significant bony abnormality is seen. There is mild vascular calcification in the aorta and great vessels. IMPRESSION: Negative chest x-ray. <Electronically signed by Albin Sanches > 12/10/20 [id number]
--- NOTE | 2020-12-11 08:40 | ECGEPIP ---
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
== END ==
LOC: M ADMPAT 12:45
PROVIDERS: ATTEND Thoracic Surgery (Cardiothoracic Vascular Surgery)
DX: Z01.818 Encounter for other preprocedural examination (principal); R91.8 Other nonspecific abnormal finding of lung field

== ENCOUNTER → 2021-01-12 | Outpatient (CLI) | payer OTHER ==
[~2021-01-12] MED LIST changes: +METO1TAB32 PO; -STIO1AER; +STIO1AER INH
[2021-01-12 13:38] LABS: HEMATOCRIT 39.3 % (36.0-47.0); HEMOGLOBIN 13.4 g/dl (12.0-15.5); MEAN CORPUSCULAR HGB CONC 34.1 g/dl (32.0-36.5); MEAN CORPUSCULAR VOLUME 105.6 fl (80.0-96.0); PLATELET COUNT, AUTOMATED 264 10^3/uL (150-450); RED BLOOD COUNT 3.72 10^6/uL (4.00-5.40)
[2021-01-12 13:49] LABS: INR 0.83; PROTHROMBIN TIME 11.6 SECONDS (12.5-14.3)
[2021-01-12 13:50] LABS: PARTIAL THROMBOPLASTIN TIME 28.3 SECONDS (24.2-38.5)
[2021-01-12 13:54] LABS: BLOOD UREA NITROGEN 5 MG/DL (7-18); CALCIUM LEVEL 10.3 MG/DL (8.8-10.2); CARBON DIOXIDE LEVEL 31 MEQ/L (21-32); CHLORIDE LEVEL 100 MEQ/L (98-107); CREATININE FOR GFR 0.81 MG/DL (0.55-1.30); GLOMERULAR FILTRATION RATE > 60.0 (>45); GLUCOSE, FASTING 108 MG/DL (70-100); POTASSIUM SERUM 3.6 MEQ/L (3.5-5.1); SODIUM LEVEL 134 MEQ/L (136-145)
[2021-01-12 13:55] LABS: ABG BASE EXCESS 3.1 (-2.0-2.0); ABG HCO3 26.7 MEQ/L (22.0-26.0); ABG O2 SATURATION 93.8 % (95.0-99.0); ABG PARTIAL PRESSURE CO2 37.4 mmHg (35.0-45.0); ABG PARTIAL PRESSURE O2 65.8 mmHg (75.0-100.0); ABG STANDARD HCO3 27.1 MEQ/L (22.0-26.0); ABG TOTAL CO2 27.8 MEQ/L (23.0-31.0); ABG pH (ARTERIAL) 7.471 UNITS (7.350-7.450)
--- NOTE | 2021-01-12 14:26 | REP ---
INDICATION: PREOP ROOM 23 COMPARISON: 12/10/2020 TECHNIQUE: PA and lateral. FINDINGS: The mediastinum and cardiac silhouette are normal. The lung ferrer are clear and without acute consolidation, effusion, or pneumothorax. The skeletal structures are intact and normal. IMPRESSION: No acute cardiopulmonary process. <Electronically signed by Nam Peters > 01/12/21 [id number]
[2021-01-12 14:40] LABS: AMORPHOUS SEDIMENT SMALL (NEGATIVE); APPEARANCE, URINE CLOUDY (CLEAR); BACTERIA, URINE AUTO NEGATIVE (NEGATIVE); BILIRUBIN, URINE AUTO NEGATIVE (NEGATIVE); BLOOD, URINE BLOOD NEGATIVE (NEGATIVE); COLOR, URINE YELLOW (YELLOW); GLUCOSE, URINE (UA) AUTO NEGATIVE (NEGATIVE); KETONE, URINE AUTO NEGATIVE (NEGATIVE); LEUKOCYTE ESTERASE, URINE AUTO NEGATIVE (NEGATIVE); NITRITE, URINE AUTO NEGATIVE (NEGATIVE); PROTEIN, URINE AUTO NEGATIVE (NEGATIVE); RBC, URINE AUTO 2 /HPF (0-3); SQUAMOUS EPITHELIAL CELL UR AU 0 /HPF (0-6); UROBILINOGEN, URINE AUTO 0.2 mg/dL (0.0-2.0); WBC, URINE AUTO 2 /HPF (0-3)
--- NOTE | 2021-01-12 17:06 | ECGEPIP ---
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 Decreased heart rate compared with 12/10/2020. Electronically Signed on 01-12-2021 17:05:50 EDT by Lamont Fong
== END ==
LOC: M ADMPAT 12:55
PROVIDERS: ATTEND Thoracic Surgery (Cardiothoracic Vascular Surgery)
DX: Z01.818 Encounter for other preprocedural examination (principal); R91.8 Other nonspecific abnormal finding of lung field; R91.1 Solitary pulmonary nodule

== ENCOUNTER → 2021-01-26 | Outpatient (REF) | payer OTHER ==
[~2021-01-26] MED LIST changes: +ACET650T15 PO; +BUPR150T5 PO; +CALC500C16 PO; +FERR1TAB8 PO; +POLY1POW38 PO; +POTA10TA17 PO; +THIA100T7 PO
[2021-01-26 17:03] LABS: FREE T4 0.75 NG/DL (0.76-1.46); THYROID STIMULATING HORMONE 1.88 uIU/ML (0.358-3.740)
== END ==
LOC: M SFHCCLAY 10:12
PROVIDERS: ATTEND Family Medicine
DX: R00.0 Tachycardia, unspecified (principal)

== ENCOUNTER → 2021-02-05 | Outpatient (CLI) | payer OTHER ==
--- NOTE | 2021-02-05 08:36 | REP ---
INDICATION: SOLITARY PULMONARY NODULE COMPARISON: None TECHNIQUE: Axial noncontrast images from the thoracic inlet to the upper abdomen with coronal and sagittal reformations. This CT examination was performed using the following dose reduction techniques: Automated exposure control, adjustment of mA and/or kv according to the patient's size, and use of iterative reconstruction technique. FINDINGS: The previously identified somewhat triangular/nodular lesion in the right apex with spiculated margin appears to have near completely resolved with only minimal area of residual scarring suggested on current exam. Mild chronic emphysematous changes and subtle scattered chronic changes including small areas of ground-glass opacity primarily noted in the periphery of the right upper lobe and along the medial aspect of the right lower lobe as well as few scattered small bullae and bronchiectasis remain unchanged. No new acute consolidation, significant nodule, or mass lesion. No pleural effusion. No pneumothorax. No axillary, hilar, or mediastinal adenopathy. Atherosclerotic changes to the thoracic aorta and coronary arteries again noted. No cardiomegaly or pericardial effusion. Limited upper abdomen demonstrates normal bilateral adrenal glands. Surrounding osseous structures demonstrate chronic changes without acute process. IMPRESSION: 1. Previously identified spiculated lesion in the right apex has essentially completely resolved with only minimal residual scarring noted on current examination. 2. Chronic emphysematous changes and chronic scattered interstitial changes/scarring similar to prior examination. 3. No acute mediastinal or pleuroparenchymal process. <Electronically signed by Nam Peters > 02/05/21 [id number]
== END ==
LOC: M RAD 07:51
PROVIDERS: ATTEND Thoracic Surgery (Cardiothoracic Vascular Surgery)
DX: R91.1 Solitary pulmonary nodule (principal)

== ENCOUNTER 2021-10-08 09:08 | Inpatient (IN) | payer OTHER ==
[~2021-10-08] VITALS: Ht 157.5 cm; Wt 42.6 kg
[~2021-10-08 09:08] MED LIST changes: -CYAN100050 PO
--- OUTSIDE RECORDS SUMMARY | 2021-10-08 09:15 | CCD ---
Author Author [facility] Organization [facility] Address Unknown Phone Unavailable Care Team Providers Care Quality Assurance Supervisor Chassis Name Role Phone Rut Garibay MD Unavailable Unavailable Rut Garibay MD Unavailable Unavailable Rut Garibay MD Unavailable Unavailable Rut Garibay MD Unavailable Unavailable Rut Garibay MD Unavailable Unavailable Rut Garibay MD Unavailable Unavailable Rut Garibay MD Unavailable Unavailable Rut Garibay MD Unavailable Unavailable Rut Garibay MD Unavailable Unavailable Rut Garibay MD Unavailable Unavailable Rut Garibay MD Unavailable Unavailable Rut Garibay MD Unavailable Unavailable Rut Garibay MD Unavailable Unavailable Rut Garibay MD Unavailable Unavailable Rut Garibay MD Unavailable Unavailable Rut Garibay MD Unavailable Unavailable Rut Garibay MD Unavailable Unavailable Rut Garibay MD Unavailable Unavailable Rut Garibay MD Unavailable Unavailable Rut Garibay MD Unavailable Unavailable Rut Garibay MD Unavailable Unavailable Rut Garibay MD Unavailable Unavailable Rut Garibay MD Unavailable Unavailable Rut Garibay MD Unavailable Unavailable Rut Garibay MD Unavailable Unavailable Rut Garibay MD Unavailable Unavailable Rut Garibay MD Unavailable Unavailable Rut Garibay MD Unavailable Unavailable Rut Garibay MD Unavailable Unavailable Rut Garibay MD Unavailable Unavailable ANN SHAH Unavailable Unavailable PABLO, ANN ALMA PA Unavailable Unavailable PABLO, ANN ALMA PA Unavailable Unavailable PABLO, ANN ALMA PA Unavailable Unavailable PABLO, ANN ALMA PA Unavailable Unavailable PABLO, ANN ALMA PA Unavailable Unavailable PABLO, ANN ALMA PA Unavailable Unavailable PABLO, ANN ALMA PA Unavailable Unavailable PABLO, ANN ALMA PA Unavailable Unavailable PABLO, ANN ALMA PA Unavailable Unavailable PABLO, ANN ALMA PA Unavailable Unavailable PABLO, ANN ALMA PA Unavailable Unavailable PABLO, ANN ALMA PA Unavailable Unavailable PABLO, ANN ALMA PA Unavailable Unavailable PABLO, ANN ALMA PA Unavailable Unavailable PABLO, ANN ALMA PA Unavailable Unavailable PABLO, ANN ALMA PA Unavailable Unavailable PABLO, ANN ALMA PA Unavailable Unavailable PABLO, ANN ALMA PA Unavailable Unavailable PABLO, ANN ALMA PA Unavailable Unavailable PABLO, ANN ALMA PA Unavailable Unavailable PABLO, ANN ALMA PA Unavailable Unavailable ARELLANO SR, TY PEARSON MD Unavailable Unavailable ARELLANO SR, TY PEARSON MD Unavailable Unavailable ARELLANO SR, TY PEARSON MD Unavailable Unavailable ARELLANO SR, TY PEARSON MD Unavailable Unavailable ARELLANO SR, TY PEARSON MD Unavailable Unavailable ARELLANO SR, TY PEARSON MD Unavailable Unavailable ARELLANO SR, TY PEARSON MD Unavailable Unavailable ARELLANO SR, TY PEARSON MD Unavailable Unavailable ARELLANO SR, TY PEARSON MD Unavailable Unavailable ARELLANO SR, TY PEARSON MD Unavailable Unavailable ARELLANO SR, TY PEARSON MD Unavailable Unavailable ARELLANO SR, TY PEARSON MD Unavailable Unavailable ARELLANO SR, TY PEARSON MD Unavailable Unavailable ARELLANO SR, TY PEARSON MD Unavailable Unavailable ARELLANO SR, TY PEARSON MD Unavailable Unavailable ARELLANO SR, TY PEARSON MD Unavailable Unavailable ARELLANO SR, TY PEARSON MD Unavailable Unavailable ARELLANO SR, TY PEARSON MD Unavailable Unavailable ARELLANO SR, TY PEARSON MD Unavailable Unavailable ARELLANO SR, TY PEARSON MD Unavailable Unavailable ARELLANO SR, TY PEARSON MD Unavailable Unavailable ARELLANO SR, TY PEARSON MD Unavailable Unavailable ARELLANO SR, TY PEARSON MD Unavailable Unavailable ARELLANO SR, TY PEARSON MD Unavailable Unavailable ARELLANO SR, TY PEARSNO MD Unavailable Unavailable ARELLANO SR, TY PEARSON MD Unavailable Unavailable ARELLANO SR, TY PEARSON MD Unavailable Unavailable ARELLANO SR, TY PEARSON MD Unavailable Unavailable ARELLANO SR, TY PEARSON MD Unavailable Unavailable ARELLANO SR, TY PEARSON MD Unavailable Unavailable ARELLANO SR, TY PEARSON MD Unavailable Unavailable ARELLANO SR, TY PEARSON MD Unavailable Unavailable ARELLANO SR, TY PEARSON MD Unavailable Unavailable ARELLANO SR, TY PEARSON MD Unavailable Unavailable ARELLANO SR, TY PEARSON MD Unavailable Unavailable ARELLANO SR, TY PEARSON MD Unavailable Unavailable ARELLANO SR, TY PEARSON MD Unavailable Unavailable ARELLANO SR, TY PEARSON MD Unavailable Unavailable ARELLANO SR, TY PEARSON MD Unavailable Unavailable ARELLANO SR, TY PEARSON MD Unavailable Unavailable ARELLANO SR, TY PEARSON MD Unavailable Unavailable ARELLANO SR, TY PEARSON MD Unavailable Unavailable ARELLANO SR, TY PEARSON MD Unavailable Unavailable ARELLANO SR, TY PEARSON MD Unavailable Unavailable ARELLANO SR, TY PEARSON MD Unavailable Unavailable ARELLANO SR, TY PEARSON MD Unavailable Unavailable ARELLANO SR, TY PEARSON MD Unavailable Unavailable ARELLANO SR, TY PEARSON MD Unavailable Unavailable ARELLANO SR, TY PEARSON MD Unavailable Unavailable ARELLANO SR, TY PEARSON MD Unavailable Unavailable ARELLANO SR, TY PEARSON MD Unavailable Unavailable ARELLANO SR, TY PEARSON MD Unavailable Unavailable ARELLANO SR, TY PEARSON MD Unavailable Unavailable ARELLANO SR, TY PEARSON MD Unavailable Unavailable ARELLANO SR, TY PEARSON MD Unavailable Unavailable ARELLANO SR, TY PEARSON MD Unavailable Unavailable Hermann, Dewey Vega MD Unavailable Unavailable Hermann, Dewey Vega MD Unavailable Unavailable Hermann, Dewey Vega MD Unavailable Unavailable Hermann, Dewey Vega MD Unavailable Unavailable Hermann, Dewey Vega MD Unavailable Unavailable Hermann, Dewey Vega MD Unavailable Unavailable Hermann, Dewey Vega MD Unavailable Unavailable Hermann, Dewey Vega MD Unavailable Unavailable Hermann, Dewey Vega MD Unavailable Unavailable Hermann, Dewey Vega MD Unavailable Unavailable Hermann, Dewey Vega MD Unavailable Unavailable Hermann, Dewey Vega MD Unavailable Unavailable Hermann, Dewey Vega MD Unavailable Unavailable Hermann, Dewey Vega MD Unavailable Unavailable Hermann, Dewey Vega MD Unavailable Unavailable Hermann, Dewey Vega MD Unavailable Unavailable Hermann, Dewey Vega MD Unavailable Unavailable Hermann, Dewey Vega MD Unavailable Unavailable Hermann, Dewey Vega MD Unavailable Unavailable Hermann, Dewey Vega MD Unavailable Unavailable Hermann, Dewey Vega MD Unavailable Unavailable Hermann, Dewey Vega MD Unavailable Unavailable Hermann, Dewey Vega MD Unavailable Unavailable Hermann, Dewey Vega MD Unavailable Unavailable Hermann, Dewey Vega MD Unavailable Unavailable Hermann, Dewey Vega MD Unavailable Unavailable Hermann, Dewey Vega MD Unavailable Unavailable Hermann, Dewey Vega MD Unavailable Unavailable Hermann, Dewey Vega MD Unavailable Unavailable Hermann, Dewey Vega MD Unavailable Unavailable Hermann, Dewey Vega MD Unavailable Unavailable Hermann, Dewey Vega MD Unavailable Unavailable Hermann, Dewey Vega MD Unavailable Unavailable Hermann, Dewey Vega MD Unavailable Unavailable Hermann, Dewey Vega MD Unavailable Unavailable Hermann, Dewey Vega MD Unavailable Unavailable AvelinoKade bledsoe PA-C Unavailable Unavailable Avelino, M Mandi PA-C Unavailable Unavailable Avelino, M Mandi PA-C Unavailable Unavailable Avelino, M Mandi PA-C Unavailable Unavailable Avelino, M Mandi PA-C Unavailable Unavailable Avelino, M Mandi PA-C Unavailable Unavailable Avelino, M Mandi PA-C Unavailable Unavailable Avelino, M Mandi PA-C Unavailable Unavailable Avelino, M Mandi PA-C Unavailable Unavailable Avelino, M Mandi PA-C Unavailable Unavailable Avelino, M Mandi PA-C Unavailable Unavailable Avelino, M Mandi PA-C Unavailable Unavailable Avelino, M Mandi PA-C Unavailable Unavailable Avelino, M Mandi PA-C Unavailable Unavailable Avelino, M Mandi PA-C Unavailable Unavailable Avelino, M Mandi PA-C Unavailable Unavailable Avelino, M Mandi PA-C Unavailable Unavailable Avelino, M Mandi PA-C Unavailable Unavailable Avelino, M Mandi PA-C Unavailable Unavailable Avelino, M Mandi PA-C Unavailable Unavailable Avelino, M Mandi PA-C Unavailable Unavailable Avelino, M Mandi PA-C Unavailable Unavailable Avelino, M Mandi PA-C Unavailable Unavailable Avelino, M Mandi PA-C Unavailable Unavailable Avelino, M Mandi PA-C Unavailable Unavailable Avelino, M Mandi PA-C Unavailable Unavailable Avelino, M Mandi PA-C Unavailable Unavailable Avelino, M Mandi PA-C Unavailable Unavailable Avelino, M Mandi PA-C Unavailable Unavailable Avelino, M Mandi PA-C Unavailable Unavailable Avelino, M Mandi PA-C Unavailable Unavailable Avelino, M Mandi PA-C Unavailable Unavailable Avelino, M Mandi PA-C Unavailable Unavailable Avelino, M Mandi PA-C Unavailable Unavailable Avelino, M Mandi PA-C Unavailable Unavailable Avelino, M Mandi PA-C Unavailable Unavailable Avelino, M Mandi PA-C Unavailable Unavailable Avelino, M Mandi PA-C Unavailable Unavailable Cyrus Hills CRYSTAL EVALUATOR Unavailable Unavailable [place], Cyrus Burns CRYSTAL EVALUATOR Unavailable Unavailable Reinier, Cyrus Burns CRYSTAL EVALUATOR Unavailable Unavailable [place], Cyrus Burns CRYSTAL EVALUATOR Unavailable Unavailable Reinier, Cyrus Burns CRYSTAL EVALUATOR Unavailable Unavailable Reinier, Cyrus Burns CRYSTAL EVALUATOR Unavailable Unavailable Reinier, N Grant CRYSTAL EVALUATOR Unavailable Unavailable Reinier, N Grant CRYSTAL EVALUATOR Unavailable Unavailable Reinier, N Grant CRYSTAL EVALUATOR Unavailable Unavailable Reinier, N Grant CRYSTAL EVALUATOR Unavailable Unavailable Reinier, N Grant CRYSTAL EVALUATOR Unavailable Unavailable [place], N Grant CRYSTAL EVALUATOR Unavailable Unavailable Reinier, N Grant CRYSTAL EVALUATOR Unavailable Unavailable [place], N Grant CRYSTAL EVALUATOR Unavailable Unavailable [place], N Grant CRYSTAL EVALUATOR Unavailable Unavailable Reinier, N Grant CRYSTAL EVALUATOR Unavailable Unavailable Reinier, N Grant CRYSTAL EVALUATOR Unavailable Unavailable Reinier, N Grant CRYSTAL EVALUATOR Unavailable Unavailable Reinier, N Grant CRYSTAL EVALUATOR Unavailable Unavailable [place], N Grant CRYSTAL EVALUATOR Unavailable Unavailable [place], N Grant CRYSTAL EVALUATOR Unavailable Unavailable Reinier, N Grant CRYSTAL EVALUATOR Unavailable Unavailable [place], N Grant CRYSTAL EVALUATOR Unavailable Unavailable [place], N Grant CRYSTAL EVALUATOR Unavailable Unavailable [place], N Grant CRYSTAL EVALUATOR Unavailable Unavailable [place], N Grant CRYSTAL EVALUATOR Unavailable Unavailable [place], N Grant CRYSTAL EVALUATOR Unavailable Unavailable [place], N Grant CRYSTAL EVALUATOR Unavailable Unavailable [place], N Grant CRYSTAL EVALUATOR Unavailable Unavailable Reinier, N Grant CRYSTAL EVALUATOR Unavailable Unavailable Reinier, N Grant CRYSTAL EVALUATOR Unavailable Unavailable Reinier, N Grant CRYSTAL EVALUATOR Unavailable Unavailable [place], N Grant CRYSTAL EVALUATOR Unavailable Unavailable PABLO, ANN ALMA PA Unavailable Unavailable PABLO, ANN ALMA PA Unavailable Unavailable PABLO, ANN ALMA PA Unavailable Unavailable PABLO, ANN ALMA PA Unavailable Unavailable PABLO, ANN ALMA PA Unavailable Unavailable PABLO, ANN ALMA PA Unavailable Unavailable PABLO, ANN ALMA PA Unavailable Unavailable PABLO, ANN ALMA PA Unavailable Unavailable PABLO, ANN ALMA PA Unavailable Unavailable PABLO, ANN ALMA PA Unavailable Unavailable PABLO, ANN ALMA PA Unavailable Unavailable PABLO, ANN ALMA PA Unavailable Unavailable PABLO, ANN ALMA PA Unavailable Unavailable PABLO, ANN ALMA PA Unavailable Unavailable PABLO, ANN ALMA PA Unavailable Unavailable PABLO, ANN ALMA PA Unavailable Unavailable PABLO, ANN ALMA PA Unavailable Unavailable PABLO, ANN ALMA PA Unavailable Unavailable PABLO, ANN ALMA PA Unavailable Unavailable PABLO, ANN ALMA PA Unavailable Unavailable PABLO, ANN ALMA PA Unavailable Unavailable PABLO, ANN ALMA PA Unavailable Unavailable Re-disclosure Warning The records that you are about to access may contain information from federally-assisted alcohol or drug abuse programs. If such information is present, then the following federally mandated warning applies: This information has been disclosed to you from records protected by federal confidentiality rules (42 CFR part 2). The federal rules prohibit you from making any further disclosure of this information unless further disclosure is expressly permitted by the written consent of the person to whom it pertains or as otherwise permitted by 42 CFR part 2. A general authorization for the release of medical or other information is NOT sufficient for this purpose. The Federal rules restrict any use of the information to criminally investigate or prosecute any alcohol or drug abuse patient.The records that you are about to access may contain highly sensitive health information, the redisclosure of which is protected by Article 27-F of the [facility] Public Health law. If you continue you may have access to information: Regarding HIV / AIDS; Provided by facilities licensed or operated by the [facility] Office of Mental Health; or Provided by the [facility] Office for People With Developmental Disabilities. If such information is present, then the following [facility] mandated warning applies: This information has been disclosed to you from confidential records which are protected by state law. State law prohibits you from making any further disclosure of this information without the specific written consent of the person to whom it pertains, or as otherwise permitted by law. Any unauthorized further disclosure in violation of state law may result in a fine or residential sentence or both. A general authorization for the release of medical or other information is NOT sufficient authorization for further disc losure. Allergies and Adverse Reactions Type Description Substance Reaction Status Data Source(s ) Propensity to adverse reactions FENTANYL Fentanyl Rash Low Acti ve [facility] Low Family History Family Member Name Family Member Gender Family Member Status Date o f Status Description Data Source(s) Unknown Unknown Problem MEDENT ([facility]) Unknown Unknown Problem MEDENT ([facility]) Unknown Female Problem MEDENT ([facility]) Encounters Encounter Providers Location Date Indications Data Source(s ) Outpatient Attender: ALMA REDMAN [id number] 10:09:00 AM [facility] Emergency Attender: ALMA JUANeferrer: Kade You PA-C EMERGENCY ROOM-ER 09/07/2021 02:27:00 PM EST - 09/07/2021 05:42:00 PM [facility] Patient discharged. Unknown [address] [facility] [address] 06/08/2021 12:00:00 AM EDT eCW1 ([facility]) Unknown [address] [facility] [address] 05/14/2021 12:00:00 AM EDT eCW1 ([facility]) Outpatient [address] [facility] [facility] [address] 04/28/2021 12:00:00 AM EDT eCW1 ([facility]) Outpatient Attender: Mandi Gonzales: MICHEL ELAINE SR 04/26/2021 10:00:00 AM EDT [facility] Outpatient [facility] 04/23/2021 12:00:00 AM EDT eCW1 ([facility]) Outpatient [facility] 04/23/2021 12:00:00 AM EDT eCW1 ([facility]) Outpatient Attender: Rut Rogers/Franki/Eron/Titi ndl 04/22/2021 10:30:00 AM EDT MEDENT ([facility]) [place] [address] [facility] [address] 04/22/2021 12:00:00 AM EDT eCW1 ([facility]) Outpatient Attender: Gary Rogers/Franki/Eron/Re indl 02/11/2021 09:45:00 AM EDT MEDENT ([facility]) Outpatient [address] [facility] [address] 01/26/2021 12:00:00 AM EDT eCW1 ([facility]) Outpatient Attender: Gary Rogers/Franki/Eron/Re indl 01/14/2021 09:15:00 AM EDT MEDENT ([facility]) Outpatient Attender: Gary Rogers/Franki/Eron/Re indl 12/24/2020 08:15:00 AM EST MEDENT ([facility]) Outpatient Attender: Gary Rogers/Franki/Eron/Re indl 11/19/2020 08:45:00 AM EST MEDENT ([facility]) Outpatient Referrer: [place] NP [email or web address] 021 12:00:00 AM EST - 11/10/2020 11:48:51 AM EST [facility] Outpatient Attender: Grant KING.[email or web address] 021 01:40:23 PM EST - 11/04/2020 10:47:25 AM EST [facility] Outpatient Referrer: Grant KING.[email or web address] 11/03/2020 12 :00:00 AM [facility] Outpatient Attender: Gary Rogers/Franki/Eron/Re indl 10/08/2020 08:45:00 AM EST MEDENT ([facility] ) Outpatient Attender: Gary Mccrary MD 10/02/2020 08:05:00 AM [facility] Admission cancelled. Disregard status an d admitted date. Outpatient Attender: Rut Garibay MDReferrer: ELMER ARELLANO SR EMERGENCY ROOM-LABOTHPROV 10/02/2020 08:02:00 AM EST - 10/02/2020 08:02:00 AM [facility] Outpatient Attender: Gary Rogers/Franki/Eron/Re indl 08/13/2020 10:45:00 AM EDT MEDENT ([facility]) Outpatient Attender: MICHEL ARELLANO SRReferrer: ELMER ARELLANO SR EMERGENCY ROOM-LAB 07/14/2020 11:05:00 AM EDT - 07/14/2020 11:05:00 AM [facility] Outpatient Attender: MICHEL ARELLANO SRReferrer: ELMER ARELLANO SR EMERGENCY ROOM-LAB 06/29/2020 03:04:00 PM EDT - 06/29/2020 03:04:00 PM [facility] Outpatient Attender: MICHEL ARELLANO SR 06/19/2020 03:30:00 PM [facility] Outpatient Attender: MICHEL RAELLANO SRReferrer: MICHEL Dudley SR 04/24/2020 08:30:00 AM [facility] Outpatient Attender: MICHEL ARELLANO SR 04/17/2020 09:55:00 AM [facility] Outpatient Attender: Rut Garibay MDReferrer: MICHEL Dudley SR 04/22/2019 10:00:00 AM [facility] Outpatient Attender: MICHEL ARELLANO SRReferrer: MICHEL Dudley SR 02/04/2019 09:00:00 AM EDT - 02/04/2019 09:00:00 AM [facility] Outpatient Attender: MICHEL ARELLANO SRReferrer: MICHEL Dudley SR 01/10/2019 12:53:00 PM EDT - 01/10/2019 12:53:00 PM [facility] Immunizations Vaccine Date Status Description Data Source(s) COVID-19 dose #2 given elsewhere Unspecified 03/03/2021 09:2 8:00 AM EDT completed eCW1 ([facility]) COVID-19 dose #2 given elsewhere Unspecified 03/03/2021 09:2 8:00 AM EDT completed eCW1 ([facility]) COVID-19 dose #2 given elsewhere Unspecified 03/03/2021 09:2 8:00 AM EDT completed eCW1 ([facility]) COVID-19 VACCINE Moderna 03/03/2021 12:00:00 AM EDT completed [employer] Vaccine Series Complete: YESThis Data wa s Submitted to [facility] Via [employer]. COVID-19 dose #1 given elsewhere Unspecified 02/03/2021 09:2 7:00 AM EDT completed eCW1 ([facility]) COVID-19 dose #1 given elsewhere Unspecified 02/03/2021 09:2 7:00 AM EDT completed eCW1 ([facility]) COVID-19 dose #1 given elsewhere Unspecified 02/03/2021 09:2 7:00 AM EDT completed eCW1 ([facility]) COVID-19 VACCINE Moderna 02/03/2021 12:00:00 AM EDT completed [employer] Vaccine Series Complete: NOThis Data was Submitted to [facility] Via [employer]. Medications Medication Brand Name Start Date Product Form Dose Route Admi nistrative Instructions Pharmacy Instructions Status Indications Reaction Description Data Source(s) 60 ACTUAT olodaterol 0.0025 MG/ACTUAT / tiotropium 0.0025 MG/ACTUAT Metered Dose Inhaler [Stiolto] 2.5-2.5 mcg/actuation TIOTROPIUM BR/OLODATEROL HCL 07/06/2021 12:00:00 AM EDT mist 4 INHALE 2 PUFFS BY MOUTH O NCE DAILY INHALE 2 PUFFS BY MOUTH ONCE DAILY SOLD: 07/11/2021 [facility] 600 mg 06/09/2021 12:00:00 AM EDT tablet 270 TAKE ONE TABLET BY MOUTH THREE TIMES A DAY TAKE ONE TABLET BY MOUTH THREE TIMES A DAY SOLD: 06/10/2021 [facility] 14 mg/24 hr 04/28/2021 12:00:00 AM EDT patch 24 hour 14 APPLY 1 PATCH TRANSDERMALLY TO SKIN ONCE DAILY APPLY 1 PATCH TRANSDERMALLY TO SKIN ONCE DAILY SOLD: 05/03/2021 [facility] 25 mg 04/22/2021 12:00:00 AM EDT tablet extended release 24 hr 10 TAKE ONE TABLET BY MOUTH ONCE DAILY TAKE ONE TABLET BY MOUTH ONCE DAILY SOLD: 07/11/2021 [facility] 25 mg 04/22/2021 12:00:00 AM EDT tablet extended release 24 hr 90 TAKE ONE TABLET BY MOUTH ONCE DAILY TAKE ONE TABLET BY MOUTH ONCE DAILY SOLD: 07/28/2021 [facility] 25 mg 04/22/2021 12:00:00 AM EDT tablet extended release 24 hr 90 TAKE ONE TABLET BY MOUTH ONCE DAILY TAKE ONE TABLET BY MOUTH ONCE DAILY SOLD: 04/22/2021 [facility] 600 mg 02/01/2021 12:00:00 AM EDT tablet 90 TAKE 1 TABLET BY MOUTH THREE TIMES A DAY TAKE 1 TABLET BY MOUTH THREE TIMES A DAY SOLD: 03/15/2021 [facility] 600 mg 02/01/2021 12:00:00 AM EDT tablet 90 TAKE 1 TABLET BY MOUTH THREE TIMES A DAY TAKE 1 TABLET BY MOUTH THREE TIMES A DAY SOLD: 02/01/2021 [facility] 600 mg 02/01/2021 12:00:00 AM EDT tablet 90 TAKE 1 TABLET BY MOUTH THREE TIMES A DAY TAKE 1 TABLET BY MOUTH THREE TIMES A DAY SOLD: 04/27/2021 [facility] 25 mg 11/03/2020 12:00:00 AM EST tablet extended release 24 hr 30 TAKE 1 TABLET BY MOUTH ONCE DAILY TAKE 1 TABLET BY MOUTH ONCE DAILY SOLD: 03/20/2021 [facility] 25 mg 11/03/2020 12:00:00 AM EST tablet extended release 24 hr 30 TAKE 1 TABLET BY MOUTH ONCE DAILY TAKE 1 TABLET BY MOUTH ONCE DAILY SOLD: 12/29/2020 [facility] 25 mg 11/03/2020 12:00:00 AM EST tablet extended release 24 hr 30 TAKE 1 TABLET BY MOUTH ONCE DAILY TAKE 1 TABLET BY MOUTH ONCE DAILY SOLD: 02/22/2021 [facility] 24 HR metoprolol succinate 25 MG Extende d Release Oral Tablet metoprolol succinate (TOPROL-XL) 25 MG 24 hr tablet metoprolol succinate (TOPROL-XL) 25 MG 24 hr tablet 11/03/2020 12:00:00 AM EST 25 mg Oral activ e Take 1 tablet (25 mg total) by mouth daily [facility] 25 mg 11/03/2020 12:00:00 AM EST tablet extended release 24 hr 30 TAKE 1 TABLET BY MOUTH ONCE DAILY TAKE 1 TABLET BY MOUTH ONCE DAILY SOLD: 01/25/2021 [facility] 25 mg 11/03/2020 12:00:00 AM EST tablet extended release 24 hr 30 TAKE 1 TABLET BY MOUTH ONCE DAILY TAKE 1 TABLET BY MOUTH ONCE DAILY SOLD: 12/03/2020 [facility] 25 mg 11/03/2020 12:00:00 AM EST tablet extended release 24 hr 30 TAKE 1 TABLET BY MOUTH ONCE DAILY TAKE 1 TABLET BY MOUTH ONCE DAILY SOLD: 11/03/2020 [facility] KLOR-CON M10 10 MEQ tablet 26260-992-22 10/29/2020 12:00:00 AM EST 10 meq Oral active Take 10 mEq by mouth 2 (two) times a day [facility] Folic Acid 1 MG Oral Tablet folic acid (FOLVITE) 1 MG tablet folic acid (FOLVITE) 1 MG tablet 10/28/2020 12:00:00 AM EST 1000 ug Oral active Take 1,000 mcg by mouth daily [facility] STIOLTO RESPIMAT 2.5-2.5 MCG/ACT AERS 9802-0813-20 10/24/2020 12:00 :00 AM EST active INHALE 2 PUFFS BY MOUTH ONCE DAILY [facility] 875-125 mg 10/12/2020 12:00:00 AM EST tablet 20 TAKE ONE TABLET BY MOUTH TWICE A DAY TAKE ONE TABLET BY MOUTH TWICE A DAY SOLD: 10/12/2020 [facility] 600 mg 08/06/2020 12:00:00 AM EDT tablet 270 TAKE ONE TABLET BY MOUTH THREE TIMES A DAY TAKE ONE TABLET BY MOUTH THREE TIMES A DAY SOLD: 11/06/2020 [facility] 14 mg/24 hr 08/06/2020 12:00:00 AM EDT patch 24 hour 28 APPLY 1 PATCH TOPICALLY EVERY DAY. MOVE PATCH TO A DIFFERENT AREA OF THE SKIN FOR EACH APPLICATION APPLY 1 PATCH TOPICALLY EVERY DAY. MOVE PATCH TO A DIFFERENT AREA OF THE SKIN FOR EACH APPLICATION SOLD: 01/14/2021 [facility] 1 mg 07/22/2020 12:00:00 AM EDT tablet 90 TAKE ONE TABLET BY MOUTH EVERY DAY TAKE ONE TABLET BY MOUTH EVERY DAY SOLD: 10/30/2020 [facility] 1 mg 07/22/2020 12:00:00 AM EDT tablet 30 TAKE ONE TABLET BY MOUTH EVERY DAY TAKE ONE TABLET BY MOUTH EVERY DAY SOLD: 02/03/2021 [facility] 1 mg 07/22/2020 12:00:00 AM EDT tablet 30 TAKE ONE TABLET BY MOUTH EVERY DAY TAKE ONE TABLET BY MOUTH EVERY DAY SOLD: 03/07/2021 [facility] 10 mEq 07/22/2020 12:00:00 AM EDT tablet,ER particles/cry stals 180 TAKE ONE TABLET BY MOUTH TWICE A DAY WITH FOOD TAKE ONE TABLET BY MOUTH TWICE A DAY WIT H FOOD SOLD: 10/30/2020 [facility] 1 mg 07/22/2020 12:00:00 AM EDT tablet 30 TAKE ONE TABLET BY MOUTH EVERY DAY TAKE ONE TABLET BY MOUTH EVERY DAY SOLD: 06/10/2021 [facility] 1 mg 07/22/2020 12:00:00 AM EDT tablet 30 TAKE ONE TABLET BY MOUTH EVERY DAY TAKE ONE TABLET BY MOUTH EVERY DAY SOLD: 05/09/2021 [facility] 1 mg 07/22/2020 12:00:00 AM EDT tablet 30 TAKE ONE TABLET BY MOUTH EVERY DAY TAKE ONE TABLET BY MOUTH EVERY DAY SOLD: 07/11/2021 [facility] 10 mEq 07/22/2020 12:00:00 AM EDT tablet,ER particles/cry stals 60 TAKE ONE TABLET BY MOUTH TWICE A DAY WITH FOOD TAKE ONE TABLET BY MOUTH TWICE A DAY WIT H FOOD SOLD: 05/26/2021 [facility] 10 mEq 07/22/2020 12:00:00 AM EDT tablet,ER particles/cry stals 60 TAKE ONE TABLET BY MOUTH TWICE A DAY WITH FOOD TAKE ONE TABLET BY MOUTH TWICE A DAY WIT H FOOD SOLD: 06/28/2021 [facility] 10 mEq 07/22/2020 12:00:00 AM EDT tablet,ER particles/cry stals 60 TAKE ONE TABLET BY MOUTH TWICE A DAY WITH FOOD TAKE ONE TABLET BY MOUTH TWICE A DAY WIT H FOOD SOLD: 04/24/2021 [facility] 10 mEq 07/22/2020 12:00:00 AM EDT tablet,ER particles/cry stals 60 TAKE ONE TABLET BY MOUTH TWICE A DAY WITH FOOD TAKE ONE TABLET BY MOUTH TWICE A DAY WIT H FOOD SOLD: 03/26/2021 [facility] 10 mEq 07/22/2020 12:00:00 AM EDT tablet,ER particles/cry stals 60 TAKE ONE TABLET BY MOUTH TWICE A DAY WITH FOOD TAKE ONE TABLET BY MOUTH TWICE A DAY WIT H FOOD SOLD: 01/14/2021 [facility] 1 mg 07/22/2020 12:00:00 AM EDT tablet 30 TAKE ONE TABLET BY MOUTH EVERY DAY TAKE ONE TABLET BY MOUTH EVERY DAY SOLD: 04/09/2021 [facility] 2.5-2.5 mcg/actuation 06/10/2020 12:00:00 AM EDT mist 4 INHALE 2 PUFFS BY MOUTH ONCE DAILY INHALE 2 PUFFS BY MOUTH ONCE DAILY SOLD: 09/16/2020 [facility] 60 ACTUAT olodaterol 0.0025 MG/ACTUAT / tiotropium 0.0025 MG/ACTUAT Metered Dose Inhaler [Stiolto] 2.5-2.5 mcg/actuation TIOTROPIUM BR/OLODATEROL HCL 06/10/2020 12:00:00 AM EDT mist 4 INHALE 2 PUFFS BY MOUTH ONCE DAILY INHALE 2 PUFFS BY MOUTH ONCE DAILY SOLD: 04/24/2021 [facility] 2.5-2.5 mcg/actuation 06/10/2020 12:00:00 AM EDT mist 4 INHALE 2 PUFFS BY MOUTH ONCE DAILY INHALE 2 PUFFS BY MOUTH ONCE DAILY SOLD: 10/28/2020 [facility] 2.5-2.5 mcg/actuation 06/10/2020 12:00:00 AM EDT mist 4 INHALE 2 PUFFS BY MOUTH ONCE DAILY INHALE 2 PUFFS BY MOUTH ONCE DAILY SOLD: 12/12/2020 [facility] 60 ACTUAT olodaterol 0.0025 MG/ACTUAT / tiotropium 0.0025 MG/ACTUAT Metered Dose Inhaler [Stiolto] 2.5-2.5 mcg/actuation TIOTROPIUM BR/OLODATEROL HCL 06/10/2020 12:00:00 AM EDT mist 4 INHALE 2 PUFFS BY MOUTH ONCE DAILY INHALE 2 PUFFS BY MOUTH ONCE DAILY SOLD: 03/15/2021 [facility] 2.5-2.5 mcg/actuation 06/10/2020 12:00:00 AM EDT mist 4 INHALE 2 PUFFS BY MOUTH ONCE DAILY INHALE 2 PUFFS BY MOUTH ONCE DAILY SOLD: 01/16/2021 [facility] 150 mg 04/17/2020 12:00:00 AM EDT tablet sustained-releas e 12 hr 60 TAKE ONE TABLET BY MOUTH EVERY MORNING FOR 3 DAYS THEN INCREASE TO TWO TIMES A DAY TAKE ONE TABLET BY MOUTH EVERY MORNING FOR 3 DAYS THEN INCREASE TO TWO TIMES A DAY SOLD: 08/25/2020 [facility] 80 mg 02/06/2020 12:00:00 AM EDT tablet,chewable 120 CHEW ONE TABLET BY MOUTH FOUR TIMES A DAY AFTER MEALS AND AT BEDTIME NEEDED CHEW ONE TABLET BY MOUTH FOUR TIMES A DAY AFTER MEALS AND AT BEDTIME NEEDED SOLD: 01/28/2021 [facility] Insurance Providers Payer name Policy type / Coverage type Policy ID Covered constitution party ID Covered constitution party's relationship to stephenson Policy Stephenson Plan Information [facility] (in) Commercial [id number] Self MEDICAID [id number] SP [id number] [facility] COMMUNITY PLAN [facility] [id number] SP [id number] [facility] COMMUNITY PLAN [facility] [id number] SP [id number] [facility] MEDICAID [id number] S [id number] [facility] Health Maintenance Organization (HMO) [id number] Self [id number] [facility] COMMUNITY PLAN MCDO [id number] SP [id number] [facility] MEDICAID [id number] S [id number] [facility] MEDICAID [id number] S [id number] [facility] [id number] [facility] [id number] [facility] [id number] xxxxxxxxx [id number] [facility] MEDICAID [id number] S [id number] ANS-Medicaid [id number] ANSI-Medicaid [id number] ANSI-Medicaid [id number] ANSI-Medicaid [id number] [facility] O [id number] S [id number] [facility] Health Maintenance Organization (HMO) [id number] Self [id number] [facility] Health Maintenance Organization (HMO) [id number] Self [id number] [facility] Health Maintenance Organization (HMO) [id number] Self [id number] MEDICAID M [id number] S [id number] [facility] O [id number] S [id number] ANSI-Medicaid [id number] [facility] [id number] SP [id number] [facility] MEDICAID [id number] S [id number] [facility] O [id number] S [id number] ANSI-Medicaid [id number] ANSI-Medicaid [id number] ANSI-Medicaid [id number] ANSI-Medicaid [id number] ANSI-Medicaid [id number] [facility] [id number] SP [id number] ANSI-Medicaid [id number] ANSI-Medicaid [id number] Problems, Conditions, and Diagnoses Code Display Name Description Problem Type Effective Dates Data Source(s) 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 THER CUSTODIAL (CURRENT) DRUG THERAPY Diagnosis 09/07/2021 02:27:00 PM [facility] l Z20.822 CONTACT WITH AND (SUSPECTED) EXPOSURE TO COVID-19 CONTACT WITH AND (SUSPECTED) EXPOSURE TO COVID-19 Diagnosis 09/07/2021 02:27:00 PM [facility] J90 Pleural effusion, not elsewhere classifi ed PLEURAL EFFUSION, NOT ELSEWHERE CLASSIFIED Diagnosis 09/07/2021 02:27:00 PM [facility] J44.9 Chronic obstructive pulmonary disease, u nspecified CHRONIC OBSTRUCTIVE PULMONARY DISEASE, UNSPECIFIED Diagnosis 09/07/2021 02:27:00 PM [facility] I10 Essential (primary) hypertension ESSENTIAL (PRIMARY) H YPERTENSION Diagnosis 09/07/2021 02:27:00 PM [facility] M25.552 Pain in left hip PAIN IN LEFT HIP Diagnosis 09/07/2021 02 :27:00 PM [facility] M25.551 Pain in right hip PAIN IN RIGHT HIP Diagnosis 09/07 02:27:00 PM [facility] E83.42 Hypomagnesemia HYPOMAGNESEMIA Diagnosis 09/07/2021 02:27: 00 PM [facility] R53.1 Weakness WEAKNESS Diagnosis 09/07/2021 02:27:00 PM [facility] Z12.31 Encounter for screening mammogram for ma lignant neoplasm of breast ENCNTR SCREEN MAMMOGRAM FOR MALIGNANT NEOPLASM OF BREAST Diagnosis 10:00:00 AM [facility] 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 I25.10 Atherosclerotic heart diseas e of [place] coronary artery without angina pectoris Atherosclerotic heart disease of [place] Diagnosis 11/10/2020 07:34:14 AM [facility] R94.31 Abnormal electrocardiogram [ECG] [EKG] A bnormal electrocardiogram (ECG) (EKG) Diagnosis 11/10/2020 07:34:14 AM [facility] R00.0 Tachycardia, unspecified Tachycardia, unspecified Diag nosis 11/10/2020 07:34:14 AM [facility] Z01.810 Encounter for preprocedural cardiovascul ar examination Encounter for preprocedural cardiovascul Diagnosis 11/10/2020 07:34:14 AM [facility] Z01.812 Encounter for preprocedural laboratory e xamination ENCOUNTER FOR PREPROCEDURAL LABORATORY EXAMINATION Diagnosis 10/19/2020 12:00:00 AM [facility] R41.3 [id number] Memory impairment Problem 05/14/2021 12:00:0 0 AM EDT eCW1 ([facility]) J44.9 [id number] COPD (chronic obstru ctive pulmonary disease) case management patient Problem 01/26/2021 12:00:00 AM EDT eCW1 ([facility]) R91.1 [id number] Pulmonary nodule Problem 01/26/2021 12:00:00 AM EDT eCW1 ([facility]) G62.9 [id number] Peripheral polyneuropathy Problem 01/26/2021 12:00:00 AM EDT eCW1 ([facility]) R94.31 Abnormal ECG Abnormal ECG [id number] 11/03/2020 12:00:00 A M [facility] R00.0 Sinus tachycardia Sinus tachycardia [id number] 11/03/2020 12:00:00 AM [facility] Z01.810 Preop cardiovascular exam Preop cardiovascular exam [id number] 11/03/2020 12:00:00 AM [facility] I25.10 Coronary artery calcification Coronary artery calcific ation [id number] 11/03/2020 12:00:00 AM [facility] Surgeries/Procedures Procedure Description Date Indications Data Source(s) OFFICE OUTPATIENT VISIT 25 MINUTES 04/22/2021 12:00:00 AM EDJad CORDERO ([facility], ) OFFICE OUTPATIENT VISIT 25 MINUTES 02/11/2021 12:00:00 AM EDT MEDVI ([facility], ) OFFICE OUTPATIENT VISIT 25 MINUTES 01/14/2021 12:00:00 AM EDT [facility] ([facility], ) OFFICE OUTPATIENT VISIT 25 MINUTES 12/24/2020 12:00:00 AM EST [facility] ([facility], ) OFFICE OUTPATIENT VISIT 25 MINUTES 11/19/2020 12:00:00 AM EST [facility] ([facility], ) ECG ROUTINE ECG W/LEAST 12 LDS W/I&R <td>POCT AMB EKG</td><td>Routine</td><td>11/03/2020 2:04 PM EST</td><td> Preop cardiovascular exam</td><td> </td> 11/03/2020 07:04:00 PM EST Preop cardiovascular exam [facility] Preop cardiovascular exam Bronchospasm Evaluation 10/08/2020 12:00:00 AM EST [facility] ([facility], ) Maximum Breathing Capacity, Maximal Voluntary Ventilation 10/08/2020 12:00:00 AM EST [facility] ([facility], ) Plethysmography Determination Lung Volumes & Per Airway Resi st 10/08/2020 12:00:00 AM EST [facility] ([facility], ) DIFFUSING CAPACITY 10/08/2020 12:00:00 AM EST [facility] ([facility], ) Results ID Date Data Source [id number] 09/14/2021 08:19:00 AM EST [facility] Name Value Range Interpretation Code Description Data Ansley rce(s) Supporting Document(s) [facility] ID Date Data Source [id number] 09/07/2021 07:17:00 PM EST [facility] Patient: ADAN PRATER Observation Report - [facility].VisitID: [id number] [place] [address] [phone], [facility] Date/Time: 09/07/2021 14:01 Weight:39.7 kg (M). Height/Length:62 inches. 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 Additional Surgeries:Carpal Tunnel Surgery.Cataract Surgery.Colon surgery.Lasik.Scar tissue removal from abdomen.Tonsillectomy. Medications:Nicotine Transdermal (Patch 24 Hour 14 mg/24hr), daily.Colace Oral (Capsule 100 mg) 1 capsule, daily, last dose today.Calcium Carbonate Oral (Tablet Chewable 1250 (500 Ca) mg) 1 tablet, daily, last dose today.Multi For Her Oral 1 tab, daily, last dose today.Iron Oral (Tablet 325 (65 Fe) mg) 1 tablet, daily, last dose today.Vitamin B1 100mg, daily at bedtime, last dose today.Stiolto Respimat Inhalation (Aerosol Solution 2.5-2.5 mcg/act) 2 puffs, daily, last dose today.Gabapentin Oral (Tablet 600 mg) 1 tablet, 3x a day, last dose today.Metoprolol Succinate ER Oral (Tablet Extended Release 24 Hour 25 mg) 1 tablet, daily.Klor-Con 10 Oral (Tablet Extended Release 10 meq) 1 tablet, 2x a day, last dose today.Folic Acid Oral 1 mg, daily, last dose today. Allergies:Fentanyl.(itching, jittery, rash). FAMILY HISTORYNo significant family medical history. (Electronically signed by Alma Balderas, P.AVick 09/07/2021 19:12) Name Value Range Interpretation Code Description Data Ansley rce(s) Supporting Document(s) ID Date Data Source [id number] 09/07/2021 03:58:00 PM [facility] DATE OF EXAMINATION: 09/07/2021 14:[address] BRAIN W/O CONTRAST HISTORY: Dizziness TECHNIQUE: This CT exam was performed using the following dose reduction techniques:automatic exposure control, adjustment of mA and/or kV according to thepatient's size, and use of iterative reconstruction technique. Standard contiguous axial spiral imaging was obtained from the skull basethrough the vertex without contrast administration and with coronalreformatting. FINDINGS: BRAIN: Mild atrophy and chronic deep white matter ischemic changes are noted.There are no parenchymal hematomas or extra-axial collections. There is no masseffect or midline shift. IMPRESSION: Mild atrophy and chronic deep white matter ischemic changes. Electronically signed in PS360 by: Savannah Kraft M.D. 09/07/2021 15:52 EST Name Value Range Interpretation Code Description Data Ansley rce(s) Supporting Document(s) ID Date Data Source [id number] 09/07/2021 03:57:00 PM EST [facility] DATE OF EXAMINATION: 09/07/2021 14:09 EST CHEST 1 VIEW HISTORY: Dizziness TECHNIQUE: Single frontal radiograph of chest COMPARISON: CT scan of 04/22/2019 FINDINGS: Minimal left-sided pleural effusion is noted. Lungs are clear. Heart is normalin size. IMPRESSION: Minimal left-sided effusion. Electronically signed in PS360 by: Savannah Kraft M.D. 09/07/2021 15:52 EST Name Value Range Interpretation Code Description Data Ansley rce(s) Supporting Document(s) ID Date Data Source [id number] 09/14/2021 08:15:00 AM EST [facility] Name Value Range Interpretation Code Description Data Ansley rce(s) Supporting Document(s) [facility] ID Date Data Source [id number] 09/07/2021 03:25:00 PM EST [facility] TSYSORDER [id number] Name Value Range Interpretation Code Description Data Ansley rce(s) Supporting Document(s) LACTIC ACID 1.8 mmol/L 0.4-2.0 [facility] ID Date Data Source [id number] 09/07/2021 03:15:00 PM EST [facility] TSYSORDER [id number] Name Value Range Interpretation Code Description Data Ansley rce(s) Supporting Document(s) TSH 6.551 uIU/mL 0.358-3.740 H [facility] ID Date Data Source [id number] 09/07/2021 02:52:00 PM EST [facility] TSYSORDER [id number] Name Value Range Interpretation Code Description Data Ansley rce(s) Supporting Document(s) WHITE BLOOD COUNT 6.5 K/mm3 4.0-10.0 [facility] RED BLOOD COUNT 2.93 M/mm3 4.00-5.50 [facility] HEMOGLOBIN 10.9 gm/dL 12.0-16.0 [facility] HEMATOCRIT 32.8 % 36.0-48.8 L [facility] MEAN CELL VOLUME 111.9 fl 80-96 *H [facility] MEAN CORPUSCULAR HEMOGLOBIN 37.2 pg 27.0-31.0 H [facility] MEAN CORPUSCULAR HGB CONC 33.2 g/dl 32.0-36.0 [facility] RED CELL DISTRIBUTION WIDTH 12.0 % 10.0-14.5 [facility] PLATELET COUNT 279 K/mm3 172-450 [facility] MEAN PLATELET VOLUME 10.4 fl 9.0-13.0 [facility] pital GRAN % 61.8 % 50-80.0 [facility] IG% 0.2 % 0.0-0.2 [facility] LYMPH % 31.5 % 25.0-50.0 [facility] MONO % 6.0 % 2.0-10.0 [facility] EOS % 0.2 % 0-5.0 [facility] BASO % 0.3 % 0.0-2.0 [facility] GRAN # 4.0 K/mm3 2.0-8.00 [facility] IG# 0.0 K/mm3 0.0-0.2 [facility] LYMPH # 2.0 K/mm3 1.0-5.0 [facility] MONO # 0.4 K/mm3 0.10-1.20 [facility] EOS # 0.0 K/mm3 0.0-0.5 [facility] BASO # 0.0 K/mm3 0.0-0.2 [facility] ID Date Data Source [id number] 09/07/2021 02:05:00 PM EST [facility] Name Value Range Interpretation Code Description Data Ansley rce(s) Supporting Document(s) COVID-19 NEGATIVE [facility] This lab was ordered by [facility] and reported by [facility]. ID Date Data Source [id number] 09/07/2021 03:41:00 PM EST [facility] l TSYSORDER [id number] Name Value Range Interpretation Code Description Data Ansley rce(s) Supporting Document(s) MAGNESIUM 1.2 mg/dL 1.8-2.4 L [facility] ID Date Data Source [id number] 09/07/2021 03:41:00 PM EST [facility] TSYSORDER [id number] Name Value Range Interpretation Code Description Data Anlsey rce(s) Supporting Document(s) TROPONIN-HIGH SENSITIVITY 17.7 ng/L 0-60.4 [facility] ID Date Data Source [id number] 09/07/2021 03:41:00 PM EST [facility] TSYSORDER [id number] Name Value Range Interpretation Code Description Data Ansley rce(s) Supporting Document(s) LIPASE 29 U/L 73-393 L [facility] ID Date Data Source [id number] 09/07/2021 03:41:00 PM EST [facility] TSYSORDER [id number] Name Value Range Interpretation Code Description Data Ansley rce(s) Supporting Document(s) GLUCOSE 109 mg/dL 74-106 H [facility] BLOOD UREA NITROGEN 10 mg/dL 7-18 [facility] ital CREATININE 1.06 mg/dl 0.55-1.02 H [facility] SODIUM 141 mmol/L 136-145 [facility] POTASSIUM 3.4 mmol/L 3.5-5.1 L [facility] CHLORIDE 102 mmol/L 98-107 [facility] CO2 29 mmol/L 21-32 [facility] CALCIUM 8.9 mg/dL 8.5-10.1 [facility] ANION GAP 10.0 mmol/L 5-12 [facility] GLOMERULAR FILTRATION RATE 52 mL/min [facility] GFR IS CALCULATED IN mL/min/1.73m2 LIAT L FUNCTION: >90MILDLY DECREASED: 60-89MILDY TO MODERATELY DECREASED: 45-59 MODERATELY TO SEVERELY DECREASED: 30-44SEVERELY DECREASED: 15-29RENAL FAILURE: <15 AST 29 U/L 15-37 [facility] ALT 30 U/L 14-59 [facility] ALKALINE PHOSPHATASE 142 U/L 46-116 H [facility] pital TOTAL BILIRUBIN 0.8 mg/dL 0.2-1.0 [facility] TOTAL PROTEIN 5.8 g/dL 6.4-8.2 L [facility] ALBUMIN 2.0 gm/dL 3.4-5.0 L [facility] ID Date Data Source [id number] 09/07/2021 03:10:00 PM EST [facility] T[facility] [id number] Name Value Range Interpretation Code Description Data Ansley rce(s) Supporting Document(s) PARTIAL THROMBOPLASTIN TIME 29.7 SECONDS 21.3-29.7 [facility] ID Date Data Source [id number] 09/07/2021 03:10:00 PM EST [facility] l TSYSORDER [id number] Name Value Range Interpretation Code Description Data Ansley rce(s) Supporting Document(s) PROTHROMBIN TIME (PATIENT) 13.5 SECONDS 9.1-11.3 H [facility] INR 1.33 0.87-1.06 H [facility] ID Date Data Source [id number] 09/07/2021 03:08:00 PM EST [facility] TSYSORDER [id number] Name Value Range Interpretation Code Description Data Ansley rce(s) Supporting Document(s) COVID-19 NEGATIVE NEGATIVE [facility] Negative results should be treated as pr esumptive and, ifinconsistent with clinical signs and symptoms or necessaryfor patient management, should be tested with differentauthorized or cleared molecular tests.Negative results do not preclude SARS-CoV-2 infection andshould not be used as the sole basis for patient managementdecisions.This is a rapid molecular isothermal nucleic acidamplification technology (NAAT) in vitro diagnostic testutilizing a loop mediated isothermal amplification (LAMP)test with nicking endonuclease amplification reaction(NEAR) intended for the qualitative detection of nucleica andrew from the SARS-CoV-2 viral RNA in direct nasal,nasopharyngeal or throat swabs from individuals who aresuspected of COVID-19.Results are for the indentification of SARS-CoV-2 RNA. ElbDNPW-MjO-9 RNA is generally detectable in respiratorysamples during the actue phase of infection. ID Date Data Source [id number] 04/26/2021 12:08:00 PM EDT [facility] l DATE OF EXAMINATION: 04/26/2021 9:55 EDT MAMMO SCREEN BILAT WITH CAD HISTORY: Screening Based on the personal and family history information your patient supplied atthe time of imaging, her lifetime risk of breast cancer estimated date by theTyrer-Cuzick model is 4%. If anything changes in the personal and/or familyhistory this percentage could increase or decrease. Currently, NCCN and ACSrecommended adjunctive breast MRI screening starting at age 30 for women with a> 20-25% lifetime risk of developing breast cancer. Comparison is made to prior study dated 04/24/2020. 2-D bilateral digital mammogram in the CC and MLO planes were performed withsupplemental 3-D tomosynthesis of both breasts. The images were analyzed through the latest version of the [employer] ddiagnosis system. The patient states that her last clinical breast examination was last year. Craniocaudal and oblique lateral views of the breasts were obtained. (B) Thereare scattered areas of fibroglandular density. . There is no dominant mass,suspicious clustered calcification, or architectural distortion. IMPRESSION: No mammographic evidence of malignancy. Final assessment of breast composition BIRAD classification (B) There arescattered areas of fibroglandular density. BIRAD 2 - Benign Findings, Routine Yearly Mammographic Follow-up recommended. 10-15% of cancers are not identified by mammography. This usually occurs whenthe mass is of the same radiographic density as the surrounding breast tissue,emphasizing the importance of breast self examination (BSE) and physicalexamination. A normal mammogram should not delay biopsy if a suspicious mass orabnormal findings are present upon physical examination. Electronically signed in PS360 by: Savannah Kraft M.D. 04/26/2021 12:03 EDT Name Value Range Interpretation Code Description Data Ansley rce(s) Supporting Document(s) ID Date Data Source FREE T4 & TSH PANEL 01/26/2021 12:00:00 AM EDT eCW1 ([facility]) Name Value Range Interpretation Code Description Data Ansley rce(s) Supporting Document(s) 1.880 0.358-3.740 [facility] 0.75 0.76-1.46 [facility] ID Date Data Source [id number] 01/12/2021 01:55:00 PM EDT GIL [facility] ) Name Value Range Interpretation Code Description Data Ansley rce(s) Supporting Document(s) Appearance, Urine Laboratory test result Above high normal MEDENT ([facility], ) Color, Urine Laboratory test result Normal (applies to non -numeric results) [facility] ([facility], ) Specific [place] Urine Auto 1.010 1.002-1.035 Norm al (applies to non-numeric results) [facility] ([facility]) Protein, Urine Auto Laboratory test result Liat l (applies to non-numeric results) [facility] ([facility]) PH,Urine 7.0 units 5.0-9.0 Normal (applies to non-numeric resul ts) [facility] ([facility]) Glucose, Urine (Ua) Auto Laboratory test result Normal (applies to non-numeric results) [facility] ([facility]) Ketone, Urine Auto Laboratory test result Normal (applies to non-numeric results) [facility] ([facility]) Urobilinogen, Urine Auto 0.2 mg/dL 0.0-2.0 Normal (applies to non-numeric results) [facility] ([facility]) Bilirubin, Urine Auto Laboratory test result Nor mal (applies to non-numeric results) [facility] ([facility]) Nitrite, Urine Auto Laboratory test result Liat l (applies to non-numeric results) [facility] ([facility]) Blood, Urine Blood Laboratory test result Normal (applies to non-numeric results) [facility] ([facility]) Leukocyte Esterase, Urine Auto Laboratory test result Normal (applies to non- numeric results) [facility] ([facility]) WBC, Urine Auto 2 /HPF 0-3 Normal (applies to non-numeric results) [facility] ([facility]) RBC, Urine Auto 2 /HPF 0-3 Normal (applies to non-numeric results) [facility] ([facility]) Hyaline Cast, Urine Auto 0 /LPF 0-1 Normal (applies to non -numeric results) [facility]) Bacteria, Urine Auto Laboratory test result Norm al (applies to non-numeric results) [facility] ([facility]) Squamous Epithelial Cell Ur AU 0 /HPF 0-6 N ormal (applies to non-numeric results) [facility] ([facility]) Amorphous Sediment Laboratory test result Above high liat l [facility] ([facility]) ID Date Data Source [id number] 01/12/2021 01:55:00 PM EDT [facility] ([facility]) Name Value Range Interpretation Code Description Data Ansley rce(s) Supporting Document(s) ABG Partial Pressure Co2 37.4 mmHg 35.0-45.0 Normal (applies to non-numeric results) [facility] ([facility]) ABG pH (Arterial) 7.471 units 7.350-7.450 Above high normal [facility] ([facility]) ABG Total Co2 27.8 meq/L 23.0-31.0 Normal (applies to non-numeric re sults) [facility] ([facility]) ABG Partial Pressure O2 65.8 mmHg 75.0-100.0 Below low normal [facility] ([facility]) ABG Base Excess 3.1 Above high normal [facility] ([facility]) ABG Standard Hco3 27.1 meq/L 22.0-26.0 Above high normal [facility] ([facility]) ABG Hco3 26.7 meq/L 22.0-26.0 Above high normal [facility] ([facility]) ABG O2 Saturation 93.8 % 95.0-99.0 Below low normal [facility] ([facility]) ID Date Data Source [id number] 01/12/2021 01:45:00 PM EDT [facility] ([facility]) Name Value Range Interpretation Code Description Data Ansley rce(s) Supporting Document(s) ABG pH (Arterial) 7.471 units 7.350-7.450 Above high normal [facility] ([facility]) ABG Partial Pressure O2 65.8 mmHg 75.0-100.0 Below low normal [facility] ([facility]) ABG Partial Pressure Co2 37.4 mmHg 35.0-45.0 Normal (applies to non-numeric results) [facility] ([facility]) ABG Hco3 26.7 meq/L 22.0-26.0 Above high normal [facility] ([facility]) ABG Total Co2 27.8 meq/L 23.0-31.0 Normal (applies to non-numeric re sults) [facility] ([facility]) ABG O2 Saturation 93.8 % 95.0-99.0 Below low normal [facility] ([facility]) ABG Standard Hco3 27.1 meq/L 22.0-26.0 Above high normal [facility] ([facility]) ABG Base Excess 3.1 Above high normal [facility]) ID Date Data Source [id number] 01/12/2021 01:15:00 PM EDT [facility] ([facility]) Name Value Range Interpretation Code Description Data Ansley rce(s) Supporting Document(s) Carboxyhemoglobin/Hemoglobin.total in Blood 7.6 % 0.0-1.5 Abo ve high normal [facility] ([facility]) CARBOXYHEMOGLOBIN EXPECTED [facility]SMO[facility] LESS THAN 1.5% SMOKERS 1.5-5.0% HEAVY SMOKERS 5.0-9.0% ID Date Data Source [id number] 01/12/2021 01:15:00 PM EDT [facility] ([facility]) Name Value Range Interpretation Code Description Data Ansley rce(s) Supporting Document(s) White Blood Count 6.0 10 4.0-10.0 Normal (applies to non-numeri c results) [facility] ([facility]) Red Blood Count 3.72 10 4.00-5.40 Below low normal [facility] ([facility]) Hemoglobin 13.4 g/dL 12.0-15.5 Normal (applies to non-numeric resul ts) [facility] ([facility]) Hematocrit 39.3 % 36.0-47.0 Normal (applies to non-numeric resul ts) [facility] ([facility]) Mean Corpuscular Volume 105.6 fl 80.0-96.0 Above high normal [facility] ([facility]) Mean Corpuscular Hemoglobin 36.0 pg 27.0-33.0 Above high normal [facility] ([facility]) Mean Corpuscular HGB Conc 34.1 g/dL 32.0-36.5 Normal (applies to non-numeric results) [facility]) Red Cell Distribution Width 17.1 % 11.5-14.5 Above high normal [facility]) Nucleated Red Blood Cell % 0.0 % 0-0 Normal (applies to n on-numeric results) [facility]) Platelet Count, Automated 264 10 150-450 Normal (applies to non-numeric results) [facility]) ID Date Data Source [id number] 01/12/2021 01:15:00 PM EDT [facility]) Name Value Range Interpretation Code Description Data Ansley rce(s) Supporting Document(s) Prothrombin Time 11.6 s 12.5-14.3 Below low normal [facility]) Partial Thromboplastin Time 28.3 s 24.2-38.5 Norm al (applies to non-numeric results) [facility]) Inr 0.83 Normal (applies to non-numeric resul ts) [facility]) THERAPUTIC HUMAN INR VALUES INDICATIONS NORMAL RANGES PROPHYLAXIS/TREATMENT OF: VENOUS THROMBOSIS 2.0-3.0 PULMONARY EMBOLISM 2.0-3.0 PREVENTION OF SYSTEMIC EMBOLISM FROM: TISSUE HEART VALVES 2.0-3.0 ACUTE MYOCARDIAL INFARCTION 2.0-3.0 VALVULAR HEART DISEASE 2.0-3.0 ATRIAL FIBRILLATION 2.0-3.0 MECHANICAL VALVES(HIGH RISK) 2.5-3.5 RECURRENT MYOCARDIAL INFARCTION 2.5-3.5 ID Date Data Source [id number] 01/12/2021 01:15:00 PM EDT [facility]) Name Value Range Interpretation Code Description Data Ansley rce(s) Supporting Document(s) Blood Urea Nitrogen 5 mg/dL 7-18 Below low normal [facility] ([facility]) Glucose, Fasting 108 mg/dL 70-100 Above high normal M [facility]) Glomerular Filtration Rate Laboratory test result Normal (applies to non- numeric results) [facility]) <content>Units are mL/min/1.73 m2</content>
<content></content>
<content>Chronic Kidney Disease Staging per NKF:</content>
<content></content>
<content>Stage I & II GFR >=60 Normal to Mildly Decreased</content>
<content>Stage III GFR 30- 59 Moderately Decreased</content>
<content>Stage IV GFR 15-29 Severely Decreased</content>
<content>Stage V GFR <15 Very Little GFR Left</content>
<content>ESRD GFR <15 on ASSOCIATE PROGRAMMER ANALYST</content>
<content></content> Creatinine For GFR 0.81 mg/dL 0.55-1.30 Normal (applies to non -numeric results) [facility] ([facility]) Potassium Serum 3.6 meq/L 3.5-5.1 Normal (applies to non-numeric results) [facility] ([facility]) Sodium Level 134 meq/L 136-145 Below low normal [facility] Carbon Dioxide Level 31 meq/L 21-32 Normal (applies to non-num alma results) [facility] ([facility]) Chloride Level 100 meq/L 98-107 Normal (applies to non-numeric r esults) [facility] ([facility]) Calcium Level 10.3 mg/dL 8.8-10.2 Above high normal [facility] ([facility]) Anion Gap 3 meq/L 8-16 Below low normal [facility] ID Date Data Source [id number] 12/10/2020 02:20:00 PM EST [facility] ([facility]) Name Value Range Interpretation Code Description Data Ansley rce(s) Supporting Document(s) Blood Type Laboratory test result Normal (applies to non-n umeric results) [facility] ([facility]) Blood group antibody screen [Presence] in Serum or Anya sma Laboratory test result Normal (applies to non-numeric results) [facility] ([facility]) ID Date Data Source [id number] 12/10/2020 01:14:00 PM EST [facility] ([facility]) Name Value Range Interpretation Code Description Data Ansley rce(s) Supporting Document(s) ABG pH (Arterial) 7.446 units 7.350-7.450 Normal (applie s to non-numeric results) [facility]) ABG Partial Pressure O2 71.2 mmHg 75.0-100.0 Below low normal [facility] ([facility]) ABG Partial Pressure Co2 37.0 mmHg 35.0-45.0 Normal (applies to non-numeric results) [facility]) ABG Base Excess 1.1 Normal (applies to non-numeric results) [facility]) ABG Total Co2 26.0 meq/L 23.0-31.0 Normal (applies to non-numeric re sults) [facility]) ABG Hco3 24.9 meq/L 22.0-26.0 Normal (applies to non-numeric resul ts) [facility]) ABG O2 Saturation 94.7 % 95.0-99.0 Below low [facility] ABG Standard Hco3 25.4 meq/L 22.0-26.0 Normal (applies to non- numeric results) [facility]) ID Date Data Source [id number] 12/10/2020 01:13:00 PM EST [facility] ([facility]) Name Value Range Interpretation Code Description Data Ansley rce(s) Supporting Document(s) Appearance, Urine Laboratory test result Normal (applies to non-numeric results) [facility] ([facility]) Color, Urine Laboratory test result Normal (applies to non -numeric results) [facility] ([facility]) PH,Urine 5.0 units 5.0-9.0 Normal (applies to non-numeric resul ts) [facility]) Specific [place] Urine Auto 1.020 1.002-1.035 Norm al (applies to non-numeric results) [facility]) Protein, Urine Auto Laboratory test result Liat l (applies to non-numeric results) [facility] ([facility]) Glucose, Urine (Ua) Auto Laboratory test result Normal (applies to non-numeric results) [facility]) Ketone, Urine Auto Laboratory test result Above high liat l [facility]) Urobilinogen, Urine Auto 0.2 mg/dL 0.0-2.0 Normal (applies to non-numeric results) [facility]) Bilirubin, Urine Auto Laboratory test result Nor mal (applies to non-numeric results) [facility]) Blood, Urine Blood Laboratory test result Normal (applies to non-numeric results) [facility]) Nitrite, Urine Auto Laboratory test result Liat l (applies to non-numeric results) [facility]) Leukocyte Esterase, Urine Auto Laboratory test result Normal (applies to non- numeric results) [facility] ([facility]) WBC, Urine Auto 0 /HPF 0-3 Normal (applies to non-numeric results) [facility] ([facility]) RBC, Urine Auto 1 /HPF 0-3 Normal (applies to non-numeric results) [facility] ([facility]) Bacteria, Urine Auto Laboratory test result Norm al (applies to non-numeric results) [facility]) Mucus, Urine Laboratory test result Normal (applies to non -numeric results) [facility] ([facility]) Squamous Epithelial Cell Ur AU 0 /HPF 0-6 N ormal (applies to non-numeric results) [facility]) Hyaline Cast, Urine Auto 0 /LPF 0-1 Normal (applies to non -numeric results) [facility]) ID Date Data Source [id number] 12/10/2020 01:12:00 PM EST [facility] ([facility]) Name Value Range Interpretation Code Description Data Ansley rce(s) Supporting Document(s) Glucose, Fasting 99 mg/dL 70-100 Normal (applies to non-numeric results) [facility] ([facility]) Blood Urea Nitrogen 14 mg/dL 7-18 Normal (applies to non-nume kamilah results) [facility] ([facility]) Glomerular Filtration Rate Laboratory test result Normal (applies to non- numeric results) [facility]) <content>Units are mL/min/1.73 m2</content>
<content></content>
<content>Chronic Kidney Disease Staging per NKF:</content>
<content></content>
<content>Stage I & II GFR >=60 Normal to Mildly Decreased</content>
<content>Stage III GFR 30- 59 Moderately Decreased</content>
<content>Stage IV GFR 15-29 Severely Decreased</content>
<content>Stage V GFR <15 Very Little GFR Left</content>
<content>ESRD GFR <15 on ASSOCIATE PROGRAMMER ANALYST</content>
<content></content> Creatinine For GFR 0.76 mg/dL 0.55-1.30 Normal (applies to non -numeric results) [facility] ([facility]) Potassium Serum 3.3 meq/L 3.5-5.1 Below low normal [facility] ([facility]) Sodium Level 137 meq/L 136-145 Normal (applies to non-numeric res ults) [facility] ([facility]) Anion Gap 10 meq/L 8-16 Normal (applies to non-numeric resul ts) [facility]) Carbon Dioxide Level 29 meq/L 21-32 Normal (applies to non-num alma results) [facility]) Chloride Level 98 meq/L 98-107 Normal (applies to non-numeric r esults) [facility]) Calcium Level 10.2 mg/dL 8.8-10.2 Normal (applies to non-numeric re sults) [facility]) ID Date Data Source [id number] 12/10/2020 01:12:00 PM EST [facility]) Name Value Range Interpretation Code Description Data Ansley rce(s) Supporting Document(s) aPTT in Platelet poor plasma by Coagulation assay 28.1 s 24.2-38.5 Normal (applies to non-numeric results) [facility] ([facility]) *Is patient on Anticoagulants? Y ID Date Data Source [id number] 12/10/2020 01:12:00 PM EST [facility] ([facility]) Name Value Range Interpretation Code Description Data Ansley rce(s) Supporting Document(s) Prothrombin Time 12.4 s 12.5-14.3 Normal (applies to non-numeric results) [facility] ([facility]) Inr 0.91 Normal (applies to non-numeric resul ts) [facility] ([facility]) THERAPUTIC HUMAN INR VALUES INDICATIONS NORMAL RANGES PROPHYLAXIS/TREATMENT OF: VENOUS THROMBOSIS 2.0-3.0 PULMONARY EMBOLISM 2.0-3.0 PREVENTION OF SYSTEMIC EMBOLISM FROM: TISSUE HEART VALVES 2.0-3.0 ACUTE MYOCARDIAL INFARCTION 2.0-3.0 VALVULAR HEART DISEASE 2.0-3.0 ATRIAL FIBRILLATION 2.0-3.0 MECHANICAL VALVES(HIGH RISK) 2.5-3.5 RECURRENT MYOCARDIAL INFARCTION 2.5-3.5 ID Date Data Source [id number] 12/10/2020 01:12:00 PM EST [facility] ([facility]) Name Value Range Interpretation Code Description Data Ansley rce(s) Supporting Document(s) White Blood Count 5.9 10 4.0-10.0 Normal (applies to non-numeri c results) [facility] ([facility]) Red Blood Count 3.87 10 4.00-5.40 Below low normal [facility] ([facility]) Hemoglobin 12.7 g/dL 12.0-15.5 Normal (applies to non-numeric resul ts) [facility]) Hematocrit 38.1 % 36.0-47.0 Normal (applies to non-numeric resul ts) [facility]) Mean Corpuscular Hemoglobin 32.8 pg 27.0-33.0 Norm al (applies to non-numeric results) [facility]) Mean Corpuscular Volume 98.4 fl 80.0-96.0 Above high normal [facility]) Mean Corpuscular HGB Conc 33.3 g/dL 32.0-36.5 Normal (applies to non-numeric results) [facility] ([facility]) Platelet Count, Automated 270 10 150-450 Normal (applies to non-numeric results) [facility] ([facility]) Red Cell Distribution Width 15.7 % 11.5-14.5 Above high normal [facility] ([facility]) Nucleated Red Blood Cell % 0.0 % 0-0 Normal (applies to n on-numeric results) [facility] ([facility]) ID Date Data Source [id number] 12/10/2020 01:12:00 PM EST [facility] ([facility]) Name Value Range Interpretation Code Description Data Ansley rce(s) Supporting Document(s) Carboxyhemoglobin/Hemoglobin.total in Blood 6.2 % 0.0-1.5 Abo ve high normal [facility] ([facility]) CARBOXYHEMOGLOBIN EXPECTED VALUES [facility] NON-SMOKERS LESS THAN 1.5% SMOKERS 1.5-5.0% HEAVY SMOKERS 5.0-9.0% ID Date Data Source [id number] 12/06/2020 10:30:00 AM EST [facility] Name Value Range Interpretation Code Description Data Ansley rce(s) Supporting Document(s) SARS coronavirus 2 RNA Not Detected [facility] This lab was ordered by [facility] and reported by [facility]. ID Date Data Source [id number] 11/03/2020 08:07:28 PM EST [facility] Name Value Range Interpretation Code Description Data Ansley rce(s) Supporting Document(s) &PDF [facility] TWDEFo5eLgWJYcMy50/HNOxdAWZnl2ImCOkiBMy9JJzqYRCdY0CsbFbhCTKPT53HHtqPRHBKJQKzTCBd waW [file] AgICAgICAgICAgICAgICAgICAgICAgICAgICAgICAgICAgICAgICAgICAgICAgICAgICAgICAgICAgIC AgICAgICAgICAgICAgICAgICAgICAgICAgICAgICAg ICAgICANCiAgICAgICAgICAgICAgICAgICAgICAgICAgICAgICAgICAgICAgICAgICAgICAgICAgICAg ICAgICAgICAgICAgICAgICAgICAgICAgICAgICAgICAgICAgICAgICAgICAgICANCiAgICAgICAgICAg ICAgICAgICAgICAgICAgICAgICAgICAgICAgICAgIC AgICAgICAgICAgICAgICAgICAgICAgICAgICAgICAgICAgICAgICAgICAgICAgICAgICAgICAgICANCi AgICAgICAgICAgICAgICAgICAgICAgICAgICAgICAgICAgICAgICAgICAgICAgICAgICAgICAgICAgIC AgICAgICAgICAgICAgICAgICAgICAgICAgICAgICAg ICAgICAgICANCiAgICAgICAgICAgICAgICAgICAgICAgICAgICAgICAgICAgICAgICAgICAgICAgICAg ICAgICAgICAgICAgICAgICAgICAgICAgICAgICAgICAgICAgICAgICAgICAgICAgICANCiAgICAgICAg ICAgICAgICAgICAgICAgICAgICAgICAgICAgICAgIC AgICAgICAgICAgICAgICAgICAgICAgICAgICAgICAgICAgICAgICAgICAgICAgICAgICAgICAgICAgIC ANCiAgICAgICAgICAgICAgICAgICAgICAgICAgICAgICAgICAgICAgICAgICAgICAgICAgICAgICAgIC AgICAgICAgICAgICAgICAgICAgICAgICAgICAgICAg ICAgICAgICAgICANCiAgICAgICAgICAgICAgICAgICAgICAgICAgICAgICAgICAgICAgICAgICAgICAg ICAgICAgICAgICAgICAgICAgICAgICAgICAgICAgICAgICAgICAgICAgICAgICAgICAgICANCiAgICAg ICAgICAgICAgICAgICAgICAgICAgICAgICAgICAgIC AgICAgICAgICAgICAgICAgICAgICAgICAgICAgICAgICAgICAgICAgICAgICAgICAgICAgICAgICAgIC AgICANCiAgICAgICAgICAgICAgICAgICAgICAgICAgICAgICAgICAgICAgICAgICAgICAgICAgICAgIC AgICAgICAgICAgICAgICAgICAgICAgICAgICAgICAg ICAgICAgICAgICAgICANCjw/zFCfB8gpbPTkwlF7A7fqZl9LOd0AOM7tp8CiKFRfONkggcHeGhgROyRl QMOhFvdHMbq9JYwbHM1CtSJlO3BoT2IiCNjjJY2AXZHzRDRlaSVhNNYpDTMeWuL0VIWvDQynUX0NqQRy IXhkHOWfCYIdLuOrXAGxVE0OLENrL688njCdOp0WBp 2QObSwIA0bgb3QNxExUTHyDemQLgi1FMbsBD3DrBJhP1RgqTKtz5cPRiFcH0OUKSA3IEHjOw1UWIMgJe ByWCDhGOlbLV1tYWYvUWSYmDygjxM7TC7DVD8ugtUgTA8MWlXtNs4mPc8GMhNwP6MzL2KeMGHkGWLVJR naQN1ADHJdCHK8LRIjGJOhNRVGLiRvQ45vWI0JO5Yk p42jMlR5OPOuMpKhOXmnAR94dKqmhcIobDLatBmoCW6FBs4+DQplbmRvYmoNCnhyZWYNCjAgMjINCjAw VFYeVHFyWQXgJmY9FdIfKa6BLDQxQSGqVGMwIkNpPXXsCFBjCEifQDQiJKT9FvEdBWLlOZXrPT3VIzVt SHLlMoTzRTvyQGDtZZMvvr7XYWOoGTVuHAT5SAJsCA UeSOZqPMunRQDvOWJaLnRkXGXlJGZcOU4QOtHfMRVuCEC5BnQrYXDcLCOjqt0RRCYjTHNbBHG3EXFlQO XlTXTdTKwzLTPlMDV2NXS0ECQjGAWaTS2UHuQsWFCjCRY9TZsyTVHyPXOnwg2KICQxZPYoDzJjMYUaAV JaPUZiVPpfYHXuOLE1DMa3BHDlFBLuWI5AIjIwFGAi IOstTMEoLWEuTFNnws2PNNMlJTRoUUJ2YkTaIKEiBFZpMEinABKxQLJ6UMI1JZMtPAFhCT6JFbMoFFKb GWn3YCFiIZWjBBYyfg4OIXEtGSCcMIY2RqUxBBYiSCWdAGikSWHwGKR5BJl4PXMgANTwMK2FJzMoUQAa VTM1WiAmXCHbJNGqje1FQBUgXMLiTGV9ILToLTIqQZ FtBUimJUOpGVX7HDP0DKLjRUGqTA3MJnNsHBKfDmZ9PyKgCOUnNVAplx0SqOHhoGqhih0CAHnPQq4WrG dbLGEmWCilCd5dpYLjOZFhQBYOLe3UpcRbKMEmUNUKOSxiRGNnLCMqAWC9QJX8Kyz7YrA4ZlBmHosuUg SqJQXdQTo0PoD1AlJ2VMW8JBW6CuxeJZEjNrR4QjAv SZJbW2HtSYLxRjhdEbE+JT5hJFb+Tx9Rh0RlwoE9dfSgCYdfMHY6NR3FXFRNY2TANh== ID Date Data Source [id number] 11/03/2020 11:53:00 AM EST [facility] ([facility] ) Name Value Range Interpretation Code Description Data Ansley rce(s) Supporting Document(s) Appearance, Urine Laboratory test result Normal (applies to non-numeric results) [facility] ([facility] ) Color, Urine Laboratory test result Normal (applies to non -numeric results) [facility] ([facility], ) PH,Urine 8.0 units 5.0-9.0 Normal (applies to non-numeric resul ts) [facility] ([facility]) Protein, Urine Auto Laboratory test result Liat l (applies to non-numeric results) [facility] ([facility], ) Glucose, Urine (Ua) Auto Laboratory test result Normal (applies to non-numeric results) [facility] ([facility]) Specific [place] Urine Auto 1.012 1.002-1.035 Norm al (applies to non-numeric results) [facility] ([facility]) Ketone, Urine Auto Laboratory test result Normal (applies to non-numeric results) [facility] ([facility]) Urobilinogen, Urine Auto 0.2 mg/dL 0.0-2.0 Normal (applies to non-numeric results) [facility] ([facility]) Bilirubin, Urine Auto Laboratory test result Nor mal (applies to non-numeric results) [facility] ([facility]) Nitrite, Urine Auto Laboratory test result Liat l (applies to non-numeric results) [facility] ([facility]) Blood, Urine Blood Laboratory test result Normal (applies to non-numeric results) [facility] ([facility]) Leukocyte Esterase, Urine Auto Laboratory test result Normal (applies to non- numeric results) [facility] ([facility]) Bacteria, Urine Auto Laboratory test result Norm al (applies to non-numeric results) [facility] ([facility]) WBC, Urine Auto 1 /HPF 0-3 Normal (applies to non-numeric results) [facility] ([facility]) RBC, Urine Auto 1 /HPF 0-3 Normal (applies to non-numeric results) [facility] ([facility]) Squamous Epithelial Cell Ur AU 0 /HPF 0-6 N ormal (applies to non-numeric results) [facility] ([facility]) Mucus, Urine Laboratory test result Normal (applies to non -numeric results) [facility] ([facility]) Hyaline Cast, Urine Auto 0 /LPF 0-1 Normal (applies to non -numeric results) [facility]) ID Date Data Source [id number] 10/31/2020 09:00:00 AM EST [facility] Name Value Range Interpretation Code Description Data Ansley rce(s) Supporting Document(s) SARS coronavirus 2 RNA [facility] This lab was ordered by [facility] and reported by [facility]. ID Date Data Source [id number] 10/08/2020 10:00:00 AM EST [facility] Name Value Range Interpretation Code Description Data Ansley rce(s) Supporting Document(s) SARS coronavirus 2 RNA [facility] This lab was ordered by [facility] and reported by [facility]. ID Date Data Source [id number] 10/02/2020 08:10:00 AM EST [facility] ([facility]) Name Value Range Interpretation Code Description Data Ansley rce(s) Supporting Document(s) Glu 84 mg/dL 74-106 [facility] ([facility], ) BUN 8 mg/dL 7-18 [facility] ([facility]) Cre 1.1 mg/dL 0.6-1.0 Above high normal [facility] ([facility]) K 5.1 mmol/L 3.5-5.1 [facility] ([facility]) Na 139 mmol/L 136-145 [facility] ([facility]) Co2 26 mmol/L 21-32 [facility] ([facility]) CL 101 mmol/L 98-107 [facility] ([facility]) Gap 12.0 mmol/L 5-12 [facility] ([facility]) GFR 50 mL/min [facility] ([facility]) <content>GFR IS CALCULATED IN mL/min/1.73m2</content>
<content></content>
<content>NORMAL FUNCTION: >90</content>
<content>MILDLY DECREASED: 60-89</content>
<content>MILDY TO MODERATELY DECREASED: 45-59</content>
<content>MODERATELY TO SEVERELY DECREASED: 30-44</content>
<content>SEVERELY DECREASED: 15- 29</content>
<content>RENAL FAILURE: <15</content>
<content></content> CA 9.6 mg/dL 8.5-10.1 [facility] ([facility]) ID Date Data Source [id number] 10/02/2020 08:10:00 AM EST [facility] ([facility]) Name Value Range Interpretation Code Description Data Ansley rce(s) Supporting Document(s) Magnesium [Mass/volume] in Serum or Plasma 1.5 mg/dL 1.8-2.4 [place] w low normal MED[facility] ([facility], ) FAX [phone] ID Date Data Source [id number] 10/02/2020 08:47:00 AM EST [facility] [phone] Name Value Range Interpretation Code Description Data Ansley rce(s) Supporting Document(s) MAGNESIUM 1.5 mg/dL 1.8-2.4 [facility] ID Date Data Source [id number] 10/02/2020 08:47:00 AM EST [facility] FA[facility] [phone] Name Value Range Interpretation Code Description Data Ansley rce(s) Supporting Document(s) GLUCOSE 84 mg/dL 74-106 [facility] BLOOD UREA NITROGEN 8 mg/dL 7-18 [facility] ital CREATININE 1.1 mg/dL 0.6-1.0 H [facility] SODIUM 139 mmol/L 136-145 [facility] POTASSIUM 5.1 mmol/L 3.5-5.1 [facility] CHLORIDE 101 mmol/L 98-107 [facility] CO2 26 mmol/L 21-32 [facility] CALCIUM 9.6 mg/dL 8.5-10.1 [facility] ANION GAP 12.0 mmol/L 5-12 [facility] GLOMERULAR FILTRATION RATE 50 mL/min [facility] GFR IS CALCULATED IN mL/min/1.73m2 LIAT L FUNCTION: >90MILDLY DECREASED: 60-89MILDY TO MODERATELY DECREASED: 45-59 MODERATELY TO SEVERELY DECREASED: 30-44SEVERELY DECREASED: 15-29RENAL FAILURE: <15 Procedure Social History Code Duration Value Status Description Data Source(s ) Smoking 04/28/2021 12:00:00 AM EDT Current Smoker completed Curre nt Smoker eCW1 ([facility]) Smoking 04/28/2021 12:00:00 AM EDT Current Smoker completed Curre nt Smoker eCW1 ([facility]) Smoking 04/28/2021 12:00:00 AM EDT Current Smoker completed Curre nt Smoker eCW1 ([facility]) Smoking 04/22/2021 12:00:00 AM EDT Patient is a former smoker completed Patient is a former smoker GIL ([facility], ) Smoking 01/26/2021 12:00:00 AM EDT Current Smoker completed Curre nt Smoker eCW1 ([facility]) Smoking 01/26/2021 12:00:00 AM EDT Current Smoker completed Curre nt Smoker eCW1 ([facility]) Alcohol intake 11/03/2020 12:00:00 AM EST Yes completed [facility] Cigarette pack-years 11/03/2020 12:00:00 AM EST UNK completed [facility] Cigarettes smoked current (pack per day) - Reported 11/03/19 12:00:00 AM EST UNK completed [facility] Smoking 11/03/2020 12:00:00 AM EST Current every day smoker co mpleted Current every day smoker [facility] Smoking 10/08/2020 12:00:00 AM EST Patient is a former smoker completed Patient is a former smoker GIL ([facility], ) Vital Signs ID Date Data Source UNK Name Value Range Interpretation Code Description Data Source(s) Body weight 91.4 [lb_av] 91.4 [lb_av] W1 ([facility]) Body height [in_i] eCW1 ([facility]) Body mass index (BMI) [Ratio] 16.19 kg/m2 16.19 kg/m2 W1 ([facility]) Heart rate 105 /min 105 /min W1 ([facility]) Respiratory rate 19 /min 19 /min W1 ([facility]) Body temperature 97.8 [degF] 97.8 [degF] eCW1 ( [facility]) Systolic blood pressure 120 mm[Hg] 120 mm[Hg] e CW1 ([facility]) Diastolic blood pressure 82 mm[Hg] 82 mm[Hg] eCW1 ([facility]) Oxygen saturation in Arterial blood by Pulse oximetry 97 % 97 % GIL ([facility], ) Body height 62.5 [in_i] 62.5 [in_i] MEDENT ([facility]) 5'2.50" Body weight 902.00 [lb_av] 902.00 [lb_av] MEDEN T ([facility]) Body mass index (BMI) [Ratio] 162.3 kg/m2 162.3 kg/m2 [facility] ([facility]) [place] body weight 110 [lb_av] 110 [lb_av] MEDEN T ([facility]) Body weight 409.147 kg 409.147 kg [facility] ([facility]) Body surface area Derived from formula 3.65 m2 3.65 m2 [facility] ([facility]) Systolic blood pressure 130 mm[Hg] 130 mm[Hg] M EDENT ([facility]) Diastolic blood pressure 90 mm[Hg] 90 mm[Hg] [facility] ([facility]) Heart rate 150 /min 150 /min [facility] ([facility]) Oxygen saturation in Arterial blood by Pulse oximetry 97 % 97 % [facility] ([facility]) Body surface area Derived from formula 3.65 m2 3.65 m2 [facility] ([facility]) Body height 62.5 [in_i] 62.5 [in_i] [facility] 5'2.50" Body weight 902.00 [lb_av] 902.00 [lb_av] MEDEN T ([facility]) Body mass index (BMI) [Ratio] 162.3 kg/m2 162.3 kg/m2 [facility] ([facility]) [place] body weight 110 [lb_av] 110 [lb_av] MEDEN T ([facility]) Body weight 409.147 kg 409.147 kg [facility] ([facility]) [place] body weight 110 [lb_av] 110 [lb_av] MEDEN T ([facility]) Body weight 42.638 kg 42.638 kg [facility] ([facility]) Body surface area Derived from formula 1.40 m2 1.40 m2 [facility] ([facility]) Oxygen saturation in Arterial blood by Pulse oximetry 91 % 91 % [facility] ([facility]) Room Air Body height 62.5 [in_i] 62.5 [in_i] [facility] ([facility]) 5'2.50" Body weight 94.00 [lb_av] 94.00 [lb_av] [facility] ([facility]) Body mass index (BMI) [Ratio] 16.9 kg/m2 16.9 k g/m2 [facility] ([facility]) Systolic blood pressure 120 mm[Hg] 120 mm[Hg] [facility] Diastolic blood pressure 70 mm[Hg] 70 mm[Hg] [facility] ([facility]) Heart rate 132 /min 132 /min [facility] ([facility]) Oxygen saturation in Arterial blood by Pulse oximetry 91 % 91 % [facility] ([facility]) Room Air Body height 62.5 [in_i] 62.5 [in_i] [facility] ([facility]) 5'2.50" Body weight 94.00 [lb_av] 94.00 [lb_av] [facility] ([facility]) Body mass index (BMI) [Ratio] 16.9 kg/m2 16.9 k g/m2 [facility] ([facility]) [place] body weight 110 [lb_av] 110 [facility]_av[facility] Body weight 42.638 kg 42.638 kg [facility] ([facility]) Body surface area Derived from formula 1.40 m2 1.40 m2 [facility] ([facility]) Body weight 93.4 [lb_av] 93.4 [lb_av] eCW1 ([facility]) Body height [in_i] eCW1 ([facility]) Body mass index (BMI) [Ratio] 16.54 kg/m2 16.54 kg/m2 eCW1 ([facility]) Heart rate 100 /min 100 /min eCW1 ([facility]) Respiratory rate 20 /min 20 /min eCW1 ([facility]) Body temperature 97.8 [degF] 97.8 [degF] eCW1 ( [facility]) Systolic blood pressure 128 mm[Hg] 128 mm[Hg] e CW1 ([facility]) Diastolic blood pressure 76 mm[Hg] 76 mm[Hg] eCW1 ([facility]) Body weight 44.453 kg 44.453 kg [facility] ([facility]) Systolic blood pressure 140 mm[Hg] 140 mm[Hg] [facility] Diastolic blood pressure 70 mm[Hg] 70 mm[Hg] [facility] ([facility]) Heart rate 106 /min 106 /min [facility] ([facility]) Oxygen saturation in Arterial blood by Pulse oximetry 95 % 95 % [facility] ([facility]) Body height 62.5 [in_i] 62.5 [in_i] [facility] ([facility]) 5'2.50" Body weight 98.00 [lb_av] 98.00 [lb_av] [facility] ([facility]) Body mass index (BMI) [Ratio] 17.6 kg/m2 17.6 k g/m2 [facility] ([facility]) [place] body weight 110 [lb_av] 110 [lb_av] MEDEN T ([facility]) Body surface area Derived from formula 1.42 m2 1.42 m2 [facility] ([facility]) Oxygen saturation in Arterial blood by Pulse oximetry 97 % 97 % [facility] ([facility]) Room Air Systolic blood pressure 112 mm[Hg] 112 mm[Hg] M EDENT ([facility]) Diastolic blood pressure 72 mm[Hg] 72 mm[Hg] [facility] ([facility]) Heart rate 100 /min 100 /min [facility] ([facility]) Body height 62.5 [in_i] 62.5 [in_i] [facility] ([facility]) 5'2.50" Body weight 100.00 [lb_av] 100.00 [lb_av] MEDEN T ([facility]) Body mass index (BMI) [Ratio] 18.0 kg/m2 18.0 k g/m2 [facility] ([facility]) [place] body weight 110 [lb_av] 110 [lb_av] MEDEN T ([facility]) Body weight 45.360 kg 45.360 kg [facility] ([facility]) Body surface area Derived from formula 1.43 m2 1.43 m2 [facility] ([facility]) Systolic blood pressure 140 mm[Hg] 140 mm[Hg] [facility] Diastolic blood pressure 80 mm[Hg] 80 mm[Hg] [facility] Heart rate 124 /min 124 /min [facility] Respiratory rate 16 /min 16 /min [facility] Body height 157.5 cm 157.5 cm [facility] Body weight 47.174 kg 47.174 kg [facility] Body mass index (BMI) [Ratio] 19.02 kg/m2 19.02 kg/m2 [facility] Oxygen saturation in Arterial blood by Pulse oximetry 98 % 98 % [facility] ([facility]) Body temperature 98.0 [degF] 98.0 [degF] [facility] ([facility]) Body height 62.5 [in_i] 62.5 [in_i] [facility] ([facility]) 5'2.50" Body mass index (BMI) [Ratio] 18.0 kg/m2 18.0 k g/m2 [facility] ([facility]) [place] body weight 110 [lb_av] 110 [lb_av] MEDEN T ([facility]) Body surface area Derived from formula 1.43 m2 1.43 m2 [facility] ([facility]) Systolic blood pressure 140 mm[Hg] 140 mm[Hg] M EDENT ([facility]) Heart rate 110 /min 110 /min [facility] ([facility]) Body weight 100.00 [lb_av] 100.00 [lb_av] MEDEN T ([facility]) Body weight 45.360 kg 45.360 kg [facility] ([facility]) Diastolic blood pressure 90 mm[Hg] 90 mm[Hg] [facility] ([facility]) Body surface area Derived from formula 1.42 m2 1.42 m2 [facility] ([facility]) Body height 62.5 [in_i] 62.5 [in_i] [facility] ([facility]) 5'2.50" Body weight 44.453 kg 44.453 kg [facility] ([facility]) [place] body weight 110 [lb_av] 110 [lb_av] MEDEN T ([facility]) Systolic blood pressure 138 mm[Hg] 138 mm[Hg] [facility] lleft arm 142/78 right arm Diastolic blood pressure 72 mm[Hg] 72 mm[Hg] [facility] ([facility]) lleft arm 142/78 right arm Heart rate 100 /min 100 /min [facility] ([facility]) Oxygen saturation in Arterial blood by Pulse oximetry 94 % 94 % [facility] ([facility]) Room Air Body weight 98.00 [lb_av] 98.00 [lb_av] [facility] ([facility]) Body mass index (BMI) [Ratio] 17.6 kg/m2 17.6 k g/m2 [facility] ([facility]) Patient Treatment Plan of Care Planned Activity Planned Date Details Description Data Source (s) 24 HR metoprolol succinate 25 MG Extended Release Oral Tablet 11/03/2020 12:00:00 AM [facility] KLOR-CON M10 10 MEQ tablet 10/29/2020 12:00:00 AM [facility] Folic Acid 1 MG Oral Tablet 10/28/2020 12:00:00 AM [facility] STIOLTO RESPIMAT 2.5-2.5 MCG/ACT AERS 10/24/2020 12:00:00 AM [facility]
[2021-10-08] MEDS ORDERED: NS 500 ML IV ONE (10:05)
--- OUTSIDE RECORDS SUMMARY | 2021-10-08 10:12 | CCD ---
Author Author [facility] Organization [facility] Address Unknown Phone Unavailable Care Team Providers Care Biodiesel Production Technician Name Role Phone Rut Garibay MD Unavailable [...] TY PEARSON MD Unavailable Unavailable ARELLANO SR, YT PEARSON MD Unavailable Unavailable ARELLANO SR, TY [...] ARELLANO SR, TY PEARSON MD Unavailable Unavailable RAELLANO SR, TY PEARSON MD Unavailable Unavailable ARELLANO [...] Unavailable Hermann, Dewey Vega MD Unavailable Unavailable Heramnn, Dewey Vega MD Unavailable Unavailable Hermann, Dewey [...] Unavailable Avelino, M Mandi PA-C Unavailable Unavailable Avelnio, M Mandi PA-C Unavailable Unavailable Avelino, M Manid PA-C Unavailable Unavailable Avelino, M Mandi PA-C Unavailable Unavailable Avelino, M Mandi PA-C Unavailable Unavailable Avelino, M Mandi PA-C Unavailable Unavailable Avelino, M Mandi PA-C Unavailable Unavailable Avelino, M Mandi PA-C Unavailable Unavailable Avelino, M Mandi PA-C Unavailable Unavailable [place] UPHOLSTERY MECHANIC Unavailable Unavailable [place], Cyrus Burns UPHOLSTERY MECHANIC Unavailable Unavailable Reinier, Cyrus Burns UPHOLSTERY MECHANIC Unavailable Unavailable [place], Cyrus Burns UPHOLSTERY MECHANIC Unavailable Unavailable Reinier, Cyrus Burns UPHOLSTERY MECHANIC Unavailable Unavailable Reinier, Cyrus Burns UPHOLSTERY MECHANIC Unavailable Unavailable Reinier, N Grant UPHOLSTERY MECHANIC Unavailable Unavailable Reinier, N Grant UPHOLSTERY MECHANIC Unavailable Unavailable Reinier, N Grant UPHOLSTERY MECHANIC Unavailable Unavailable Reinier, N Grant UPHOLSTERY MECHANIC Unavailable Unavailable Reinier, N Grant UPHOLSTERY MECHANIC Unavailable Unavailable [place], N Grant UPHOLSTERY MECHANIC Unavailable Unavailable Reinier, N Grant UPHOLSTERY MECHANIC Unavailable Unavailable [place], N Grant UPHOLSTERY MECHANIC Unavailable Unavailable [place], N Grant UPHOLSTERY MECHANIC Unavailable Unavailable Reinier, N Grant UPHOLSTERY MECHANIC Unavailable Unavailable Reinier, N Grant UPHOLSTERY MECHANIC Unavailable Unavailable Reinier, N Grant UPHOLSTERY MECHANIC Unavailable Unavailable Reinier, N Grant UPHOLSTERY MECHANIC Unavailable Unavailable [place], N Grant UPHOLSTERY MECHANIC Unavailable Unavailable [place], N Grant UPHOLSTERY MECHANIC Unavailable Unavailable Reinier, N Grant UPHOLSTERY MECHANIC Unavailable Unavailable [place], N Grant UPHOLSTERY MECHANIC Unavailable Unavailable [place], N Grant UPHOLSTERY MECHANIC Unavailable Unavailable [place], N Grant UPHOLSTERY MECHANIC Unavailable Unavailable [place], N Grant UPHOLSTERY MECHANIC Unavailable Unavailable [place], N Grant UPHOLSTERY MECHANIC Unavailable Unavailable [place], N Grant UPHOLSTERY MECHANIC Unavailable Unavailable [place], N Grant UPHOLSTERY MECHANIC Unavailable Unavailable Reinier, N Grant UPHOLSTERY MECHANIC Unavailable Unavailable Reinier, N Grant UPHOLSTERY MECHANIC Unavailable Unavailable Reinier, N Grant UPHOLSTERY MECHANIC Unavailable Unavailable [place], N Grant UPHOLSTERY MECHANIC Unavailable Unavailable PABLO, ANN ALMA PA Unavailable [...] PABLO, ANN ALMA PA Unavailable Unavailable PABLO, NAN ALMA PA Unavailable Unavailable PABLO, ANN ALMA [...] is protected by Article 27-F of the [facility] Public Health law. If you continue you may have access to information: Regarding HIV / AIDS; Provided by facilities licensed or operated by the [facility] Office of Mental Health; or Provided by the [facility] Office for People With Developmental Disabilities. If such information is present, then the following [facility] mandated warning applies: This information [...] law may result in a fine or skilled nursing sentence or both. A general authorization for the release of medical or other information is NOT sufficient authorization for further disc losure. Allergies and Adverse Reactions Type Description Substance Reaction Status Data Source(s ) Propensity to adverse reactions FENTANYL Fentanyl Rash Low Acti ve [facility] Low Family History Family Member Name Family Member Gender Family Member Status Date o f Status Description Data Source(s) Unknown Unknown Problem MEDENT ([facility]) Unknown Unknown Problem MEDENT ([facility] Unknown Female Problem MEDENT ([facility]) Encounters Encounter Providers Location Date Indications Data Source(s ) Outpatient Attender: ALMA REDMAN [id number] 10:09:00 AM [facility] Emergency Attender: ALMA JUANeferrer: Kade You PA-C EMERGENCY ROOM-ER 09/07/2021 02:27:00 PM EST - 09/07/2021 05:42:00 PM [facility] Patient discharged. Unknown [address] [facility] [address] 06/08/2021 12:00:00 AM EDT eCW1 (Critical access hospital) Unknown [address] [facility] [address] 05/14/2021 12:00:00 AM EDT eCW1 (Critical access hospital) Outpatient [address] [facility] [address] 04/28/2021 12:00:00 AM EDT eCW1 (Critical access hospital) Outpatient Attender: Mandi Gonzales: MICHEL ELAINE SR 04/26/2021 10:00:00 AM EDT [facility] Outpatient [facility] 04/23/2021 12:00:00 AM EDT eCW1 ([facility]) Outpatient [facility] 04/23/2021 12:00:00 AM EDT eCW1 ([facility]) Outpatient Attender: Rut Rogers/Franki/Eron/Titi ndl 04/22/2021 10:30:00 AM EDT MEDENT ([facility]) Unknown [address] [facility] [address] 04/22/2021 12:00:00 AM EDT eCW1 (Critical access hospital) Outpatient Attender: Gary Rogers/Franki/Eron/Re indl 02/11/2021 09:45:00 AM EDT MEDENT ([facility]) Outpatient [address] [facility] [address] 01/26/2021 12:00:00 AM EDT eCW1 (Critical access hospital) Outpatient Attender: Gary Rogers/Franki/Eron/Re indl 01/14/2021 09:15:00 AM EDT MEDENT ([facility]) Outpatient Attender: Gary Rogers/Franki/Eron/Re indl 12/24/2020 08:15:00 AM EST MEDENT ([facility]) Outpatient Attender: Gary Rogers/Franki/Eron/Re indl 11/19/2020 08:45:00 AM EST MEDENT ([facility] Outpatient Referrer: [place] NP SJP.CT-SJP.SYR 021 12:00:00 AM EST - 11/10/2020 11:48:51 AM EST [facility] Outpatient Attender: Grant KING.MARIO-SJP.MARIO 021 01:40:23 PM EST - 11/04/2020 10:47:25 AM EST [facility] Outpatient Referrer: Grant KING.MARIO-SJP.MARIO 11/03/2020 12 :00:00 AM [facility] Outpatient Attender: Gary Rogers/Franki/Eron/Re indl 10/08/2020 08:45:00 AM EST MEDENT ([facility], ) Outpatient Attender: Gary Mccrary MD 10/02/2020 08:05:00 AM [facility] Admission cancelled. Disregard status an d admitted date. Outpatient Attender: Rut Garibay MDReferrer: ELMER ARELLANO SR EMERGENCY ROOM-LABOTHPROV 10/02/2020 08:02:00 AM EST - 10/02/2020 08:02:00 AM [facility] Outpatient Attender: Gary Rogers/Franki/Eron/Re indl 08/13/2020 10:45:00 AM EDT MEDENT ([facility]) Outpatient Attender: MICHEL ARELLANO SRReferrer: ELMER ARELLANO SR EMERGENCY ROOM-LAB 07/14/2020 11:05:00 AM EDT - 07/14/2020 11:05:00 AM [facility] Outpatient Attender: MICHEL ARELLANO SRReferrer: ELMER ARELLANO SR EMERGENCY ROOM-LAB 06/29/2020 03:04:00 PM EDT - 06/29/2020 03:04:00 PM [facility] Outpatient Attender: MICHEL ARELLANO SR 06/19/2020 03:30:00 PM [facility] Outpatient Attender: MICHEL ARELLANO SRReferrer: MICHEL Dudley SR 04/24/2020 08:30:00 AM [facility] Outpatient Attender: MICHEL ARELLANO SR 04/17/2020 09:55:00 AM [facility] Outpatient Attender: Rut Garibay MDReferrer: MICHEL Dudley SR 04/22/2019 10:00:00 AM [facility] Outpatient Attender: MICHEL ARELLANO SRReferrer: MICHEL Dudley SR 02/04/2019 09:00:00 AM EDT - 02/04/2019 09:00:00 AM [facility] Outpatient Attender: MICHEL ARELLANO SRReferrer: MICHEL Duldey SR 01/10/2019 12:53:00 PM EDT - 01/10/2019 12:53:00 PM [facility] Immunizations Vaccine Date Status Description Data Source(s) COVID-19 dose #2 given elsewhere Unspecified 03/03/2021 09:2 8:00 AM EDT completed eCW1 (Critical access hospital) COVID-19 dose #2 given elsewhere Unspecified 03/03/2021 09:2 8:00 AM EDT completed eCW1 (Critical access hospital) COVID-19 dose #2 given elsewhere Unspecified 03/03/2021 09:2 8:00 AM EDT completed eCW1 (Critical access hospital) COVID-19 VACCINE Moderna 03/03/2021 12:00:00 AM EDT completed [facility] Vaccine Series Complete: YESThis Data wa s Submitted to [facility] Via NYSIIS. COVID-19 dose #1 given elsewhere Unspecified 02/03/2021 09:2 7:00 AM EDT completed eCW1 (Critical access hospital) COVID-19 dose #1 given elsewhere Unspecified 02/03/2021 09:2 7:00 AM EDT completed eCW1 (Critical access hospital) COVID-19 dose #1 given elsewhere Unspecified 02/03/2021 09:2 7:00 AM EDT completed eCW1 (Critical access hospital) COVID-19 VACCINE Moderna 02/03/2021 12:00:00 AM EDT completed [facility] Vaccine Series Complete: NOThis Data was Submitted to [facility] Via [employer]. Medications Medication Brand Name Start Date Product [...] tablet (25 mg total) by mouth daily [facility] 25 mg 11/03/2020 12:00:00 AM EST tablet [...] BY MOUTH ONCE DAILY SOLD: 11/03/2020 [employer] KLOR-CON M10 10 MEQ tablet 25437-216-59 10/29/2020 12:00:00 AM EST 10 meq Oral active Take 10 mEq by mouth 2 (two) times a day [facility] Folic Acid 1 MG Oral Tablet folic acid (FOLVITE) 1 MG tablet folic acid (FOLVITE) 1 MG tablet 10/28/2020 12:00:00 AM EST 1000 ug Oral active Take 1,000 mcg by mouth daily [facility] STIOLTO RESPIMAT 2.5-2.5 MCG/ACT AERS 2063-6471-11 10/24/2020 12:00 :00 AM EST active INHALE 2 PUFFS BY MOUTH ONCE DAILY [facility] 875-125 mg 10/12/2020 12:00:00 AM EST tablet [...] type / Coverage type Policy ID Covered alliance party ID Covered alliance party's relationship to stephenson Policy Stephenson Plan Information [facility] (ga) Commercial [id number] Self MEDICAID [id number] SP [id number] [facility] [id number] SP [id number] [facility] [id number] SP [id number] [facility] MEDICAID [id number] S [id number] [facility] Health Maintenance Organization (HMO) [id number] Self [id number] [facility] MCDO [id number] SP [id number] [facility] MEDICAID [id number] S [id number] [facility] MEDICAID [id number] S [id number] [facility] [id number] [facility] [id number] [facility] [id number] xxxxxxxxx [id number] [facility] MEDICAID [id number] S [id number] ANS-Medicaid [id number] ANSI-Medicaid [id number] ANSI-Medicaid [id number] ANSI-Medicaid [id number] [facility] O [id number] S [id number] [facility] Health Maintenance Organization (HMO) [id number] Self [id number] [facility] Health Maintenance Organization (HMO) [id number] Self [id number] [facility] Health Maintenance Organization (HMO) [id number] Self [id number] MEDICAID M [id number] S [id number] [facility] O [id number] S [id number] ANSI-Medicaid [id number] [facility] [id number] SP [id number] [facility] MEDICAID [id number] S [id number] [facility] O [id number] S [id number] ANSI-Medicaid [id number] ANSI-Medicaid [id number] ANSI-Medicaid [id number] ANSI-Medicaid [id number] ANSI-Medicaid [id number] [facility] [id number] SP [id number] ANSI-Medicaid [id number] ANSI-Medicaid [id number] Problems, Conditions, and Diagnoses Code Display Name Description Problem Type Effective Dates Data Source(s) Z79.899 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 terminal manager (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 therapy O THER FDC (CURRENT) DRUG THERAPY Diagnosis 09/07/2021 02:27:00 PM [facility] l Z20.822 CONTACT WITH AND (SUSPECTED) EXPOSURE TO COVID-19 CONTACT WITH AND (SUSPECTED) EXPOSURE TO COVID-19 Diagnosis 09/07/2021 02:27:00 PM [facility] J90 Pleural effusion, not elsewhere classifi ed PLEURAL EFFUSION, NOT ELSEWHERE CLASSIFIED Diagnosis 09/07/2021 02:27:00 PM [facility] J44.9 Chronic obstructive pulmonary disease, u nspecified CHRONIC OBSTRUCTIVE PULMONARY DISEASE, UNSPECIFIED Diagnosis 09/07/2021 02:27:00 PM [facility] I10 Essential (primary) hypertension ESSENTIAL (PRIMARY) H YPERTENSION Diagnosis 09/07/2021 02:27:00 PM [facility] M25.552 Pain in left hip PAIN IN LEFT HIP Diagnosis 09/07/2021 02 :27:00 PM [facility] M25.551 Pain in right hip PAIN IN RIGHT HIP Diagnosis 09/07 02:27:00 PM [facility] E83.42 Hypomagnesemia HYPOMAGNESEMIA Diagnosis 09/07/2021 02:27: 00 PM [facility] R53.1 Weakness WEAKNESS Diagnosis 09/07/2021 02:27:00 PM [facility] Z12.31 Encounter for screening mammogram for ma lignant neoplasm of breast ENCNTR SCREEN MAMMOGRAM FOR MALIGNANT NEOPLASM OF BREAST Diagnosis 10:00:00 AM [facility] 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 Coronary atherosclerosis due to calcifie Diagnosis 11/10/2020 07:34:14 AM [facility] I25.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 Z01.812 Encounter for preprocedural laboratory e xamination ENCOUNTER FOR PREPROCEDURAL LABORATORY EXAMINATION Diagnosis 10/19/2020 12:00:00 AM [facility] R41.3 [id number] Memory impairment Problem 05/14/2021 12:00:0 0 AM EDT eCW1 ([facility]) J44.9 [id number] COPD (chronic obstru ctive pulmonary disease) case management patient Problem 01/26/2021 12:00:00 AM EDT [facility] R91.1 [id number] Pulmonary nodule Problem 01/26/2021 12:00:00 AM EDT eCW1 ([facility]) G62.9 [id number] Peripheral polyneuropathy Problem 01/26/2021 12:00:00 AM EDT eCW1 ([facility]) R94.31 Abnormal ECG Abnormal ECG [id number] 11/03/2020 12:00:00 A M [facility] R00.0 Sinus tachycardia Sinus tachycardia [id number] 11/03/2020 12:00:00 AM [facility] Z01.810 Preop cardiovascular exam Preop cardiovascular exam [id number] 11/03/2020 12:00:00 AM [facility] I25.10 Coronary artery calcification Coronary artery calcific ation [id number] 11/03/2020 12:00:00 AM [facility] Surgeries/Procedures Procedure Description Date Indications Data Source(s) OFFICE OUTPATIENT VISIT 25 MINUTES 04/22/2021 12:00:00 AM EDJad CORDERO ([facility], ) OFFICE OUTPATIENT VISIT 25 MINUTES 02/11/2021 12:00:00 AM EDT MEDVI ([facility], ) OFFICE OUTPATIENT VISIT 25 MINUTES 01/14/2021 12:00:00 AM EDT MEDVI ([facility], ) OFFICE OUTPATIENT VISIT 25 MINUTES 12/24/2020 12:00:00 AM EST MEDENT ([facility], ) OFFICE OUTPATIENT VISIT 25 MINUTES 11/19/2020 12:00:00 AM EST MEDENT ([facility], ) ECG ROUTINE ECG W/LEAST 12 LDS W/I&R <td>POCT AMB EKG</td><td>Routine</td><td>11/03/2020 2:04 PM EST</td><td> Preop cardiovascular exam</td><td> </td> 11/03/2020 07:04:00 PM EST Preop cardiovascular exam [facility] Preop cardiovascular exam Bronchospasm Evaluation 10/08/2020 12:00:00 AM EST MEDENT ([facility], ) Maximum Breathing Capacity, Maximal Voluntary Ventilation 10/08/2020 12:00:00 AM EST MEDENT ([facility], ) Plethysmography Determination Lung Volumes & Per Airway Resi st 10/08/2020 12:00:00 AM EST MEDENT ([facility], ) DIFFUSING CAPACITY 10/08/2020 12:00:00 AM EST MEDENT ([facility], ) Results ID Date Data Source [id number] 09/14/2021 08:19:00 AM EST [facility] Name Value Range Interpretation Code Description Data Ansley rce(s) Supporting Document(s) [facility] ID Date Data Source [id number] 09/07/2021 07:17:00 PM EST [facility] Patient: ADAN PRATER Observation Report - [facility].VisitID: [id number] [place] [address] [phone], [facility] [place] Date/Time: 09/07/2021 14:01 Weight:39.7 kg (M). Height/Length:62 [...] rce(s) Supporting Document(s) ID Date Data Source [id number] 09/07/2021 03:58:00 PM [facility] DATE OF EXAMINATION: 09/07/2021 14:[address] [...] rce(s) Supporting Document(s) ID Date Data Source [id number] 09/07/2021 03:57:00 PM EST [facility] [...] rce(s) Supporting Document(s) ID Date Data Source [id number] 09/14/2021 08:15:00 AM EST [facility] Name Value Range Interpretation Code Description Data Ansley rce(s) Supporting Document(s) [facility] ID Date Data Source [id number] 09/07/2021 03:25:00 PM EST [facility] TSYSORDER [id number] Name Value Range Interpretation Code Description Data Ansley rce(s) Supporting Document(s) LACTIC ACID 1.8 mmol/L 0.4-2.0 [facility] ID Date Data Source [id number] 09/07/2021 03:15:00 PM EST [facility] TSYSORDER [id number] Name Value Range Interpretation Code Description Data Ansley rce(s) Supporting Document(s) TSH 6.551 uIU/mL 0.358-3.740 H [facility] ID Date Data Source [id number] 09/07/2021 02:52:00 PM EST [facility] TSYSORDER [id number] Name Value Range Interpretation Code Description Data Ansley rce(s) Supporting Document(s) WHITE BLOOD COUNT 6.5 K/mm3 4.0-10.0 [facility] RED BLOOD COUNT 2.93 M/mm3 4.00-5.50 L [facility] HEMOGLOBIN 10.9 gm/dL 12.0-16.0 [facility] HEMATOCRIT 32.8 % 36.0-48.8 L [facility] MEAN CELL VOLUME 111.9 fl 80-96 *H [facility] MEAN CORPUSCULAR HEMOGLOBIN 37.2 pg 27.0-31.0 H [facility] MEAN CORPUSCULAR HGB CONC 33.2 g/dl 32.0-36.0 [facility] RED CELL DISTRIBUTION WIDTH 12.0 % 10.0-14.5 [facility] PLATELET COUNT 279 K/mm3 172-450 [facility] MEAN PLATELET VOLUME 10.4 fl 9.0-13.0 [facility] pital GRAN % 61.8 % 50-80.0 [facility] ID Date Data Source [id number] 09/07/2021 02:05:00 PM EST [facility] Name Value Range Interpretation Code Description Data Ansley rce(s) Supporting Document(s) COVID-19 NEGATIVE [facility] This lab was ordered by [facility] and reported by [facility]. ID Date Data Source [id number] 09/07/2021 03:41:00 PM EST [facility] l TSYSORDER [id number] Name Value Range Interpretation Code Description Data Ansley rce(s) Supporting Document(s) MAGNESIUM 1.2 mg/dL 1.8-2.4 L [facility] ID Date Data Source [id number] 09/07/2021 03:41:00 PM EST [facility] TSYSORDER [id number] Name Value Range Interpretation Code Description Data Ansley rce(s) Supporting Document(s) TROPONIN-HIGH SENSITIVITY 17.7 ng/L 0-60.4 [facility] ID Date Data Source [id number] 09/07/2021 03:41:00 PM EST [facility] TSYSORDER [id number] Name Value Range Interpretation Code Description Data Ansley rce(s) Supporting Document(s) LIPASE 29 U/L 73-393 L [facility] ID Date Data Source [id number] 09/07/2021 03:41:00 PM EST [facility] TSYSORDER [id number] Name Value Range Interpretation Code Description Data Ansley rce(s) Supporting Document(s) GLUCOSE 109 mg/dL 74-106 H [facility] BLOOD UREA NITROGEN 10 mg/dL 7-18 [facility] ital CREATININE 1.06 mg/dl 0.55-1.02 H [facility] GLOMERULAR FILTRATION RATE 52 mL/min [facility] GFR IS CALCULATED IN mL/min/1.73m2 LIAT L FUNCTION: >90MILDLY DECREASED: 60-89MILDY TO MODERATELY DECREASED: 45-59 MODERATELY TO SEVERELY DECREASED: 30-44SEVERELY DECREASED: 15-29RENAL FAILURE: <15 AST 29 U/L 15-37 [facility] ALT 30 U/L 14-59 [facility] ALKALINE PHOSPHATASE 142 U/L 46-116 H [facility] pital TOTAL BILIRUBIN 0.8 mg/dL 0.2-1.0 [facility] TOTAL PROTEIN 5.8 g/dL 6.4-8.2 L [facility] ALBUMIN 2.0 gm/dL 3.4-5.0 L [facility] ID Date Data Source [id number] 09/07/2021 03:10:00 PM EST [facility] TSYS[facility] [id number] Name Value Range Interpretation Code Description Data Ansley rce(s) Supporting Document(s) PARTIAL THROMBOPLASTIN TIME 29.7 SECONDS 21.3-29.7 [facility] ID Date Data Source [id number] 09/07/2021 03:10:00 PM EST [facility] l TSYSORDER [id number] Name Value Range Interpretation Code Description Data Ansley rce(s) Supporting Document(s) PROTHROMBIN TIME (PATIENT) 13.5 SECONDS 9.1-11.3 H [facility] INR 1.33 0.87-1.06 H [facility] ID Date Data Source [id number] 09/07/2021 03:08:00 PM EST [facility] TSYSORDER [id number] Name Value Range Interpretation Code Description Data [...] are for the indentification of SARS-CoV-2 RNA. FhbAYYE-CoG-8 RNA is generally detectable in respiratorysamples during the actue phase of infection. ID Date Data Source [id number] 04/26/2021 12:08:00 PM EDT [facility] DATE OF EXAMINATION: 04/26/2021 9:55 EDT [...] analyzed through the latest version of the [employer] ddiagnosis system. The patient states that her [...] TSH PANEL 01/26/2021 12:00:00 AM EDT [facility] Name Value Range Interpretation Code Description Data Ansley rce(s) Supporting Document(s) 1.880 0.358-3.740 eCW1 ([facility]) 0.75 0.76-1.46 eCW1 ([facility]) ID Date Data Source [id number] 01/12/2021 01:55:00 PM EDT GIL ([facility], ) Name Value Range Interpretation Code Description Data Ansley rce(s) Supporting Document(s) Appearance, Urine Laboratory test result Above high normal [facility] ([facility], ) Color, Urine Laboratory test result Normal (applies to non -numeric results) [facility] ([facility], ) Specific [place] Urine Auto 1.010 1.002-1.035 Norm al (applies to non-numeric results) [facility] ([facility]) Protein, Urine Auto Laboratory test result Liat l (applies to non-numeric results) [facility] ([facility]) PH,Urine 7.0 units 5.0-9.0 Normal (applies to non-numeric resul ts) [facility] ([facility]) Glucose, Urine (Ua) Auto Laboratory test result Normal (applies to non-numeric results) [facility] ([facility]) Ketone, Urine Auto Laboratory test result Normal (applies to non-numeric results) [facility] ([facility]) Urobilinogen, Urine Auto 0.2 mg/dL 0.0-2.0 Normal (applies to non-numeric results) [facility] ([facility]) Bilirubin, Urine Auto Laboratory test result Nor mal (applies to non-numeric results) [facility] ([facility]) Nitrite, Urine Auto Laboratory test result Liat l (applies to non-numeric results) [facility] ([facility]) Blood, Urine Blood Laboratory test result Normal (applies to non-numeric results) [facility] ([facility]) Leukocyte Esterase, Urine Auto Laboratory test result Normal (applies to non- numeric results) [facility] ([facility]) WBC, Urine Auto 2 /HPF 0-3 Normal (applies to non-numeric results) [facility] ([facility]) RBC, Urine Auto 2 /HPF 0-3 Normal (applies to non-numeric results) [facility] ([facility]) Hyaline Cast, Urine Auto 0 /LPF 0-1 Normal (applies to non -numeric results) [facility]) Bacteria, Urine Auto Laboratory test result Norm al (applies to non-numeric results) [facility] ([facility]) Squamous Epithelial Cell Ur AU 0 /HPF 0-6 N ormal (applies to non-numeric results) [facility] ([facility]) Amorphous Sediment Laboratory test result Above high liat l [facility] ([facility]) ID Date Data Source [id number] 01/12/2021 01:55:00 PM EDT [facility] ([facility]) Name Value Range Interpretation Code Description Data Ansley rce(s) Supporting Document(s) ABG Partial Pressure Co2 37.4 mmHg 35.0-45.0 Normal (applies to non-numeric results) [facility] ([facility]) ABG pH (Arterial) 7.471 units 7.350-7.450 Above high normal [facility] ([facility]) ABG Total Co2 27.8 meq/L 23.0-31.0 Normal (applies to non-numeric re sults) [facility] ([facility]) ABG Partial Pressure O2 65.8 mmHg 75.0-100.0 Below low normal [facility] ([facility]) ABG Base Excess 3.1 Above high normal [facility] ([facility]) ABG Standard Hco3 27.1 meq/L 22.0-26.0 Above high normal [facility] ([facility]) ABG Hco3 26.7 meq/L 22.0-26.0 Above high normal [facility] ([facility]) ABG O2 Saturation 93.8 % 95.0-99.0 Below low normal [facility] ([facility]) ID Date Data Source [id number] 01/12/2021 01:45:00 PM EDT [facility] ([facility]) Name Value Range Interpretation Code Description Data Ansley rce(s) Supporting Document(s) ABG pH (Arterial) 7.471 units 7.350-7.450 Above high normal [facility] ([facility]) ABG Partial Pressure O2 65.8 mmHg 75.0-100.0 Below low normal [facility] ([facility]) ABG Partial Pressure Co2 37.4 mmHg 35.0-45.0 Normal (applies to non-numeric results) [facility] ([facility]) ABG Hco3 26.7 meq/L 22.0-26.0 Above high normal [facility] ([facility]) ABG Total Co2 27.8 meq/L 23.0-31.0 Normal (applies to non-numeric re sults) [facility] ([facility]) ABG O2 Saturation 93.8 % 95.0-99.0 Below low normal [facility] ([facility]) ABG Standard Hco3 27.1 meq/L 22.0-26.0 Above high normal [facility] ([facility]) ABG Base Excess 3.1 Above high normal [facility]) ID Date Data Source [id number] 01/12/2021 01:15:00 PM EDT [facility] ([facility]) Name Value Range Interpretation Code Description Data Ansley rce(s) Supporting Document(s) Carboxyhemoglobin/Hemoglobin.total in Blood 7.6 % 0.0-1.5 Abo ve high normal [facility] ([facility]) CARBOXYHEMOGLOBIN EXPECTED VALUES [facility] NON-SMOKERS LESS THAN 1.5% SMOKERS 1.5-5.0% HEAVY SMOKERS 5.0-9.0% ID Date Data Source [id number] 01/12/2021 01:15:00 PM EDT [facility] ([facility]) Name Value Range Interpretation Code Description Data Ansley rce(s) Supporting Document(s) White Blood Count 6.0 10 4.0-10.0 Normal (applies to non-numeri c results) [facility] ([facility]) Red Blood Count 3.72 10 4.00-5.40 Below low normal [facility] ([facility]) Hemoglobin 13.4 g/dL 12.0-15.5 Normal (applies to non-numeric resul ts) [facility] ([facility]) Hematocrit 39.3 % 36.0-47.0 Normal (applies to non-numeric resul ts) [facility] ([facility]) Mean Corpuscular Volume 105.6 fl 80.0-96.0 Above high normal [facility] ([facility]) Mean Corpuscular Hemoglobin 36.0 pg 27.0-33.0 Above high normal [facility] ([facility]) Mean Corpuscular HGB Conc 34.1 g/dL 32.0-36.5 Normal (applies to non-numeric results) [facility]) Red Cell Distribution Width 17.1 % 11.5-14.5 Above high normal [facility]) Nucleated Red Blood Cell % 0.0 % 0-0 Normal (applies to n on-numeric results) [facility]) Platelet Count, Automated 264 10 150-450 Normal (applies to non-numeric results) [facility]) ID Date Data Source [id number] 01/12/2021 01:15:00 PM EDT [facility]) Name Value Range Interpretation Code Description Data Ansley rce(s) Supporting Document(s) Prothrombin Time 11.6 s 12.5-14.3 Below low normal [facility]) Partial Thromboplastin Time 28.3 s 24.2-38.5 Norm al (applies to non-numeric results) [facility]) Inr 0.83 Normal (applies to non-numeric resul ts) [facility]) THERAPUTIC HUMAN INR VALUES INDICATIONS NORMAL RANGES PROPHYLAXIS/TREATMENT OF: VENOUS THROMBOSIS 2.0-3.0 PULMONARY EMBOLISM 2.0-3.0 PREVENTION OF SYSTEMIC EMBOLISM FROM: TISSUE HEART VALVES 2.0-3.0 ACUTE MYOCARDIAL INFARCTION 2.0-3.0 VALVULAR HEART DISEASE 2.0-3.0 ATRIAL FIBRILLATION 2.0-3.0 MECHANICAL VALVES(HIGH RISK) 2.5-3.5 RECURRENT MYOCARDIAL INFARCTION 2.5-3.5 ID Date Data Source [id number] 01/12/2021 01:15:00 PM EDT [facility]) Name Value Range Interpretation Code Description Data Ansley rce(s) Supporting Document(s) Blood Urea Nitrogen 5 mg/dL 7-18 Below low normal [facility] ([facility]) Glucose, Fasting 108 mg/dL 70-100 Above high normal M [facility]) Glomerular Filtration Rate Laboratory test result Normal (applies to non- numeric results) [facility]) <content>Units are mL/min/1.73 m2</content>
<content></content>
<content>Chronic Kidney Disease Staging per NKF:</content>
<content></content>
<content>Stage I & II GFR >=60 Normal to Mildly Decreased</content>
<content>Stage III GFR 30- 59 Moderately Decreased</content>
<content>Stage IV GFR 15-29 Severely Decreased</content>
<content>Stage V GFR <15 Very Little GFR Left</content>
<content>ESRD GFR <15 on ASTHMA EDUCATOR</content>
<content></content> Creatinine For GFR 0.81 mg/dL 0.55-1.30 Normal (applies to non -numeric results) [facility] ([facility]) Potassium Serum 3.6 meq/L 3.5-5.1 Normal (applies to non-numeric results) [facility] ([facility]) Sodium Level 134 meq/L 136-145 Below low normal [facility] Carbon Dioxide Level 31 meq/L 21-32 Normal (applies to non-num alma results) [facility] ([facility]) Chloride Level 100 meq/L 98-107 Normal (applies to non-numeric r esults) [facility] ([facility]) Calcium Level 10.3 mg/dL 8.8-10.2 Above high normal [facility] ([facility]) Anion Gap 3 meq/L 8-16 Below low normal [facility] ( [facility]) ID Date Data Source [id number] 12/10/2020 02:20:00 PM EST [facility] ([facility]) Name Value Range Interpretation Code Description Data Ansley rce(s) Supporting Document(s) Blood Type Laboratory test result Normal (applies to non-n umeric results) [facility] ([facility]) Blood group antibody screen [Presence] in Serum or Anya sma Laboratory test result Normal (applies to non-numeric results) [facility] ([facility]) ID Date Data Source [id number] 12/10/2020 01:14:00 PM EST [facility] ([facility]) Name Value Range Interpretation Code Description Data Ansley rce(s) Supporting Document(s) ABG pH (Arterial) 7.446 units 7.350-7.450 Normal (applie s to non-numeric results) [facility]) ABG Partial Pressure O2 71.2 mmHg 75.0-100.0 Below low normal [facility] ([facility]) ABG Partial Pressure Co2 37.0 mmHg 35.0-45.0 Normal (applies to non-numeric results) [facility]) ABG Base Excess 1.1 Normal (applies to non-numeric results) [facility]) ABG Total Co2 26.0 meq/L 23.0-31.0 Normal (applies to non-numeric re sults) [facility]) ABG Hco3 24.9 meq/L 22.0-26.0 Normal (applies to non-numeric resul ts) [facility]) ABG O2 Saturation 94.7 % 95.0-99.0 Below low [facility] ABG Standard Hco3 25.4 meq/L 22.0-26.0 Normal (applies to non- numeric results) [facility]) ID Date Data Source [id number] 12/10/2020 01:13:00 PM EST [facility] ([facility]) Name Value Range Interpretation Code Description Data Ansley rce(s) Supporting Document(s) Appearance, Urine Laboratory test result Normal (applies to non-numeric results) [facility] ([facility]) Color, Urine Laboratory test result Normal (applies to non -numeric results) [facility] ([facility]) PH,Urine 5.0 units 5.0-9.0 Normal (applies to non-numeric resul ts) [facility]) Specific [place] Urine Auto 1.020 1.002-1.035 Norm al (applies to non-numeric results) [facility]) Protein, Urine Auto Laboratory test result Liat l (applies to non-numeric results) [facility] ([facility]) Glucose, Urine (Ua) Auto Laboratory test result Normal (applies to non-numeric results) [facility]) Ketone, Urine Auto Laboratory test result Above high liat l [facility]) Urobilinogen, Urine Auto 0.2 mg/dL 0.0-2.0 Normal (applies to non-numeric results) [facility]) Bilirubin, Urine Auto Laboratory test result Nor mal (applies to non-numeric results) [facility]) Blood, Urine Blood Laboratory test result Normal (applies to non-numeric results) [facility]) Nitrite, Urine Auto Laboratory test result Liat l (applies to non-numeric results) [facility]) Leukocyte Esterase, Urine Auto Laboratory test result Normal (applies to non- numeric results) [facility] ([facility]) WBC, Urine Auto 0 /HPF 0-3 Normal (applies to non-numeric results) [facility] ([facility]) RBC, Urine Auto 1 /HPF 0-3 Normal (applies to non-numeric results) [facility] ([facility]) Bacteria, Urine Auto Laboratory test result Norm al (applies to non-numeric results) [facility]) Mucus, Urine Laboratory test result Normal (applies to non -numeric results) [facility] ([facility]) Squamous Epithelial Cell Ur AU 0 /HPF 0-6 N ormal (applies to non-numeric results) [facility]) Hyaline Cast, Urine Auto 0 /LPF 0-1 Normal (applies to non -numeric results) [facility]) ID Date Data Source [id number] 12/10/2020 01:12:00 PM EST [facility] ([facility]) Name Value Range Interpretation Code Description Data Ansley rce(s) Supporting Document(s) Glucose, Fasting 99 mg/dL 70-100 Normal (applies to non-numeric results) [facility] ([facility]) Blood Urea Nitrogen 14 mg/dL 7-18 Normal (applies to non-nume kamilah results) [facility] ([facility]) Glomerular Filtration Rate Laboratory test result Normal (applies to non- numeric results) [facility]) <content>Units are mL/min/1.73 m2</content>
<content></content>
<content>Chronic Kidney Disease Staging per NKF:</content>
<content></content>
<content>Stage I & II GFR >=60 Normal to Mildly Decreased</content>
<content>Stage III GFR 30- 59 Moderately Decreased</content>
<content>Stage IV GFR 15-29 Severely Decreased</content>
<content>Stage V GFR <15 Very Little GFR Left</content>
<content>ESRD GFR <15 on ASTHMA EDUCATOR</content>
<content></content> Creatinine For GFR 0.76 mg/dL 0.55-1.30 Normal (applies to non -numeric results) [facility] ([facility]) Potassium Serum 3.3 meq/L 3.5-5.1 Below low normal [facility] ([facility]) Sodium Level 137 meq/L 136-145 Normal (applies to non-numeric res ults) [facility] ([facility]) Anion Gap 10 meq/L 8-16 Normal (applies to non-numeric resul ts) [facility]) Carbon Dioxide Level 29 meq/L 21-32 Normal (applies to non-num alma results) [facility]) Chloride Level 98 meq/L 98-107 Normal (applies to non-numeric r esults) [facility]) Calcium Level 10.2 mg/dL 8.8-10.2 Normal (applies to non-numeric re sults) [facility]) ID Date Data Source [id number] 12/10/2020 01:12:00 PM EST [facility]) Name Value Range Interpretation Code Description Data Ansley rce(s) Supporting Document(s) aPTT in Platelet poor plasma by Coagulation assay 28.1 s 24.2-38.5 Normal (applies to non-numeric results) [facility] ([facility]) *Is patient on Anticoagulants? Y ID Date Data Source [id number] 12/10/2020 01:12:00 PM EST [facility] ([facility]) Name Value Range Interpretation Code Description Data Ansley rce(s) Supporting Document(s) Prothrombin Time 12.4 s 12.5-14.3 Normal (applies to non-numeric results) [facility] ([facility]) Inr 0.91 Normal (applies to non-numeric resul ts) [facility] ([facility]) THERAPUTIC HUMAN INR VALUES INDICATIONS NORMAL RANGES PROPHYLAXIS/TREATMENT OF: VENOUS THROMBOSIS 2.0-3.0 PULMONARY EMBOLISM 2.0-3.0 PREVENTION OF SYSTEMIC EMBOLISM FROM: TISSUE HEART VALVES 2.0-3.0 ACUTE MYOCARDIAL INFARCTION 2.0-3.0 VALVULAR HEART DISEASE 2.0-3.0 ATRIAL FIBRILLATION 2.0-3.0 MECHANICAL VALVES(HIGH RISK) 2.5-3.5 RECURRENT MYOCARDIAL INFARCTION 2.5-3.5 ID Date Data Source [id number] 12/10/2020 01:12:00 PM EST [facility] ([facility]) Name Value Range Interpretation Code Description Data Ansley rce(s) Supporting Document(s) White Blood Count 5.9 10 4.0-10.0 Normal (applies to non-numeri c results) [facility] ([facility]) Red Blood Count 3.87 10 4.00-5.40 Below low normal [facility] ([facility]) Hemoglobin 12.7 g/dL 12.0-15.5 Normal (applies to non-numeric resul ts) [facility]) Hematocrit 38.1 % 36.0-47.0 Normal (applies to non-numeric resul ts) [facility]) Mean Corpuscular Hemoglobin 32.8 pg 27.0-33.0 Norm al (applies to non-numeric results) [facility]) Mean Corpuscular Volume 98.4 fl 80.0-96.0 Above high normal [facility]) Mean Corpuscular HGB Conc 33.3 g/dL 32.0-36.5 Normal (applies to non-numeric results) [facility] ([facility]) Platelet Count, Automated 270 10 150-450 Normal (applies to non-numeric results) [facility] ([facility]) Red Cell Distribution Width 15.7 % 11.5-14.5 Above high normal [facility] ([facility]) Nucleated Red Blood Cell % 0.0 % 0-0 Normal (applies to n on-numeric results) [facility] ([facility]) ID Date Data Source [id number] 12/10/2020 01:12:00 PM EST [facility] ([facility]) Name Value Range Interpretation Code Description Data Ansley rce(s) Supporting Document(s) Carboxyhemoglobin/Hemoglobin.total in Blood 6.2 % 0.0-1.5 Abo ve high normal [facility] ([facility]) CARBOXYHEMOGLOBIN EXPECTED VALUES [facility] NON-SMOKERS LESS THAN 1.5% SMOKERS 1.5-5.0% HEAVY SMOKERS 5.0-9.0% ID Date Data Source [id number] 12/06/2020 10:30:00 AM EST [facility] Name Value Range Interpretation Code Description Data Ansley rce(s) Supporting Document(s) SARS coronavirus 2 RNA Not Detected [facility] This lab was ordered by [facility] and reported by [facility]. ID Date Data Source [id number] 11/03/2020 08:07:28 PM EST [facility] Name Value Range Interpretation Code Description Data Ansley rce(s) Supporting Document(s) &PDF [facility] [id number] [file] [id number] ID Date Data Source [id number] 11/03/2020 11:53:00 AM EST [facility] ([facility], ) Name Value Range Interpretation Code Description Data Ansley rce(s) Supporting Document(s) Appearance, Urine Laboratory test result Normal (applies to non-numeric results) [facility] ([facility], ) Color, Urine Laboratory test result Normal (applies to non -numeric results) [facility] ([facility], ) PH,Urine 8.0 units 5.0-9.0 Normal (applies to non-numeric resul ts) [facility] ([facility]) Protein, Urine Auto Laboratory test result Liat l (applies to non-numeric results) [facility] ([facility], ) Glucose, Urine (Ua) Auto Laboratory test result Normal (applies to non-numeric results) [facility] ([facility]) Specific [place] Urine Auto 1.012 1.002-1.035 Norm al (applies to non-numeric results) [facility] ([facility]) Ketone, Urine Auto Laboratory test result Normal (applies to non-numeric results) [facility] ([facility]) Urobilinogen, Urine Auto 0.2 mg/dL 0.0-2.0 Normal (applies to non-numeric results) [facility] ([facility]) Bilirubin, Urine Auto Laboratory test result Nor mal (applies to non-numeric results) [facility] ([facility]) Nitrite, Urine Auto Laboratory test result Liat l (applies to non-numeric results) [facility] ([facility]) Blood, Urine Blood Laboratory test result Normal (applies to non-numeric results) [facility] ([facility]) Leukocyte Esterase, Urine Auto Laboratory test result Normal (applies to non- numeric results) [facility] ([facility]) Bacteria, Urine Auto Laboratory test result Norm al (applies to non-numeric results) [facility] ([facility]) WBC, Urine Auto 1 /HPF 0-3 Normal (applies to non-numeric results) [facility] ([facility]) RBC, Urine Auto 1 /HPF 0-3 Normal (applies to non-numeric results) [facility] ([facility]) Squamous Epithelial Cell Ur AU 0 /HPF 0-6 N ormal (applies to non-numeric results) [facility] ([facility]) Mucus, Urine Laboratory test result Normal (applies to non -numeric results) [facility] ([facility]) Hyaline Cast, Urine Auto 0 /LPF 0-1 Normal (applies to non -numeric results) [facility]) ID Date Data Source [id number] 10/31/2020 09:00:00 AM EST [facility] Name Value Range Interpretation Code Description Data Ansley rce(s) Supporting Document(s) SARS coronavirus 2 RNA [facility] This lab was ordered by [facility] and reported by [facility]. ID Date Data Source [id number] 10/08/2020 10:00:00 AM EST [facility] Name Value Range Interpretation Code Description Data Ansley rce(s) Supporting Document(s) SARS coronavirus 2 RNA [facility] This lab was ordered by [facility] and reported by [facility]. ID Date Data Source [id number] 10/02/2020 08:10:00 AM EST [facility] ([facility]) Name Value Range Interpretation Code Description Data Ansley rce(s) Supporting Document(s) Glu 84 mg/dL 74-106 [facility] ([facility], ) BUN 8 mg/dL 7-18 [facility] ([facility]) Cre 1.1 mg/dL 0.6-1.0 Above high normal [facility] ([facility]) K 5.1 mmol/L 3.5-5.1 [facility] ([facility]) Na 139 mmol/L 136-145 [facility] ([facility]) Co2 26 mmol/L 21-32 [facility] ([facility]) CL 101 mmol/L 98-107 [facility] ([facility]) Gap 12.0 mmol/L 5-12 [facility] ([facility]) GFR 50 mL/min [facility] ([facility]) <content>GFR IS CALCULATED IN mL/min/1.73m2</content>
<content></content>
<content>NORMAL FUNCTION: >90</content>
<content>MILDLY DECREASED: 60-89</content>
<content>MILDY TO MODERATELY DECREASED: 45-59</content>
<content>MODERATELY TO SEVERELY DECREASED: 30-44</content>
<content>SEVERELY DECREASED: 15- 29</content>
<content>RENAL FAILURE: <15</content>
<content></content> CA 9.6 mg/dL 8.5-10.1 MEDENT ([facility]) ID Date Data Source [id number] 10/02/2020 08:10:00 AM EST MEDENT ([facility]) Name Value Range Interpretation Code Description Data Ansley rce(s) Supporting Document(s) Magnesium [Mass/volume] in Serum or Plasma 1.5 mg/dL 1.8-2.4 Belo w low normal MEDENT ([facility], ) FAX [phone] ID Date Data Source [id number] 10/02/2020 08:47:00 AM EST [facility] FA[facility] [phone] Name Value Range Interpretation Code Description Data Ansley rce(s) Supporting Document(s) MAGNESIUM 1.5 mg/dL 1.8-2.4 [facility] ID Date Data Source [id number] 10/02/2020 08:47:00 AM EST [facility] FA[facility] [phone] Name Value Range Interpretation Code Description Data Ansley rce(s) Supporting Document(s) GLUCOSE 84 mg/dL 74-106 [facility] BLOOD UREA NITROGEN 8 mg/dL 7-18 [facility] ital CREATININE 1.1 mg/dL 0.6-1.0 [facility] GLOMERULAR FILTRATION RATE 50 mL/min [facility] GFR IS CALCULATED IN mL/min/1.73m2 LIAT L FUNCTION: >90MILDLY DECREASED: 60-89MILDY TO MODERATELY DECREASED: 45-59 MODERATELY TO SEVERELY DECREASED: 30-44SEVERELY DECREASED: 15-29RENAL FAILURE: <15 Procedure Social History Code Duration Value Status Description Data Source(s ) Smoking 04/28/2021 12:00:00 AM EDT Current Smoker completed Curre nt Smoker eCW1 ([facility]) Smoking 04/28/2021 12:00:00 AM EDT Current Smoker completed Curre nt Smoker eCW1 ([facility]) Smoking 04/28/2021 12:00:00 AM EDT Current Smoker completed Curre nt Smoker eCW1 ([facility]) Smoking 04/22/2021 12:00:00 AM EDT Patient is a former smoker completed Patient is a former smoker GIL ([facility], ) Smoking 01/26/2021 12:00:00 AM EDT Current Smoker completed Curre nt Smoker eCW1 ([facility]) Smoking 01/26/2021 12:00:00 AM EDT Current Smoker completed Curre nt Smoker eCW1 ([facility]) Alcohol intake 11/03/2020 12:00:00 AM EST Yes completed [facility] Cigarette pack-years 11/03/2020 12:00:00 AM EST UNK completed [facility] Cigarettes smoked current (pack per day) - Reported 11/03/19 12:00:00 AM EST UNK completed [facility] Smoking 11/03/2020 12:00:00 AM EST Current every day smoker co mpleted Current every day smoker [facility] Smoking 10/08/2020 12:00:00 AM EST Patient is a former smoker completed Patient is a former smoker GIL ([facility], ) Vital Signs ID Date Data Source UNK Name Value Range Interpretation Code Description Data Source(s) Body weight 91.4 [lb_av] 91.4 [lb_av] W1 ([facility]) Body height [in_i] [facility] Body mass index (BMI) [Ratio] 16.19 kg/m2 16.19 kg/m2 W1 ([facility]) Heart rate 105 /min 105 /min W1 ([facility]) Respiratory rate 19 /min 19 /min W1 ([facility]) Body temperature 97.8 [degF] 97.8 [degF] eCW1 ( [facility]) Systolic blood pressure 120 mm[Hg] 120 mm[Hg] e CW1 ([facility]) Diastolic blood pressure 82 mm[Hg] 82 mm[Hg] eCW1 ([facility]) Oxygen saturation in Arterial blood by Pulse oximetry 97 % 97 % GIL ([facility], ) Body height 62.5 [in_i] 62.5 [in_i] MEDENT ([facility]) 5'2.50" Body weight 902.00 [lb_av] 902.00 [lb_av] MEDEN T ([facility]) Body mass index (BMI) [Ratio] 162.3 kg/m2 162.3 kg/m2 [facility] ([facility]) [place] body weight 110 [lb_av] 110 [lb_av] MEDEN T ([facility]) Body weight 409.147 kg 409.147 kg [facility] ([facility]) Body surface area Derived from formula 3.65 m2 3.65 m2 [facility] ([facility]) Systolic blood pressure 130 mm[Hg] 130 mm[Hg] EDENT ([facility]) Diastolic blood pressure 90 mm[Hg] 90 mm[Hg] [facility] ([facility]) Heart rate 150 /min 150 /min [facility] ([facility]) Oxygen saturation in Arterial blood by Pulse oximetry 97 % 97 % [facility] ([facility]) Body height 62.5 [in_i] 62.5 [in_i] [facility] 5'2.50" Body weight 902.00 [lb_av] 902.00 [lb_av] MEDEN T ([facility]) Body mass index (BMI) [Ratio] 162.3 kg/m2 162.3 kg/m2 [facility] ([facility]) [place] body weight 110 [lb_av] 110 [lb_av] MEDEN T ([facility]) Body weight 409.147 kg 409.147 kg [facility] ([facility]) Body surface area Derived from formula 3.65 m2 3.65 m2 [facility] ([facility]) [place] body weight 110 [lb_av] 110 [lb_av] MEDEN T ([facility]) Body weight 42.638 kg 42.638 kg [facility] ([facility]) Body surface area Derived from formula 1.40 m2 1.40 m2 [facility] ([facility]) Oxygen saturation in Arterial blood by Pulse oximetry 91 % 91 % [facility] ([facility]) Room Air Body height 62.5 [in_i] 62.5 [in_i] [facility] ([facility]) 5'2.50" Body weight 94.00 [lb_av] 94.00 [lb_av] [facility] ([facility]) Body mass index (BMI) [Ratio] 16.9 kg/m2 16.9 k g/m2 [facility] ([facility]) Systolic blood pressure 120 mm[Hg] 120 mm[Hg] [facility] Diastolic blood pressure 70 mm[Hg] 70 mm[Hg] [facility] ([facility]) Heart rate 132 /min 132 /min [facility] ([facility]) Oxygen saturation in Arterial blood by Pulse oximetry 91 % 91 % [facility] ([facility]) Room Air Body height 62.5 [in_i] 62.5 [in_i] [facility] ([facility]) 5'2.50" Body weight 94.00 [lb_av] 94.00 [lb_av] [facility] ([facility]) Body mass index (BMI) [Ratio] 16.9 kg/m2 16.9 k g/m2 [facility] ([facility]) [place] body weight 110 [lb_av] 110 [lb_av] [facility] Body weight 42.638 kg 42.638 kg [facility] ([facility]) Body surface area Derived from formula 1.40 m2 1.40 m2 [facility] ([facility]) Body weight 93.4 [lb_av] 93.4 [lb_av] eCW1 ([facility]) Body height [in_i] eCW1 [facility] Body mass index (BMI) [Ratio] 16.54 kg/m2 16.54 kg/m2 eCW1 ([facility]) Heart rate 100 /min 100 /min eCW1 ([facility]) Respiratory rate 20 /min 20 /min eCW1 ([facility]) Body temperature 97.8 [degF] 97.8 [degF] eCW1 ( [facility]) Systolic blood pressure 128 mm[Hg] 128 mm[Hg] e CW1 ([facility]) Diastolic blood pressure 76 mm[Hg] 76 mm[Hg] eCW1 ([facility]) Body weight 44.453 kg 44.453 kg [facility] Systolic blood pressure 140 mm[Hg] 140 mm[Hg] [facility] Diastolic blood pressure 70 mm[Hg] 70 mm[Hg] [facility]) Heart rate 106 /min 106 /min [facility] ([facility]) Oxygen saturation in Arterial blood by Pulse oximetry 95 % 95 % [facility] ([facility]) Body height 62.5 [in_i] 62.5 [in_i] [facility] ([facility]) 5'2.50" Body weight 98.00 [lb_av] 98.00 [lb_av] [facility] ([facility]) Body mass index (BMI) [Ratio] 17.6 kg/m2 17.6 k g/m2 [facility] ([facility]) [place] body weight 110 [lb_av] 110 [lb_av] MEDEN T ([facility]) Body surface area Derived from formula 1.42 m2 1.42 m2 [facility] ([facility]) Oxygen saturation in Arterial blood by Pulse oximetry 97 % 97 % [facility] ([facility]) Room Air Systolic blood pressure 112 mm[Hg] 112 mm[Hg] M EDENT ([facility]) Diastolic blood pressure 72 mm[Hg] 72 mm[Hg] [facility] ([facility]) Heart rate 100 /min 100 /min [facility] ([facility]) Body height 62.5 [in_i] 62.5 [in_i] [facility] ([facility]) 5'2.50" Body weight 100.00 [lb_av] 100.00 [lb_av] MEDEN T ([facility]) Body mass index (BMI) [Ratio] 18.0 kg/m2 18.0 k g/m2 MEDENT ([facility]) [place] body weight 110 [lb_av] 110 [lb_av] MEDEN T ([facility]) Body weight 45.360 kg 45.360 kg [facility] ([facility]) Body surface area Derived from formula 1.43 m2 1.43 m2 [facility] ([facility]) Systolic blood pressure 140 mm[Hg] 140 mm[Hg] [facility] Diastolic blood pressure 80 mm[Hg] 80 mm[Hg] [facility] Heart rate 124 /min 124 /min [facility] Respiratory rate 16 /min 16 /min [facility] Body height 157.5 cm 157.5 cm [facility] Body weight 47.174 kg 47.174 kg [facility] Body mass index (BMI) [Ratio] 19.02 kg/m2 19.02 kg/m2 [facility] Systolic blood pressure 140 mm[Hg] 140 mm[Hg] M EDENT ([facility]) Diastolic blood pressure 90 mm[Hg] 90 mm[Hg] [facility] ([facility]) Oxygen saturation in Arterial blood by Pulse oximetry 98 % 98 % [facility] ([facility]) Body temperature 98.0 [degF] 98.0 [degF] [facility] ([facility]) Body height 62.5 [in_i] 62.5 [in_i] [facility] ([facility]) 5'2.50" Body mass index (BMI) [Ratio] 18.0 kg/m2 18.0 k g/m2 [facility] ([facility]) [place] body weight 110 [lb_av] 110 [lb_av] MEDEN T ([facility]) Body surface area Derived from formula 1.43 m2 1.43 m2 [facility] ([facility]) Heart rate 110 /min 110 /min [facility] ([facility]) Body weight 100.00 [lb_av] 100.00 [lb_av] MEDEN T ([facility]) Body weight 45.360 kg 45.360 kg [facility] ([facility]) Systolic blood pressure 138 mm[Hg] 138 mm[Hg] [facility] lleft arm 142/78 right arm Diastolic blood pressure 72 mm[Hg] 72 mm[Hg] [facility] ([facility]) lleft arm 142/78 right arm Heart rate 100 /min 100 /min [facility] ([facility]) Oxygen saturation in Arterial blood by Pulse oximetry 94 % 94 % [facility] ([facility]) Room Air Body weight 98.00 [lb_av] 98.00 [lb_av] [facility] ([facility]) Body mass index (BMI) [Ratio] 17.6 kg/m2 17.6 k g/m2 [facility] ([facility]) [place] body weight 110 [lb_av] 110 [lb_av] [facility] Body surface area Derived from formula 1.42 m2 1.42 m2 [facility] ([facility]) Body height 62.5 [in_i] 62.5 [in_i] [facility] ([facility]) 5'2.50" Body weight 44.453 kg 44.453 kg [facility] ([facility]) Patient Treatment Plan of Care Planned Activity Planned Date Details Description Data Source (s) 24 HR metoprolol succinate 25 MG Extended Release Oral Tablet 11/03/2020 12:00:00 AM [facility] KLOR-CON M10 10 MEQ tablet 10/29/2020 12:00:00 AM [facility] Folic Acid 1 MG Oral Tablet 10/28/2020 12:00:00 AM [facility] STIOLTO RESPIMAT 2.5-2.5 MCG/ACT AERS 10/24/2020 12:00:00 AM [facility]
--- NOTE | 2021-10-08 10:19 | REP ---
INDICATION: gi bleed. COMPARISON: 01/12/2021. TECHNIQUE: Single portable AP view of the chest was performed. FINDINGS: There is no acute infiltrate or pulmonary edema. Lungs are clear. The heart is not significantly enlarged. The mediastinal silhouette is unremarkable. The visualized osseous structures are intact.Calcific plaque is seen in the thoracic aorta. IMPRESSION: No acute pulmonary disease. <Electronically signed by Alfredo Bassett > 10/08/21 [id number]
[2021-10-08] MEDS ORDERED: ISOVUE-370 76% 100ML VIAL As Ordered ONE (11:01)
[2021-10-08 11:02] LABS: BASO % 0.1 % (0.0-1.0); EOS % 0.3 % (0.0-3.0); HEMATOCRIT 27.6 % (36.0-47.0); HEMOGLOBIN 9.2 g/dl (12.0-15.5); LYMPH # 2.2 10^3/uL (1.5-5.0); LYMPH % 28.8 % (24.0-44.0); MEAN CORPUSCULAR HEMOGLOBIN 37.9 pg (27.0-33.0); MEAN CORPUSCULAR HGB CONC 33.3 g/dl (32.0-36.5); MEAN CORPUSCULAR VOLUME 113.6 fl (80.0-96.0); MONO # 0.5 10^3/uL (0.0-0.8); NEUTROPHILS % 64.2 % (36.0-66.0); PLATELET COUNT, AUTOMATED 216 10^3/uL (150-450); RED BLOOD COUNT 2.43 10^6/uL (4.00-5.40); WHITE BLOOD COUNT 7.7 10^3/uL (4.0-10.0)
[2021-10-08] MEDS ORDERED: dexameTHASONE 4 MG/ML 1ML VIAL (J1100 PER 1MG) IV ONE (11:05)
[2021-10-08 11:13] LABS: INR 1.33; PROTHROMBIN TIME 16.9 SECONDS (12.7-14.5)
[2021-10-08 11:14] LABS: PARTIAL THROMBOPLASTIN TIME 40.5 SECONDS (25.9-37.0)
[2021-10-08] MEDS: COMBIVENT RESPIMAT 100-20MCG INHALER 4GM INH SCH ×3 (11:29→12:16)
[2021-10-08 11:36] LABS: ALBUMIN 1.1 GM/DL (3.2-5.2); ALT/SGPT 61 U/L (12-78); BILIRUBIN,DIRECT 0.5 MG/DL (0.0-0.2); BILIRUBIN,TOTAL 0.9 MG/DL (0.2-1.0); LIPASE < 10 U/L (73-393); TOTAL PROTEIN 4.3 GM/DL (6.4-8.2)
[2021-10-08] MEDS ORDERED: LIDOCAINE 2% 5ML JELLY UROJET TOP ONE (11:40)
[2021-10-08 11:44] LABS: ABG BASE EXCESS 4.6 (-2.0-2.0); ABG HCO3 28.8 MEQ/L (22.0-26.0); ABG O2 SATURATION 99.2 % (95.0-99.0); ABG PARTIAL PRESSURE O2 175.5 mmHg (75.0-100.0); ABG STANDARD HCO3 28.7 MEQ/L (22.0-26.0); ABG pH (ARTERIAL) 7.464 UNITS (7.350-7.450)
--- NOTE | 2021-10-08 12:01 | REP ---
INDICATION: gi bleed - await poc bun/cr COMPARISON: 10/26/2017. TECHNIQUE: CT Scan of the abdomen and pelvis was performed with intravenous administration of 100 cc of Isovue 370, without oral contrast. Sagittal and coronal reconstruction images are performed. FINDINGS: Lung bases: Unremarkable. Liver: There is diffuse fatty infiltration of the liver Gallbladder: Unremarkable. Spleen: Normal. Adrenals: Normal. Pancreas: Normal. Kidneys: There is a 1.2 cm cyst in the upper pole the left kidney. There is no hydronephrosis bilaterally.. Small and large bowel: A suture line is noted in the sigmoid colon. There is no free air or obstruction. Free fluid: There is mild to moderate diffuse ascites in the abdomen and pelvis. Abdominal aorta: No aneurysm or dissection. There is significant calcific plaque of the distal abdominal aorta with resultant moderate narrowing. There is significant plaquing and narrowing of the bilateral common iliac and external iliac arteries. Adenopathy: None. Appendix: Not inflamed. Osseous structures: There are degenerative changes of the spine, most significantly at L4-5, without compression deformity. Pelvis: No mass. There is a large amount of air throughout the bladder wall. There is a small amount within the bladder lumen a very small amount in the soft tissues surrounding the urinary bladder. 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 IMPRESSION: There is a large amount of air throughout the bladder wall. There is a small amount within the bladder lumen a very small amount in the soft tissues surrounding the urinary bladder. 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 Diffuse fatty infiltration of the liver. Mild to moderate diffuse abdominal and pelvic ascites. Significant plaquing and narrowing of the distal abdominal aorta and bilateral iliac arteries. 9 Critical Findings: Findings consistent with emphysematous cystitis. The critical information above was relayed directly by me by telephone to Jim Christine on 10/08/2021 at 11:51 am with readback verification. <Electronically signed by Alfredo Bassett > 10/08/21 [id number]
[2021-10-08] MEDS ORDERED: CIPROFLOXACIN 400 MG in IV 1 EA IV ONE (12:35)
[2021-10-08 12:49] LABS: RSV AMPLIFICATION NEGATIVE (NEGATIVE)
--- OUTSIDE RECORDS SUMMARY | 2021-10-08 13:21 | CCD ---
Author Author [facility] Organization [facility] Address Unknown Phone Unavailable Care Team Providers Care Raise Drill Operator Name Role Phone Rut Garibay MD Unavailable [...] ANN ALMA PA Unavailable Unavailable PABLO, ANN AMLA PA Unavailable Unavailable PABLO, ANN ALMA PA [...] M Mandi PA-C Unavailable Unavailable Cyrus Hills COMPUTER CONSOLE OPERATOR Unavailable Unavailable Irwinton, Cyrus Burns COMPUTER CONSOLE OPERATOR Unavailable Unavailable Reinier, Cyrus Burns COMPUTER CONSOLE OPERATOR Unavailable Unavailable Irwinton, Cyrus Burns COMPUTER CONSOLE OPERATOR Unavailable Unavailable Reinier, Cyrus Burns COMPUTER CONSOLE OPERATOR Unavailable Unavailable Reinier, Cyrus Burns COMPUTER CONSOLE OPERATOR Unavailable Unavailable Reinier, N Grant COMPUTER CONSOLE OPERATOR Unavailable Unavailable Reinier, N Grant COMPUTER CONSOLE OPERATOR Unavailable Unavailable Reinier, N Grant COMPUTER CONSOLE OPERATOR Unavailable Unavailable Reinier, N Grant COMPUTER CONSOLE OPERATOR Unavailable Unavailable Reinier, N Grant COMPUTER CONSOLE OPERATOR Unavailable Unavailable Irwinton, N Grant COMPUTER CONSOLE OPERATOR Unavailable Unavailable Reinier, N Grant COMPUTER CONSOLE OPERATOR Unavailable Unavailable Irwinton, N Grant COMPUTER CONSOLE OPERATOR Unavailable Unavailable Irwinton, N Grant COMPUTER CONSOLE OPERATOR Unavailable Unavailable Reinier, N Grant COMPUTER CONSOLE OPERATOR Unavailable Unavailable Reinier, N Grant COMPUTER CONSOLE OPERATOR Unavailable Unavailable Reinier, N Grant COMPUTER CONSOLE OPERATOR Unavailable Unavailable Reinier, N Grant COMPUTER CONSOLE OPERATOR Unavailable Unavailable Irwinton, N Grant COMPUTER CONSOLE OPERATOR Unavailable Unavailable Irwinton, N Grant COMPUTER CONSOLE OPERATOR Unavailable Unavailable Reinier, N Grant COMPUTER CONSOLE OPERATOR Unavailable Unavailable Irwinton, N Grant COMPUTER CONSOLE OPERATOR Unavailable Unavailable Irwinton, N Grant COMPUTER CONSOLE OPERATOR Unavailable Unavailable Irwinton, N Grant COMPUTER CONSOLE OPERATOR Unavailable Unavailable Irwinton, N Grant COMPUTER CONSOLE OPERATOR Unavailable Unavailable Irwinton, N Grant COMPUTER CONSOLE OPERATOR Unavailable Unavailable Irwinton, N Grant COMPUTER CONSOLE OPERATOR Unavailable Unavailable Irwinton, N Grant COMPUTER CONSOLE OPERATOR Unavailable Unavailable Reinier, N Grant COMPUTER CONSOLE OPERATOR Unavailable Unavailable Reinier, N Grant COMPUTER CONSOLE OPERATOR Unavailable Unavailable Reinier, N Grant COMPUTER CONSOLE OPERATOR Unavailable Unavailable Irwinton, N Grant COMPUTER CONSOLE OPERATOR Unavailable Unavailable PABLO, ANN ALMA PA Unavailable [...] is protected by Article 27-F of the [facility] Public Health law. If you continue you may have access to information: Regarding HIV / AIDS; Provided by facilities licensed or operated by the [facility] Office of Mental Health; or Provided by the [facility] Office for People With Developmental Disabilities. If such information is present, then the following [facility] mandated warning applies: This information [...] law may result in a fine or chcf sentence or both. A general authorization for the release of medical or other information is NOT sufficient authorization for further disc losure. Allergies and Adverse Reactions Type Description Substance Reaction Status Data Source(s ) Propensity to adverse reactions FENTANYL Fentanyl Rash Low Acti ve [facility] Low Family History Family Member Name Family Member Gender Family Member Status Date o f Status Description Data Source(s) Unknown Unknown Problem MEDENT ([facility]) Unknown Unknown Problem MEDENT ([facility] Unknown Female Problem MEDENT ([facility]) Encounters Encounter Providers Location Date Indications Data Source(s ) Outpatient Attender: ALMA REDMAN [id number] 10:09:00 AM [facility] Emergency Attender: ALMA JUANeferrer: Kade You PA-C EMERGENCY ROOM-ER 09/07/2021 02:27:00 PM EST - 09/07/2021 05:42:00 PM [facility] Patient discharged. [place] [address] [facility] [address] 06/08/2021 12:00:00 AM EDT eCW1 ([facility]) [place] [address] [facility] [address] 05/14/2021 12:00:00 AM EDT eCW1 ([facility]) Outpatient [address] [facility] [address] 04/28/2021 12:00:00 AM EDT eCW1 ([facility]) Outpatient Attender: Mandi Gonzales: MICHEL ELAINE SR 04/26/2021 10:00:00 AM EDT [facility] Outpatient [facility] 04/23/2021 12:00:00 AM EDT eCW1 ([facility]) Outpatient [facility] 04/23/2021 12:00:00 AM EDT eCW1 ([facility]) Outpatient Attender: Rut Rogers/Franki/Eron/Titi ndl 04/22/2021 10:30:00 AM EDT [facility]ENT ([facility]) [place] [address] [facility] [address] 04/22/2021 12:00:00 AM EDT eCW1 ([facility]) Outpatient Attender: Gary Rogers/Franki/Eron/Re indl 02/11/2021 09:45:00 AM EDT MEDENT ([facility]) Outpatient [address] [facility] [address] 01/26/2021 12:00:00 AM EDT eCW1 ([facility]) Outpatient Attender: Gary Rogers/Franki/Eron/Re indl 01/14/2021 09:15:00 AM EDT MEDENT ([facility]) Outpatient Attender: Gary Rogers/Franki/Eron/Re indl 12/24/2020 08:15:00 AM EST MEDENT ([facility]) Outpatient Attender: Gary Rogers/Franki/Eron/Re indl 11/19/2020 08:45:00 AM EST MEDENT ([facility]) Outpatient Referrer: Grant Hills NP SJP.CT-SJP.SYR 021 12:00:00 AM EST - 11/10/2020 11:48:51 AM EST [facility] Outpatient Attender: Grant KING.MARIO-SJP.MARIO 021 01:40:23 PM EST - 11/04/2020 10:47:25 AM EST [facility] Outpatient Referrer: Grant KING.MARIO-SJP.MARIO 11/03/2020 12 :00:00 AM [facility] Outpatient Attender: Gary Rogers/Franki/Eron/Re indl 10/08/2020 08:45:00 AM EST MEDENT ([facility] ) Outpatient Attender: Gary Mccrary MD 10/02/2020 08:05:00 AM [facility] Admission cancelled. Disregard status an d admitted date. Outpatient Attender: Rut Garibay MDReferrer: ELMER ARELLANO SR EMERGENCY ROOM-LABOTHPROV 10/02/2020 08:02:00 AM EST - 10/02/2020 08:02:00 AM [facility] Outpatient Attender: Gary Rogers/Franki/Eron/Re indl 08/13/2020 10:45:00 AM EDT MEDENT ([facility]) Outpatient Attender: MICHEL ARELLANO SRReferrer: ELMER ARELLANO SR EMERGENCY ROOM-LAB 07/14/2020 11:05:00 AM EDT - 07/14/2020 11:05:00 AM [facility] Outpatient Attender: MICHEL ARELLANO SRReferrer: ELMER ARELLANO SR EMERGENCY ROOM-LAB 06/29/2020 03:04:00 PM EDT - 06/29/2020 03:04:00 PM [facility] Outpatient Attender: MICHEL ARELLANO SR 06/19/2020 03:30:00 PM [facility] Outpatient Attender: MICHEL ARELLANO SRReferrer: MICHEL Dudley SR 04/24/2020 08:30:00 AM [facility] Outpatient Attender: MICHEL ARELLANO SR 04/17/2020 09:55:00 AM [facility] Outpatient Attender: Rut Garibay MDReferrer: MICHEL Dudley SR 04/22/2019 10:00:00 AM [facility] Outpatient Attender: MICHEL ARELLANO SRReferrer: MICHEL Dudley SR 02/04/2019 09:00:00 AM EDT - 02/04/2019 09:00:00 AM [facility] Outpatient Attender: MICHEL ARELLANO SRReferrer: MICHEL Dudley SR 01/10/2019 12:53:00 PM EDT - 01/10/2019 12:53:00 PM [facility] Immunizations Vaccine Date Status Description Data Source(s) COVID-19 dose #2 given elsewhere Unspecified 03/03/2021 09:2 8:00 AM EDT completed eCW1 ([facility]) COVID-19 dose #2 given elsewhere Unspecified 03/03/2021 09:2 8:00 AM EDT completed eCW1 ([facility]) COVID-19 dose #2 given elsewhere Unspecified 03/03/2021 09:2 8:00 AM EDT completed eCW1 ([facility]) COVID-19 VACCINE Moderna 03/03/2021 12:00:00 AM EDT completed [facility]IS Vaccine Series Complete: YESThis Data wa s Submitted to [place] Via NYSIIS. COVID-19 dose #1 given elsewhere Unspecified 02/03/2021 09:2 7:00 AM EDT completed eCW1 ([facility]) COVID-19 dose #1 given elsewhere Unspecified 02/03/2021 09:2 7:00 AM EDT completed eCW1 ([facility]) COVID-19 dose #1 given elsewhere Unspecified 02/03/2021 09:2 7:00 AM EDT completed eCW1 ([facility]) COVID-19 VACCINE Moderna 02/03/2021 12:00:00 AM EDT completed [facility]IS Vaccine Series Complete: NOThis Data was Submitted to [place] Via INCIDE. Medications Medication Brand Name Start Date Product [...] tablet (25 mg total) by mouth daily [facility] 25 mg 11/03/2020 12:00:00 AM [...] BY MOUTH ONCE DAILY SOLD: 11/03/2020 [employer] KLOR-CON M10 10 MEQ tablet 08529-406-11 10/29/2020 12:00:00 AM EST 10 meq Oral active Take 10 mEq by mouth 2 (two) times a day [facility] Folic Acid 1 MG Oral Tablet folic acid (FOLVITE) 1 MG tablet folic acid (FOLVITE) 1 MG tablet 10/28/2020 12:00:00 AM EST 1000 ug Oral active Take 1,000 mcg by mouth daily [facility] STIOLTO RESPIMAT 2.5-2.5 MCG/ACT AERS 0031-4916-21 10/24/2020 12:00 :00 AM EST active INHALE 2 PUFFS BY MOUTH ONCE DAILY [facility] 875-125 mg 10/12/2020 12:00:00 AM [...] type / Coverage type Policy ID Covered green party ID Covered green party's relationship to stephenson Policy Stephenson Plan Information [facility] ([facility]) Commercial [id number] Self UN COMMUNITY PLAN [facility] [id number] SP [id number] MEDICAID [id number] SP [id number] [facility] [id number] SP [id number] [facility] Health Maintenance Organization (HMO) [id number] Self [id number] [facility] MEDICAID [id number] S [id number] [facility] PL[facility] MCDO [id number] SP [id number] [facility] MEDICAID [id number] S [id number] [facility] MEDICAID [id number] S [id number] [facility] [id number] [place] [id number] [facility] MEDICAID [id number] S [id number] [facility] [id number] xxxxxxxxx [id number] ANSI-Medicaid [id number] ANSI-Medicaid [id number] ANSI-Medicaid [id number] ANSI-Medicaid [id number] [facility] O [id number] S [id number] [facility] Health Maintenance Organization ([facility] [id number] [facility] Health Maintenance Organization (HMO) [id number] [facility] Health Maintenance Organization (O) [id number] Self [id number] MEDICAID M [id number] S [id number] [facility] O [id number] S [id number] ANSI-Medicaid [id number] [facility] [id number] SP [id number] [facility] MEDICAID [id number] S [id number] [facility] O [id number] S [id number] ANSI-Medicaid [id number] ANSI-Medicaid [id number] ANSI-Medicaid [id number] ANSI-Medicaid [id number] ANSI-Medicaid [id number] [facility] [id number] SP [id number] ANSI-Medicaid [id number] ANSI-Medicaid [id number] Problems, Conditions, and Diagnoses Code Display Name Description Problem Type Effective Dates Data Source(s) Z79.899 Other emt intermediate (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 therapy O THER [facility] (CURRENT) DRUG THERAPY Diagnosis 09/07/2021 02:27:00 PM [facility] l Z20.822 CONTACT WITH AND (SUSPECTED) EXPOSURE TO COVID-19 CONTACT WITH AND (SUSPECTED) EXPOSURE TO COVID-19 Diagnosis 09/07/2021 02:27:00 PM [facility] J90 Pleural effusion, not elsewhere classifi ed PLEURAL EFFUSION, NOT ELSEWHERE CLASSIFIED Diagnosis 09/07/2021 02:27:00 PM [facility] J44.9 Chronic obstructive pulmonary disease, u nspecified CHRONIC OBSTRUCTIVE PULMONARY DISEASE, UNSPECIFIED Diagnosis 09/07/2021 02:27:00 PM [facility] I10 Essential (primary) hypertension ESSENTIAL (PRIMARY) H YPERTENSION Diagnosis 09/07/2021 02:27:00 PM [facility] M25.552 Pain in left hip PAIN IN LEFT HIP Diagnosis 09/07/2021 02 :27:00 PM [facility] M25.551 Pain in right hip PAIN IN RIGHT HIP Diagnosis 09/07 02:27:00 PM [facility] E83.42 Hypomagnesemia HYPOMAGNESEMIA Diagnosis 09/07/2021 02:27: 00 PM [facility] R53.1 Weakness WEAKNESS Diagnosis 09/07/2021 02:27:00 PM [facility] Z12.31 Encounter for screening mammogram for ma lignant neoplasm of breast ENCNTR SCREEN MAMMOGRAM FOR MALIGNANT NEOPLASM OF BREAST Diagnosis 10:00:00 AM [facility] 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 Coronary atherosclerosis due to calcifie Diagnosis 11/10/2020 07:34:14 AM [facility] I25.10 Atherosclerotic heart diseas e of [place] coronary artery without angina pectoris Atherosclerotic heart disease of [place] Diagnosis 11/10/2020 07:34:14 AM [facility] R94.31 Abnormal electrocardiogram [ECG] [EKG] A bnormal electrocardiogram (ECG) (EKG) Diagnosis 11/10/2020 07:34:14 AM [facility] R00.0 Tachycardia, unspecified Tachycardia, unspecified Diag nosis 11/10/2020 07:34:14 AM [facility] Z01.810 Encounter for preprocedural cardiovascul ar examination Encounter for preprocedural cardiovascul Diagnosis 11/10/2020 07:34:14 AM [facility] Z01.812 Encounter for preprocedural laboratory e xamination ENCOUNTER FOR PREPROCEDURAL LABORATORY EXAMINATION Diagnosis 10/19/2020 12:00:00 AM [facility] R41.3 [id number] Memory impairment Problem 05/14/2021 12:00:0 0 AM EDT eCW1 ([facility]) J44.9 [id number] COPD (chronic obstru ctive pulmonary disease) case management patient Problem 01/26/2021 12:00:00 AM EDT eCW1 ([facility]) R91.1 [id number] Pulmonary nodule Problem 01/26/2021 12:00:00 AM EDT eCW1 ([facility]) G62.9 [id number] Peripheral polyneuropathy Problem 01/26/2021 12:00:00 AM EDT eCW1 ([facility]) R94.31 Abnormal ECG Abnormal ECG [id number] 11/03/2020 12:00:00 A M [facility] R00.0 Sinus tachycardia Sinus tachycardia [id number] 11/03/2020 12:00:00 AM [facility] Z01.810 Preop cardiovascular exam Preop cardiovascular exam 64 [id number] 11/03/2020 12:00:00 AM [facility] I25.10 Coronary artery calcification Coronary artery calcific ation [id number] 11/03/2020 12:00:00 AM [facility] Surgeries/Procedures Procedure Description Date Indications Data Source(s) OFFICE OUTPATIENT VISIT 25 MINUTES 04/22/2021 12:00:00 AM EDJad CORDERO ([facility], ) OFFICE OUTPATIENT VISIT 25 MINUTES 02/11/2021 12:00:00 AM EDT MEDVI ([facility], ) OFFICE OUTPATIENT VISIT 25 MINUTES 01/14/2021 12:00:00 AM EDT MEDVI ([facility], ) OFFICE OUTPATIENT VISIT 25 MINUTES 12/24/2020 12:00:00 AM EST MEDENT ([facility], ) OFFICE OUTPATIENT VISIT 25 MINUTES 11/19/2020 12:00:00 AM EST MEDENT ([facility], ) ECG ROUTINE ECG W/LEAST 12 LDS W/I&R <td>POCT AMB EKG</td><td>Routine</td><td>11/03/2020 2:04 PM EST</td><td> Preop cardiovascular exam</td><td> </td> 11/03/2020 07:04:00 PM EST Preop cardiovascular exam [facility] Preop cardiovascular exam Bronchospasm Evaluation 10/08/2020 12:00:00 AM EST MEDENT ([facility], ) Maximum Breathing Capacity, Maximal Voluntary Ventilation 10/08/2020 12:00:00 AM EST MEDENT ([facility], ) Plethysmography Determination Lung Volumes & Per Airway Resi st 10/08/2020 12:00:00 AM EST MEDENT ([facility], ) DIFFUSING CAPACITY 10/08/2020 12:00:00 AM EST MEDENT ([facility], ) Results ID Date Data Source [id number] 09/14/2021 08:19:00 AM EST [facility] Name Value Range Interpretation Code Description Data Ansley rce(s) Supporting Document(s) [facility] ID Date Data Source [id number] 09/07/2021 07:17:00 PM EST [facility] Patient: ADAN PRATER Observation Report - [facility].VisitID: [id number] [place] [address] [phone], [facility] Date/Time: 09/07/2021 14:01 Weight:39.7 kg (M). Height/Length:62 [...] rce(s) Supporting Document(s) ID Date Data Source [id number] 09/07/2021 03:58:00 PM [facility] DATE OF EXAMINATION: 09/07/2021 14:50 LINDA [...] rce(s) Supporting Document(s) ID Date Data Source [id number] 09/07/2021 03:57:00 PM EST [facility] [...] rce(s) Supporting Document(s) ID Date Data Source [id number] 09/14/2021 08:15:00 AM [facility] Name Value Range Interpretation Code Description Data Ansley rce(s) Supporting Document(s) [facility] ID Date Data Source [id number] 09/07/2021 03:25:00 PM EST [facility] TSYSORDER [id number] Name Value Range Interpretation Code Description Data Ansley rce(s) Supporting Document(s) LACTIC ACID 1.8 mmol/L 0.4-2.0 [facility] ID Date Data Source [id number] 09/07/2021 03:15:00 PM EST [facility] TSYSORDER [id number] Name Value Range Interpretation Code Description Data Ansley rce(s) Supporting Document(s) TSH 6.551 uIU/mL 0.358-3.740 H [facility] ID Date Data Source [id number] 09/07/2021 02:52:00 PM EST [facility] TSYSORDER [id number] Name Value Range Interpretation Code Description Data Ansley rce(s) Supporting Document(s) WHITE BLOOD COUNT 6.5 K/mm3 4.0-10.0 [facility] RED BLOOD COUNT 2.93 M/mm3 4.00-5.50 L [facility] HEMOGLOBIN 10.9 gm/dL 12.0-16.0 [facility] HEMATOCRIT 32.8 % 36.0-48.8 L [facility] MEAN CELL VOLUME 111.9 fl 80-96 *H [facility] MEAN CORPUSCULAR HEMOGLOBIN 37.2 pg 27.0-31.0 H [facility] MEAN CORPUSCULAR HGB CONC 33.2 g/dl 32.0-36.0 [facility] RED CELL DISTRIBUTION WIDTH 12.0 % 10.0-14.5 [facility] PLATELET COUNT 279 K/mm3 172-450 [facility] MEAN PLATELET VOLUME 10.4 fl 9.0-13.0 [facility] pital GRAN % 61.8 % 50-80.0 [facility] IG% 0.2 % 0.0-0.2 [facility] LYMPH % 31.5 % 25.0-50.0 [facility] MONO % 6.0 % 2.0-10.0 [facility] EOS % 0.2 % 0-5.0 [facility] BASO % 0.3 % 0.0-2.0 [facility] GRAN # 4.0 K/mm3 2.0-8.00 [facility] IG# 0.0 K/mm3 0.0-0.2 [facility] LYMPH # 2.0 K/mm3 1.0-5.0 [facility] MONO # 0.4 K/mm3 0.10-1.20 [facility] EOS # 0.0 K/mm3 0.0-0.5 [facility] BASO # 0.0 K/mm3 0.0-0.2 [facility] ID Date Data Source [id number] 09/07/2021 02:05:00 PM EST [facility] Name Value Range Interpretation Code Description Data Ansley rce(s) Supporting Document(s) COVID-19 NEGATIVE [facility] This lab was ordered by [facility] M ain Lab and reported by [facility]. ID Date Data Source [id number] 09/07/2021 03:41:00 PM EST [facility] l TSYSORDER [id number] Name Value Range Interpretation Code Description Data Ansley rce(s) Supporting Document(s) MAGNESIUM 1.2 mg/dL 1.8-2.4 L [facility] ID Date Data Source [id number] 09/07/2021 03:41:00 PM EST [facility] TSYSORDER [id number] Name Value Range Interpretation Code Description Data Ansley rce(s) Supporting Document(s) TROPONIN-HIGH SENSITIVITY 17.7 ng/L 0-60.4 [facility] ID Date Data Source [id number] 09/07/2021 03:41:00 PM EST [facility] TSYSORDER [id number] R [id number] Name Value Range Interpretation Code Description Data Ansley rce(s) Supporting Document(s) LIPASE 29 U/L 73-393 L [facility] ID Date Data Source [id number] 09/07/2021 03:41:00 PM EST [facility] TSYSORDER [id number] Name Value Range Interpretation Code Description Data Ansley rce(s) Supporting Document(s) GLUCOSE 109 mg/dL 74-106 H [facility] BLOOD UREA NITROGEN 10 mg/dL 7-18 [facility] ital CREATININE 1.06 mg/dl 0.55-1.02 H [facility] SODIUM 141 mmol/L 136-145 [facility] POTASSIUM 3.4 mmol/L 3.5-5.1 L [facility] CHLORIDE 102 mmol/L 98-107 [facility] CO2 29 mmol/L 21-32 [facility] CALCIUM 8.9 mg/dL 8.5-10.1 [facility] ANION GAP 10.0 mmol/L 5-12 [facility] GLOMERULAR FILTRATION RATE 52 mL/min [facility] GFR IS CALCULATED IN mL/min/1.73m2 LIAT L FUNCTION: >90MILDLY DECREASED: 60-89MILDY TO MODERATELY DECREASED: 45-59 MODERATELY TO SEVERELY DECREASED: 30-44SEVERELY DECREASED: 15-29RENAL FAILURE: <15 AST 29 U/L 15-37 [facility] ALT 30 U/L 14-59 [facility] ALKALINE PHOSPHATASE 142 U/L 46-116 H [facility] pital TOTAL BILIRUBIN 0.8 mg/dL 0.2-1.0 [facility] TOTAL PROTEIN 5.8 g/dL 6.4-8.2 L [facility] ALBUMIN 2.0 gm/dL 3.4-5.0 L [facility] ID Date Data Source [id number] 09/07/2021 03:10:00 PM EST [facility] T[facility] [id number] Name Value Range Interpretation Code Description Data Ansley rce(s) Supporting Document(s) PARTIAL THROMBOPLASTIN TIME 29.7 SECONDS 21.3-29.7 [facility] ID Date Data Source [id number] 09/07/2021 03:10:00 PM EST [facility] l TSYSORDER [id number] Name Value Range Interpretation Code Description Data Ansley rce(s) Supporting Document(s) PROTHROMBIN TIME (PATIENT) 13.5 SECONDS 9.1-11.3 H [facility] INR 1.33 0.87-1.06 H [facility] ID Date Data Source [id number] 09/07/2021 03:08:00 PM EST [facility] TSYSORDER [id number] Name Value Range Interpretation Code Description Data Ansley rce(s) Supporting Document(s) COVID-19 NEGATIVE NEGATIVE [facility] Negative results should be treated as pr [...] are for the indentification of SARS-CoV-2 RNA. VvjLIIR-QdW-0 RNA is generally detectable in respiratorysamples during the actue phase of infection. ID Date Data Source [id number] 04/26/2021 12:08:00 PM EDT [facility] DATE OF EXAMINATION: 04/26/2021 9:55 [...] analyzed through the latest version of the [employer] ddiagnosis system. The patient states that her [...] 01/26/2021 12:00:00 AM EDT eCW1 ([facility]) Name Value Range Interpretation Code Description Data Ansley rce(s) Supporting Document(s) 1.880 0.358-3.740 eCW1 ([facility]) 0.75 0.76-1.46 eCW1 ([facility]) ID Date Data Source [id number] 01/12/2021 01:55:00 PM EDT GIL ([facility], ) Name Value Range Interpretation Code Description Data Ansley rce(s) Supporting Document(s) Appearance, Urine Laboratory test result Above high normal [facility] ([facility], ) Color, Urine Laboratory test result Normal (applies to non -numeric results) [facility] ([facility], ) Specific [place] Urine Auto 1.010 1.002-1.035 Norm al (applies to non-numeric results) [facility] ([facility]) Protein, Urine Auto Laboratory test result Liat l (applies to non-numeric results) [facility] ([facility]) PH,Urine 7.0 units 5.0-9.0 Normal (applies to non-numeric resul ts) [facility] ([facility]) Glucose, Urine (Ua) Auto Laboratory test result Normal (applies to non-numeric results) [facility] ([facility]) Ketone, Urine Auto Laboratory test result Normal (applies to non-numeric results) [facility] ([facility]) Urobilinogen, Urine Auto 0.2 mg/dL 0.0-2.0 Normal (applies to non-numeric results) [facility] ([facility]) Bilirubin, Urine Auto Laboratory test result Nor mal (applies to non-numeric results) [facility] ([facility]) Nitrite, Urine Auto Laboratory test result Liat l (applies to non-numeric results) [facility] ([facility]) Blood, Urine Blood Laboratory test result Normal (applies to non-numeric results) [facility] ([facility]) Leukocyte Esterase, Urine Auto Laboratory test result Normal (applies to non- numeric results) [facility] ([facility]) WBC, Urine Auto 2 /HPF 0-3 Normal (applies to non-numeric results) [facility] ([facility]) RBC, Urine Auto 2 /HPF 0-3 Normal (applies to non-numeric results) [facility] ([facility]) Hyaline Cast, Urine Auto 0 /LPF 0-1 Normal (applies to non -numeric results) [facility]) Bacteria, Urine Auto Laboratory test result Norm al (applies to non-numeric results) [facility] ([facility]) Squamous Epithelial Cell Ur AU 0 /HPF 0-6 N ormal (applies to non-numeric results) [facility] ([facility]) Amorphous Sediment Laboratory test result Above high liat l [facility] ([facility]) ID Date Data Source [id number] 01/12/2021 01:55:00 PM EDT [facility] ([facility]) Name Value Range Interpretation Code Description Data Ansley rce(s) Supporting Document(s) ABG Partial Pressure Co2 37.4 mmHg 35.0-45.0 Normal (applies to non-numeric results) [facility] ([facility]) ABG pH (Arterial) 7.471 units 7.350-7.450 Above high normal [facility] ([facility]) ABG Total Co2 27.8 meq/L 23.0-31.0 Normal (applies to non-numeric re sults) [facility] ([facility]) ABG Partial Pressure O2 65.8 mmHg 75.0-100.0 Below low normal [facility] ([facility]) ABG Base Excess 3.1 Above high normal [facility] ([facility]) ABG Standard Hco3 27.1 meq/L 22.0-26.0 Above high normal [facility] ([facility]) ABG Hco3 26.7 meq/L 22.0-26.0 Above high normal [facility] ([facility]) ABG O2 Saturation 93.8 % 95.0-99.0 Below low normal [facility] ([facility]) ID Date Data Source [id number] 01/12/2021 01:45:00 PM EDT [facility] ([facility]) Name Value Range Interpretation Code Description Data Ansley rce(s) Supporting Document(s) ABG pH (Arterial) 7.471 units 7.350-7.450 Above high normal [facility] ([facility]) ABG Partial Pressure O2 65.8 mmHg 75.0-100.0 Below low normal [facility] ([facility]) ABG Partial Pressure Co2 37.4 mmHg 35.0-45.0 Normal (applies to non-numeric results) [facility] ([facility]) ABG Hco3 26.7 meq/L 22.0-26.0 Above high normal [facility] ([facility]) ABG Total Co2 27.8 meq/L 23.0-31.0 Normal (applies to non-numeric re sults) [facility] ([facility]) ABG O2 Saturation 93.8 % 95.0-99.0 Below low normal [facility] ([facility]) ABG Standard Hco3 27.1 meq/L 22.0-26.0 Above high normal [facility] ([facility]) ABG Base Excess 3.1 Above high normal [facility]) ID Date Data Source [id number] 01/12/2021 01:15:00 PM EDT [facility] ([facility]) Name Value Range Interpretation Code Description Data Ansley rce(s) Supporting Document(s) Carboxyhemoglobin/Hemoglobin.total in Blood 7.6 % 0.0-1.5 Abo ve high normal [facility] ([facility]) CARBO[facility]HEMOGLOBIN [facility] NON[facility] LESS THAN 1.5% SMOKERS 1.5-5.0% HEAVY SMOKERS 5.0-9.0% ID Date Data Source [id number] 01/12/2021 01:15:00 PM EDT [facility] ([facility]) Name Value Range Interpretation Code Description Data Ansley rce(s) Supporting Document(s) White Blood Count 6.0 10 4.0-10.0 Normal (applies to non-numeri c results) [facility] ([facility]) Red Blood Count 3.72 10 4.00-5.40 Below low normal [facility] ([facility]) Hemoglobin 13.4 g/dL 12.0-15.5 Normal (applies to non-numeric resul ts) [facility] ([facility]) Hematocrit 39.3 % 36.0-47.0 Normal (applies to non-numeric resul ts) [facility] ([facility]) Mean Corpuscular Volume 105.6 fl 80.0-96.0 Above high normal [facility] ([facility]) Mean Corpuscular Hemoglobin 36.0 pg 27.0-33.0 Above high normal [facility] ([facility]) Mean Corpuscular HGB Conc 34.1 g/dL 32.0-36.5 Normal (applies to non-numeric results) [facility]) Red Cell Distribution Width 17.1 % 11.5-14.5 Above high normal [facility]) Nucleated Red Blood Cell % 0.0 % 0-0 Normal (applies to n on-numeric results) [facility]) Platelet Count, Automated 264 10 150-450 Normal (applies to non-numeric results) [facility]) ID Date Data Source [id number] 01/12/2021 01:15:00 PM EDT [facility]) Name Value Range Interpretation Code Description Data Ansley rce(s) Supporting Document(s) Prothrombin Time 11.6 s 12.5-14.3 Below low normal [facility]) Partial Thromboplastin Time 28.3 s 24.2-38.5 Norm al (applies to non-numeric results) [facility]) Inr 0.83 Normal (applies to non-numeric resul ts) [facility]) THERAPUTIC HUMAN INR VALUES INDICATIONS NORMAL RANGES PROPHYLAXIS/TREATMENT OF: VENOUS THROMBOSIS 2.0-3.0 PULMONARY EMBOLISM 2.0-3.0 PREVENTION OF SYSTEMIC EMBOLISM FROM: TISSUE HEART VALVES 2.0-3.0 ACUTE MYOCARDIAL INFARCTION 2.0-3.0 VALVULAR HEART DISEASE 2.0-3.0 ATRIAL FIBRILLATION 2.0-3.0 MECHANICAL VALVES(HIGH RISK) 2.5-3.5 RECURRENT MYOCARDIAL INFARCTION 2.5-3.5 ID Date Data Source [id number] 01/12/2021 01:15:00 PM EDT [facility]) Name Value Range Interpretation Code Description Data Ansley rce(s) Supporting Document(s) Blood Urea Nitrogen 5 mg/dL 7-18 Below low normal [facility] ([facility]) Glucose, Fasting 108 mg/dL 70-100 Above high normal M [facility]) Glomerular Filtration Rate Laboratory test result Normal (applies to non- numeric results) [facility]) <content>Units are mL/min/1.73 m2</content>
<content></content>
<content>Chronic Kidney Disease Staging per NKF:</content>
<content></content>
<content>Stage I & II GFR >=60 Normal to Mildly Decreased</content>
<content>Stage III GFR 30- 59 Moderately Decreased</content>
<content>Stage IV GFR 15-29 Severely Decreased</content>
<content>Stage V GFR <15 Very Little GFR Left</content>
<content>ESRD GFR <15 on JAVA PROGRAMMER ANALYST</content>
<content></content> Creatinine For GFR 0.81 mg/dL 0.55-1.30 Normal (applies to non -numeric results) [facility] ([facility]) Potassium Serum 3.6 meq/L 3.5-5.1 Normal (applies to non-numeric results) [facility] ([facility]) Sodium Level 134 meq/L 136-145 Below low [facility] Carbon Dioxide Level 31 meq/L 21-32 Normal (applies to non-num alma results) [facility] ([facility]) Chloride Level 100 meq/L 98-107 Normal (applies to non-numeric r esults) [facility] ([facility]) Calcium Level 10.3 mg/dL 8.8-10.2 Above high normal [facility] ([facility]) Anion Gap 3 meq/L 8-16 Below low normal [facility]) ID Date Data Source [id number] 12/10/2020 02:20:00 PM EST [facility] ([facility]) Name Value Range Interpretation Code Description Data Ansley rce(s) Supporting Document(s) Blood Type Laboratory test result Normal (applies to non-n umeric results) [facility] ([facility]) Blood group antibody screen [Presence] in Serum or Anya sma Laboratory test result Normal (applies to non-numeric results) [facility] ([facility]) ID Date Data Source [id number] 12/10/2020 01:14:00 PM EST [facility] ([facility]) Name Value Range Interpretation Code Description Data Ansley rce(s) Supporting Document(s) ABG pH (Arterial) 7.446 units 7.350-7.450 Normal (applie s to non-numeric results) [facility]) ABG Partial Pressure O2 71.2 mmHg 75.0-100.0 Below low normal [facility] ([facility]) ABG Partial Pressure Co2 37.0 mmHg 35.0-45.0 Normal (applies to non-numeric results) [facility]) ABG Base Excess 1.1 Normal (applies to non-numeric results) [facility]) ABG Total Co2 26.0 meq/L 23.0-31.0 Normal (applies to non-numeric re sults) [facility]) ABG Hco3 24.9 meq/L 22.0-26.0 Normal (applies to non-numeric resul ts) [facility]) ABG O2 Saturation 94.7 % 95.0-99.0 [facility] ABG Standard Hco3 25.4 meq/L 22.0-26.0 Normal (applies to non- numeric results) [facility]) ID Date Data Source [id number] 12/10/2020 01:13:00 PM EST [facility] ([facility]) Name Value Range Interpretation Code Description Data Ansley rce(s) Supporting Document(s) Appearance, Urine Laboratory test result Normal (applies to non-numeric results) [facility] ([facility]) Color, Urine Laboratory test result Normal (applies to non -numeric results) [facility] ([facility]) PH,Urine 5.0 units 5.0-9.0 Normal (applies to non-numeric resul ts) [facility]) Specific [place] Urine Auto 1.020 1.002-1.035 Norm al (applies to non-numeric results) [facility]) Protein, Urine Auto Laboratory test result Liat l (applies to non-numeric results) [facility] ([facility]) Glucose, Urine (Ua) Auto Laboratory test result Normal (applies to non-numeric results) [facility]) Ketone, Urine Auto Laboratory test result Above high liat l [facility]) Urobilinogen, Urine Auto 0.2 mg/dL 0.0-2.0 Normal (applies to non-numeric results) [facility]) Bilirubin, Urine Auto Laboratory test result Nor mal (applies to non-numeric results) [facility]) Blood, Urine Blood Laboratory test result Normal (applies to non-numeric results) [facility]) Nitrite, Urine Auto Laboratory test result Liat l (applies to non-numeric results) [facility]) Leukocyte Esterase, Urine Auto Laboratory test result Normal (applies to non- numeric results) [facility] ([facility]) WBC, Urine Auto 0 /HPF 0-3 Normal (applies to non-numeric results) [facility] ([facility]) RBC, Urine Auto 1 /HPF 0-3 Normal (applies to non-numeric results) [facility] ([facility]) Bacteria, Urine Auto Laboratory test result Norm al (applies to non-numeric results) [facility]) Mucus, Urine Laboratory test result Normal (applies to non -numeric results) [facility] ([facility]) Squamous Epithelial Cell Ur AU 0 /HPF 0-6 N ormal (applies to non-numeric results) [facility]) Hyaline Cast, Urine Auto 0 /LPF 0-1 Normal (applies to non -numeric results) [facility]) ID Date Data Source [id number] 12/10/2020 01:12:00 PM EST [facility] ([facility]) Name Value Range Interpretation Code Description Data Ansley rce(s) Supporting Document(s) Glucose, Fasting 99 mg/dL 70-100 Normal (applies to non-numeric results) [facility] ([facility]) Blood Urea Nitrogen 14 mg/dL 7-18 Normal (applies to non-nume kamilah results) [facility] ([facility]) Glomerular Filtration Rate Laboratory test result Normal (applies to non- numeric results) [facility]) <content>Units are mL/min/1.73 m2</content>
<content></content>
<content>Chronic Kidney Disease Staging per NKF:</content>
<content></content>
<content>Stage I & II GFR >=60 Normal to Mildly Decreased</content>
<content>Stage III GFR 30- 59 Moderately Decreased</content>
<content>Stage IV GFR 15-29 Severely Decreased</content>
<content>Stage V GFR <15 Very Little GFR Left</content>
<content>ESRD GFR <15 on JAVA PROGRAMMER ANALYST</content>
<content></content> Creatinine For GFR 0.76 mg/dL 0.55-1.30 Normal (applies to non -numeric results) [facility] ([facility]) Potassium Serum 3.3 meq/L 3.5-5.1 Below low normal [facility] ([facility]) Sodium Level 137 meq/L 136-145 Normal (applies to non-numeric res ults) [facility] ([facility]) Anion Gap 10 meq/L 8-16 Normal (applies to non-numeric resul ts) [facility]) Carbon Dioxide Level 29 meq/L 21-32 Normal (applies to non-num alma results) [facility]) Chloride Level 98 meq/L 98-107 Normal (applies to non-numeric r esults) [facility]) Calcium Level 10.2 mg/dL 8.8-10.2 Normal (applies to non-numeric re sults) [facility]) ID Date Data Source [id number] 12/10/2020 01:12:00 PM EST [facility]) Name Value Range Interpretation Code Description Data Ansley rce(s) Supporting Document(s) aPTT in Platelet poor plasma by Coagulation assay 28.1 s 24.2-38.5 Normal (applies to non-numeric results) [facility] ([facility]) *Is patient on Anticoagulants? Y ID Date Data Source [id number] 12/10/2020 01:12:00 PM EST [facility] ([facility]) Name Value Range Interpretation Code Description Data Ansley rce(s) Supporting Document(s) Prothrombin Time 12.4 s 12.5-14.3 Normal (applies to non-numeric results) [facility] ([facility]) Inr 0.91 Normal (applies to non-numeric resul ts) [facility] ([facility]) THERAPUTIC HUMAN INR VALUES INDICATIONS NORMAL RANGES PROPHYLAXIS/TREATMENT OF: VENOUS THROMBOSIS 2.0-3.0 PULMONARY EMBOLISM 2.0-3.0 PREVENTION OF SYSTEMIC EMBOLISM FROM: TISSUE HEART VALVES 2.0-3.0 ACUTE MYOCARDIAL INFARCTION 2.0-3.0 VALVULAR HEART DISEASE 2.0-3.0 ATRIAL FIBRILLATION 2.0-3.0 MECHANICAL VALVES(HIGH RISK) 2.5-3.5 RECURRENT MYOCARDIAL INFARCTION 2.5-3.5 ID Date Data Source [id number] 12/10/2020 01:12:00 PM EST [facility] ([facility]) Name Value Range Interpretation Code Description Data Ansley rce(s) Supporting Document(s) White Blood Count 5.9 10 4.0-10.0 Normal (applies to non-numeri c results) [facility] ([facility]) Red Blood Count 3.87 10 4.00-5.40 Below low normal [facility] ([facility]) Hemoglobin 12.7 g/dL 12.0-15.5 Normal (applies to non-numeric resul ts) [facility]) Hematocrit 38.1 % 36.0-47.0 Normal (applies to non-numeric resul ts) [facility]) Mean Corpuscular Hemoglobin 32.8 pg 27.0-33.0 Norm al (applies to non-numeric results) [facility]) Mean Corpuscular Volume 98.4 fl 80.0-96.0 Above high normal [facility]) Mean Corpuscular HGB Conc 33.3 g/dL 32.0-36.5 Normal (applies to non-numeric results) [facility] ([facility]) Platelet Count, Automated 270 10 150-450 Normal (applies to non-numeric results) [facility] ([facility]) Red Cell Distribution Width 15.7 % 11.5-14.5 Above high normal [facility] ([facility]) Nucleated Red Blood Cell % 0.0 % 0-0 Normal (applies to n on-numeric results) [facility] ([facility]) ID Date Data Source [id number] 12/10/2020 01:12:00 PM EST [facility] ([facility]) Name Value Range Interpretation Code Description Data Ansley rce(s) Supporting Document(s) Carboxyhemoglobin/Hemoglobin.total in Blood 6.2 % 0.0-1.5 Abo ve high normal [facility] ([facility]) CARBOXYHEMOGLOBIN EXPECTED VALUES [facility] NON-SMOKERS LESS THAN 1.5% SMOKERS 1.5-5.0% HEAVY SMOKERS 5.0-9.0% ID Date Data Source [id number] 12/06/2020 10:30:00 AM EST [facility] Name Value Range Interpretation Code Description Data Ansley rce(s) Supporting Document(s) SARS coronavirus 2 RNA Not Detected [facility] This lab was ordered by [facility] and reported by [facility]. ID Date Data Source [id number] 11/03/2020 08:07:28 PM EST [facility] Name Value Range Interpretation Code Description Data Ansley rce(s) Supporting Document(s) &PDF [facility] AQYHOw9bQbDAPaHb13/NYGbfDAFky4RxHOhqLXd0ZWijDOWtV6EdsSlzVGYYX08WVtqGXELGESWtZYNs waW [file] AgICAgICAgICAgICAgICAgICAgICAgICAgICAgICAgICAgICAgICAgICAgICAgICAgICAgICAgICAgIC AgICAgICAgICAgICAgICAgICAgICAgICAgICAgICAg ICAgICANCiAgICAgICAgICAgICAgICAgICAgICAgICAgICAgICAgICAgICAgICAgICAgICAgICAgICAg ICAgICAgICAgICAgICAgICAgICAgICAgICAgICAgICAgICAgICAgICAgICAgICANCiAgICAgICAgICAg ICAgICAgICAgICAgICAgICAgICAgICAgICAgICAgIC AgICAgICAgICAgICAgICAgICAgICAgICAgICAgICAgICAgICAgICAgICAgICAgICAgICAgICAgICANCi AgICAgICAgICAgICAgICAgICAgICAgICAgICAgICAgICAgICAgICAgICAgICAgICAgICAgICAgICAgIC AgICAgICAgICAgICAgICAgICAgICAgICAgICAgICAg ICAgICAgICANCiAgICAgICAgICAgICAgICAgICAgICAgICAgICAgICAgICAgICAgICAgICAgICAgICAg ICAgICAgICAgICAgICAgICAgICAgICAgICAgICAgICAgICAgICAgICAgICAgICAgICANCiAgICAgICAg ICAgICAgICAgICAgICAgICAgICAgICAgICAgICAgIC AgICAgICAgICAgICAgICAgICAgICAgICAgICAgICAgICAgICAgICAgICAgICAgICAgICAgICAgICAgIC ANCiAgICAgICAgICAgICAgICAgICAgICAgICAgICAgICAgICAgICAgICAgICAgICAgICAgICAgICAgIC AgICAgICAgICAgICAgICAgICAgICAgICAgICAgICAg ICAgICAgICAgICANCiAgICAgICAgICAgICAgICAgICAgICAgICAgICAgICAgICAgICAgICAgICAgICAg ICAgICAgICAgICAgICAgICAgICAgICAgICAgICAgICAgICAgICAgICAgICAgICAgICAgICANCiAgICAg ICAgICAgICAgICAgICAgICAgICAgICAgICAgICAgIC AgICAgICAgICAgICAgICAgICAgICAgICAgICAgICAgICAgICAgICAgICAgICAgICAgICAgICAgICAgIC AgICANCiAgICAgICAgICAgICAgICAgICAgICAgICAgICAgICAgICAgICAgICAgICAgICAgICAgICAgIC AgICAgICAgICAgICAgICAgICAgICAgICAgICAgICAg ICAgICAgICAgICAgICANCjw/gTBqN6arkWVivmA9E1ltUj5NDd6SBP6nb1LdWPJzNPkbedFiZwzXYsDz FNQzOoxUYqo4IRpeCU7FiGNdN8JhQ1RkASjhYF8IEILkSCMabVFrHCNbFERoFsL1BLLdHGfcJC4UgSNl RNjmLQFrEVPcJoUdLFTyHU4XOZFoG271rsUqNg2DTb 3DOvPnMK4bmd7ENvQzVRQpKoqPUgq1XTaoSJ5JuRBaO0InzNKgd4hUFzQcM3YUHLY7KPYoYz7KAOMdZa UsXGAiGKcwIZ3mTOKeLAOTvCoeswF2DS8NZT6cbwGlVR0XXqUyUa9mGg3OHdRuE7SiP7WuRVYqWJQABA qgIV7XZFDvIEI9WFAyWVInRHEYGyJlL85hTR4WK8Mi y28wRlN9PNRnZdZnFUytRY73nOziosFufOZoaZpqOM1ZQd8+DQplbmRvYmoNCnhyZWYNCjAgMjINCjAw RGRrXJArMQXkXeQ2JoYzTq3JOFEaOWAqVRAhLwRuMPWcKKOxKRlgNDXdAYE3LjLdSLTgDMRzNG8HJnWu VLQeDgNpILanABLrUZBlwx2DMQCgCNFwIGX6SSDtLD ZjWTLzEUkeIITiOICyIkHfQAQuGZXrFE2WQvCyIALyLJH5HgNjLWQsIKKnhq5MWTGuAURoSEL9VXBdZD YxATQnTCeuCTAmBBE1SQF4ZTQaLKWbCD1QLaGrUTQcWSR0PUmpKSCcHZFagm3IYUDqQQLhKpIcQZRnEQ KfOYOfYCvbIIGhVLU8GSt5SHCrMFHlBM6ZHaHfPGLq WQglRRAvKOOzHUYoid9TUXFtQWAzKQH2ZyXhUKLwUQAwVJbzYAVeCZM9FTH9NUQfPZVdGQ2HIeZtONBt OHe4DTSfJGBdHEVdzp5UCXKjYZJzKIO4WsHeWJNaOBVfWBdpIFRuWHF0ILz0WLCkDVHhMZ8NIyXcKHUk QPW9FbEdTQNaBZJngm3EUTXjGYKpLEA5JUMcRZJeBN MhTDcpNAXrBCX2SCN9WRFlTELsNS3QRzHoVPEtBwL3TaMdNNDaMYNbhk9JvIUvyTuguj6IPItPMe5DcX ysVGMdOXgqMq9xaLKkOMEuJIXNWl2WlvKcUDSwQHGZMKaoSEHmVIWbNCE7DOD4Lhn2TfX0AwSqVnzxUw YgRDQlRPp5PsP4YqM0TWQ5YXU2YjxsGSYnMdS4PaTp OEAwK5PoKWFzHscsQoM+KW2oDFa+Mi4Iz4WtagY7bjIiFMgoXSC4XY6HMFEYI4IQRh== ID Date Data Source [id number] 11/03/2020 11:53:00 AM EST [facility] ([facility], ) Name Value Range Interpretation Code Description Data Ansley rce(s) Supporting Document(s) Appearance, Urine Laboratory test result Normal (applies to non-numeric results) [facility] ([facility], ) Color, Urine Laboratory test result Normal (applies to non -numeric results) [facility] ([facility], ) PH,Urine 8.0 units 5.0-9.0 Normal (applies to non-numeric resul ts) [facility] ([facility]) Protein, Urine Auto Laboratory test result Liat l (applies to non-numeric results) [facility] ([facility], ) Glucose, Urine (Ua) Auto Laboratory test result Normal (applies to non-numeric results) [facility] ([facility]) Specific [place] Urine Auto 1.012 1.002-1.035 Norm al (applies to non-numeric results) [facility] ([facility]) Ketone, Urine Auto Laboratory test result Normal (applies to non-numeric results) [facility] ([facility]) Urobilinogen, Urine Auto 0.2 mg/dL 0.0-2.0 Normal (applies to non-numeric results) [facility] ([facility]) Bilirubin, Urine Auto Laboratory test result Nor mal (applies to non-numeric results) [facility] ([facility]) Nitrite, Urine Auto Laboratory test result Liat l (applies to non-numeric results) [facility] ([facility]) Blood, Urine Blood Laboratory test result Normal (applies to non-numeric results) [facility] ([facility]) Leukocyte Esterase, Urine Auto Laboratory test result Normal (applies to non- numeric results) [facility] ([facility]) Bacteria, Urine Auto Laboratory test result Norm al (applies to non-numeric results) [facility] ([facility]) WBC, Urine Auto 1 /HPF 0-3 Normal (applies to non-numeric results) [facility] ([facility]) RBC, Urine Auto 1 /HPF 0-3 Normal (applies to non-numeric results) [facility] ([facility]) Squamous Epithelial Cell Ur AU 0 /HPF 0-6 N ormal (applies to non-numeric results) [facility] ([facility]) Mucus, Urine Laboratory test result Normal (applies to non -numeric results) [facility] ([facility]) Hyaline Cast, Urine Auto 0 /LPF 0-1 Normal (applies to non -numeric results) [facility]) ID Date Data Source [id number] 10/31/2020 09:00:00 AM EST [facility] Name Value Range Interpretation Code Description Data Ansley rce(s) Supporting Document(s) SARS coronavirus 2 RNA [facility] This lab was ordered by [facility] and reported by [facility]. ID Date Data Source [id number] 10/08/2020 10:00:00 AM EST [facility] Name Value Range Interpretation Code Description Data Ansley rce(s) Supporting Document(s) SARS coronavirus 2 RNA [facility] This lab was ordered by [facility] and reported by [facility]. ID Date Data Source [id number] 10/02/2020 08:10:00 AM EST [facility] ([facility]) Name Value Range Interpretation Code Description Data Ansley rce(s) Supporting Document(s) Glu 84 mg/dL 74-106 [facility] ([facility], ) BUN 8 mg/dL 7-18 [facility] ([facility]) Cre 1.1 mg/dL 0.6-1.0 Above high normal [facility] ([facility]) K 5.1 mmol/L 3.5-5.1 [facility] ([facility]) Na 139 mmol/L 136-145 [facility] ([facility]) Co2 26 mmol/L 21-32 [facility] ([facility]) CL 101 mmol/L 98-107 [facility] ([facility]) Gap 12.0 mmol/L 5-12 [facility] ([facility]) GFR 50 mL/min [facility] ([facility]) <content>GFR IS CALCULATED IN mL/min/1.73m2</content>
<content></content>
<content>NORMAL FUNCTION: >90</content>
<content>MILDLY DECREASED: 60-89</content>
<content>MILDY TO MODERATELY DECREASED: 45-59</content>
<content>MODERATELY TO SEVERELY DECREASED: 30-44</content>
<content>SEVERELY DECREASED: 15- 29</content>
<content>RENAL FAILURE: <15</content>
<content></content> CA 9.6 mg/dL 8.5-10.1 [facility] ([facility]) ID Date Data Source [id number] 10/02/2020 08:10:00 AM EST [facility] ([facility]) Name Value Range Interpretation Code Description Data Ansley rce(s) Supporting Document(s) Magnesium [Mass/volume] in Serum or Plasma 1.5 mg/dL 1.8-2.4 Belo w low normal [facility] ([facility], ) FAX [phone] ID Date Data Source [id number] 10/02/2020 08:47:00 AM EST [facility] FA[facility] [phone] Name Value Range Interpretation Code Description Data Ansley rce(s) Supporting Document(s) MAGNESIUM 1.5 mg/dL 1.8-2.4 [facility] ID Date Data Source [id number] 10/02/2020 08:47:00 AM EST [facility] FA[facility] [phone] Name Value Range Interpretation Code Description Data Ansley rce(s) Supporting Document(s) GLUCOSE 84 mg/dL 74-106 [facility] BLOOD UREA NITROGEN 8 mg/dL 7-18 [facility] ital CREATININE 1.1 mg/dL 0.6-1.0 H [facility] SODIUM 139 mmol/L 136-145 [facility] POTASSIUM 5.1 mmol/L 3.5-5.1 [facility] CHLORIDE 101 mmol/L 98-107 [facility] CO2 26 mmol/L 21-32 [facility] CALCIUM 9.6 mg/dL 8.5-10.1 [facility] ANION GAP 12.0 mmol/L 5-12 [facility] GLOMERULAR FILTRATION RATE 50 mL/min [facility] GFR IS CALCULATED IN mL/min/1.73m2 LIAT L FUNCTION: >90MILDLY DECREASED: 60-89MILDY TO MODERATELY DECREASED: 45-59 MODERATELY TO SEVERELY DECREASED: 30-44SEVERELY DECREASED: 15-29RENAL FAILURE: <15 Procedure Social History Code Duration Value Status Description Data Source(s ) Smoking 04/28/2021 12:00:00 AM EDT Current Smoker completed Curre nt Smoker eCW1 ([facility]) Smoking 04/28/2021 12:00:00 AM EDT Current Smoker completed Curre nt Smoker eCW1 ([facility]) Smoking 04/28/2021 12:00:00 AM EDT Current Smoker completed Curre nt Smoker eCW1 ([facility]) Smoking 04/22/2021 12:00:00 AM EDT Patient is a former smoker completed Patient is a former smoker GIL ([facility], ) Smoking 01/26/2021 12:00:00 AM EDT Current Smoker completed Curre nt Smoker eCW1 ([facility]) Smoking 01/26/2021 12:00:00 AM EDT Current Smoker completed Curre nt Smoker eCW1 ([facility]) Alcohol intake 11/03/2020 12:00:00 AM EST Yes completed [facility] Cigarette pack-years 11/03/2020 12:00:00 AM EST UNK completed [facility] Cigarettes smoked current (pack per day) - Reported 11/03/19 12:00:00 AM EST UNK completed [facility] Smoking 11/03/2020 12:00:00 AM EST Current every day smoker co mpleted Current every day smoker [facility] Smoking 10/08/2020 12:00:00 AM EST Patient is a former smoker completed Patient is a former smoker GIL ([facility], ) Vital Signs ID Date Data Source UNK Name Value Range Interpretation Code Description Data Source(s) Body weight 91.4 [lb_av] 91.4 [lb_av] W1 ([facility]) Body height [in_i] eCW1 ([facility]) Body mass index (BMI) [Ratio] 16.19 kg/m2 16.19 kg/m2 W1 ([facility]) Heart rate 105 /min 105 /min W1 ([facility]) Respiratory rate 19 /min 19 /min W1 ([facility]) Body temperature 97.8 [degF] 97.8 [degF] eCW1 ( [facility]) Systolic blood pressure 120 mm[Hg] 120 mm[Hg] e CW1 ([facility]) Diastolic blood pressure 82 mm[Hg] 82 mm[Hg] eCW1 ([facility]) Oxygen saturation in Arterial blood by Pulse oximetry 97 % 97 % GIL ([facility], ) Body height 62.5 [in_i] 62.5 [in_i] MEDENT ([facility]) 5'2.50" Body weight 902.00 [lb_av] 902.00 [lb_av] MEDEN T ([facility]) Body mass index (BMI) [Ratio] 162.3 kg/m2 162.3 kg/m2 [facility] ([facility]) [place] body weight 110 [lb_av] 110 [lb_av] MEDEN T ([facility]) Body weight 409.147 kg 409.147 kg [facility] ([facility]) Body surface area Derived from formula 3.65 m2 3.65 m2 [facility] ([facility]) Systolic blood pressure 130 mm[Hg] 130 mm[Hg] EDENT ([facility]) Diastolic blood pressure 90 mm[Hg] 90 mm[Hg] [facility] ([facility]) Heart rate 150 /min 150 /min [facility] ([facility]) Oxygen saturation in Arterial blood by Pulse oximetry 97 % 97 % [facility] ([facility]) Body height 62.5 [in_i] 62.5 [in_i] [facility] ([facility]) 5'2.50" Body weight 902.00 [lb_av] 902.00 [lb_av] MEDEN T ([facility]) Body mass index (BMI) [Ratio] 162.3 kg/m2 162.3 kg/m2 [facility] ([facility]) [place] body weight 110 [lb_av] 110 [lb_av] MEDEN T ([facility]) Body weight 409.147 kg 409.147 kg [facility] ([facility]) Body surface area Derived from formula 3.65 m2 3.65 m2 [facility] ([facility]) [place] body weight 110 [lb_av] 110 [lb_av] MEDEN T ([facility]) Body weight 42.638 kg 42.638 kg [facility] ([facility]) Body surface area Derived from formula 1.40 m2 1.40 m2 [facility] ([facility]) Oxygen saturation in Arterial blood by Pulse oximetry 91 % 91 % [facility] ([facility]) Room Air Body height 62.5 [in_i] 62.5 [in_i] [facility] ([facility]) 5'2.50" Body weight 94.00 [lb_av] 94.00 [lb_av] [facility] ([facility]) Body mass index (BMI) [Ratio] 16.9 kg/m2 16.9 k g/m2 [facility] ([facility]) Systolic blood pressure 120 mm[Hg] 120 mm[Hg] [facility]) Diastolic blood pressure 70 mm[Hg] 70 mm[Hg] [facility] ([facility]) Heart rate 132 /min 132 /min [facility] ([facility]) Oxygen saturation in Arterial blood by Pulse oximetry 91 % 91 % [facility] ([facility]) Room Air Body height 62.5 [in_i] 62.5 [in_i] [facility] ([facility]) 5'2.50" Body weight 94.00 [lb_av] 94.00 [lb_av] [facility] ([facility]) Body mass index (BMI) [Ratio] 16.9 kg/m2 16.9 k g/m2 [facility] ([facility]) [place] body weight 110 [lb_av[facility] 110 [facility]_av] [facility] Body weight 42.638 kg 42.638 kg [facility] ([facility]) Body surface area Derived from formula 1.40 m2 1.40 m2 [facility] ([facility]) Body weight 93.4 [lb_av] 93.4 [lb_av] eCW1 ([facility]) Body height [in_i] eCW1 ([facility]) Body mass index (BMI) [Ratio] 16.54 kg/m2 16.54 kg/m2 eCW1 ([facility]) Heart rate 100 /min 100 /min eCW1 ([facility]) Respiratory rate 20 /min 20 /min eCW1 ([facility]) Body temperature 97.8 [degF] 97.8 [degF] eCW1 ( [facility]) Systolic blood pressure 128 mm[Hg] 128 mm[Hg] e CW1 ([facility]) Diastolic blood pressure 76 mm[Hg] 76 mm[Hg] eCW1 ([facility]) Body weight 44.453 kg 44.453 kg [facility] ([facility]) Systolic blood pressure 140 mm[Hg] 140 mm[Hg] [facility]) Diastolic blood pressure 70 mm[Hg] 70 mm[Hg] [facility] ([facility]) Heart rate 106 /min 106 /min [facility] ([facility]) Oxygen saturation in Arterial blood by Pulse oximetry 95 % 95 % [facility] ([facility]) Body height 62.5 [in_i] 62.5 [in_i] [facility] ([facility]) 5'2.50" Body weight 98.00 [lb_av] 98.00 [lb_av] [facility] ([facility]) Body mass index (BMI) [Ratio] 17.6 kg/m2 17.6 k g/m2 [facility] ([facility]) [place] body weight 110 [lb_av] 110 [lb_av] MEDEN T ([facility]) Body surface area Derived from formula 1.42 m2 1.42 m2 [facility] ([facility]) Oxygen saturation in Arterial blood by Pulse oximetry 97 % 97 % [facility] ([facility]) Room Air Systolic blood pressure 112 mm[Hg] 112 mm[Hg] M EDENT ([facility]) Diastolic blood pressure 72 mm[Hg] 72 mm[Hg] [facility] ([facility]) Heart rate 100 /min 100 /min [facility] ([facility]) Body height 62.5 [in_i] 62.5 [in_i] [facility] ([facility]) 5'2.50" Body weight 100.00 [lb_av] 100.00 [lb_av] MEDEN T ([facility]) Body mass index (BMI) [Ratio] 18.0 kg/m2 18.0 k g/m2 [facility] ([facility]) [place] body weight 110 [lb_av] 110 [lb_av] MEDEN T ([facility]) Body weight 45.360 kg 45.360 kg [facility] ([facility]) Body surface area Derived from formula 1.43 m2 1.43 m2 [facility] ([facility]) Systolic blood pressure 140 mm[Hg] 140 mm[Hg] [facility] Diastolic blood pressure 80 mm[Hg] 80 mm[Hg] [facility] Heart rate 124 /min 124 /min [facility] Respiratory rate 16 /min 16 /min [facility] Body height 157.5 cm 157.5 cm [facility] Body weight 47.174 kg 47.174 kg [facility] Body mass index (BMI) [Ratio] 19.02 kg/m2 19.02 kg/m2 [facility] Diastolic blood pressure 90 mm[Hg] 90 mm[Hg] [facility] ([facility]) Systolic blood pressure 140 mm[Hg] 140 mm[Hg] [facility]) Body surface area Derived from formula 1.43 m2 1.43 m2 [facility] ([facility]) Oxygen saturation in Arterial blood by Pulse oximetry 98 % 98 % [facility] ([facility]) Body temperature 98.0 [degF] 98.0 [degF] [facility] ([facility]) Body height 62.5 [in_i] 62.5 [in_i] [facility] ([facility]) 5'2.50" Body mass index (BMI) [Ratio] 18.0 kg/m2 18.0 k g/m2 [facility] ([facility]) [place] body weight 110 [lb_av] 110 [lb_av] MEDEN T ([facility]) Heart rate 110 /min 110 /min [facility] ([facility]) Body weight 45.360 kg 45.360 kg [facility] ([facility]) Body weight 100.00 [lb_av] 100.00 [lb_av] [facility] Systolic blood pressure 138 mm[Hg] 138 mm[Hg] [facility] lleft arm 142/78 right arm Body surface area Derived from formula 1.42 m2 1.42 m2 [facility] ([facility]) [place] body weight 110 [lb_av] 110 [lb_av] [facility] T ([facility]) Body height 62.5 [in_i] 62.5 [in_i] [facility] ([facility]) 5'2.50" Body weight 44.453 kg 44.453 kg [facility] ([facility]) Diastolic blood pressure 72 mm[Hg] 72 mm[Hg] [facility] ([facility]) lleft arm 142/78 right arm Heart rate 100 /min 100 /min [facility] ([facility]) Oxygen saturation in Arterial blood by Pulse oximetry 94 % 94 % [facility] ([facility]) Room Air Body weight 98.00 [lb_av] 98.00 [lb_av] [facility] ([facility]) Body mass index (BMI) [Ratio] 17.6 kg/m2 17.6 k g/m2 [facility] ([facility]) Patient Treatment Plan of Care Planned Activity Planned Date Details Description Data Source (s) 24 HR metoprolol succinate 25 MG Extended Release Oral Tablet 11/03/2020 12:00:[address] [facility] KLOR-CON M10 10 MEQ tablet 10/29/2020 12:00:00 AM [facility] Folic Acid 1 MG Oral Tablet 10/28/2020 12:00:00 AM [facility] STIOLTO RESPIMAT 2.5-2.5 MCG/ACT AERS 10/24/2020 12:00:00 AM [facility]
[2021-10-08] MEDS: PANTOPRAZOLE 40MG VIAL (C9113 PER 1) IV SCH ×2 (13:30→20:54)
[2021-10-08 13:33] VITALS: BP 89/51
--- NOTE | 2021-10-08 13:35 | HPEPDOC ---
General Date of Admission 10/08/21 Date of Service: Oct 08, 2021 Chief Complaint The patient is a 65-year-old female admitted with a reason for visit of [employer],Gi Bleed. Source: Patient, RN/MD History of Present Illness 65-year-old pain and frail lady looks older than her age with past medical history of COPD, depression presented to the emergency room via PMDs office with complaints of diarrhea 3-4 times a day for 3 days and blood in stool for the past 2 days. Patient had initially gone to the PMDs office because she was feeling very weak and unwell there she was found to have a blood pressure of 85/50 so was sent to the emergency room. She got fluid with EMS and when she reached the ED emergency room her blood pressure was still 85/55 she got more fluids in the ED. received a total about 2 L. Labs showed that her hemoglobin had gone down from 13-9.2. Rectal exam in the ED showed florian red as well as dark-colored blood at the tip of the fingers, guaiac was positive. She just complained of feeling weak and unwell. Denied any abdominal pain or nausea or vomiting. She has been noticing blood in her stool for the past 2 days. Denied any burning or dysuria but does say that when she has a bowel movement her rectum is painful. She also reports that she has been slowly going downhill since the spring and has lost weight. Reports that her pants has been down from 2 to 0. She reports that she has been having poor appetite and feels full only after a few bites. CT abdomen and pelvis was completed in the ED and showed Diffuse fatty infiltra tion of liver, there is a large amount of air throughout the bladder wall small amount within the bladder lumen and very small amount in the soft tissues surrounding the urinary bladder consistent with emphysematous cystitis, there is also mild to moderate diffuse abdominal and pelvic ascites Patient was admitted for GI bleed and emphysematous cystitis Home Medications Scheduled Calcium Carbonate (Calcium) 500 Mg Tab.chew, 500 MG PO QPM, (Reported) Cyanocobalamin (Vitamin B-12) (Vitamin B-12) 1,000 Mcg Tablet, 1,000 MCG PO DAILY, (Reported) Ferrous Sulfate (Ferrous Sulfate) 325 Mg Tablet, 325 MG PO DAILY, (Reported) Folic Acid (Folic Acid) 1 Mg Tablet, 1 MG PO DAILY, (Reported) Gabapentin (Gabapentin) 600 Mg Tablet, 600 MG PO TID, (Reported) Metoprolol Succinate (Metoprolol Succinate) 25 Mg Tab.er.24h, 25 MG PO QHS, (Reported) Multivitamin with Minerals (Multiple Vitamin) 1 Each Tablet, 1 TAB PO DAILY, (Reported) Nicotine (Nicotine Patch) 14 Mg Patch.td24, 14 MG TD DAILY, (Reported) Potassium Chloride (Potassium Chloride) 10 Meq Tab.er.prt, 20 MEQ PO DAILY, (Reported) Tiotropium Br/Olodaterol HCl (Stiolto Respimat Inhal Diana) 4 Gm Mist.inhal, 2 PUFFS INH DAILY, (Reported) Scheduled PRN Acetaminophen (Acetaminophen ER) 650 Mg Tablet.er, 1,300 MG PO Q8H PRN for PAIN / FEVER, (Reported) Albuterol Sulfate (Ventolin Hfa) 18 Gm Hfa.aer.ad, 2 PUFFS INH QID PRN for SOB/WHEEZING, (Reported) Docusate Sodium (Stool Softener) 100 Mg Capsule, 100 MG PO DAILY PRN for CONSTIPATION, (Reported) Ibuprofen (Ibuprofen) 200 Mg Capsule, 400 MG PO Q6H PRN for PAIN, (Reported) Polyethylene Glycol 3350 (Polyethylene Glycol 3350) 17 Gm Powd.pack, 17 GM PO DAILY PRN for CONSTIPATION, (Reported) Allergies Coded Allergies: fentanyl (Verified Allergy, Intermediate, INTENSE ITCHING, 11/18/19) Past Medical History Medical History h/o Diverticulitis and sigmoid stricture s/p surgery COPD Hypertension Depression Peripheral Neuropathy Lung lesions biopsied RUL and SARA negative for malignancy Orthostatic hypotension. Surgical History Laparoscopic sigmoid colectomy with coloproctostomy and lysis of adhesions in 2018 2 other abdominal surgeries Tonsillectomy LASEK eye surgery carpal tunnel release bilateral bilateral cataract removal Family History Father and mother . 1 brother . 1 Daughter healthy Social History * Smoker: current smoker Alcohol: rarely Drugs: denies A-FIB/CHADSVASC A-FIB History Current/History of A-Fib/PAF?: No Review of Systems Constitutional: Reports: Weakness, Fatigue Eyes: Denies: Pain, Vision change ENT: Denies: Head Aches, Ear Pain, Dysphagia Skin: Denies: Rash, Lesions, Breakdown Pulmonary: Denies: Dyspnea, Cough Cardiovascular: Denies: Chest Pain, Palpitations, Orthopnea, Paroxysmal Noc. Dyspnea, Lt Headedness Gastrointestinal: Reports: Diarrhea, Hematochezia Genitourinary: Denies: Dysuria, Frequency, Incontinence, Hematuria Musculoskeletal: Denies: Neck Pain, Back Pain, Joint Pain, Spasms Neurological: Denies: Numbness, Change in speech, Confusion Physical Examination General Exam: Positive: Alert, Cooperative, No Acute Distress Eye Exam: Positive: PERRLA, Conjunctiva & lids normal, EOMI; Negative: Sclera icteric ENT Exam: Positive: Atraumatic, Mucous membr. moist/pink, Pharynx Normal, Other ENT (bitemporal wasting) Neck Exam: Positive: Supple; Negative: JVD, thyromegaly Chest Exam: Positive: Diminished (Bilateral diminished air movement) Heart Exam: Positive: Rate Normal, Regular Rhythm, Normal S1, Normal S2; Negative: Murmurs, Rubs Abdomen Exam: Positive: Normal bowel sounds, Soft; Negative: Tenderness Extremity Exam: Negative: Clubbing, Cyanosis, Edema Skin Exam: Positive: Nl turgor and temperature; Negative: Breakdown, Lesion Neuro Exam: Positive: Normal Speech, Strength at 5/5 X4 ext, Normal Tone Psych Exam: Positive: Memory Intact, Oriented x 3 Vital Signs Vital Signs Date Time Temp Pulse Resp B/P (MAP) Pulse Ox O2 Delivery O2 Flow Rate FiO2 10/08/21 12:08 81 10/08/21 11:48 89/56 (67) 10/08/21 10:53 85 10/08/21 10:52 Nasal Cannula 2.0 10/08/21 10:45 98.3 10/08/21 09:53 14 Laboratory Data Labs 24H Laboratory Tests 2 10/08/21 10:33: Immature Granulocyte % (Auto) 0.6, Neutrophils (%) (Auto) 64.2, Lymphocytes (%) (Auto) 28.8, Monocytes (%) (Auto) 6.0, Eosinophils (%) (Auto) 0.3, Basophils (%) (Auto) 0.1, Neutrophils # (Auto) 5.0, Lymphocytes # (Auto) 2.2, Monocytes # (Auto) 0.5, Eosinophils # (Auto) 0.0, Basophils # (Auto) 0.0, Nucleated Red Blood Cells % (auto) 0.0, Prothrombin Time 16.9H, Prothromb Time International Ratio 1.33, Activated Partial Thromboplast Time 40.5H, Total Bilirubin 0.9, Direct Bilirubin 0.5H, Aspartate Amino Transf (AST/SGOT) 43H, Alanine Aminotran sferase (ALT/SGPT) 61, Alkaline Phosphatase 157H, Total Protein 4.3L, Albumin 1.1L, Albumin/Globulin Ratio 0.3L, Lipase < 10L 10/08/21 10:34: Lactic Acid Level 0.2L 10/08/21 10:44: POC Glucose (Misc Panel) 88, POC Sodium (Misc Panel) 137, POC Potassium (Misc Panel) 4.3, POC Chloride (Misc Panel) 100, POC Total CO2 (Misc Panel) 30.0H, POC Blood Urea Nitrogen (Misc Panel 13, POC Ionized Calcium (Misc Panel) 3.9L, POC Creatinine (Misc Panel) 0.7, POC Hematocrit (Misc Panel) 30.0L 10/08/21 10:46: POC Troponin I (Misc) 0.01 10/08/21 11:30: Blood Gas Bicarbonate Standard 28.7H, Arterial Blood pH 7.464H, Arterial Blood Partial Pressure CO2 41.0, Arterial Blood Partial Pressure O2 175.5H, Arterial Blood Total CO2 30.0, Arterial Blood HCO3 28.8H, Arterial Blood Base Excess 4.6H, Arterial Blood Oxygen Saturation 99.2H 10/08/21 11:47: 10/08/21 11:53: Urine Color CONY, Urine Appearance CLOUDYH, Urine pH 6.0, Urine Specific [place] 1.048, Urine Protein 1+H, Urine Glucose (UA) NEGATIVE, Urine Ketones TRACEH, Urine Blood 2+H, Urine Nitrite POSITIVEH, Urine Bilirubin NEGATIVE, Urine Urobilinogen 0.2, Urine Leukocyte Esterase 3+H, Urine WBC (Auto) 108H, Urine RBC (Auto) 12H, Urine Hyaline Casts (Auto) 0, Urine Bacteria (Auto) 3+H, Urine Squamous Epithelial Cells 1, Urine Calcium Oxalate Cryst (Auto) SMALL, Urine Mucus (Auto) SMALL, Urine Sperm (Auto) CBC/BMP Laboratory Tests 10/08/21 10:33 Microbiology Microbiology 10/08/21 Urine Culture, Received Pending 10/08/21 Blood Culture, Received Pending 10/08/21 Blood Culture, Received Pending Assessment/Plan 65-year-old pain and frail lady looks older than her age with past medical history of COPD, depression presented to the emergency room via PMDs office with complaints of diarrhea 3-4 times a day for 3 days and blood in stool for the past 2 days. Patient had initially gone to the PMDs office because she was feeling very weak and unwell there she was found to have a blood pressure of 85/50 so was sent to the emergency room. She got fluid with EMS and when she reached the ED emergency room her blood pressure was still 85/55 she got more fluids in the ED. received a total about 2 L. Labs showed that her hemoglobin had gone down from 13-9.2. Rectal exam in the ED showed florian red as well as dark-colored blood at the tip of the fingers, guaiac was positive. She just complained of feeling weak and unwell. Denied any abdominal pain or nausea or vomiting. She has been noticing blood in her stool for the past 2 days. Denied any burning or dysuria but does say that when she has a bowel movement her rectum is painful. She also reports that she has been slowly going downhill since the spring and has lost weight. Reports that her pants has been down from 2 to 0. She reports that she has been having poor appetite and feels full only after a few bites. CT abdomen and pelvis was completed in the ED and showed Diffuse fatty infiltration of liver, there is a large amount of air throughout the bladder wall small amount within the bladder lumen and very small amount in the soft tissues surrounding the urinary bladder consistent with emphysematous cystitis, there is also mild to moderate diffuse abdominal and pelvic ascites Patient was admitted for GI bleed and emphysematous cystitis GI bleed Patient has been passing stool mixed with blood She does have history of gastritis duodenitis on EGD, sigmoid surgery, and hemorrhoids Will give pantoprazole, sucralfate. We will give sips and chips of ice Monitor H&H every 6 We will give 1 unit of PRBC Hypotension This likely due to GI bleed However I believe she probably has chronic hypotension as she is a very small lean person and now has her lost more weight. The patient reports that her blood pressure machine at home shows one thirty blood pressure but is not sure if that is correct. Emphysematous cystitis UA is dirty, urine culture and blood culture have been sent Received ciprofloxacin in the ED We will cover with Zosyn Abnormal EKG Deep T wave inversions in the lateral leads which is a change from an earlier EKG in December 2020 Patient does not have any chest pain or any recent of symptoms related to cardiac issue, troponins are negative No acute ischemic events going COPD No exacerbation Not oxygen dependent Continue home inhaler Severe Protein Calorie Malnutrition BMI 17.2 with albumin of 1.1 bitemporal wasting, wasting of small muscles of hand Plan / VTE VTE Prophylaxis Ordered?: Yes Lilian Moreira MD Oct 08, 2021 12:35
[2021-10-08 13:58] VITALS: BP 86/50
[2021-10-08] MEDS ORDERED: CYAN100050 PO (14:20)
[2021-10-08] MEDS ORDERED: HOME MED LIST COMPLETE! XX SCH (14:25)
[2021-10-08 14:43] VITALS: BP 90/53
[2021-10-08 16:25] VITALS: BP 103/59
[2021-10-08] MEDS ORDERED: ALBUTEROL SULFATE 2.5 MG/0.5 ML INH NEB SOLN NEB PRN (17:15)
[2021-10-08 17:18] LABS: HEMATOCRIT 38.2 % (36.0-47.0)
[2021-10-08 17:19] LABS: HEMOGLOBIN 12.7 g/dl (12.0-15.5)
[2021-10-08] MEDS: FOLIC ACID 1 MG TAB PO SCH (17:42)
[2021-10-08] MEDS: FERROUS SULFATE 325MG TAB PO SCH (17:43)
[2021-10-08 19:00] VITALS: BP 96/57
--- NOTE | 2021-10-08 19:00 | ECGEPIP ---
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
[2021-10-08 20:00] VITALS: BP 122/79
[2021-10-08] MEDS: FORMOTEROL FUMARATE 20 MCG/2 ML INHALATION SOLUTION (PERFOROMIST) INH SCH (20:00)
[2021-10-08 20:15] LABS: HEMATOCRIT 36.2 % (36.0-47.0); HEMOGLOBIN 12.2 g/dl (12.0-15.5)
[2021-10-08] MEDS: PIPERACILLIN/TAZOBACTAM SOD 3.375 GM in D5W MINI-BAG PLUS 50 ML IV SCH (20:54)
[2021-10-09 00:18] LABS: HEMATOCRIT 33.7 % (36.0-47.0); HEMOGLOBIN 11.5 g/dl (12.0-15.5)
[2021-10-09] MEDS: PIPERACILLIN/TAZOBACTAM SOD 3.375 GM in D5W MINI-BAG PLUS 50 ML IV SCH ×4 (02:18→20:49)
[2021-10-09 04:00] VITALS: BP 140/63
[2021-10-09] MEDS ORDERED: FLUBLOK(EGG FREE)(QUAD)INFLUENZA VACC 0.5ML SYRINGE 18YRS & OLDER IM SCH (05:30)
[2021-10-09] MEDS: TIOTROPIUM INHALER/CAPSULE (SPIRIVA) INH SCH (07:19)
[2021-10-09] MEDS: FORMOTEROL FUMARATE 20 MCG/2 ML INHALATION SOLUTION (PERFOROMIST) INH SCH ×3 (07:20→20:00)
[2021-10-09 07:59] LABS: HEMATOCRIT 34.4 % (36.0-47.0); HEMOGLOBIN 11.6 g/dl (12.0-15.5); LYMPH # 1.6 10^3/uL (1.5-5.0); LYMPH % 27.2 % (24.0-44.0); MEAN CORPUSCULAR HEMOGLOBIN 34.9 pg (27.0-33.0); MEAN CORPUSCULAR HGB CONC 33.7 g/dl (32.0-36.5); MEAN CORPUSCULAR VOLUME 103.6 fl (80.0-96.0); MONO # 0.4 10^3/uL (0.0-0.8); MONO % 6.7 % (2.0-8.0); NEUTROPHILS # 3.7 10^3/uL (1.5-8.5); NEUTROPHILS % 65.6 % (36.0-66.0); PLATELET COUNT, AUTOMATED 179 10^3/uL (150-450); RED BLOOD COUNT 3.32 10^6/uL (4.00-5.40); WHITE BLOOD COUNT 5.7 10^3/uL (4.0-10.0)
[2021-10-09 08:00] VITALS: BP 90/62
[2021-10-09 08:29] LABS: BLOOD UREA NITROGEN 12 MG/DL (7-18); CALCIUM LEVEL 6.6 MG/DL (8.8-10.2); CARBON DIOXIDE LEVEL 29 MEQ/L (21-32); CHLORIDE LEVEL 102 MEQ/L (98-107); CREATININE FOR GFR 0.71 MG/DL (0.55-1.30); GLOMERULAR FILTRATION RATE > 60.0 (>45); GLUCOSE, FASTING 118 MG/DL (70-100); POTASSIUM SERUM 4.3 MEQ/L (3.5-5.1); SODIUM LEVEL 136 MEQ/L (136-145)
[2021-10-09] MEDS: PANTOPRAZOLE 40MG VIAL (C9113 PER 1) IV SCH ×2 (08:30→20:49)
[2021-10-09] MEDS: FERROUS SULFATE 325MG TAB PO SCH (08:30)
[2021-10-09] MEDS: FOLIC ACID 1 MG TAB PO SCH (08:30)
[2021-10-09] MEDS: MIDODRINE 5 MG TAB PO SCH ×3 (09:17→15:34)
[2021-10-09] MEDS ORDERED: NS 1,000 ML IV ONE (10:00)
[2021-10-09 11:26] VITALS: BP 94/65
[2021-10-09 12:17] LABS: HEMATOCRIT 31.4 % (36.0-47.0); HEMOGLOBIN 10.7 g/dl (12.0-15.5)
--- NOTE | 2021-10-09 14:44 | IPN ---
PROGRESS NOTE DATE: 10/09/2021 SUBJECTIVE: Patient denies any recurrent bright red blood per rectum, melena, black tarry stools, dizziness or lightheadedness. She has not been out of bed and uses a diaper. She denies any dysuria, urgency, frequency, flank pain or chills. No shortness of breath, dizziness or lightheadedness. OBJECTIVE: Vital signs: Temperature 97.9, pulse 59, respiratory rate 18, blood pressure 98/62, 94% on room air. General: Awake, alert, oriented to person, place and time, answering questions appropriately in no distress. HEENT: Dry mucous membranes. Neck: No JVD, thyromegaly or cervical lymphadenopathy. Lungs: Clear to auscultation, no wheezes, rhonchi or rales. Heart: S1 and S2 sinus bradycardia. Abdomen: Soft, nontender, nondistended, positive bowel sounds. No CVA tenderness. Has a diaper on. Extremities: No cyanosis, clubbing or pitting edema. LABORATORY DATA/IMAGING STUDIES/MICROBIOLOGY: Have been reviewed. Please see the chart. ASSESSMENT: 65-year-old female admitted on 10/08/2021 with history of COPD, depression, diverticulitis, sigmoid stricture status post surgery, hypertension, depression, laparoscopic sigmoid colectomy with coloproctostomy and lysis of adhesions, 2 other abdominal surgeries, carpal tunnel syndrome, bilateral cataract removal sent in by her primary care physician due to low blood pressure with systolic pressure of 85/50. Received I.V. fluids by EMS a total of 2 liters. Hemoglobin was 13 and dropped down to 9.2. Rectal exam was bright red blood with dark colored blood at the tip of the fingers. Guaiac positive. Patient had been feeling weak. CT abdomen and pelvis showed diffuse fatty infiltration of the liver, a large amount of air throughout the bladder wall, small amount within the bladder lumen, a very small amount in the soft tissue surrounding the urinary bladder consistent with emphysematous cystitis with mild to moderate diffuse abdominopelvic ascites. Patient was admitted for a GI bleed and emphysematous cystitis. IMPRESSIONS/PLAN: 1. Emphysematous cystitis: On I.V. Zosyn day number 2. Patient has been afebrile. Awaiting urine and blood culture results and deescalate antibiotics as needed. Due to persistent hypotension we will check a lactic acid and continue with broad spectrum Gram-negative coverage. 2. GI bleed: Patient was passing stool mixed with blood prior to presentation with history of gastric duodenitis on EGD, sigmoid surgery and hemorrhoids in the past currently on n.p.o. status with some chips of ice. On Protonix and Carafate. Monitor H&H q6h, has been stable after 1 unit leukocyte reduced RBC transfusion. General surgery consulted. 3. Hypertension most likely due to GI bleed: Started on midodrine and I.V. fluids for now. 4. Abnromal EKG with T wave inversion: Troponins are negative; with no acute ischemic complaints. 5. COPD: No exacerbation, not oxygen dependent. MTDD
[2021-10-09 15:38] VITALS: BP 98/55
[2021-10-09] MEDS ORDERED: SLF 3 ML SYR IV PRN (18:15)
[2021-10-09 18:39] LABS: HEMOGLOBIN 10.5 g/dl (12.0-15.5)
[2021-10-09 19:49] VITALS: BP 90/50
[2021-10-09 19:50] VITALS: BP 96/52
[2021-10-09] MEDS ORDERED: VANCOMYCIN HCL 750 MG, VIAL MATE ADAPTER 1 EACH in NS 250 ML IV ONE ×2 (21:00→22:00)
[2021-10-09] MEDS ORDERED: VANCOMYCIN HCL 1,000 MG, VIAL MATE ADAPTER 1 EACH in NS 250 ML IV ONE (21:00)
[2021-10-09] MEDS ORDERED: VANCOMYCIN HCL 1,000 MG, VIAL MATE ADAPTER 1 EACH in NS 250 ML IV SCH (21:10)
[2021-10-09] MEDS: SLF 3 ML SYR IV SCH (22:29)
[2021-10-10] VITALS (12 sets, daily range): BP systolic 85–98; BP diastolic 50–67
[2021-10-10] MEDS: PIPERACILLIN/TAZOBACTAM SOD 3.375 GM in D5W MINI-BAG PLUS 50 ML IV SCH ×3 (02:07→14:29)
[2021-10-10 05:59] LABS: BASO % 0.1 % (0.0-1.0); EOS % 0.1 % (0.0-3.0); HEMATOCRIT 34.3 % (36.0-47.0); HEMOGLOBIN 11.1 g/dl (12.0-15.5); LYMPH # 1.8 10^3/uL (1.5-5.0); MEAN CORPUSCULAR HEMOGLOBIN 34.4 pg (27.0-33.0); MEAN CORPUSCULAR HGB CONC 32.4 g/dl (32.0-36.5); MEAN CORPUSCULAR VOLUME 106.2 fl (80.0-96.0); MONO # 0.5 10^3/uL (0.0-0.8); MONO % 7.1 % (2.0-8.0); NEUTROPHILS # 5.2 10^3/uL (1.5-8.5); NEUTROPHILS % 68.3 % (36.0-66.0); PLATELET COUNT, AUTOMATED 151 10^3/uL (150-450); RED BLOOD COUNT 3.23 10^6/uL (4.00-5.40); WHITE BLOOD COUNT 7.6 10^3/uL (4.0-10.0)
[2021-10-10] MEDS ORDERED: VANCOMYCIN HCL 750 MG, VIAL MATE ADAPTER 1 EACH in NS 250 ML IV SCH (06:00)
[2021-10-10] MEDS: SLF 3 ML SYR IV SCH ×3 (06:34→22:00)
[2021-10-10] MEDS: TIOTROPIUM INHALER/CAPSULE (SPIRIVA) INH SCH (07:14)
[2021-10-10] MEDS: FORMOTEROL FUMARATE 20 MCG/2 ML INHALATION SOLUTION (PERFOROMIST) INH SCH ×2 (07:14→19:20)
[2021-10-10 07:22] LABS: BLOOD UREA NITROGEN 12 MG/DL (7-18); CALCIUM LEVEL 6.2 MG/DL (8.8-10.2); CARBON DIOXIDE LEVEL 23 MEQ/L (21-32); CHLORIDE LEVEL 107 MEQ/L (98-107); CREATININE FOR GFR 0.62 MG/DL (0.55-1.30); GLOMERULAR FILTRATION RATE > 60.0 (>45); GLUCOSE, FASTING 86 MG/DL (70-100); POTASSIUM SERUM 3.5 MEQ/L (3.5-5.1); SODIUM LEVEL 136 MEQ/L (136-145)
[2021-10-10] MEDS ORDERED: NS 1,000 ML IV ONE ×2 (08:35→12:40)
[2021-10-10] MEDS ORDERED: ASPIRIN 81MG ENTERIC TABLET PO SCH (09:00)
[2021-10-10] MEDS: PANTOPRAZOLE 40MG VIAL (C9113 PER 1) IV SCH ×2 (09:05→22:00)
[2021-10-10] MEDS: FERROUS SULFATE 325MG TAB PO SCH (09:05)
[2021-10-10] MEDS: FOLIC ACID 1 MG TAB PO SCH (09:06)
[2021-10-10] MEDS: MIDODRINE 5 MG TAB PO SCH ×3 (09:06→15:35)
[2021-10-10 09:13] LABS: CK-MB VALUE MASS 3.2 NG/ML (<3.6); MB/CK RELATIVE INDEX 3.3 (< OR =4)
[2021-10-10 09:59] LABS: CHOLESTEROL LEVEL 501 MG/DL (<200); CHOLESTEROL RISK RATIO 31.312 (<5); HDL CHOLESTEROL 16 MG/DL (>40); NON-HDL-C 485 MG/DL
[2021-10-10 10:00] LABS: TRIGLYCERIDES LEVEL 885 MG/DL (<150)
[2021-10-10] MEDS: SUCRALFATE SUSP 1GM/10ML UD PO SCH ×3 (11:29→22:00)
[2021-10-10] MEDS: SIMVASTATIN 40 MG TAB PO SCH (11:30)
[2021-10-10] MEDS ORDERED: NS 1,000 ML IV SCH (12:50)
[2021-10-10 13:46] LABS: CK-MB VALUE MASS 3.7 NG/ML (<3.6); MB/CK RELATIVE INDEX 2.36 (< OR =4)
[2021-10-10] MEDS: FENOFIBRATE 145MG TABLET (TRICOR) PO SCH (15:35)
[2021-10-10 18:30] LABS: CK-MB VALUE MASS 5.4 NG/ML (<3.6); MB/CK RELATIVE INDEX 2.62 (< OR =4)
--- NOTE | 2021-10-10 20:41 | ECGEPIP ---
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
[2021-10-10] MEDS: cefTRIAXone SOD 1 GM in D5W MINI-BAG PLUS 50 ML IV SCH (22:00)
--- NOTE | 2021-10-10 22:35 | ECHO ---
ECHOCARDIOGRAM DATE OF PROCEDURE: 10/08/2021 Age: 65 Gender: Female Height: 62 inches Weight: 99 pounds Body surface area: 1.42 m2 PATIENT LOCATION: Inpatient, progressive care unit (PCU), Room 3224. REFERRING PROVIDER: Brie Casiano M.D. INDICATION: Abnormal EKG. MEASUREMENTS: 2D Measurements: RV 2.5 cm LV 3.6 cm Septum 0.9 cm Posterior wall 0.9 cm Aortic root 2.9 cm LA 3.0 cm LVEF 75% Doppler Measurements: AV 0.86 m/sec LVOT 0.7 m/sec LVOT diameter 1.9 cm MV-E 70, A 58, EA ratio 1.2 Early mitral deceleration time 290 msec E prime medial 4.7 A prime medial 4.3 E prime lateral 4.9 Average E/E prime ratio 14.6/PCWP 20 mmHg? PV 0.7 m/sec Pulmonary artery acceleration time 116 msec RVSP - 29 mmHg IVC 1.4 cm COMMENTS: Sinus bradycardia without intraventricular conduction disturbance. Somewhat challenging study in light of the patient's pulmonary disease, but some diagnostically useful information was still obtained. M-mode and 2-dimensional cardiography was performed with pulse, continuous wave, color flow and tissue Doppler studies. Normal left ventricular size, wall thickness and hyperkinetic wall motion. Normal left atrial size with grade 2 left ventricular (LV) diastolic dysfunction and elevated estimated mean left atrial pressure. Normal right heart chamber sizes and motion with Doppler estimated pulmonary arterial pressure upper limits of normal. Inferior vena cava (IVC) size was somewhat reduced and we could not comment well on respiratory variation because of imaging difficulties, but it is unlikely her central venous pressure is elevated. Normal aortic dimensions. Mild-moderate aortic valvular sclerosis without functional abnormality. Mild degenerative changes of her mitral valvular apparatus with no more than trace mitral insufficiency. Normal appearing tricuspid valve with moderate to moderately severe insufficiency. No apparent intracardiac mass or pericardial effusion.
--- NOTE | 2021-10-10 22:35 | IPN ---
PROGRESS NOTE DATE: 10/10/2021 SUBJECTIVE: Patient denies any chest pain, pressure, tightness, lightheadedness, dizziness. She denies any abdominal pain, dysuria, urgency, frequency. No fever or chills overnight. Telemetry, however, shows ST depression. Patient denies any epigastric pain, nausea, vomiting. PHYSICAL EXAMINATION: VITAL SIGNS: Temperature 98.1, pulse 67, respiratory rate 18, blood pressure 97/67, 92% on room air. GENERAL: Awake, alert, oriented to person, place and time, answering questions appropriately. HEENT: Poor dentition. Dry mucous membranes. No jugular venous distention (JVD), thyromegaly or cervical lymphadenopathy. LUNGS: Clear to auscultation. No wheezing, rales or rhonchi. HEART: S1, S2. Sinus bradycardia. ABDOMEN: Soft, nontender, nondistended. Positive bowel sounds. EXTREMITIES: No cyanosis, clubbing or pitting edema. LABORATORY DATA/IMAGING STUDIES/MICROBIOLOGY: Please see the chart. ASSESSMENT: This is a 65-year-old female admitted on 10/08/2021 with complaints of diarrhea, 3-4 times with blood in stool for the past two days, found to be hypotensive with pressure 85/50. Patient's hemoglobin had gone down from 13 to 9.2. Rectal exam with dark colored blood, guaiac positive. Patient has no recurrent gastrointestinal (GI) bleed. CT abdomen and pelvis showed emphysematous cystitis. Patient was started on vancomycin and Zosyn for cystitis. No recurrent GI bleed during the hospital stay and hemoglobin, after 1 unit of red blood cell (RBC) transfusion, remains stable at 11.1 and hematocrit of 34.3. Overnight, patient denies any chest pain, pressure, tightness, lightheadedness, dizziness, syncope, nausea, vomiting, epigastric discomfort. Was found to have ST depressions on telemetry, but was asymptomatic. Blood pressure remains low, STAT echo pending. IMPRESSION: 1. Emphysematous cystitis with blood cultures negative status post vancomycin and Zosyn. Preliminary on one of two sets gram-positive cocci in pairs and clusters. Second set is negative. Escherichia (E) coli in urine culture. Continue on Zosyn for now. 2. Hypotension. On midodrine. Rule out cardiogenic shock versus hypovolemia from GI bleed. Patient has not had any recurrent GI bleeding at this time. Obtain cardiac markers. Stat echocardiogram. Cardiology consultation. Patient has been given low dose aspirin for now, 81 mg. Despite recent hemoglobin drop in RBC transfusion, patient was found to have had recurrent bleeding. 3. Gram-positive bacteremia. Continue with vancomycin, renal dosing. Dosed by pharmacy. 4. Abnormal EKG. Stat echocardiogram. Aspirin and Zocor for now. Await cardiac markers. Cardiology consultation. 5. Heme positive stool. On Protonix 40 mg intravenous (IV) twice a day.
[2021-10-11] VITALS (15 sets, daily range): BP systolic 85–118; BP diastolic 50–85
[2021-10-11 03:30] LABS: EOS % 0.1 % (0.0-3.0); HEMATOCRIT 36.2 % (36.0-47.0); HEMOGLOBIN 12.1 g/dl (12.0-15.5); LYMPH # 1.4 10^3/uL (1.5-5.0); LYMPH % 19.7 % (24.0-44.0); MEAN CORPUSCULAR HEMOGLOBIN 34.8 pg (27.0-33.0); MEAN CORPUSCULAR HGB CONC 33.4 g/dl (32.0-36.5); MONO # 0.5 10^3/uL (0.0-0.8); MONO % 6.4 % (2.0-8.0); NEUTROPHILS # 5.2 10^3/uL (1.5-8.5); NEUTROPHILS % 73.2 % (36.0-66.0); PLATELET COUNT, AUTOMATED 144 10^3/uL (150-450); RED BLOOD COUNT 3.48 10^6/uL (4.00-5.40); WHITE BLOOD COUNT 7.1 10^3/uL (4.0-10.0)
[2021-10-11 05:57] LABS: ALBUMIN 1.6 GM/DL (3.2-5.2); BILIRUBIN,DIRECT 0.3 MG/DL (0.0-0.2); BLOOD UREA NITROGEN 11 MG/DL (7-18); CARBON DIOXIDE LEVEL 25 MEQ/L (21-32); CHLORIDE LEVEL 107 MEQ/L (98-107); CREATININE FOR GFR 0.68 MG/DL (0.55-1.30); GLOMERULAR FILTRATION RATE > 60.0 (>45); GLUCOSE, FASTING 95 MG/DL (70-100); POTASSIUM SERUM 3.4 MEQ/L (3.5-5.1); SODIUM LEVEL 140 MEQ/L (136-145); TOTAL PROTEIN 4.9 GM/DL (6.4-8.2)
[2021-10-11 06:10] LABS: ALT/SGPT 83 U/L (12-78)
--- NOTE | 2021-10-11 07:19 | SMCUROLCON ---
Urology Consultation General Date of Consultation 10/11/21 Reason For Consultation asked to see re emphysematous cystitis History of Present Illness The patient is a -year-old with a past medical history for . Medications Current Medications Current Medications Medications (Trade) Dose Ordered Sig/Frankie Route PRN Reason Start Time Stop Time Status Last Admin Dose Admin Albuterol Sulfate (Proventil Neb) 2.5 mg Q6HP PRN NEB SOB/WHEEZING 10/08/21 17:15 Albuterol/ Ipratropium (Combivent Respimat 100-20mcg) 4 puff Q20M INH 10/08/21 11:05 10/08/21 11:46 DC 10/08/21 12:16 Aspirin (Ecotrin) 81 mg DAILY PO 10/10/21 09:00 10/10/21 11:29 Ceftriaxone Sodium 1 gm/ Dextrose 50 ml @ 100 mls/hr Q24H IV 10/10/21 21:00 10/17/21 21:29 10/10/21 22:00 Fenofibrate (Tricor) 145 mg DAILY PO 10/10/21 09:00 10/10/21 15:35 Ferrous Sulfate (Ferrous Sulfate) 325 mg DAILY PO 10/08/21 09:00 10/10/21 09:05 Folic Acid (Folic Acid) 1 mg DAILY PO 10/08/21 09:00 10/10/21 09:06 Formoterol Fumarate (Perforomist) 20 mcg RBID INH 10/08/21 20:00 10/10/21 07:14 Home Med (Home Med List Complete!) ASDIRECTED XX 10/08/21 14:25 10/08/21 14:29 DC Influenza Virus Vaccine (Flublok Quad(Egg-Free)18y&Older Influenza) 0.5 ml ASDIRECTED IM 10/09/21 05:30 10/09/21 11:28 Midodrine (Proamatine) 10 mg 08,12,16 PO 10/09/21 08:00 10/10/21 15:35 Pantoprazole Sodium (Protonix) 40 mg BID IV 10/08/21 09:00 10/10/21 22:00 Piperacillin Sod/ Tazobactam Sod 3.375 gm/Dextrose 50 ml @ 50 mls/hr Q6H IV 10/08/21 20:00 10/10/21 18:48 DC 10/10/21 14:29 Simvastatin (Zocor) 40 mg DAILY PO 10/10/21 09:00 10/10/21 11:30 Sodium Chloride 1,000 ml @ 100 mls/hr Q10H IV 10/10/21 12:50 10/10/21 14:30 Sodium Chloride (Saline Lock Flush) 2 ml ASDIRECTED PRN IV SEE LABEL COMMENTS 10/09/21 18:15 Sodium Chloride (Saline Lock Flush) 2 ml SLF IV 10/09/21 22:00 10/10/21 22:00 Sucralfate (Carafate Suspension) 1 gm ACHS PO 10/10/21 12:00 10/10/21 22:00 Tiotropium [place] (Spiriva Handihaler) 1 inhalation DAILY@08 INH 10/09/21 08:00 10/10/21 07:14 Vancomycin HCl 750 mg/IV Miscellaneous Supplies 1 each/ Sodium Chloride 275 ml @ 275 mls/hr Q12H IV 10/10/21 06:00 10/10/21 08:52 DC 10/10/21 06:34 Vancomycin HCl 1000 mg/IV Miscellaneous Supplies 1 each/ Sodium Chloride 270 ml @ 270 mls/hr Q12H IV 10/09/21 21:10 10/10/21 00:56 DC Allergies Allergies: Coded Allergies: fentanyl (Verified Allergy, Intermediate, INTENSE ITCHING, 11/18/19) Vital Signs/I&O Vital Signs Date Time Temp Pulse Resp B/P (MAP) Pulse Ox O2 Delivery O2 Flow Rate FiO2 10/11/21 04:00 97.4 67 18 85/53 (64) 96 Room Air 10/08/21 16:25 3.0 I&O- Last 24 Hours up to 6 AM 10/11/21 05:59 Intake Total 1690.0 ml Output Total 150 ml Balance 1540.0 ml Laboratory Data 24H Labs Laboratory Tests 2 10/10/21 12:42: Total Creatine Kinase 157, Creatine Kinase MB 3.7H, Creatine Kinase MB Relative Index 2.36, Troponin I High Sensitivity 35.0 10/10/21 17:47: Total Creatine Kinase 206H, Creatine Kinase MB 5.4H, Creatine Kinase MB Relative Index 2.62, Troponin I High Sensitivity 41.0 10/11/21 03:22: Immature Granulocyte % (Auto) 0.6, Neutrophils (%) (Auto) 73.2H, Lymphocytes (%) (Auto) 19.7L, Monocytes (%) (Auto) 6.4, Eosinophils (%) (Auto) 0.1, Basophils (%) (Auto) 0.0, Neutrophils # (Auto) 5.2, Lymphocytes # (Auto) 1.4L, Monocytes # (Auto) 0.5, Eosinophils # (Auto) 0.0, Basophils # (Auto) 0.0, Nucleated Red Blood Cells % (auto) 0.0, Anion Gap 8, Glomerular Filtration Rate > 60.0, Calcium Level 6.0L, Total Bilirubin 1.0, Direct Bilirubin 0.3H, Aspartate Amino Transf (AST/SGOT) 86H, Alanine Aminotransferase (ALT/SGPT) 83H, Alkaline Phosphatase 144H, Total Protein 4.9L, Albumin 1.6#L, Albumin/Globulin Ratio 0.5L CBC/BMP Laboratory Tests 10/11/21 03:22 Microbiology Microbiology 10/09/21 Blood Culture - Preliminary, Resulted No growth after 24 hours . All specim... 10/09/21 Blood Culture - Preliminary, Resulted No growth after 24 hours . All specim... 10/08/21 Urine Culture - Final, Complete Escherichia Coli 10/08/21 Blood Culture - Preliminary, Resulted 10/08/21 Blood Culture - Preliminary, Resulted No Growth after 48 hours. All Specime... Assessment reviewed chart and imaging yesterday and discussed with hospitalist as well emphysematous cystitis with gas outside of bladder in addition to within wall of bladder and intraluminal gas in kidneys wbc and creatinine normal cx E coli afebrile suggest ct cystogram to r/o perforation - I've never seen emphysematous cystitis with gas outside of bladder need to elucidate origin of ascites, I don't believe it to be urine ZAYDA WILKERSON MD Oct 11, 2021 07:19
[2021-10-11] MEDS ORDERED: NS 1,000 ML IV ONE ×2 (08:15→11:40)
[2021-10-11] MEDS ORDERED: POTASSIUM CHLORIDE 10MEQ SR TABLET PO ONE ×2 (08:15→11:40)
--- NOTE | 2021-10-11 08:16 | REP ---
INDICATION: cough. COMPARISON: Portable chest, 10/08/2021. TECHNIQUE: AP portable chest image was obtained. FINDINGS: There is apparent mild elevation of the right hemidiaphragm which may indicate basilar atelectasis and or a small pleural effusion. The lungs are otherwise clear. The heart size is normal. There is calcific vascular disease of the thoracic aorta. IMPRESSION: Interval development of mild elevation of the right hemidiaphragm may indicate atelectasis and/or pleural effusion. <Electronically signed by Chavo Perla > 10/11/21 [id number]
[2021-10-11] MEDS ORDERED: LIDOCAINE 1% MDV 20ML VIAL As Ordered ONE (08:18)
[2021-10-11] MEDS: MIDODRINE 5 MG TAB PO SCH ×3 (08:24→16:38)
[2021-10-11] MEDS: SUCRALFATE SUSP 1GM/10ML UD PO SCH ×4 (08:24→21:33)
[2021-10-11] MEDS: HYDROCORTISONE 100 MG/2 ML VIAL (J1720 PER 1) IV SCH ×3 (09:00→21:33)
[2021-10-11] MEDS ORDERED: ISOVUE-300 61% 50ML VIAL As Ordered ONE (09:56)
[2021-10-11] MEDS ORDERED: NOREPINEPHRINE BITARTRATE 8 MG in D5W 492 ML IV SCH ×2 (11:55→13:00)
[2021-10-11 12:37] LABS: SPEC. GRAVITY BODY FLUIDS 1.007 (NOT ESTABLISHED)
[2021-10-11 12:39] LABS: APPEARANCE, BODY FLUID CLEAR (CLEAR); PERITONEAL FL COLOR PALE YELLOW (COLORLESS); SOURCE, BODY FLUID PERITONEAL
--- NOTE | 2021-10-11 12:39 | IPNPDOC ---
Date Seen The patient was seen on 10/11/21. Progress Note SUBJECTIVE: despite midodrine, albumin transfusion, ns iv boluses, pt's mean arterial pressure remain 60-70.Pt remains afebrile w/o chills, abd pain, cp, pressure, tightness, lightheadedness, coffee ground emesis, brbpr, melena, black tarry stools, dysuria, urgency, frequency, nausea, or vomiting. she denies dizziness despite persistent hypotension. PHYSICAL EXAMINATION: VITAL SIGNS: see below i/o: see below weights; see below GENERAL: frail cachectic appears older than her stated age.no cyanosis no distress. HEENT: Poor dentition. Dry mucous membranes. No jugular venous distention (JVD), thyromegaly or cervical lymphadenopathy. LUNGS: Clear to auscultation. No wheezing, rales or rhonchi. HEART: S1, S2. Sinus bradycardia. ABDOMEN: Soft, nontender, nondistended. Positive bowel sounds. EXTREMITIES: No cyanosis, clubbing or pitting edema. LABORATORY DATA/IMAGING STUDIES/MICROBIOLOGY: Please see the chart. ASSESSMENT: This is a 65-year-old female admitted on 10/08/2021 with complaints of diarrhea, 3-4 times with blood in stool for the past two days, found to be hypotensive with pressure 85/50. Patient's hemoglobin had gone down from 13 to 9.2. Rectal exam with dark colored blood, guaiac positive. Patient has no recurrent gastrointestinal (GI) bleed. CT abdomen and pelvis showed emphysematous cystitis. Patient was started on vancomycin and Zosyn for cystitis. No recurrent GI bleed during the hospital stay and hemoglobin, after 1 unit of red blood cell (RBC) transfusion, remains stable at 11.1 and hematocrit of 34.3. Overnight, patient denies any chest pain, pressure, tightness, lightheadedness, dizziness, syncope, nausea, vomiting, epigastric discomfort. Was found to have ST depressions on telemetry, but was asymptomatic. Blood pressure remains low, STAT echo pending. IMPRESSION: 1. Emphysematous cystitis with blood cultures negative -on iv vancomycin since admission -s/p zosyn until 10/10/21 -urine cx : E coli pansensitive -ceftriaxone started 10/10/21 to present status post vancomycin -urologist consulted 2. severe sepsis/Hypotension -despite ns iv fluid boluses, midodrine,albumin transfusions, pt's mean arterial pressure mostly <70. -continue ns, albumin, and if needed to keep map>65, transfer to icu for levophed iv gtt -iv vanco and iv ceftriaxone -ct abd reviewed. cxr neg. urine cx: ecoli -on hydrocortisone 100 mg iv q6hrs until bp stabilized. -no recurrent brbpr, no diarrhea. echo reviewed. 3. Gram-positive bacteremia. Continue with vancomycin, renal dosing. Dosed by pharmacy. echo no vegetations. 4. Abnormal EKG. Twave inversions on Tele. Stat echocardiogram-no wall motion abnormalities or hypokineses. trop negative no ischemic complaints. s/p Aspirin continued on zocor 5. Heme positive stool. On Protonix 40 mg intravenous (IV) twice a day. carafate. hgb stable . dced asa. 6. Ascites/transaminitis -paracentesis for diagnostic purposes -checked ca19-9, cea. -check kadi, liver profile 7. moderate tricuspid regurgitation disposition: transfer to icu if map<65 for levophed iv gtt to keep asl79-10. VS, I&O, 24H, [facility] Vital Signs/I&O Vital Signs Date Time Temp Pulse Resp B/P (MAP) Pulse Ox O2 Delivery O2 Flow Rate FiO2 10/11/21 11:11 97.1 72 18 93 Room Air 10/11/21 07:33 88/50 (63) 10/08/21 16:25 3.0 I&O- Last 24 Hours up to 6 AM 10/11/21 06:00 Intake Total 1790.0 ml Output Total 150 ml Balance 1640.0 ml Laboratory Data 24H LABS Laboratory Tests 2 10/10/21 12:42: Total Creatine Kinase 157, Creatine Kinase MB 3.7H, Creatine Kinase MB Relative Index 2.36, Troponin I High Sensitivity 35.0 10/10/21 17:47: Total Creatine Kinase 206H, Creatine Kinase MB 5.4H, Creatine Kinase MB Relative Index 2.62, Troponin I High Sensitivity 41.0 10/11/21 03:22: Immature Granulocyte % (Auto) 0.6, Neutrophils (%) (Auto) 73.2H, Lymphocytes (%) (Auto) 19.7L, Monocytes (%) (Auto) 6.4, Eosinophils (%) (Auto) 0.1, Basophils (%) (Auto) 0.0, Neutrophils # (Auto) 5.2, Lymphocytes # (Auto) 1.4L, Monocytes # (Auto) 0.5, Eosinophils # (Auto) 0.0, Basophils # (Auto) 0.0, Nucleated Red Blood Cells % (auto) 0.0, Anion Gap 8, Glomerular Filtration Rate > 60.0, Calcium Level 6.0L, Total Bilirubin 1.0, Direct Bilirubin 0.3H, Aspartate Amino Transf (AST/SGOT) 86H, Alanine Aminotransferase (ALT/SGPT) 83H, Alkaline Phosphatase 144H, Total Protein 4.9L, Albumin 1.6#L, Albumin/Globulin Ratio 0.5L CBC/BMP Laboratory Tests 10/11/21 03:22 Microbiology Microbiology 10/09/21 Blood Culture - Preliminary, Resulted No growth after 24 hours . All specim... 10/09/21 Blood Culture - Preliminary, Resulted No growth after 24 hours . All specim... 10/08/21 Urine Culture - Final, Complete Escherichia Coli 10/08/21 Blood Culture - Final, Complete Micrococcus Luteus 10/08/21 Blood Culture - Preliminary, Resulted No Growth after 48 hours. All Specime... CHANNING FATIMA MD Oct 11, 2021 12:05
[2021-10-11] MEDS ORDERED: SODIUM CHLORIDE 0.9% INJ 10 ML SYR IV PRN (12:45)
[2021-10-11] MEDS: FENOFIBRATE 145MG TABLET (TRICOR) PO SCH (12:47)
[2021-10-11] MEDS: FERROUS SULFATE 325MG TAB PO SCH (12:47)
[2021-10-11] MEDS: FOLIC ACID 1 MG TAB PO SCH (12:47)
[2021-10-11] MEDS: PANTOPRAZOLE 40MG VIAL (C9113 PER 1) IV SCH ×2 (12:48→21:33)
--- NOTE | 2021-10-11 13:26 | IPNPDOC ---
Date Seen The patient was seen on 10/11/21. Progress Note pt seen and examined chart reviewed looks comfortable states she feels better tm 99.1 bp 118/66 alert and appropriate belly soft, nontender wbc and creatinine normal urine cx E coli Rocephin now I suggested ct cystogram earlier but have changed my mind belly exam benign if bladder were perforated, I would expect a different exam ascites drained today will continue to follow thank you [id number] VS, I&O, 24H, [facility] Vital Signs/I&O Vital Signs Date Time Temp Pulse Resp B/P (MAP) Pulse Ox O2 Delivery O2 Flow Rate FiO2 10/11/21 13:00 118/66 (83) 10/11/21 12:02 77 18 96 Room Air 10/11/21 11:11 97.1 10/08/21 16:25 3.0 I&O- Last 24 Hours up to 6 AM 10/11/21 06:00 Intake Total 1790.0 ml Output Total 150 ml Balance 1640.0 ml Laboratory Data 24H LABS Laboratory Tests 2 10/10/21 17:47: Total Creatine Kinase 206H, Creatine Kinase MB 5.4H, Creatine Kinase MB Relative Index 2.62, Troponin I High Sensitivity 41.0 10/11/21 03:22: Immature Granulocyte % (Auto) 0.6, Neutrophils (%) (Auto) 73.2H, Lymphocytes (%) (Auto) 19.7L, Monocytes (%) (Auto) 6.4, Eosinophils (%) (Auto) 0.1, Basophils (%) (Auto) 0.0, Neutrophils # (Auto) 5.2, Lymphocytes # (Auto) 1.4L, Monocytes # (Auto) 0.5, Eosinophils # (Auto) 0.0, Basophils # (Auto) 0.0, Nucleated Red Blood Cells % (auto) 0.0, Anion Gap 8, Glomerular Filtration Rate > 60.0, Calcium Level 6.0L, Total Bilirubin 1.0, Direct Bilirubin 0.3H, Aspartate Amino Transf (AST/SGOT) 86H, Alanine Aminotransferase (ALT/SGPT) 83H, Alkaline Phosphatase 144H, Total Protein 4.9L, Albumin 1.6#L, Albumin/Globulin Ratio 0.5L 10/11/21 12:00: Body Fluid Specific [place] 1.007, Body Fluid WBC (Auto) 14H, Body Fluid RBC (Auto) < 2, Body Fluid Mononuclear Cells % Auto 92.9H, Fluid Polymorphonuclear Cell % Auto 7.1H, Peritoneal Fluid Source PERITONEAL, Peritoneal Fluid Color PALE YELLOW, Peritoneal Fluid Appearance CLEAR 10/11/21 12:50: Lab Scanned Report Transfusion Record 10/11/21 13:04: CBC/BMP Laboratory Tests 10/11/21 03:22 Microbiology Microbiology 10/11/21 Acid Fast Stain, Received Pending 10/11/21 Mycobacterial Culture, Received Pending 10/11/21 Fungal Smear, Received Pending 10/11/21 Fungal Culture, Received Pending 10/11/21 Gram Stain, Received Pending 10/11/21 Body Fluid Culture, Received Pending 10/11/21 Anaerobic Culture, Received Pending 10/09/21 Blood Culture - Preliminary, Resulted No growth after 24 hours . All specim... 10/09/21 Blood Culture - Preliminary, Resulted No growth after 24 hours . All specim... 10/08/21 Urine Culture - Final, Complete Escherichia Coli 10/08/21 Blood Culture - Final, Complete Micrococcus Luteus 10/08/21 Blood Culture - Preliminary, Resulted No Growth after 72 hours. All specime... ZAYDA WILKERSON MD Oct 11, 2021 13:26
[2021-10-11] MEDS: FORMOTEROL FUMARATE 20 MCG/2 ML INHALATION SOLUTION (PERFOROMIST) INH SCH ×2 (13:36→20:30)
[2021-10-11] MEDS: TIOTROPIUM INHALER/CAPSULE (SPIRIVA) INH SCH (13:36)
[2021-10-11 13:51] LABS: SOURCE, BODY FLUID ALBUMIN PERITONEAL; SOURCE, BODY FLUID GLUCOSE PERITONEAL; SOURCE, BODY FLUID TOT PROTEIN PERITONEAL; TOTAL PROTEIN, BODY FLUID 0.4 G/DL (NOT ESTABLISHED)
[2021-10-11] MEDS: SLF 3 ML SYR IV SCH ×2 (14:00→21:33)
[2021-10-11 14:12] LABS: NT-PRO BNP 14019 PG/ML (<125)
[2021-10-11 14:33] LABS: HEPATITIS B SURFACE ANTIGEN NEGATIVE (NEGATIVE)
[2021-10-11 14:50] LABS: CA19-9 TUMOR MARKER,CARBOHYDRA 65.8 U/ML (<35.0)
[2021-10-11 14:59] LABS: HEPATITIS C VIRUS ABY INDEX 0.1 INDEX (<0.8)
[2021-10-11 15:00] LABS: HEPATITIS B CORE ANTIBODY IGM NEGATIVE (NEGATIVE)
--- NOTE | 2021-10-11 16:23 | REP ---
INDICATION: ASCITES-DIAGNOSTIC The patient has a history of ascites COMPARISON: None. TECHNIQUE: The procedure was performed by LASHAY Kulkarni, under the direct supervision of Dr. Perla The risks and benefits of the procedure were explained to the patient and an informed consent was obtained both verbally and written. Directly prior to the start of the procedure a formal time-out was completed in the procedure room. The largest pocket of fluid was localized in the right flank using ultrasound guidance. The skin was prepped and draped in a sterile fashion. Ten ML of 1% lidocaine 10 mg/ml was used as a local anesthetic. A 22 gauge spinal needle was inserted under ultrasound guidance into the fluid collection.. FINDINGS: The largest pocket of fluid was localized in the right flank. The skin was prepped and draped in sterile fashion. ML of 1% lidocaine was used for local anesthetic. A 22 gauge spinal needle was inserted under ultrasound guidance into the fluid collection. 120 mL of clear yellow fluid was aspirated. This fluid was sent to the lab for further evaluation, results pending. The patient tolerated the procedure well and there were no immediate complications. After the appropriate amount of monitored convalescence, the patient was discharged from the department. IMPRESSION: Technically successful paracentesis yielding 120 mL of clear yellow fluid. This was sent to the lab for further evaluation, results pending. <Electronically signed by Simi Bullock > 10/11/21 1406 <Electronically signed by Chavo Perla > 10/11/21 0623
--- NOTE | 2021-10-11 16:23 | REP ---
PROCEDURE NAME: PICC LINE INSERTION W/SITERITE CLINICAL INFORMATION: irritating meds. COMPARISON: None. PROCEDURE DESCRIPTION: The procedure was performed by LASHAY Kulkarni, under the direct supervision of Dr. Perla. The risks and benefits of the procedure were explained to the patient and an informed consent was obtained both verbally and written. Directly prior to the start of the procedure a formal time-out was completed in the procedure room. The right brachial vein was localized using ultrasound guidance. The skin was prepped and draped in sterile fashion. Three mL of 1% lidocaine 10 mg/mL was used as a local anesthetic. Using ultrasound guidance the right brachial vein was cannulated, and a 0.018 guidewire was inserted and advanced to the level of SVC using fluoroscopic guidance. The needle was removed and a 6 Somali dilator and peel-away sheath was inserted over the guidewire. A 5.5 Somali dual lumen catheter was cut to a length of 33 cm. The dilator was removed and the catheter was inserted over the guidewire with the tip ending at the level of the SVC. The peel-away sheath was removed and the catheter was flushed with heparinized saline as per hospital protocol. The catheter was affixed to the skin and a sterile dressing was applied. The patient tolerated the procedure well and there were no immediate complications. CONCLUSION: PICC line insertion into the right brachial vein. 0.4 minutes of fluoroscopy time was utilized for this procedure. Some fluoroscopic images are performed with last image hold technology. These images require no additional radiation. <Electronically signed by Simi Bullock > 10/11/21 1050 <Electronically signed by Chavo Perla > 10/11/21 1799
[2021-10-11] MEDS: SIMVASTATIN 40 MG TAB PO SCH (16:39)
[2021-10-11] MEDS: SODIUM CHLORIDE 0.9% INJ 10 ML SYR IV SCH (18:44)
[2021-10-11] MEDS: cefTRIAXone SOD 1 GM in D5W MINI-BAG PLUS 50 ML IV SCH (21:33)
[2021-10-12] VITALS (8 sets, daily range): BP systolic 81–140; BP diastolic 56–70
[2021-10-12] MEDS: HYDROCORTISONE 100 MG/2 ML VIAL (J1720 PER 1) IV SCH ×3 (02:04→16:24)
[2021-10-12 05:41] LABS: HEMATOCRIT 35.8 % (36.0-47.0); HEMOGLOBIN 11.5 g/dl (12.0-15.5); LYMPH # 0.9 10^3/uL (1.5-5.0); LYMPH % 15.3 % (24.0-44.0); MEAN CORPUSCULAR HGB CONC 32.1 g/dl (32.0-36.5); MEAN CORPUSCULAR VOLUME 108.8 fl (80.0-96.0); MONO # 0.2 10^3/uL (0.0-0.8); MONO % 3.2 % (2.0-8.0); NEUTROPHILS % 80.7 % (36.0-66.0); PLATELET COUNT, AUTOMATED 131 10^3/uL (150-450); RED BLOOD COUNT 3.29 10^6/uL (4.00-5.40); WHITE BLOOD COUNT 6.2 10^3/uL (4.0-10.0)
[2021-10-12] MEDS: SODIUM CHLORIDE 0.9% INJ 10 ML SYR IV SCH ×2 (05:42→18:00)
[2021-10-12] MEDS: SLF 3 ML SYR IV SCH ×2 (05:42→14:00)
[2021-10-12] MEDS: SUCRALFATE SUSP 1GM/10ML UD PO SCH ×2 (07:30→13:46)
[2021-10-12] MEDS: TIOTROPIUM INHALER/CAPSULE (SPIRIVA) INH SCH (08:00)
[2021-10-12] MEDS: MIDODRINE 5 MG TAB PO SCH ×3 (08:00→16:25)
[2021-10-12] MEDS: FORMOTEROL FUMARATE 20 MCG/2 ML INHALATION SOLUTION (PERFOROMIST) INH SCH (08:00)
--- NOTE | 2021-10-12 09:03 | REP ---
INDICATION: sob COMPARISON: 10/11/2021 TECHNIQUE: Portable AP view of the chest FINDINGS: Left hemithorax demonstrates new elements of atelectasis and airspace disease along with small pleural effusion. Mediastinum and cardiac silhouette are relatively stable. Right hemithorax appears relatively clear. Right-sided PICC line with tip in the SVC. No evidence for pneumothorax. Skeletal structures demonstrate age-related degenerative changes. IMPRESSION: Acute pleuroparenchymal changes involving the left hemithorax. <Electronically signed by Nam Peters > 10/12/21 0858
[2021-10-12 09:58] LABS: BLOOD UREA NITROGEN 10 MG/DL (7-18); CALCIUM LEVEL 6.7 MG/DL (8.8-10.2); CARBON DIOXIDE LEVEL 16 MEQ/L (21-32); CHLORIDE LEVEL 110 MEQ/L (98-107); CREATININE FOR GFR 0.57 MG/DL (0.55-1.30); GLOMERULAR FILTRATION RATE > 60.0 (>45); GLUCOSE, FASTING 112 MG/DL (70-100); POTASSIUM SERUM 4.8 MEQ/L (3.5-5.1); SODIUM LEVEL 140 MEQ/L (136-145)
--- NOTE | 2021-10-12 10:29 | IPNPDOC ---
Date Seen The patient was seen on 10/12/21. Progress Note SUBJECTIVE: Complains of generalized weakness some cramping in the lower extremities when she walks Denies any shortness of breath nausea vomiting abdominal pain fever chills chest pain pressure tightness PHYSICAL EXAMINATION: VITAL SIGNS: see below i/o: see below weights; see below GENERAL: frail cachectic appears older than her stated age.no cyanosis no distress. Speaks in full sentences without use of respiratory accessory muscles HEENT: Poor dentition. Moist mucous membranes. No jugular venous distention (JVD), thyromegaly or cervical lymphadenopathy. No stridor LUNGS: Clear to auscultation. No wheezing, rales or rhonchi. HEART: S1, S2. Sinus bradycardia. No S3 ABDOMEN: Soft, nontender, nondistended. Positive bowel sounds. No CVA tenderness EXTREMITIES: No cyanosis, clubbing or pitting edema. LABORATORY DATA/IMAGING STUDIES/MICROBIOLOGY: Please see the chart. ASSESSMENT: This is a 65-year-old female admitted on 10/08/2021 with complaints of diarrhea, 3-4 times with blood in stool for the past two days, found to be hypotensive with pressure 85/50. Patient's hemoglobin had gone down from 13 to 9.2. Rectal exam with dark colored blood, guaiac positive. Patient has no recurrent gastrointestinal (GI) bleed. CT abdomen and pelvis showed emphysematous cystitis. Patient was started on vancomycin and Zosyn for cystitis. No recurrent GI bleed during the hospital stay and hemoglobin, after 1 unit of red blood cell (RBC) transfusion, remains stable at 11.1 and hematocrit of 34.3. Overnight, patient denies any chest pain, pressure, tightness, lightheadedness, dizziness, syncope, nausea, vomiting, epigastric discomfort. Was found to have ST depressions on telemetry, but was asymptomatic. Blood pressure remains low, STAT echo pending. Emphysematous cystitis with blood cultures negative -Status post Vanco Zosyn started on admission -urine cx : E coli pansensitive -ceftriaxone started 10/10/21 to present -Urologyconsulted with no plans for cystoscopy severe sepsis/Hypotension -Required aggressive fluid resuscitation albumin transfusions - status post IV Vanco Zosyn, currently on IV ceftriaxone -ct abd reviewed. cxr neg. urine cx: ecoli -on hydrocortisone 100 mg iv q6hrs -no recurrent brbpr, no diarrhea. -echo reviewed. -Due to significant atherosclerotic disease found on CT abdomen pelvis will need to rule out peripheral arterial disease causing a falsely low blood pressure -therefore we will check arterial Dopplers bilateral upper extremities Contaminated blood culture -Status post vancomycin Abnormal EKG. Twave inversions on Tele. -Stat echocardiogram-no wall motion abnormalities or hypokineses. -trop negative -no ischemic complaints. -s/p Aspirin -continued on zocor Heme positive stool. -On Protonix 40 mg intravenous (IV) twice a day. -carafate. -hgb stable . - dced asa. -Ascites/transaminitis -paracentesis for diagnostic purposes: Portal hypertension -Elevated ca19-9, cea. -Pending kadi -Negative hepatitis profile -Await ascitic fluid cytology moderate tricuspid regurgitation Disposition: 2 to 3 days pending clinical improvement VS, I&O, 24H, [facility] Vital Signs/I&O Vital Signs Date Time Temp Pulse Resp B/P (MAP) Pulse Ox O2 Delivery O2 Flow Rate FiO2 10/12/21 08:00 98.2 84 17 115/69 (84) 96 Room Air 10/08/21 16:25 3.0 I&O- Last 24 Hours up to 6 AM 10/12/21 06:00 Intake Total 620.0 ml Output Total 375 ml Balance 245.0 ml Laboratory Data 24H LABS Laboratory Tests 2 10/11/21 12:00: Body Fluid Specific [place] 1.007, Body Fluid WBC (Auto) 14H, Body Fluid RBC (Auto) < 2, Body Fluid Mononuclear Cells % Auto 92.9H, Fluid Polymorphonuclear Cell % Auto 7.1H, Body Fluid Glucose Source PERITONEAL, Body Fluid Glucose 91, Body Fluid Protein Source PERITONEAL, Body Fluid Total Protein 0.4, Body Fluid Albumin Source PERITONEAL, Body Fluid Albumin 0.0, Peritoneal Fluid Source PERITONEAL, Peritoneal Fluid Color PALE YELLOW, Peritoneal Fluid Appearance CLEAR 10/11/21 12:50: Lab Scanned Report Transfusion Record 10/11/21 13:04: Erythrocyte Sedimentation Rate 10, Lactic Acid Level < 0.1L, C-Reactive Protein, Quantitative < 0.30, ON-Sdb-X-Type Natriuretic Peptide 11591U, Carcinoembryonic Antigen 6.9H, CA 19-9 Antigen 65.8H, Procalcitonin 0.78, Hepatitis A IgM Antibody NEGATIVE, Hepatitis B Surface Antigen NEGATIVE, Hepatitis B Core IgM Antibody NEGATIVE, Hepatitis C Antibody Index 0.1 10/12/21 05:06: Immature Granulocyte % (Auto) 0.8, Neutrophils (%) (Auto) 80.7H, Lymphocytes (%) (Auto) 15.3L, Monocytes (%) (Auto) 3.2, Eosinophils (%) (Auto) 0.0, Basophils (%) (Auto) 0.0, Neutrophils # (Auto) 5.0, Lymphocytes # (Auto) 0.9L, Monocytes # (Auto) 0.2, Eosinophils # (Auto) 0.0, Basophils # (Auto) 0.0, Nucleated Red Blood Cells % (auto) 0.0 10/12/21 08:44: Anion Gap 14, Glomerular Filtration Rate > 60.0, Calcium Level 6.7L CBC/BMP Laboratory Tests 10/12/21 05:06 10/12/21 08:44 Microbiology Microbiology 10/11/21 Acid Fast Stain, Received Pending 10/11/21 Mycobacterial Culture, Received Pending 10/11/21 Fungal Smear, Received Pending 10/11/21 Fungal Culture, Received Pending 10/11/21 Gram Stain - Final, Resulted 10/11/21 Body Fluid Culture, Resulted Pending 10/11/21 Anaerobic Culture, Resulted Pending 10/09/21 Blood Culture - Preliminary, Resulted No Growth after 48 hours. All Specime... 10/09/21 Blood Culture - Preliminary, Resulted No Growth after 48 hours. All Specime... 10/08/21 Urine Culture - Final, Complete Escherichia Coli 10/08/21 Blood Culture - Final, Complete Micrococcus Luteus 10/08/21 Blood Culture - Preliminary, Resulted No Growth after 72 hours. All specime... CHANNING FATIMA MD Oct 12, 2021 10:29
[2021-10-12] MEDS: FERROUS SULFATE 325MG TAB PO SCH (10:33)
[2021-10-12] MEDS: PANTOPRAZOLE 40MG VIAL (C9113 PER 1) IV SCH (10:33)
[2021-10-12] MEDS: FENOFIBRATE 145MG TABLET (TRICOR) PO SCH (10:33)
[2021-10-12] MEDS: FOLIC ACID 1 MG TAB PO SCH (10:33)
[2021-10-12] MEDS: SIMVASTATIN 40 MG TAB PO SCH (10:34)
[2021-10-12] MEDS ORDERED: ISOVUE-370 76% 100ML VIAL As Ordered ONE (11:26)
--- NOTE | 2021-10-12 12:06 | REPVR ---
PROCEDURE INFORMATION: Exam: CT Chest With Contrast; Diagnostic Exam date and time: 10/12/2021 11:34 AM Age: 65 years old Clinical indication: Chest wall pain; Additional info: SOB TECHNIQUE: Imaging protocol: Diagnostic computed tomography of the chest with contrast. 3D rendering (Not supervised by radiologist): MIP and/or 3D reconstructed images were created by the technologist. Radiation optimization: All CT scans at this facility use at least one of these dose optimization techniques: automated exposure control; mA and/or kV adjustment per patient size (includes targeted exams where dose is matched to clinical indication); or iterative reconstruction. Contrast material: ISO 370; Contrast volume: 75 ml; Contrast route: INTRAVENOUS (IV); COMPARISON: CT Chest without contrast 02/05/2021 7:59 AM FINDINGS: Tubes, catheters and devices: The right upper extremity PICC line tip is in the lower SVC. Lungs: Right upper lobe calcified pulmonary parenchymal granuloma. Left lower lobe anterior basilar segment pulmonary partial atelectasis. Left upper lobe anterior segment predominant subsegmental atelectasis. Stable right anterior and posterior apical pulmonary parenchymal scarring. Right pulmonary basilar centrilobular emphysematous foci, largest 12.1 mm. Similar foci left upper lobe, right lower lobe superior segment. Paraseptal bleb posterior right upper lobe measuring 16 mm. Pleural spaces: Large left dependent pleural effusion. Moderate right dependent pleural effusion. No pneumothorax. Heart: LAD and RCA calcified coronary atherosclerosis. Pulmonary arteries: No pulmonary artery embolism identified. Aorta: Moderate aortic arch, branch, and descending thoracic aortic atherosclerotic calcification without ectasia. Other arteries: Left vertebral artery origin from the aortic arch, normal variant. Lymph nodes: No enlarged lymph nodes. Bones/joints: Degenerative disk disease is present at mid-thoracic spine disk levels. C7-T1 anterolisthesis. Soft tissues: Unremarkable. IMPRESSION: 1. No pulmonary artery embolism identified. 2. No thoracic aortic aneurysm or dissection identified. 3. Left lower lobe anterior basilar segment pulmonary partial atelectasis. 4. Left upper lobe anterior segment predominant subsegmental atelectasis. 5. Pulmonary emphysema. 6. Large left dependent pleural effusion. 7. Moderate right dependent pleural effusion. 8. Coronary atherosclerosis. Electronically signed by: Morgan Reza On 10/12/2021 12:06:17 PM
--- NOTE | 2021-10-12 12:40 | REP ---
INDICATION: portal htn r/o portal vein thrombosis COMPARISON: None. TECHNIQUE: Real time david scale and color Doppler ultrasound examination using curved array transducer. FINDINGS: Liver is mildly echogenic but without focal hepatic lesion identified. Pancreas and spleen are normal in appearance and echotexture. The gallbladder is normal and without gallstones, wall thickening, or pericholecystic fluid. No biliary ductal dilatation is appreciated and the common bile duct measures 4.7 mm diameter. Bilateral kidneys are normal in reniform shape without hydronephrosis. Right kidney measures 9.4 x 5.6 x 3.5 cm. Left kidney measures 8.5 x 4.4 x 4.9 cm. Small amount of ascites noted in the upper abdomen. Doppler interrogation of the hepatic and portal veins demonstrates normal flow direction, wave patterns and velocities. There is no evidence for portal vein thrombosis. Main portal vein measures 9 mm diameter with velocity of 19.5 cm/sec IMPRESSION: 1. Mild amount of ascites in the upper abdomen. 2. Mild hepatosteatosis. 3. Otherwise normal complete abdominal ultrasound. Doppler interrogation without evidence for portal vein thrombosis. <Electronically signed by Nam Peters > 10/12/21 [id number]
[2021-10-12 14:09] LABS: ANTINUCLEAR ANTIBODIES DIRECT Negative (Negative)
[2021-10-12] MEDS ORDERED: SODIUM CHLORIDE 0.9% 1000ML IV ONE (17:35)
[2021-10-12] MEDS ORDERED: NOREPINEPHRINE 4 MG/4 ML AMP As Ordered ONE ×2 (17:37→19:25)
[2021-10-12] MEDS ORDERED: NOREPINEPHRINE BITARTRATE 16 MG in D5W 484 ML IV SCH ×2 (17:40→22:00)
[2021-10-12 17:54] LABS: VENOUS TOTAL CO2 11.8 MEQ/L (24.0-28.0)
[2021-10-12 17:55] LABS: VENOUS BASE EXCESS -23.7 (-2.0-2.0); VENOUS HCO3 9.9 MEQ/L (23.0-27.0); VENOUS O2 SATURATION 76.6 % (60.0-80.0); VENOUS PARTIAL PRESSURE O2 69.8 mmHg (30.0-50.0)
[2021-10-12 17:56] LABS: VENOUS PARTIAL PRESSURE CO2 61.1 mmHg (38.0-50.0); VENOUS PH 6.827 UNITS (7.330-7.430)
[2021-10-12] MEDS ORDERED: VASOPRESSIN INJ 20 UNITS/ML VIAL As Ordered ONE (17:58)
[2021-10-12] MEDS ORDERED: MIDAZOLAM INJ 2MG/2ML VIAL (J2250 PER 1MG) As Ordered ONE ×3 (17:59→18:34)
[2021-10-12 18:01] LABS: BASO % 0.1 % (0.0-1.0); HEMATOCRIT 30.6 % (36.0-47.0); LYMPH # 1.8 10^3/uL (1.5-5.0); MEAN CORPUSCULAR HGB CONC 29.7 g/dl (32.0-36.5); MONO # 0.5 10^3/uL (0.0-0.8); MONO % 5.8 % (2.0-8.0); NEUTROPHILS # 6.6 10^3/uL (1.5-8.5); NEUTROPHILS % 72.8 % (36.0-66.0); PLATELET COUNT, AUTOMATED 118 10^3/uL (150-450); WHITE BLOOD COUNT 9.1 10^3/uL (4.0-10.0)
[2021-10-12] MEDS ORDERED: SUCCINYLCHOLINE INJ 200 MG/10 ML VIAL (J0330) As Ordered ONE (18:03)
[2021-10-12 18:04] LABS: HEMOGLOBIN 9.1 g/dl (12.0-15.5); MEAN CORPUSCULAR VOLUME 117.7 fl (80.0-96.0)
--- NOTE | 2021-10-12 18:08 | REP ---
INDICATION: hypoxia. COMPARISON: Portable chest, 10/12/2021 8:52 a.m.. TECHNIQUE: AP portable chest image was obtained. FINDINGS: There is cardiomegaly, pulmonary venous hypertension and pulmonary interstitial edema consistent with congestive heart failure. There is a partially loculated left pleural effusion. There is left basilar atelectasis. There is calcific vascular disease of the thoracic aorta. There is a right PICC line present with the tip in the proximal superior vena cava. IMPRESSION: Congestive heart failure with left pleural effusion and left basilar atelectasis. Appears somewhat worsened. <Electronically signed by Chavo Perla > 10/12/21 [id number]
[2021-10-12] MEDS ORDERED: EPINEPHrine INJ 1 MG/ML 1ML AMP As Ordered ONE (18:16)
[2021-10-12] MEDS ORDERED: MORPHINE 2 MG/ML 1ML VIAL (J2270) IV ONE ×2 (18:34→19:10)
[2021-10-12] MEDS ORDERED: MIDAZOLAM INJ 2MG/2ML VIAL (J2250 PER 1MG) IV STA ×2 (18:34→19:38)
[2021-10-12] MEDS ORDERED: MORPHINE 2 MG/ML 1ML VIAL (J2270) As Ordered ONE ×2 (18:35→18:39)
[2021-10-12 18:41] LABS: ANISOCYTOSIS 1+; PLATELET ESTIMATE DECREASED (NORMAL)
[2021-10-12 18:44] LABS: ALBUMIN 1.7 GM/DL (3.2-5.2); BILIRUBIN,TOTAL 0.7 MG/DL (0.2-1.0); CALCIUM LEVEL 6.1 MG/DL (8.8-10.2); CREATININE FOR GFR 1.05 MG/DL (0.55-1.30); GLOMERULAR FILTRATION RATE 56.3 (>45); MAGNESIUM LEVEL 2.2 MG/DL (1.8-2.4); POTASSIUM SERUM 4.7 MEQ/L (3.5-5.1); TOTAL PROTEIN 4.3 GM/DL (6.4-8.2)
[2021-10-12 18:45] LABS: CK-MB VALUE MASS 9.9 NG/ML (<3.6); MB/CK RELATIVE INDEX 2.42 (< OR =4)
--- NOTE | 2021-10-12 18:47 | IPNPDOC ---
Date Seen The patient was seen on 10/12/21. Progress Note CRITICAL CARE NOTE: MAX CART was called at 1727 when pt was found to be unresponsive,with apnea. Per RN, pt was talking to an aide, and suddenly became unresponsive w apneic respirations. RN could not feel a pulse and CPR was initiated. Tele at 1727 showed Vtach, and at 1728: asystole. ACLS protocol intiated. Pt was given epix2, ns 1 liter iv bolus. pulse noted at 1730 sinus robert 120bpm. blood pressure was 60mmhg . bicarb given x 3.levophed iv gtt 1742 maximized, and vasopressin was added at 1752. pt was intubated at 1800. [facility] was called to the bedside at 1826, triple lumen catheter placed, doppler at bedside: akinesis of heart. trop-hi sensitivity 456. Per pt's prior wishes this morning. "I want everything done." Pt's and son have been informed, and asked to come in to the hospital. IMPRESSION: Acute Coronary Syndrome Vtach/ cardiac Arrest Coronary Artery Disease-LAD/RCA calcified coronary atherosclerosis Acute on chronic Diastolic Heart Failure EF 75% with b/l left>>right dependent pleural effusion mild-moderate Ascites s/p paracentesis /portal HTN by peritoneal analysis Elevated CEA/CA19-9 r/o malignancy Peripheral arterial disease with significant plaquin and narrowing of b/l common iliac/external iliac arteries Emphysematous cystitis Diffuse Fatty Liver RUL paraseptal pulmonary bleb Right pulmonary basilar centrilobular emphysema Hypertriglyceridemia moderate-moderately severe tricuspid insufficiency PLAN: transferred to ICU. [facility] Dr. Danielle managing acute issues. on levophed iv gtt, iv vasopressin gtt, sedated. 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 VS, I&O, 24H, Fishbone Vital Signs/I&O Vital Signs Date Time Temp Pulse Resp B/P (MAP) Pulse Ox O2 Delivery O2 Flow Rate FiO2 10/12/21 16:00 97.3 120 18 81/56 (64) 91 Room Air 10/08/21 16:25 3.0 I&O- Last 24 Hours up to 6 AM 10/12/21 06:00 Intake Total 620.0 ml Output Total 375 ml Balance 245.0 ml Laboratory Data 24H LABS Laboratory Tests 2 10/12/21 05:06: Immature Granulocyte % (Auto) 0.8, Neutrophils (%) (Auto) 80.7H, Lymphocytes (%) (Auto) 15.3L, Monocytes (%) (Auto) 3.2, Eosinophils (%) (Auto) 0.0, Basophils (%) (Auto) 0.0, Neutrophils # (Auto) 5.0, Lymphocytes # (Auto) 0.9L, Monocytes # (Auto) 0.2, Eosinophils # (Auto) 0.0, Basophils # (Auto) 0.0, Nucleated Red Blood Cells % (auto) 0.0 10/12/21 08:44: Anion Gap 14, Glomerular Filtration Rate > 60.0, Calcium Level 6.7L 10/12/21 17:40: Blood Gas Bicarbonate Standard 7.0, Venous Blood pH 6.827L, Venous Blood Partial Pressure CO2 61.1H, Venous Blood Partial Pressure O2 69.8H, Venous Blood Total Carbon Dioxide 11.8L, Venous Blood HCO3 9.9L, Venous Blood Oxygen Saturation 76.6, Venous Blood Base Excess -23.7L 10/12/21 17:43: Immature Granulocyte % (Auto) 1.3, Neutrophils (%) (Auto) 72.8H, Lymphocytes (%) (Auto) 20.0L, Monocytes (%) (Auto) 5.8, Eosinophils (%) (Auto) 0.0, Basophils (%) (Auto) 0.1, Neutrophils # (Auto) 6.6, Lymphocytes # (Auto) 1.8, Monocytes # (Auto) 0.5, Eosinophils # (Auto) 0.0, Basophils # (Auto) 0.0, Nucleated Red Blood Cells % (auto) 0.0 CBC/BMP Laboratory Tests 10/12/21 05:06 10/12/21 08:44 10/12/21 17:43 Microbiology Microbiology 10/11/21 Acid Fast Stain, Received Pending 10/11/21 Mycobacterial Culture, Received Pending 10/11/21 Fungal Smear, Received Pending 10/11/21 Fungal Culture, Received Pending 10/11/21 Gram Stain - Final, Resulted 10/11/21 Body Fluid Culture, Resulted Pending 10/11/21 Anaerobic Culture, Resulted Pending 10/09/21 Blood Culture - Preliminary, Resulted No Growth after 48 hours. All Specime... 10/09/21 Blood Culture - Preliminary, Resulted No Growth after 48 hours. All Specime... 10/08/21 Urine Culture - Final, Complete Escherichia Coli 10/08/21 Blood Culture - Final, Complete Micrococcus Luteus 10/08/21 Blood Culture - Preliminary, Resulted No Growth after 72 hours. All specime... CHANNING FATIMA MD Oct 12, 2021 18:47
--- NOTE | 2021-10-12 18:57 | REP ---
INDICATION: POST MAX CART. COMPARISON: Portable chest, 10/12/2021 at 5:45 p.m. TECHNIQUE: AP portable chest image was obtained. FINDINGS: There is apparent interval improvement in the patient's congestive heart failure. There is a left pleural effusion with left basilar atelectasis. There has been interval placement of an endotracheal tube with the tip in the right mainstem bronchus. There is been interval placement of a nasogastric tube with the side port in the distal esophagus. IMPRESSION: 1. The endotracheal tube tip is in the right mainstem bronchus and the nasogastric tube side port is in the distal esophagus. 2. Other findings as noted. Pertinent findings: Endotracheal tube tip in the right mainstem bronchus. Nasogastric tube side port in the distal esophagus. The critical information above was relayed directly by me by telephone to CHANNING FATIMA on 10/12/2021 at 6:53 pm with readback verification. <Electronically signed by Chavo Perla > 10/12/21 [id number]
[2021-10-12] MEDS ORDERED: MIDAZOLAM INJ 2MG/2ML VIAL (J2250 PER 1MG) IV ONE (19:10)
[2021-10-12] MEDS ORDERED: MORPHINE 2 MG/ML 1ML VIAL (J2270) IV PRN (20:15)
[2021-10-12] MEDS ORDERED: ATROPINE SULFATE 1% OP SOLN 2 ML BTL SL PRN (20:15)
[2021-10-12] MEDS ORDERED: HYOSCYAMINE SULFATE 0.125 MG SUBL TABLET PO PRN (20:15)
[2021-10-12] MEDS ORDERED: SCOPOLAMINE 1MG TRANSDERMAL PATCH TOP PRN (20:15)
[2021-10-12] MEDS ORDERED: LORazepam 2 MG/ML VIAL IV PRN (20:15)
[2021-10-12] MEDS ORDERED: EPINEPHrine HCL INJ 1 MG in D5W 240 ML IV SCH (20:30)
[2021-10-12] MEDS ORDERED: VASOPRESSIN INJ 20 UNITS in NS 499 ML IV SCH (21:00)
[2021-10-12] MEDS ORDERED: EPINEPHrine 1MG/10ML SYRINGE 1.5IN ONE (21:03)
[2021-10-12] MEDS ORDERED: CALCIUM CHLORIDE 10% 1 GM/10 ML SYR ONE (21:03)
[2021-10-12] MEDS ORDERED: SODIUM BICARBONATE 8.4% INJ 50 ML SYRINGE ONE (21:03)
--- NOTE | 2021-10-12 21:25 | CCN ---
CRITICAL CARE NOTE DATE: 10/12/2021 Critical care time was 51 minutes. This excludes all procedures. SUBJECTIVE: I was called to the patient after the patient had a cardiopulmonary arrest. Telemetry showed V-tach, not clear if it was primary pulmonary of V-tach that precipitated the event. Apparently she was doing "fine" just prior to the code. On my arrival, I performed a bedside ultrasound of the heart which showed no ventricular activity of the left ventricle. The patient was on two pressors. One was vasopressin. The other one was Levophed at double concentration still with poor perfusion and shock. It appeared that the patient was in cardiogenic shock. There were EKG changes to the inferolateral leads. Troponin was slightly elevated after the code. It appears that this was mostly likely an acute ME. The patient's venous blood gas was 6.83. The endotracheal tube was moved back fter chest xray reviewed. There was a large left pleural effusion but no evidence of pericardial effusion. I placed a central to assess with central venous pressure monitoring as patient's family initially wanted everything done until they arrived at the bedside. The patient was anemic, showing a drop in the red blood cell count today. Reportedly admitted with a suspected GI bleed. I am not quite sure if her exact diagnosis was ultimately discovered. OBJECTIVE: As I started my resuscitation efforts, I found the patient to be with the following physical exam: Vital signs: Temperature is 90.1 rectal, pulse was 114, respiratory rate of 22, blood pressure was 94/70 with a MAP of 78 on two pressures. Oxygen saturation was 100% on 100% FiO2. HEENT: Sclerae clear and nonicteric. Pupils were constricted but reactive to light. Patient was blinking eyes but not following commands, not tracking. Neck: Supple. No tracheal deviation or mass. Very engorged external jugular veins along with increased JVP. Trachea was midline. Lymph nodes: No cervical, supraclavicular or axillary adenopathy. Chest wall: No evidence of crepitus. Cardiac: Distant S-1, S-2 without audible murmur, rub or gallop. PMI was difficult to palpate. Very low voltage QRS. Pulmonary: Decreased breath sounds at the left base, in general decreased breath sounds with prolonged expiratory phase, no rhonchi or wheeze, no dullness to percussion anteriorly. Posteriorly there was dullness to percussion at the left base. Abdomen: Soft, nontender, nondistended, no hepatosplenomegaly. Extremities: Multiple bruises of different stages. Musculoskeletal: Significant muscle wasting. Patient appeared cachectic as if she was chronically malnourished. LABORATORY EVALUATION: Arterial blood gases mentioned above. EKG as mentioned above. Chest x-ray shows hyperexpanded lung with blunted left costophrenic angle. Troponin was 462. BNP was 33,000. E. colic was in the urine on urine cultures. IMPRESSION: Cardiopulmonary arrest likely primary acute myocardial infarction. Suspect acute ME. Patient's family after being spoken to by the primary physician decided to withdraw care. They made her comfort measures. Her requested that she be extubated and all pressor therapy be stopped. She was then converted to comfort measures only. She clearly had what appeared to be cardiogenic shock but after the pressors were started, her central venous oxygen saturation was up to 76, therefore may have initiated some improvement with perfusion. It is unclear the exact precipitating cause of her but my suspicion would be myocardial infarction. SELINA
--- NOTE | 2021-10-13 06:36 | RO ---
OPERATIVE NOTE DATE OF OPERATION: 10/12/2021 PROCEDURE: Right internal jugular venous catheter. PRE-PROCEDURE DIAGNOSIS: Post cardiac arrest, need for venous access and pressure monitoring. POST-PROCEDURE DIAGNOSIS: Post cardiac arrest, need for venous access and pressure monitoring. SURGEON: AUGUSTO PONCE DO [facility]ATION[facility] PRESIDENT & CEO: None. ANESTHESIA: Patient was sedated on mechanical ventilation. DESCRIPTION OF PROCEDURE: Right IJ was prepped and draped in a sterile manner with Chlorhexidine and full sterile barrier precautions. The right IJ was identified under ultrasound and had increased central venous pressure estimated around 14 to 18. It was not collapsible. The Raulerson syringe was then introduced into the IJ and the first pass with return of venous blood flow and a wire was fed through the needle, the needle was removed. A lorenzo in the skin was made and the skin was dilated. The triple lumen catheter was then placed via modified Seldinger technique and the wire was removed. The triple lumen catheter was sutured at 15 cm. All three ports returned venous blood flow and flushed easily. Chest x-ray confirmed adequate placement. There was no evidence of pneumothorax or complications. A sterile impregnated dressing placed over the site. SELINA
--- NOTE | 2021-10-13 09:14 | ECHO ---
ECHOCARDIOGRAM DATE OF PROCEDURE: 10/12/2021 Age: 65 Gender: Female Height: 62 inches Weight: 93 pounds Body Surface Area: 1.38 meters squared Inpatient - ICU REFERRING PHYSICIAN: Brien Danielle INDICATION: Post-cardiac arrest MEASUREMENTS: 2D Measurements: RV - 2.5 cm LV - 3.6 cm Septum 0.8 cm Posterior wall 0.8 cm Aortic Root 3.0 cm LA - 3.6 cm LVEF 10-15% Doppler Measurements: AV - not measured LVOT - 0.7 m/s RVSP - 50 mmHg IVC - 1.6 cm COMMENTS: Study was performed post-resuscitation with the patient on two separate vasopressor therapies. Images have already been reviewed by Dr. Danielle who is managing the patient's cardiac arrest. Selected 2D images were obtained from the subcostal and apical projections along with selective continuous wave and tissue Doppler. Left ventricle was of normal size with normal wall thickness; however, there was paradoxical motion of the septum. The apex was akinetic. The distal lateral wall was akinetic. The mid and distal anterior wall was akinetic but there was retained motion of the proximal inferior and lateral wall. Markedly impaired global resting systolic function. Left atrial size was upper limits of normal with currently elevated estimated mean left atrial pressure. Normal right heart chamber sizes with hyperkinesis of the right ventricular free wall but Doppler evidence of moderate pulmonary hypertension. The right atrium and inferior vena cava (IVC) were within normal limits in size but there was reduced inferior vena cava (IVC) respiratory collapse suggesting an elevated central venous pressure. Aortic valvular sclerosis with adequate cusp separation but premature cusp closure related to reduced stroke volume. Mild degenerative changes of the mitral valvular apparatus with "low flow" appearance to leaflet motion but no posterior systolic buckling and at least moderate mitral insufficiency. Normal-appearing tricuspid valve but severe tricuspid insufficiency. No apparent intracardiac mass or pericardial effusion. Comparing today's study with examination performed October 08, 2021, there was a marked change in left ventricular performance (was hyperkinetic at that time with ejection fraction 75%). Mean left atrial pressure was elevated but pulmonary arterial pressure has certainly increased. Findings in keeping with an acute anterior and apical myocardial infarction.
--- NOTE | 2021-10-13 16:30 | DSES ---
DISCHARGE SUMMARY DATE OF ADMISSION: 10/08/2021 DATE OF DISCHARGE: 10/12/2021 PRIMARY DISCHARGE DIAGNOSES: 1. Emphysematous cystitis. 2. Acute coronary syndrome with ventricular tachycardia and cardiac arrest. 3. CAD, LAD and RCA with calcified coronary atherosclerosis. 4. Ctril-zv-srzcybi diastolic heart failure exacerbation with bilateral dependent pleural effusion. 5. Mild to moderate ascites, status post paracentesis with portal hypertension. 6. Elevated C 19-9. 7. Peripheral arterial disease with significant plaquing and narrowing of bilateral common iliac and external iliac arteries. 8. Emphysematous cystitis. 9. Diffuse fatty liver. 10. Right upper lobe pulmonary bleb. 11. Right pulmonary basilar or centrilobular emphysema with history of smoking. 12. Hypertriglyceridemia with triglycerides over 800. 13. Moderate to moderately severe tricuspid insufficiency. 14. Protein calorie malnutrition, BMI of 17.2, albumin of 1.1. 15. Anemia with heme positive stool requiring one unit of red blood cell transfusion. 16. Hypotension requiring midodrine. 17. Cardiogenic shock. PROCEDURES DURING THIS ADMISSION: 1. Intubation, mechanical ventilation. 2. PICC line placement. HOSPITAL COURSE: This is a 65-year-old female with history of emphysema, COPD, depression, prior history of smoking, hypertension, right upper lobe and left upper lobe lung lesions, chronic hypotension, previous sigmoid colectomy, lysis of adhesions, coloproctostomy and two abdominal surgeries, presented to the emergency room on 10/08/2021 with the complaints of hypotension and GI bleed. The patient presented to her primary care physician with complaints of 3-4 episodes of diarrhea per day for the past three days with blood in the stool for the past two days, generalized weakness, feeling unwell, was found to be hypotensive and sent to the emergency room with blood pressure of 85/50. The patient received IV fluids in the ambulance with persistent blood pressure of 85/55, a total of two liters. Hemoglobin decreased from previous baseline of 13 to 9.2. Rectal exam in the ER showed dark colored blood, heme positive. The patient has been having significant weight loss, reports that her clothes size has been down from 2 to 0 with decrease in appetite. CT, abdomen and pelvis in the emergency room showed diffuse fatty infiltration of the liver, a large amount of air throughout the bladder avila, small amount within the bladder lumen and very small amount in the soft tissue surrounding the urinary bladder consistent with emphysematous cystitis with mild to moderate diffuse abdominal and pelvic ascites. The patient was admitted for GI bleed requiring one unit of RBC transfusion and emphysematous cystitis, emergently given intravenous antibiotics with Ciprofloxacin in the ER and continued with intravenous Zosyn. She had abnormal EKG with deep T wave inversions in the lateral leads which is a change from prior EKG in December, with no complaints of chest pain, shortness of breath, palpitations, dizziness, lightheadedness with troponins negative. The patient was not oxygen or steroid dependent for COPD. She had significant muscle wasting and bitemporal wasting with BMI of 17.2 and albumin of 1.1. Echocardiogram was performed due to concerns of deep T-wave inversions. Echo showed EFF of 75% with sinus bradycardia without intraventricular conduction disturbance. The patient had normal LV size, wall thickness and hyperkinetic wall motion with grade 2 left ventricular diastolic dysfunction and elevated estimated left mean arterial pressure, normal right heart chambers in motion with Doppler estimated pulmonary arterial pressure upper limits of normal. The patient had mild to moderate aortic valvular sclerosis without functional abnormality. She had mild degenerative changes of her mitral valve apparatus with no more than trace mitral insufficiency. She had a normal appearing tricuspid valve with moderate to moderately severe insufficiency, no apparent intracardiac mass or pericardial effusion. The patient had persistent hypotension on October 08, 2021 with systolic pressure ranging from 75 to 77 systolic. She was started on midodrine 10 mg at 8, noon and 1600. She was given albumin transfusions, 25%, 12.5 gm IV q.6 hourly and received five total albumin transfusions and one unit of RBC. Leukocyte reduced with resultant improvement in hemoglobin from admission of 9.2 to 12.7. Patient continued to be hypotensive despite albumin transfusions and midodrine and received a total of 1.1 liter on 10/08, 1.3 liters on 10/09 and 10/10 with 1.2 liters and 10/11, 1.2 liters. General surgery was consulted due to concerns of persistent hypotension. Review of the CT did not show any valve perforation, abscess or diverticulitis. Urologist, Dr. Dasilva was consulted to comment on the thickened bladder wall on the CT, abdomen and pelvis due to concerns of possible malignancy with ascites. Due to poor venous access and persistent hypotension, PICC line was placed on 10/11/2021 in anticipation of needing vasopressor therapy. Patient underwent paracentesis on 10/11/2021 with 120 mL of clear fluid removed, sent to the lab for dialysis. Peritoneal fluid analysis showed portal hypertension. She was sent for a liver ultrasound to rule out portal vein thrombosis which was negative. Urine culture grew out E. coli which was sensitive to ceftriaxone. Zosyn was discontinued and she was changed to IV ceftriaxone without any fevers. Blood cultures grew Micrococcus luteus, one of two sets, most likely contaminant. Peritoneal fluid, gram stain body fluid showed no organisms, no gross aerobically, no gross anaerobically. Due to multiple albumin and blood transfusions, chest x-ray was performed after PICC line to rule out pneumothorax. There were new elements of atelectasis in the left hemithorax and air space disease along with small pleural effusion. The right hemithorax appears to be relatively clear. Right-sided PICC line was in the tip of the SVC with no evidence of pneumothorax. Due to ascites, CEA and CA 19-9 were ordered. Patient had a CEA of 6.9, normal of less than 2.5. CA 19-9 was elevated at 65.8 with normal being less than 35. Peritoneal cytology was not sent as there was not enough fluid. The patient was noted to be persistently hypotensive with systolic pressure ranging 81 systolic to 88 systolic. She was saturating 90 to 95% on room air with troponins being negative on 10/10/2021. Patient had transaminitis with fluid overload and diastolic heart failure with BNP of 14,019 but was saturating well on room air, 97%. Chest CT performed on 10/12/2021 showed no pulmonary embolism. She had pulmonary emphysema with large left dependent pleural effusion, moderate right dependent pleural effusion. Due to persistent hypotension, Lasix could not be given. Plans were to have vasopressor given by the PICC line and diuresis if patient becomes hypoxic. Patient was found to have metabolic acidosis. Due to persistent low blood pressure and concerns for peripheral arterial disease with possible falsely low blood pressure, patient was also ordered bilateral upper extremity arterial Dopplers. At 1727 p.m. while talking to an aide at the bedside, patient became unresponsive and slumped over. Nurse walked in and found that she had no pulse. CPR was started. Max cart was called. ACLS protocol was initiated. On telemetry, patient had V-tach, V-fib from 1727 to 1728, asystole was found at 1728 and CPR was started. Patient received three rounds of epinephrine. CPR was started on Levophed drip, vasopressin drip and normal saline, one liter of fluid and was intubated at 1800. According to prior discussion in the morning about resuscitative care, patient did want to be a full code. was called to the hospital to determine continuation of treatment. Buffet Attendant, Dr. Danielle was called to the bedside to help manage patient's cardiopulmonary arrest requiring intubation. Bedside Doppler showed akinetic cardiac evaluation with troponin of 462. Patient received three doses of IV bicarbonate during the resuscitative efforts. She was also started on sedation post-intubation. The patient was maximized on Levophed and vasopressin. Epinephrine drip was also started. The patient's was informed of patient's decompensation and he opted to have the patient become comfort measures only with withdrawal of care. DISCHARGE PHYSICAL EXAM: Vital signs: No respiratory rate, no blood pressure. Lungs: No breath sounds. Heart: No heart sounds. Abdomen: No bowel sounds. DISCHARGE LABORATORY DATA, IMAGING STUDY, MICROBIOLOGY: Please see the chart. Time spent on discharge: One hour. MTDD
--- NOTE | 2021-10-14 00:15 | ECGEPIP ---
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 Order Number: [id number] Reading MD: Jose Fong Measurements Intervals [place] Rate: 110 P: DE: QRS: -71 QRSD: 102 T: 88 QT: 460 QTc: 622 Interpretive Statements Critical Test Result: Long QTc Accelerated Junctional rhythm Left axis deviation Low voltage QRS Inferior-posterior infarct , age undetermined T wave abnormality, consider lateral ischemia Compared to prior tracings (2) in the system, normal sinus rhythm was noted Electronically Signed on 10-14-2021 0:15:41 EST by Jose Fong
--- NOTE | 2021-10-14 07:25 | DS.PDOC ---
Discharge Summary General Date of Admission Oct 08, 2021 at 12:26 Date of Discharge 10/12/21 Discharge Summary Addendum to discharge summary: Discharge diagnoses: Acute Anterior / Apical Myocardial Infarction Severe Sepsis secondary to Ecoli UTI/Emphysematous Cystitis Vital Signs/I&Os Vital Signs Date Time Temp Pulse Resp B/P (MAP) Pulse Ox O2 Delivery O2 Flow Rate FiO2 10/12/21 19:31 22 100 10/12/21 19:18 90.1 114 94/70 (78) Ventilator 10/12/21 19:15 97 10/08/21 16:25 3.0 Microbiology Microbiology 10/11/21 Acid Fast Stain, Received Pending 10/11/21 Mycobacterial Culture, Received Pending 10/11/21 Fungal Smear, Received Pending 10/11/21 Fungal Culture, Received Pending 10/11/21 Gram Stain - Final, Complete 10/11/21 Body Fluid Culture - Final, Complete 10/11/21 Anaerobic Culture - Final, Complete 10/09/21 Blood Culture - Preliminary, Resulted No Growth after 72 hours. All specime... 10/09/21 Blood Culture - Preliminary, Resulted No Growth after 72 hours. All specime... 10/08/21 Urine Culture - Final, Complete Escherichia Coli 10/08/21 Blood Culture - Final, Complete Micrococcus Luteus 10/08/21 Blood Culture - Final, Complete NO GROWTH AFTER 5 DAYS Discharge Medications Scheduled Calcium Carbonate (Calcium) 500 Mg Tab.chew, 500 MG PO QPM, (Reported) Cyanocobalamin (Vitamin B-12) (Vitamin B-12) 1,000 Mcg Tablet, 1,000 MCG PO DAILY, (Reported) Ferrous Sulfate (Ferrous Sulfate) 325 Mg Tablet, 325 MG PO DAILY, (Reported) Folic Acid (Folic Acid) 1 Mg Tablet, 1 MG PO DAILY, (Reported) Gabapentin (Gabapentin) 600 Mg Tablet, 600 MG PO TID, (Reported) Metoprolol Succinate (Metoprolol Succinate) 25 Mg Tab.er.24h, 25 MG PO QHS, (Reported) Multivitamin with Minerals (Multiple Vitamin) 1 Each Tablet, 1 TAB PO DAILY, (Reported) Nicotine (Nicotine Patch) 14 Mg Patch.td24, 14 MG TD DAILY, (Reported) Potassium Chloride (Potassium Chloride) 10 Meq Tab.er.prt, 20 MEQ PO DAILY, (Rep orted) Tiotropium Br/Olodaterol HCl (Stiolto Respimat Inhal [place]) 4 Gm Mist.inhal, 2 PUFFS INH DAILY, (Reported) Scheduled PRN Acetaminophen (Acetaminophen ER) 650 Mg Tablet.er, 1,300 MG PO Q8H PRN for PAIN / FEVER, (Reported) Albuterol Sulfate (Ventolin Hfa) 18 Gm Hfa.aer.ad, 2 PUFFS INH QID PRN for SOB/WHEEZING, (Reported) Docusate Sodium (Stool Softener) 100 Mg Capsule, 100 MG PO DAILY PRN for CONSTIPATION, (Reported) Ibuprofen (Ibuprofen) 200 Mg Capsule, 400 MG PO Q6H PRN for PAIN, (Reported) Polyethylene Glycol 3350 (Polyethylene Glycol 3350) 17 Gm Powd.pack, 17 GM PO DAILY PRN for CONSTIPATION, (Reported) Allergies Coded Allergies: fentanyl (Verified Allergy, Intermediate, INTENSE ITCHING, 11/18/19) CHANNING FATIMA MD Oct 14, 2021 07:25
== END 2021-10-12 21:04 | disposition expired | DRG 710 ==
LOC: M ED 09:08 → M ED INP 12:26 → ENRESERV 16:45 → M PCU 18:39
PROVIDERS: ADMIT Internal Medicine Nephrology; ATTEND General Practice
PROC: 5A1935Z Respiratory Ventilation, Less than 24 Consecutive Hours (ICD-10-PCS; 2021-10-08)
PROC: 30233N1 Transfusion of Nonautologous Red Blood Cells into Peripheral Vein, Percutaneous Approach (ICD-10-PCS; 2021-10-08)
PROC: 02HV33Z Insertion of Infusion Device into Superior Vena Cava, Percutaneous Approach (ICD-10-PCS; 2021-10-11)
PROC: 0W9G3ZX Drainage of Peritoneal Cavity, Percutaneous Approach, Diagnostic (ICD-10-PCS; principal; 2021-10-11 15:00)
DX: A41.9 Sepsis, unspecified organism (principal); I21.9 Acute myocardial infarction, unspecified; R57.0 Cardiogenic shock; I50.33 Acute on chronic diastolic (congestive) heart failure; E46 Unspecified protein-calorie malnutrition; E87.2 Acidosis; R18.8 Other ascites; K76.6 Portal hypertension; J44.9 Chronic obstructive pulmonary disease, unspecified; K92.2 Gastrointestinal hemorrhage, unspecified; N30.80 Other cystitis without hematuria; I36.0 Nonrheumatic tricuspid (valve) stenosis; K76.0 Fatty (change of) liver, not elsewhere classified; Z68.1 Body mass index [BMI] 19.9 or less, adult; D64.9 Anemia, unspecified; Z87.891 Personal history of nicotine dependence; Z79.899 Other long term (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 therapy; Z88.8 Allergy status to other drugs, medicaments and biological substances; Z98.41 Cataract extraction status, right eye; Z98.42 Cataract extraction status, left eye; Z51.5 Encounter for palliative care; R65.20 Severe sepsis without septic shock

== ENCOUNTER → 2021-10-08 | Outpatient (REF) | payer OTHER ==
[~2021-10-08] MED LIST changes: +CYAN100050 PO; -KLOR10TA76 PO; +POTA-136 PO
== END ==
LOC: M SFHCCLAY 07:57
PROVIDERS: ATTEND Family Medicine
DX: Z53.21 Procedure and treatment not carried out due to patient leaving prior to being seen by health care provider (principal)